=== PATIENT | female | born 1935 | race Caucasian/White ===

== ENCOUNTER 2016-08-31 22:57 | Inpatient (IN) | payer MEDICARE, OTHER ==
[2016-08-31] MEDS ORDERED: ASPIRIN 81 MG CHEW PO STA (23:17)
[2016-08-31] MEDS ORDERED: NITROGLYCERIN SL TABS 0.4 MG TAB SUBLINGUAL STA (23:17)
--- NOTE | 2016-08-31 23:20 | ED ---
Chest Pain HPI - General Source: patient, RN notes reviewed Mode of arrival: wheelchair Limitations: no limitations <Jsoe Barrientos - Last Filed: 09/01/16 01:30> <Juan Dejesus - Last Filed: 09/01/16 02:03> - General Chief Complaint: Chest Pain Stated Complaint: chest pain Time Seen by Provider: 08/31/16 23:12 - History of Present Illness Initial Comments: This is an 80-year-old female presents emergency Department with chief complaint of chest and back pain. Patient states that she seemed to start having some pain yesterday but pain intensified around 8 or 9 PM tonight. Patient states that she has pain in between her shoulder blades and anterior chest region. Patient states that hurts worse when she lays down. Patient does admit to increased shortness of breath when in which she does have COPD on home oxygen 2 L. Patient states that she's been told that she has an enlarged heart. Patient does have a history of hyperlipidemia, hypertension. Patient is a former smoker. Patient states that she has recently been taken off her Lasix. Patient does admit to taken 81 mg aspirin at home. Patient states she has no abdominal discomfort. Denies any vomiting but states that she had some nausea. Denies any diaphoresis. (Jose Barrientos) - Related Data Home Medications Medication Instructions Recorded Confirmed Aspirin [Adult Low Dose Aspirin EC] 1 tab PO DAILY 08/31/16 08/31/16 Enalapril Maleate [Vasotec] 5 mg PO DAILY 08/31/16 08/31/16 Simvastatin [Zocor] 1 tab PO DAILY 08/31/16 08/31/16 Allergies Allergy/AdvReac Type Severity Reaction Status Date / Time No Known Allergies Allergy Verified 08/31/16 23:02 Review of Systems ROS Other: All systems not noted in ROS Statement are negative. <Jose Barrientos - Last Filed: 09/01/16 01:30> ROS Other: All systems not noted in ROS Statement are negative. <Juan Dejesus - Last Filed: 09/01/16 02:03> ROS Statement: Those systems with pertinent positive or pertinent negative responses have been documented in the HPI. (Jose Barrientos) (Juan Dejesus) EKG Findings - EKG Comments: EKG Findings:: EKG performed at 23:07 normal sinus rhythm with a rate of 89, WA 154, QRS duration 94, QT/QTC 354/430 <Jose Barrientos - Last Filed: 09/01/16 01:30> Past Medical History Past Medical History: COPD, Myocardial Infarction ([place]) History of Any Multi-Drug Resistant Organisms: None Reported Past Surgical History: No Surgical Hx Reported Past Psychological History: No Psychological Hx Reported Smoking Status: Former smoker Past Alcohol Use History: None Reported Past Drug Use History: None Reported <Jose Barrientos - Last Filed: 09/01/16 01:30> General Exam Limitations: no limitations General appearance: alert, in no apparent distress, cachectic ENT exam: Present: normal exam, mucous membranes moist, other (Nasal cannula) Neck exam: Present: normal inspection. Absent: tenderness, meningismus, lymphadenopathy Respiratory exam: Present: decreased breath sounds. Absent: respiratory distress, wheezes, rales, rhonchi, stridor, chest wall tenderness, accessory muscle use Cardiovascular Exam: Present: regular rate, normal rhythm, normal heart sounds. Absent: systolic murmur, diastolic murmur, rubs, gallop, clicks GI/Abdominal exam: Present: soft, normal bowel sounds. Absent: distended, tenderness, guarding, rebound, rigid Neurological exam: Present: alert, oriented X3, CN II-XII intact Skin exam: Present: warm, dry, intact, normal color. Absent: rash <Jose Barrientos - Last Filed: 09/01/16 01:30> Course <Jose Barrientos - Last Filed: 09/01/16 01:30> <Juan Dejesus - Last Filed: 09/01/16 02:03> Vital Signs 08/31/16 09/01/16 22:59 01:00 Temperature 97.1 F L Pulse Rate 91 71 Respiratory 18 16 Rate Blood Pressure 158/77 189/76 O2 Sat by Pulse 95 96 Oximetry (Jose Barrientos) (Juan Dejesus) - Reevaluation(s) Reevaluation #1: 09/01/16 02:02 I did personally do a [id number] examination the patient. Patient's been complaining of pain to the right side of her chest the past 4 days now radiating to the left and across the back she denies any fevers chills nausea vomiting sweats. Pain was reproducible on palpation of the right trapezius musculature. Her x-rays and CAT scans show no acute findings. Patient be admitted for evaluation of chest pain. Heart and lungs were clear with regular rate and rhythm on the exam of the heart. I do agree with the assessment and plan. I did discuss case with Dr. Vogt. (Juan Dejesus) Disposition <Jose Barrientos - Last Filed: 09/01/16 01:30> <Juan Dejesus - Last Filed: 09/01/16 02:03> Clinical Impression: Chest pain Disposition: ADMITTED IP TO THIS HOSP Condition: Stable
--- NOTE | 2016-08-31 23:39 | XR ---
EXAMINATION TYPE: XR chest 2V DATE OF EXAM: 08/31/2016 11:32 PM COMPARISON: 07/30/2016 HISTORY: Chest pain TECHNIQUE: Frontal and lateral views of the chest are obtained. FINDINGS: Heart size is normal. Lungs are clear of consolidation. There is mild pleural thickening a t the lung apices. There is some right upper lobe scarring. There are no hilar masses. Thoracic aorta is atheromatous. There is no evidence of pleural effusion. There is osteopenia. IMPRESSION: No active cardiopulmonary disease. Normal heart. No change.
[2016-08-31 23:49] LABS: Basophils % (A) 0 %; CH 29.7; CHCM 33.2; Eosinophils # (A) 0.2 k/uL (0-0.7); Eosinophils % (A) 2 %; HCT 41.2 % (34.0-46.0); HDW 2.42; HGB 13.5 gm/dL (11.4-16.0); Luc # (Auto) 0.19; Luc % (Auto) 1; Lymphocytes # (A) 1.2 k/uL (1.0-4.8); Lymphocytes % (A) 8 %; MCH 29.3 pg (25.0-35.0); MCHC 32.7 g/dL (31.0-37.0); MCV 89.6 fL (80.0-100.0); Monocytes # (A) 0.8 k/uL (0-1.0); Monocytes % (A) 5 %; Neutrophils # (A) 12.5 k/uL (1.3-7.7); Neutrophils % (A) 83 %; RDW 13.2 % (11.5-15.5); WBC 14.9 k/uL (3.8-10.6)
[2016-09-01 00:01] LABS: ALT 35 U/L (9-52); AST 23 U/L (14-36); Alkaline Phosphatase 66 U/L (38-126); Anion Gap 9 mmol/L; Blood Urea Nitrogen 17 mg/dL (7-17); Calcium 10.1 mg/dL (8.4-10.2); Carbon Dioxide 27 mmol/L (22-30); Chloride 103 mmol/L (98-107); Glucose 132 mg/dL (74-99); Magnesium 1.9 mg/dL (1.6-2.3); Non-African American GFR(MDRD) >60 (>60 ml/min/1.73 sqM); Potassium 4.4 mmol/L (3.5-5.1); Sodium 139 mmol/L (137-145); Total Bilirubin 0.6 mg/dL (0.2-1.3); Total Protein 6.5 g/dL (6.3-8.2)
[2016-09-01 00:23] LABS: Creatine Kinase 143 U/L (30-135)
[2016-09-01 00:36] LABS: Partial Thromboplastin Time 20.9 sec (22.0-30.0); Troponin I <0.012 ng/mL (0.000-0.034)
[2016-09-01] MEDS ORDERED: RX INFO: IV CONTRAST WAS GIVEN 1 EACH MISC MISCELLANE PRN (00:38)
[2016-09-01 00:46] LABS: Creatine Kinase MB 4.5 ng/mL (0.0-2.4)
--- NOTE | 2016-09-01 01:21 | CT ---
EXAMINATION TYPE: CT angio chest DATE OF EXAM: 09/01/2016 1:07 AM COMPARISON: 01/17/2012 HISTORY: chest pain, elevated d-dimer CT DLP: 461 mGycm Automated exposure control for dose reduction was used. CONTRAST: CTA scan of the thorax is performed with IV Contrast, patient injected with 90 mL of Omnipaque 350, p ulmonary embolism protocol. MIP images are created and reviewed. 3D reconstructed images are create d on an independent workstation and reviewed. FINDINGS: There is diffuse pulmonary emphysema. There is a 3 x 1.5 cm linear area of somewhat spiculated infilt rate in the superior right upper lobe extending to the apex. This has a linear appearance and is cons istent with scarring. This appears fairly stable compared to the old CT scan of 01/17/2012. The thoracic aorta is atheromatous. There is no evidence of aneurysm. Ascending aorta measures 3.3 cm . There is a 2 cm lymph node at the superior right pulmonary hilum. Heart size is normal. There is no pericardial effusion. I see no filling defects in the pulmonary arteries. There is no pleural effusi on. IMPRESSION: ATHEROSCLEROTIC VASCULAR DISEASE. NO EVIDENCE OF PULMONARY EMBOLISM. EMPHYSEMA. CHRONIC MASSLIKE INFILTRATE IN THE RIGHT UPPER LOBE IS SOMEWHAT LINEAR AND CONSISTENT WITH SCARRING A ND FAIRLY STABLE COMPARED TO OLD EXAM. THERE IS AN ENLARGED RIGHT BRONCHIAL LYMPH NODE IS INCREASED COMPARED TO LAST EXAM AND IS OF UNCERTAI N SIGNIFICANCE.
[2016-09-01] MEDS ORDERED: HEPARIN SODIUM,PORCINE 5,000 UNIT/ML 1 ML VIAL IV ONE (01:30)
[2016-09-01] MEDS ORDERED: HEPARIN SODIUM,PORCINE/D5W PMX 25,000 UNIT in DEXTROSE/WATER 1 500ML.BAG IV SCH (01:30)
[2016-09-01] MEDS ORDERED: NITROGLYCERIN SL TABS 0.4 MG TAB SUBLINGUAL PRN (01:30)
[2016-09-01 07:00] LABS: Creatine Kinase 120 U/L (30-135)
[2016-09-01 07:12] LABS: Troponin I <0.012 ng/mL (0.000-0.034)
[2016-09-01 07:14] LABS: Creatine Kinase MB 3.7 ng/mL (0.0-2.4)
[2016-09-01] MEDS: METOPROLOL TARTRATE 25 MG TAB PO SCH ×2 (09:36→22:47)
[2016-09-01] MEDS: ATORVASTATIN 10 MG TAB PO SCH (09:37)
[2016-09-01] MEDS: ASPIRIN 81 MG CHEW PO SCH (09:37)
[2016-09-01] MEDS: LISINOPRIL 10 MG TAB PO SCH (09:37)
[2016-09-01] MEDS: ALBUTEROL NEBULIZED 2.5 MG/3 ML INHALATION SCH ×4 (10:26→20:32)
[2016-09-01] MEDS: SYMBICORT 160-4.5 MCG INHALER INHALATION SCH ×2 (10:26→20:32)
[2016-09-01 11:42] LABS: Creatine Kinase 114 U/L (30-135)
[2016-09-01 11:54] LABS: Troponin I <0.012 ng/mL (0.000-0.034)
[2016-09-01] MEDS ORDERED: ALBUTEROL NEBULIZED 2.5 MG/3 ML INHALATION SCH (12:00)
[2016-09-01 12:01] LABS: Creatine Kinase MB 3.5 ng/mL (0.0-2.4)
[2016-09-01] MEDS: ACETAMINOPHEN TAB 325 MG TAB PO PRN (12:50)
--- NOTE | 2016-09-01 14:06 | CONS ---
DATE OF CONSULTATION: Ms. Adamson is an 80-year-old female with known history of advanced chronic obstructive lung disease on home O2, history of hypertension, hyperlipidemia, who presented to the hospital with symptoms of upper back discomfort and chest discomfort. She has been having the back discomfort on and off in the past constant for the last 3 days, worse with movement and on pressure on the right shoulder and started radiating to the front. Because of that, came into the emergency room and subsequently admitted. Patient is on home O2, has dyspnea on exertion, has been stable. Has been followed by Dr. Leos in the past. In the past, she was told that she had a heart attack, but according to her, she has underwent cardiac catheterization at that time that revealed no evidence of obstructive coronary artery disease. She denies any peripheral edema. She denies any dizziness. No palpitation. No PND, orthopnea, or peripheral edema. She has no recent cough. She has some nausea and vomiting yesterday. Her coronary risk factors are remarkable for prior history of smoking. She stopped 7 years ago, history of hypertension and hyperlipidemia. She is nondiabetic. Her medications at home include: 1. Aspirin once a day. 2. Enalapril 5 mg daily. 3. Simvastatin 10 mg daily. REVIEW OF SYSTEMS: RESPIRATORY SYSTEM: She has the history of chronic obstructive lung disease with home O2 followed by Dr. Leos. GI system: She had no recent GI bleeding. She had recent nausea and vomiting. system: No dysuria or hematuria. Nervous system: Questionable history of stroke in the past. PHYSICAL EXAMINATION: An 80-year-old female, alert, oriented, in no apparent distress. Blood pressure 152/69 with a heart in the 70s. HEAD: Normocephalic. EYES: Sclerae anicteric. NECK: Good upstroke. No bruit. No jugular venous distention. LUNGS: With decreased air exchange. No wheezes. HEART: Regular rate rhythm. S1, S2, no S3, no rub. ABDOMEN: Soft, nontender, positive bowel sounds. No organomegaly. EXTREMITIES: No edema. Intact distal pulses. Lab data revealed hemoglobin 13.5. Troponin less than 0.012 for 2 samples BUN and creatinine 17 and 0.6. NT-proBNP of 269. Potassium 4.4. Hemoglobin of 13.5. Chest x-ray revealed no acute infiltrate. She had a CT angiogram of the chest that revealed atherosclerotic vascular disease. No evidence of pulmonary embolism, masslike infiltrate in the right upper lobe that apparently is stable. Enlarged right bronchial lymph nodes with some increased compared with the last exam. EKG revealed a sinus mechanism, normal axis and intervals, evidence of left ventricular hypertrophy with nonspecific ST-T wave changes. IMPRESSION: 1. Back and chest discomfort, has some atypical feature for ischemic heart disease. The back discomfort on the right side. There appears to be exacerbated by palpation on physical examination today. 2. Chronic obstructive lung disease. 3. History of hypertension. 4. Hyperlipidemia. RECOMMENDATIONS: From the cardiac standpoint, I will stop her heparin, increase her level of activity. If she has no further symptoms, then I would recommend to proceed with a stress test and echocardiogram as an outpatient. On the other hand if she had persistent symptoms further evaluation will be needed. In the meantime, I will add to her regimen a beta nilesh. Depending on her progress, further recommendation will be made. Thank you for this consult. We will follow with you.
--- NOTE | 2016-09-01 14:50 | XR ---
EXAMINATION TYPE: XR abdomen complete w decub DATE OF EXAM: 09/01/2016 2:42 PM COMPARISON: NONE HISTORY: Abdominal pain TECHNIQUE: 3 views. FINDINGS: There are multiple dilated loops of small bowel in the mid abdomen with a few fluid levels. There is no sign of pneumoperitoneum. There is air in the right colon. There is IV contrast in the urinary tracy dder. There are a few calcifications over the left kidney. IMPRESSION: There are dilated loops of small bowel suggestive of a mechanical small bowel obstruction. No free ai r.
[2016-09-01 15:47] LABS: Appearance,Urine Clear (Clear); Bacteria,Urine Occasional /hpf; Bilirubin,Urine Negative (Negative); Glucose,Urine (UA) Negative (Negative); Ketones,Urine Negative (Negative); Leukocyte Esterase,Urine Negative (Negative); Mucus,Urine Occasional /hpf; Nitrite,Urine Negative (Negative); Particle Count 10482; Protein,Urine 1+ (Negative); RBC,Urine 14 /hpf (0-5); Squamous Epithelial Cell,Urine 2 /hpf (0-4); UA Billing (MACRO vs. MICRO) MICRO; Urobilinogen,Urine <2.0 mg/dL (<2.0); WBC,Urine 5 /hpf (0-5)
[2016-09-01 16:15] LABS: Specific Gravity,Urine >1.050 (1.001-1.035)
[2016-09-01] MEDS: ONDANSETRON 4 MG/2 ML VIAL IVP PRN (17:05)
[2016-09-01] MEDS: SODIUM CHLORIDE 0.9% 1,000 ML IV SCH (17:13)
[2016-09-01] MEDS: DOCUSATE 100 MG CAP PO SCH (20:21)
[2016-09-01] MEDS: MORPHINE SULFATE 2 MG/ML SYRINGE IVP PRN (20:22)
[2016-09-02] MEDS: ALBUTEROL NEBULIZED 2.5 MG/3 ML INHALATION SCH ×7 (02:10→23:12)
[2016-09-02] MEDS: SODIUM CHLORIDE 0.9% 1,000 ML IV SCH ×2 (04:29→17:29)
[2016-09-02] MEDS: MORPHINE SULFATE 2 MG/ML SYRINGE IVP PRN ×2 (04:29→20:13)
[2016-09-02] MEDS: SYMBICORT 160-4.5 MCG INHALER INHALATION SCH ×2 (07:20→23:06)
[2016-09-02] MEDS: DOCUSATE 100 MG CAP PO SCH ×3 (07:22→20:10)
--- NOTE | 2016-09-02 07:31 | XR ---
EXAMINATION TYPE: XR abdomen 2V DATE OF EXAM: 09/02/2016 6:36 AM COMPARISON: 09/01/2016 HISTORY: Pain TECHNIQUE: Single supine KUB image of the abdomen is obtained. FINDINGS: The osseous structures are intact. Dilated bowel loops with air-fluid levels again noted. Contrast in the bladder noted. Vascular calcifications noted. IMPRESSION: 1. Persistent dilation of bowel loops with air-fluid levels in a pattern suggestive of small bowel ob struction.
[2016-09-02 07:54] LABS: Basophils % (A) 0 %; CH 29.4; CHCM 32.5; Eosinophils # (A) 0.1 k/uL (0-0.7); Eosinophils % (A) 1 %; HCT 36.9 % (34.0-46.0); HDW 2.34; Luc # (Auto) 0.15; Luc % (Auto) 1; Lymphocytes # (A) 0.8 k/uL (1.0-4.8); Lymphocytes % (A) 8 %; MCH 29.7 pg (25.0-35.0); MCHC 32.6 g/dL (31.0-37.0); Mean Platelet Volume 6.8; Monocytes # (A) 0.7 k/uL (0-1.0); Monocytes % (A) 7 %; Neutrophils # (A) 8.8 k/uL (1.3-7.7); Neutrophils % (A) 84 %; RBC 4.06 m/uL (3.80-5.40); RDW 13.2 % (11.5-15.5); WBC 10.5 k/uL (3.8-10.6); WBC (Perox) 11.46
[2016-09-02 07:58] LABS: Calcium 8.8 mg/dL (8.4-10.2); Potassium 4.4 mmol/L (3.5-5.1)
[2016-09-02] MEDS ORDERED: ASPIRIN 325 MG TAB PO SCH (09:00)
--- NOTE | 2016-09-02 12:30 | P.GSCN ---
History of Present Illness Consult date: 09/02/16 History of present illness: The patient is an 80-year-old female presented to the emergency department with a complaint of chest and back discomfort. She has a long-standing history of severe COPD and is dependent on home O2. After admission to the hospital family states that she began having abdominal discomfort. The patient had nausea and vomited. The patient has apparent increased abdominal distention since admission. The patient is passing flatus. The patient states that she has minimal discomfort when she is resting recumbent. The patient's last bowel movement was 4 days ago. Secondary to her COPD patient has been told she is a very poor candidate for surgical intervention. Review of systems: HEENT: None reported Respiratory: COPD, requiring Home O2 heart: Myocardial infarction GI: As reported above above Past Medical History Past Medical History: COPD, Hyperlipidemia, Myocardial Infarction ([place]) Last Myocardial Infarction Date:: 2009 History of Any Multi-Drug Resistant Organisms: None Reported Past Surgical History: Tonsillectomy, Tubal Ligation Past Anesthesia/Blood Transfusion Reactions: No Reported Reaction Past Psychological History: No Psychological Hx Reported Smoking Status: Former smoker Past Alcohol Use History: None Reported Past Drug Use History: None Reported Medications and Allergies Home Medications Medication Instructions Recorded Confirmed Type Aspirin [Adult Low Dose Aspirin EC] 81 tab PO DAILY 08/31/16 09/01/16 History Enalapril Maleate [Vasotec] 2.5 mg PO DAILY 08/31/16 09/01/16 History Albuterol Nebulized [Ventolin 2.5 mg INHALATION RT-Q4H PRN 09/01/16 09/01/16 History Nebulized] Albuterol Sulfate [Proair Hfa] 1 - 2 puff INHALATION RT-Q6H PRN 09/01/16 History Budesonide/Formoterol Fumarate 2 puff INHALATION RT-BID 09/01/16 09/01/16 History [Symbicort 160-4.5 Mcg Inhaler] Simvastatin [Zocor] 20 mg PO DAILY 09/01/16 09/01/16 History Allergies Allergy/AdvReac Type Severity Reaction Status Date / Time No Known Allergies Allergy Verified 09/01/16 09:11 Surgical - Exam Vital Signs Temp Pulse Resp BP Pulse Ox 97.1 F L 91 18 158/77 95 08/31/16 22:59 08/31/16 22:59 08/31/16 22:59 08/31/16 22:59 08/31/16 22:59 - General cachectic - Eyes normal ocular movement - Respiratory Decreased breath sounds at the bases - Cardiovascular Rhythm: regular Heart Sounds: normal: S1, S2 - Abdomen Abdomen: non tender, bowel sounds, distended - Rectum Positive stool on rectal exam Rectum: normal sphincter tone, no bleeding - Psychiatric oriented to time, oriented to person, oriented to place Results - Labs 09/02/16 07:23 09/02/16 07:23 Abnormal Lab Results - Last 24 Hours (Table) 09/01/16 09/02/16 09/02/16 Range/Units 14:57 07:23 07:23 Neutrophils # 8.8 H (1.3-7.7) k/uL Lymphocytes # 0.8 L (1.0-4.8) k/uL BUN 25 H (7-17) mg/dL Creatinine 1.23 H (0.52-1.04) mg/dL Glucose 114 H (74-99) mg/dL HDL Cholesterol 65 H (40-60) mg/dL Ur Specific [place] >1.050 H (1.001-1.035) Urine Protein 1+ H (Negative) Urine RBC 14 H (0-5) /hpf Urine Bacteria Occasional H (None) /hpf Urine Mucus Occasional H (None) /hpf Diabetes panel 09/02/16 Range/Units 07:23 Sodium 141 (137-145) mmol/L Potassium 4.4 (3.5-5.1) mmol/L Chloride 100 (98-107) mmol/L Carbon Dioxide 30 (22-30) mmol/L BUN 25 H (7-17) mg/dL Creatinine 1.23 H (0.52-1.04) mg/dL Glucose 114 H (74-99) mg/dL Calcium 8.8 (8.4-10.2) mg/dL Triglycerides 107 (<150) mg/dL HDL Cholesterol 65 H (40-60) mg/dL Calcium panel 09/02/16 Range/Units 07:23 Calcium 8.8 (8.4-10.2) mg/dL Pituitary panel 09/02/16 Range/Units 07:23 Sodium 141 (137-145) mmol/L Potassium 4.4 (3.5-5.1) mmol/L Chloride 100 (98-107) mmol/L Carbon Dioxide 30 (22-30) mmol/L BUN 25 H (7-17) mg/dL Creatinine 1.23 H (0.52-1.04) mg/dL Glucose 114 H (74-99) mg/dL Calcium 8.8 (8.4-10.2) mg/dL Adrenal panel 09/02/16 Range/Units 07:23 Sodium 141 (137-145) mmol/L Potassium 4.4 (3.5-5.1) mmol/L Chloride 100 (98-107) mmol/L Carbon Dioxide 30 (22-30) mmol/L BUN 25 H (7-17) mg/dL Creatinine 1.23 H (0.52-1.04) mg/dL Glucose 114 H (74-99) mg/dL Calcium 8.8 (8.4-10.2) mg/dL - Imaging Abdominal x-ray: report reviewed, image reviewed (Abdominal x-ray reveals distended small bowel loops however there is air in the colon) Assessment and Plan Plan: Impression/plan: 1. Chest pain, patient seen and evaluated by cardiology does not appear to have an acute cardiac problem and recommended to undergo outpatient stress test and echo 2. Severe COPD 3. Abdominal discomfort however patient is passing flatus and has stool in rectal vault Plan: 1. Fleets enema 2. Patient does not have resolution of symptoms were strongly recommend NG tube placement 3. Patient is very poor candidate for surgical intervention will try to treat conservatively
[2016-09-02] MEDS ORDERED: NA PHOS,M-B/NA PHOS,DI-BA 133 ML ENEMA RECTAL ONE (12:56)
--- NOTE | 2016-09-02 13:47 | HP ---
DATE OF ADMISSION: HISTORY OF PRESENT ILLNESS: Ms. Adamson is an 80-year-old female with ( ) with known history of hypertension, hyperlipidemia and COPD on home oxygen, came to the hospital with complaints of chest pain and back pain. Apparently the patient has been having significant back pain from recent fall and patient on right shoulder pain which made her come to the hospital. Patient is a former smoker. Otherwise patient was seen by Cardiology and serial EKGs are negative. Patient apparently was complaining of abdominal pain, mainly in the lower abdomen and associated with nausea and poor oral intake. Abdominal x-ray showed dilated loops of small bowel suggestive of mechanical small bowel obstruction. No free air. Patient is currently being continued on IV fluids and kept n.p.o. No fever. No chills. REVIEW OF SYSTEMS: CONSTITUTIONAL: No fever. No chills. No weakness, malaise. RESPIRATORY: No cough or sputum production. CARDIOVASCULAR: No chest pain or shortness of breath. No leg swelling. ABDOMEN: Patient does have nausea and no vomiting. Patient does have abdominal pain. No diarrhea. Patient does have constipation. GENITOURINARY: Negative. ENDOCRINE: Negative. PSYCHIATRIC: Negative. All other fourteen point review of systems negative except as above. Apparently patient had recently had gastroenteritis with diarrhea for 2 days and since then patient has not passed a bowel movement and is not tolerating p.o. diet. Apparently similar complaints in the place where she was living. PAST MEDICAL HISTORY: Hypertension, hyperlipidemia, COPD on home oxygen, history of cardiac catheterization, history of ND. PAST SURGICAL HISTORY: Denied any surgical history. SOCIAL HISTORY: Patient is former smoker. Denied alcohol. Denied drugs or IVDU. FAMILY HISTORY: Denied any history of hypertension, diabetes mellitus, heart disease in the family. ALLERGIES: No known drug allergies. Home medication include: Aspirin, Enalapril, Zocor. PHYSICAL EXAMINATION: An 80-year-old female, lying in the bed. Awake, alert, oriented x3. Appears to be in no apparent distress. VITALS: Blood pressure 143/66, pulse is 61, respiratory rate 18, temperature afebrile, pulse ox 94% on 2-L nasal cannula. HEENT: Atraumatic, normocephalic. Neck is supple. No JVD. CVS: S1, S2 heard. No murmurs, no gallop. LUNGS: Bilateral air entry present. ABDOMEN: Soft. Bowel sounds are sluggish, not heard sometimes. Lower abdominal tenderness. No guarding or rigidity. Bowel sounds present. [employer] VET[employer]INARIAN: Awake, alert, oriented x3. No focal deficit. Cranial nerves grossly intact. EXTREMITIES: No edema. Pulses palpable bilaterally. No clubbing or cyanosis. PSYCHIATRIC: Cooperative. Nonsuicidal. SKIN: No rash or skin lesions. LABORATORY DATA: WBC 14.9, hemoglobin 10.5, platelets 290, INR 1.0. D-dimer is 1.57. Sodium 139, potassium 4.4, chloride 103, bicarb is 27. BUN 17, creatinine 0.6. Blood sugar is 132. NT-proBNP is 269. Albumin 4.1. Serial EKGs and troponins are negative. UA negative for infection. EKG: Normal sinus rhythm. CT angiogram negative for any pulmonary embolism. Chest x-ray showed no acute cardiopulmonary process. Normal heart size. No change. IMPRESSION: 1. Abdominal pain most likely secondary to mechanical small bowel obstruction. 2. Recent gastroenteritis. 3. Atypical chest pain and back pain from recent fall, rule out acute coronary syndrome. 4. Hypertension. 5. Hyperlipidemia. 6. Chronic obstructive pulmonary disease on home oxygen, stable currently. 7. DVT prophylaxis with heparin subcu. DISCUSSION AND PLAN: An 80-year-old female admitted to the hospital with abdominal pain and atypical chest pain. Will continue with IV fluids and continue with the patient n.p.o. Will consult General Surgery and continue the breathing treatments and home medications. Cardiology recommended outpatient work-up. Otherwise will continue the current management and further recommendations based on the clinical course.
[2016-09-02] MEDS: HEPARIN SODIUM,PORCINE 5,000 UNIT/ML 1 ML VIAL SQ SCH ×2 (14:44→20:10)
[2016-09-02] MEDS: ATORVASTATIN 10 MG TAB PO SCH (14:44)
[2016-09-02] MEDS: ASPIRIN 81 MG CHEW PO SCH (14:44)
[2016-09-02] MEDS: METOPROLOL TARTRATE 25 MG TAB PO SCH ×2 (14:44→20:10)
[2016-09-02] MEDS: LISINOPRIL 10 MG TAB PO SCH (14:44)
--- NOTE | 2016-09-02 18:41 | PN ---
Mrs. Adamson is an 80-year-old female with known history of advanced chronic obstructive lung disease, who presented with back and chest discomfort. Her chest and back feels well at this time. Her main complaint is related to her abdominal discomfort, she has been having discomfort in the abdomen since yesterday. She denies any dizziness, palpitation. On the monitor, she continued to be in sinus mechanism At the time for cardiac catheterization, she had no evidence of obstructive heart disease, but there was evidence of cardiomyopathy and according to the notes, there was a possibility of takotsubo syndrome. She continues to be at this time on aspirin once a day, Lipitor 10 mg daily, Lisinopril 10 mg daily, metoprolol titrate 25 mg twice a day. PHYSICAL EXAMINATION: Blood pressure 114/56 with a heart rate in the 70s. LUNGS: Clear. HEART: Regular rate and rhythm. S1 and S2, no S3, with systolic murmur. No diastolic murmur. ABDOMEN: Soft, mild tenderness diffuse. No organomegaly. EXTREMITIES: No edema. Lab data revealed BUN and creatinine 25 and 1.23. Potassium 4.4. Cholesterol is 155 with an LDL of 69. Hemoglobin of 12 with white blood cell of 10.5. She had abdominal x-ray that showed dilatation of the bowel loops ( ) air fluid levels consistent with small bowel obstruction. IMPRESSION: 1. Abdominal pain with possible small bowel obstruction. Work-up in progress. 2. Back and chest discomfort, atypical for ischemic heart disease. 3. History of chronic obstructive lung disease. 4. History of hypertension. 5. Hyperlipidemia. RECOMMENDATIONS: From the cardiac standpoint. She has no evidence of active disease at this time. I will obtain an echocardiogram and Doppler because of the prior history of cardiomyopathy, although that could be a transient pain. The mild elevation of the renal function could be related to the dye she received with CT angiogram. Will await the surgical consultation in regard to her abdominal symptoms.
[2016-09-02] MEDS: TEMAZEPAM 15 MG CAP PO PRN (20:13)
[2016-09-03] MEDS: ONDANSETRON 4 MG/2 ML VIAL IVP PRN ×2 (00:41→13:28)
[2016-09-03] MEDS: ALBUTEROL NEBULIZED 2.5 MG/3 ML INHALATION SCH ×7 (03:58→23:43)
[2016-09-03] MEDS: SODIUM CHLORIDE 0.9% 1,000 ML IV SCH ×2 (04:39→20:10)
[2016-09-03] MEDS: SYMBICORT 160-4.5 MCG INHALER INHALATION SCH ×2 (07:49→19:48)
[2016-09-03] MEDS: DOCUSATE 100 MG CAP PO SCH ×2 (08:13→20:10)
[2016-09-03] MEDS: ASPIRIN 81 MG CHEW PO SCH (08:13)
[2016-09-03] MEDS: ATORVASTATIN 10 MG TAB PO SCH (08:13)
[2016-09-03] MEDS: LISINOPRIL 10 MG TAB PO SCH (08:13)
[2016-09-03] MEDS: METOPROLOL TARTRATE 25 MG TAB PO SCH ×2 (08:13→20:10)
[2016-09-03] MEDS: HEPARIN SODIUM,PORCINE 5,000 UNIT/ML 1 ML VIAL SQ SCH ×2 (08:14→21:13)
[2016-09-03 09:36] LABS: Anion Gap 12 mmol/L; Blood Urea Nitrogen 22 mg/dL (7-17); Calcium 8.3 mg/dL (8.4-10.2); Carbon Dioxide 26 mmol/L (22-30); Chloride 104 mmol/L (98-107); Glucose 89 mg/dL (74-99); Non-African American GFR(MDRD) >60 (>60 ml/min/1.73 sqM); Potassium 4.1 mmol/L (3.5-5.1); Sodium 142 mmol/L (137-145)
[2016-09-03 09:42] LABS: Basophils % (A) 0 %; CH 29.1; CHCM 31.4; Eosinophils # (A) 0.1 k/uL (0-0.7); Eosinophils % (A) 1 %; HCT 34.3 % (34.0-46.0); Luc % (Auto) 1; Lymphocytes # (A) 0.8 k/uL (1.0-4.8); Lymphocytes % (A) 10 %; MCH 29.8 pg (25.0-35.0); Mean Platelet Volume 7.4; Monocytes # (A) 0.5 k/uL (0-1.0); Monocytes % (A) 6 %; Neutrophils # (A) 6.9 k/uL (1.3-7.7); Neutrophils % (A) 81 %; RBC 3.69 m/uL (3.80-5.40); WBC 8.4 k/uL (3.8-10.6); WBC (Perox) 8.82
--- NOTE | 2016-09-03 13:11 | PN ---
DATE OF SERVICE: 09/02/2016 Interval history: Ms. Adamson is an 80 -year-old female with known history of multiple medical problems admitted to the hospital with complaints of back pain and chest pain. Patient also had recent fall. The patient also having shoulder pain and back pain since then. Otherwise, patient was found to have constipation and recent diarrhea. Patient had abdominal x-ray done showed dilated small bowel loops with possible small bowel obstruction. Patient was continued on NPO. The patient had a ( ) today and had bowel movement which symptoms have been resolved now. Currently, patient is ( ). REVIEW OF SYSTEMS: CONSTITUTIONAL: No fever. No chills. RESPIRATORY: No cough or sputum production. CARDIOVASCULAR: No chest pain, short of breath. ABDOMEN: No nausea, vomiting, abdominal pain. GENITOURINARY: Negative. ENDOCRINE: Negative. PSYCHIATRY: Negative. SKIN: Negative. All other 14 point review of systems negative except as above. CURRENT MEDICATIONS: Reviewed. PHYSICAL EXAMINATION: An 80-year-old female, lying in bed. Awake, alert, oriented, x3, appears in no apparent distress. VITALS: Blood pressure is 117/74, pulse is 61, respiratory rate 16, temperature afebrile. Pulse ox 97% on 2 L nasal cannula. HEENT: Atraumatic, normocephalic. NECK: Supple. No JVD. CVS: S1, S2 heard. No murmurs. No gallop. LUNGS: Bilateral air entry is present. No wheezing. No crackles. ABDOMEN: Soft. Bowel sounds are present. No palpable organomegaly. DIE CAST DIE MAKER: Awake, alert and oriented x3. No focal neurologic deficit. EXTREMITIES: No edema, pulses palpable bilaterally. No clubbing or cyanosis. PSYCHIATRIC: Cooperative. Nonsuicidal. SKIN: No rash or skin lesions. LABORATORY DATA: WBC 10.5, hemoglobin 12.0, platelets 332. Sodium 141, potassium 4.4, chloride ( ) bicarb is 30. BUN 25, creatinine 1.23. HDL 65, LDL is 69. ASSESSMENT: 1. Abdominal pain secondary to small bowel obstruction, resolved now. Patient did have bowel movement today with Fleets enema. 2. Recent gastroenteritis. 3. Atypical chest pain and back pain with recent fall. Ruled out acute coronary syndrome. 4. Elevated d. dimer, CT angiogram is negative for any pulmonary embolism. 5. Acute kidney injury, most likely prerenal ( ) contrast dye. 6. Hypertension. 7. Hyperlipidemia. 8. Chronic obstructive pulmonary disease on home oxygen. 9. Deep venous thrombosis prophylaxis, heparin subcu. DISCUSSION AND PLAN: An 80 -year-old female admitted to the hospital with abdominal pain, atypical chest pain and patient was found to have small bowel obstruction, which resolved at this time. The patient will be continued on n.p.o. and continue with IV fluids and anticipate start on liquid diet tomorrow. Dr. Garcia is following the patient. Cardiology has cleared from that standpoint. Further recommendations based on the clinical course.
--- NOTE | 2016-09-03 14:39 | P.PN ---
Progress Note - Text Patient's x-rays were reviewed.. Be consistent with worsening possible small bowel obstruction Patient's abdomen is soft and she has been passing flatus, although she did have an episode of vomiting earlier today At this time I'll make patient nothing by mouth and place an NG tube X-rays in the morning, secondary to severe COPD there is concern that the patient well, however this may be necessary should her abdominal findings not improve At this point clinically she does not have an acute surgical abdomen we will continue to try to manage conservatively
--- NOTE | 2016-09-03 15:14 | P.PN ---
Subjective 80-year-old female being seen on rounds. Patient continues to report having abdominal discomfort with nausea vomiting 1 this morning. Patient stated passing gas no stool. Patient does report that the abdominal discomfort continues to persist. Patients being followed by surgical service at the request of the attending. Patient does have a history of severe COPD home O2 dependent patient is felt to be a poor surgical candidate secondary to pulmonary status the patient with history of COPD requiring home O2 the surgeon did review the abdominal x-rays. They're consistent with worsening possible small bowel obstruction. The recommendations are to proceed with conservative management . Recommending keeping patient nothing by mouth proceed with a nasal gastric tube. X-rays will be repeated in the morning. The surgeon Dr. Gibbs did review the x-ray of the abdomen today and at this point clinically does not appear to have a surgical abdomen we'll continue with a conservative approach to managing symptoms Objective - Vital Signs Vital signs: Vital Signs Temp 97.1 F L 09/03/16 07:00 Pulse 82 09/03/16 11:31 Resp 20 09/03/16 07:00 BP 126/53 09/03/16 07:00 Pulse Ox 96 09/03/16 07:51 Intake & Output 09/02/16 09/03/16 09/03/16 18:59 06:59 18:59 Intake Total 920 Balance 920 Intake: IV 320 Sodium Chloride 0.9% 1, 320 000 ml @ 80 mls/hr IV . [id number] [facility] Rx#:[id number] Oral 600 Other: # Voids 2 - Exam Physical exam 80-year-old female sitting up in bed reports a nausea sensation no active emesis at this time pleasant oriented 3 Lungs posterior diminished at the bases upper airways bronchial breath sounds no wheezing oxygen at 2 L keeping a sat 96% Heart S1-S2 audible and regular no murmur denying chest pain Abdomen slightly distended firm with slight palpitation to the abdominal wall facial grimacing noted no rebound patient reports having diffuse abdominal discomfort a few hypoactive bowel tones noted. States passing flatus no stool no difficulty in urinating persistent nausea sensation no active emesis Extremities no evidence of edema to the upper or lower extremities - Labs CBC & Chem 7: 09/03/16 08:31 09/03/16 08:29 Labs: Abnormal Lab Results - Last 24 Hours (Table) 01/03/17 01/03/17 Range/Units 08:29 08:31 RBC 3.69 L (3.80-5.40) m/uL Hgb 11.0 L (11.4-16.0) gm/dL Lymphocytes # 0.8 L (1.0-4.8) k/uL BUN 22 H (7-17) mg/dL Calcium 8.3 L (8.4-10.2) mg/dL Assessment and Plan Plan: Impression Present on admission abdominal pain nausea vomiting suspect due to possible small bowel obstruction Severe COPD with supplemental home O2 Present on admission chest pain cardiology following Plan Keep patient nothing by mouth with IV hydration Poor candidate for surgical intervention treat conservatively Insert nasogastric tube monitor the response IV hydration as ordered DVT and GI prophylaxis Repeat an abdominal x-ray in the morning further recommendations pending will follow surgical course closely addressing surgical issues as they arise Pain control The above dictated assessment and findings were discussed with Magui Gibbs. Impression and the plan of care have been dictated as directed. Adenike Navarro nurse practitioner acting as a scribe for Dr. Garcia
--- NOTE | 2016-09-03 15:30 | XR ---
2 view abdomen HISTORY: Abdominal distention 2 views of the abdomen correlated to previous exam second September 2016 Air-fluid levels, distended small bowel loops are again noted. No evident pneumoperitoneum. Lung base s are clear. Contrast has cleared the urinary bladder. IMPRESSION: Correlate for small bowel obstruction. Dilation of small bowel loops has become more cons picuous.
--- NOTE | 2016-09-03 16:27 | P.PN ---
Subjective Patient is an 80-year-old female with multiple medical problems admitted with complaints of back, shoulder, and chest pain. Patient also had a recent fall or she continues to have shoulder pain and back pain after a fall. Patient also complained of constipation with recent diarrhea and abdominal x-ray with evidence of dilated small bowel loops with possible small bowel obstruction. Surgical consult was obtained and patient had bowel movements after receiving Fleet enema. Upon evaluation, patient is reporting abdominal pain with nausea and vomiting this morning. Patient is passing flatus but no bowel movement. Surgery services seen and evaluated patient and his recommending to keep patient nothing by mouth proceed with an NG tube. Repeat abdominal x-rays in a.m. Patient is a poor surgical candidate secondary to severe COPD with chronic hypoxic respiratory failure. Objective - Vital Signs Vital signs: Vital Signs Temp 97.1 F L 09/03/16 07:00 Pulse 82 09/03/16 11:31 Resp 20 09/03/16 07:00 BP 126/53 09/03/16 07:00 Pulse Ox 96 09/03/16 07:51 Intake & Output 09/02/16 09/03/16 09/03/16 18:59 06:59 18:59 Intake Total 920 Balance 920 Intake: IV 320 Sodium Chloride 0.9% 1, 320 000 ml @ 80 mls/hr IV . [id number] [facility] Rx#:[id number] Oral 600 Other: # Voids 2 - Exam GENERAL: Pt awake and alert, well-nourished, and in no acute distress. HEAD: Atraumatic, normocephalic. EYES: Pupils equal and round. ENT: Oropharynx clear without exudates. Moist mucous membranes. NECK:Supple without lymphadenopathy or JVD. LUNGS: Breath sounds diminished to auscultation bilaterally. HEART: Heart S1, S2, no S3 or S4. Regular rate and rhythm. No murmurs, rubs or gallops. ABDOMEN: Soft, diffuse tenderness, mildly distended, hyperactive bowel sounds. Voluntary guarding. No rebound. EXTREMITIES: 2+ peripheral pulses. No edema. No calf tenderness. NEUROLOGICAL: Pt oriented x 3. Cranial nerves II through XII grossly intact. Strength and sensation grossly intact. PSYCH: Normal mood, normal affect. SKIN: Warm, dry, intact. Normal turgor. No rashes or lesions. - Labs CBC & Chem 7: 09/03/16 08:31 01/03/17 08:29 Labs: Abnormal Lab Results - Last 24 Hours (Table) 09/03/16 09/03/16 Range/Units 08:29 08:31 RBC 3.69 L (3.80-5.40) m/uL Hgb 11.0 L (11.4-16.0) gm/dL Lymphocytes # 0.8 L (1.0-4.8) k/uL BUN 22 H (7-17) mg/dL Calcium 8.3 L (8.4-10.2) mg/dL Assessment and Plan Plan: Impression and plan: 1. Abdominal pain associated with nausea and vomiting secondary to small bowel obstruction. Surgical service is following patient. Nasogastric tube has been ordered. Continue nothing by mouth status. Repeat abdominal x-ray in a.m. 2. Chronic hypoxic respiratory failure secondary to severe COPD with home oxygen around the clock. 3. Atypical chest pain, present on admission, resolved. From a cardiac standpoint, patient has no evidence of active disease at this point. Echocardiogram with Doppler pending. 4. History of recent gastroenteritis. 5. Acute kidney injury, mostly prerenal secondary to contrast dye, resolved. 6. Hypertension. 7. Hyperlipidemia. Continue to monitor patient. Continue current medications. Continue supportive treatment and pain management. Continue IV hydration. Continue GI and DVT prophylaxis. Continue follow consultants. Repeat CBC and BMP in a.m. The above impression and plan have been discussed and directed by Dr. Mattson. Anna BUSTAMANTE acting as scribe for Dr. Mattson.
[2016-09-03] MEDS: MORPHINE SULFATE 2 MG/ML SYRINGE IVP PRN (22:00)
[2016-09-04] MEDS: DOCUSATE 100 MG CAP PO SCH ×2 (07:41→20:55)
[2016-09-04] MEDS: ASPIRIN 81 MG CHEW PO SCH (07:41)
[2016-09-04] MEDS: ATORVASTATIN 10 MG TAB PO SCH (07:41)
[2016-09-04] MEDS: METOPROLOL TARTRATE 25 MG TAB PO SCH ×2 (07:41→20:55)
[2016-09-04] MEDS: LISINOPRIL 10 MG TAB PO SCH (07:41)
[2016-09-04] MEDS: SYMBICORT 160-4.5 MCG INHALER INHALATION SCH ×2 (08:10→19:44)
[2016-09-04] MEDS: ALBUTEROL NEBULIZED 2.5 MG/3 ML INHALATION SCH ×4 (08:10→19:44)
--- NOTE | 2016-09-04 08:19 | XR ---
EXAMINATION TYPE: XR abdomen 2V DATE OF EXAM ORDERED: 09/04/2016 8:02 AM HISTORY: Small bowel obstruction. COMPARISON: Previous study dated 09/03/2016. FINDINGS: NG tube has been placed. Its tip is coiled in stomach. There continue to be dilated loops of small bowel. There is a small amount of colonic air. There are scattered air-fluid levels. The overall appearance has improved. IMPRESSION: IMPROVING SMALL BOWEL OBSTRUCTION.
[2016-09-04] MEDS: SODIUM CHLORIDE 0.9% 1,000 ML IV SCH ×2 (08:48→20:57)
[2016-09-04] MEDS: HEPARIN SODIUM,PORCINE 5,000 UNIT/ML 1 ML VIAL SQ SCH ×2 (08:48→20:55)
[2016-09-04 09:10] LABS: Basophils % (A) 0 %; CH 29.2; CHCM 31.8; Eosinophils # (A) 0.1 k/uL (0-0.7); Eosinophils % (A) 1 %; HCT 34.1 % (34.0-46.0); HDW 2.53; HGB 10.9 gm/dL (11.4-16.0); Luc # (Auto) 0.13; Luc % (Auto) 1; Lymphocytes # (A) 0.6 k/uL (1.0-4.8); Lymphocytes % (A) 7 %; MCH 29.5 pg (25.0-35.0); MCV 92.1 fL (80.0-100.0); Mean Platelet Volume 6.9; Monocytes # (A) 0.5 k/uL (0-1.0); Monocytes % (A) 6 %; Neutrophils # (A) 7.6 k/uL (1.3-7.7); Neutrophils % (A) 85 %; WBC (Perox) 9.54
[2016-09-04 09:39] LABS: Anion Gap 12 mmol/L; Blood Urea Nitrogen 14 mg/dL (7-17); Calcium 8.4 mg/dL (8.4-10.2); Carbon Dioxide 28 mmol/L (22-30); Chloride 106 mmol/L (98-107); Glucose 69 mg/dL (74-99); Non-African American GFR(MDRD) >60 (>60 ml/min/1.73 sqM); Potassium 3.8 mmol/L (3.5-5.1); Sodium 146 mmol/L (137-145)
--- NOTE | 2016-09-04 10:52 | ECHOF ---
Referral Reason:cm MEASUREMENTS -------- HEIGHT: 157.5 cm WEIGHT: 57.6 kg BP: 117/54 RVIDd: 3.2 cm (< 3.3) IVSd: 1.0 cm (0.6 - 1.1) LVIDd: 4.3 cm (3.9 - 5.3) LVPWd: 1.0 cm (0.6 - 1.1) IVSs: 1.5 cm LVIDs: 2.8 cm LVPWs: 1.4 cm LA Diam: 3.6 cm (2.7 - 3.8) LAESV Index (A-L): 21.11 ml/m Ao Diam: 2.8 cm (2.0 - 3.7) AV Cusp: 2.0 cm (1.5 - 2.6) LA Diam: 3.6 cm (2.7 - 3.8) MV EXCURSION: 12.842 mm (> 18.000) MV EF SLOPE: 56 mm/s (70 - 150) EPSS: 0.3 cm MV E Alfie: 0.56 m/s MV DecT: 347 ms MV A Alfie: 0.85 m/s MV E/A Ratio: 0.66 RAP: 5.00 mmHg RVSP: 34.27 mmHg FINDINGS -------- Sinus rhythm. This was a technically good study. Left ventricular wall thickness is normal. Overall left ventricular systolic function is normal with, an EF between 55 - 60 %. The right ventricle is mildly enlarged. Normal LA size by volume 22+/-6 ml/m2. The right atrium is normal in size. Aortic valve is trileaflet and is mildly thickened. The mitral valve leaflets are mildly thickened. Mild mitral annular calcification present. Trace tricuspid regurgitation present. Right ventricular systolic pressure is normal at < 35 mmHg. Pulmonic valve appears structurally normal. The aortic root size is normal. Normal inferior vena cava with normal inspiratory collapse consistent with estimated right atrial pressure of 5 mmHg. Echo free space may represent effusion or a pericardial fat pad. CONCLUSIONS -------- 1. Sinus rhythm. 2. Mild mitral annular calcification present. 3. Trace tricuspid regurgitation present. 4. Right ventricular systolic pressure is normal at < 35 mmHg. 5. Pulmonic valve appears structurally normal. 6. The aortic root size is normal. 7. Echo free space may represent effusion or a pericardial fat pad. 8. This was a technically good study. 9. Left ventricular wall thickness is normal. 10. Overall left ventricular systolic function is normal with, an EF between 55 - 60 %. 11. The right ventricle is mildly enlarged. 12. Normal LA size by volume 22+/-6 ml/m2. 13. The right atrium is normal in size. 14. Aortic valve is trileaflet and is mildly thickened. 15. The mitral valve leaflets are mildly thickened. SLOT TECHNICIAN: Federica Shepherd RDCS
[2016-09-04] MEDS: BENZOCAINE SPRAY 100 APPLIC/CAN MUCOUS MEM PRN ×2 (11:46→20:55)
--- NOTE | 2016-09-04 12:05 | P.PN ---
Subjective 80-year-old female being seen on rounds with the attending this morning nasal gastric tube in place. There is a significant improvement in the abdominal distention this morning. Patient reportedly is experiencing less abdominal discomfort. No stooling this morning. Nursing documents since nasogastric tube inserted yesterday afternoon has put out 1000 ml abdominal x-ray obtained this morning shows small bowel obstruction improving. Continues to have dilated loops of small bowel. There is a small amount of colonic air Objective - Vital Signs Vital signs: Vital Signs Temp 98.0 F 09/04/16 06:22 Pulse 84 09/04/16 08:24 Resp 16 09/04/16 06:22 BP 159/68 09/04/16 06:22 Pulse Ox 98 09/04/16 06:22 Intake & Output 09/03/16 09/04/16 09/04/16 18:59 06:59 18:59 Intake Total 920 880 Output Total 1000 Balance 920 -120 Intake: IV 320 880 Sodium Chloride 0.9% 1, 320 880 000 ml @ 80 mls/hr IV . [id number] [facility] Rx#:[id number] Oral 600 0 Output: Gastric Drainage 1000 Other: Voiding Method Bedside Commode # Voids 1 - Exam Physical exam 80-year-old female resting in bed a nasal gastric tube in place sitting up. Pleasant oriented 3. States abdominal discomfort improving. Lungs adequate air movement bilaterally currently on room air sats are 98% no cough noted Heart S1-S2 audible and regular denying chest pain no murmur Abdomen less distended compared to prior assessment. A few hypoactive bowel tones noted. Nasogastric tube left Nare connected to suction approximately 200 mL out since 7 AM. No stooling. States not passing any gas. No difficulty in urinating Extremities no evidence of edema to the upper or lower extremities - Labs CBC & Chem 7: 09/04/16 08:31 09/04/16 08:31 Labs: Abnormal Lab Results - Last 24 Hours (Table) 09/04/16 09/04/16 Range/Units 08:31 08:31 RBC 3.70 L (3.80-5.40) m/uL Hgb 10.9 L (11.4-16.0) gm/dL Lymphocytes # 0.6 L (1.0-4.8) k/uL Sodium 146 H (137-145) mmol/L Glucose 69 L (74-99) mg/dL Assessment and Plan Plan: Impression Present on admission abdominal pain nausea vomiting suspect due to possible small bowel obstruction Severe COPD with supplemental home O2 Present on admission chest pain cardiology following Plan Keep patient nothing by mouth with IV hydration Poor candidate for surgical intervention treat conservatively Monitor BEAR's address as indicated IV hydration as ordered DVT and GI prophylaxis Pain control The above dictated assessment and findings were discussed with Magui Gibbs. Impression and the plan of care have been dictated as directed. Adenike Navarro nurse practitioner acting as a scribe for Dr. Garcia
--- NOTE | 2016-09-04 13:39 | P.PN ---
Subjective Principal diagnosis: Small bowel obstruction Patient is an 80-year-old female with multiple medical problems admitted with complaints of back, shoulder, and chest pain. Patient was found to have evidence of small bowel obstruction and surgical consult was requested. Upon evaluation, nasogastric tube has been placed for small bowel decompression. Patient denies flatus or bowel movements. Patient reports improvement in abdominal pain. Denies nausea or vomiting. Patient is complaining of a sore throat. Abdominal x-ray from today shows improvement in small bowel obstruction. Objective - Vital Signs Vital signs: Vital Signs Temp 98.0 F 09/04/16 06:22 Pulse 77 09/04/16 12:18 Resp 16 09/04/16 06:22 BP 159/68 09/04/16 06:22 Pulse Ox 98 09/04/16 06:22 Intake & Output 09/03/16 09/04/16 09/04/16 18:59 06:59 18:59 Intake Total 920 880 Output Total 1100 1000 Balance -180 -120 Intake: IV 320 880 Sodium Chloride 0.9% 1, 320 880 000 ml @ 80 mls/hr IV . [id number] [facility] Rx#:[id number] Oral 600 0 Output: Gastric Drainage 1100 1000 Other: Voiding Method Bedside Commode # Voids 1 - Exam GENERAL: Pt awake and alert, well-nourished, and in no acute distress. HEAD: Atraumatic, normocephalic. EYES: Pupils equal and round. ENT: Oropharynx clear without exudates. Moist mucous membranes. NECK:Supple without lymphadenopathy or JVD. LUNGS: Breath sounds diminished to auscultation bilaterally. HEART: Heart S1, S2, no S3 or S4. Regular rate and rhythm. No murmurs, rubs or gallops. ABDOMEN: Soft, nontender, nondistended, hyperactive bowel sounds. No guarding. No rebound. EXTREMITIES: 2+ peripheral pulses. No edema. No calf tenderness. NEUROLOGICAL: Pt oriented x 3. Cranial nerves II through XII grossly intact. Strength and sensation grossly intact. PSYCH: Normal mood, normal affect. SKIN: Warm, dry, intact. Normal turgor. No rashes or lesions. - Labs CBC & Chem 7: 09/04/16 08:31 09/04/16 08:31 Labs: Abnormal Lab Results - Last 24 Hours (Table) 09/04/16 09/04/16 Range/Units 08:31 08:31 RBC 3.70 L (3.80-5.40) m/uL Hgb 10.9 L (11.4-16.0) gm/dL Lymphocytes # 0.6 L (1.0-4.8) k/uL Sodium 146 H (137-145) mmol/L Glucose 69 L (74-99) mg/dL Assessment and Plan Plan: Impression and plan: 1. Abdominal pain associated with nausea and vomiting secondary to small bowel obstruction, improved. Surgical service is following patient. Nasogastric tube has been ordered. Continue nothing by mouth status. Increase activity. Consult PT/OT. 2. Chronic hypoxic respiratory failure secondary to severe COPD with home oxygen around the clock. 3. Atypical chest pain, present on admission, resolved. From a cardiac standpoint, patient has no evidence of active disease at this point. Echocardiogram with Doppler pending. 4. History of recent gastroenteritis. 5. Acute kidney injury, mostly prerenal secondary to contrast dye, resolved. 6. Hypertension. 7. Hyperlipidemia. Continue to monitor patient. Continue current medications. Continue supportive treatment and pain management. Continue IV hydration. Continue GI and DVT prophylaxis. Continue follow consultants. Repeat CBC and BMP in a.m. The above impression and plan have been discussed and directed by Dr. Mattson. Anna BUSTAMANTE acting as scribe for Dr. Mattson.
[2016-09-04] MEDS: TEMAZEPAM 15 MG CAP PO PRN (20:55)
[2016-09-05] MEDS: MORPHINE SULFATE 2 MG/ML SYRINGE IVP PRN ×3 (03:57→19:57)
[2016-09-05] MEDS: SYMBICORT 160-4.5 MCG INHALER INHALATION SCH ×2 (07:31→20:00)
[2016-09-05] MEDS: ALBUTEROL NEBULIZED 2.5 MG/3 ML INHALATION SCH ×4 (07:31→20:00)
[2016-09-05] MEDS: SODIUM CHLORIDE 0.9% 1,000 ML IV SCH (10:04)
[2016-09-05] MEDS: DOCUSATE 100 MG CAP PO SCH ×2 (10:05→19:51)
[2016-09-05] MEDS: HEPARIN SODIUM,PORCINE 5,000 UNIT/ML 1 ML VIAL SQ SCH ×2 (10:05→20:45)
[2016-09-05] MEDS: ATORVASTATIN 10 MG TAB PO SCH (10:05)
[2016-09-05] MEDS: LISINOPRIL 10 MG TAB PO SCH (10:05)
[2016-09-05] MEDS: ASPIRIN 81 MG CHEW PO SCH (10:05)
[2016-09-05] MEDS: METOPROLOL TARTRATE 25 MG TAB PO SCH ×2 (10:06→19:51)
--- NOTE | 2016-09-05 12:03 | P.PN ---
Subjective 80-year-old female being seen on rounds this morning. Daughter at bedside updated on plan of care questions answered. Patient reports that she has been up ambulating once this morning in the hallway did pass some gas no stool. Currently the nasal gastric tube is clamped secondary to medication being given. Nasogastric tube put out 400ml for 12 hours Patient reports less abdominal discomfort. With no nausea sensation Abdominal x-ray currently pending. Patients being followed by surgical service at the request of the attending for small bowel obstruction. Abdominal x-rays this morning are pending Objective - Vital Signs Vital signs: Vital Signs Temp 97.8 F 09/05/16 07:00 Pulse 82 09/05/16 07:45 Resp 22 09/05/16 07:00 BP 180/74 09/05/16 07:00 Pulse Ox 99 09/05/16 07:00 Intake & Output 09/04/16 09/05/16 09/05/16 18:59 06:59 18:59 Output Total 200 450 Balance -200 -450 Output: Gastric Drainage 200 450 Other: Voiding Method Bedside Commode # Voids 1 2 # Bowel Movements 0 - Exam Physical exam 80-year-old female sitting up in bed appears in no acute distress pleasant cooperative oriented 3 Lungs essentially clear with adequate air movement on room air sats greater than 90% no conversational dyspnea noted Heart S1-S2 audible regular not able to appreciate a murmur denying chest pain when questioning Abdomen a significant improvement less distended soft no facial grimacing with palpitation to the abdominal wall bowel tones present. Nasal gastric tube left Nare in place states urinating with no difficulty. No stool. Extremities no evidence of edema to the upper or lower extremities. No calf tenderness - Labs CBC & Chem 7: 09/04/16 08:31 09/04/16 08:31 Assessment and Plan Plan: Impression Present on admission abdominal pain nausea vomiting suspect due to possible small bowel obstruction improving Severe COPD with supplemental home O2 Left ventricular systolic function normal EF between 55 and 60% per echocardiogram 09/03/2015 Plan Keep patient nothing by mouth with IV hydration Poor candidate for surgical intervention treat conservatively Monitor I&O's address as indicated IV hydration as ordered DVT and GI prophylaxis Pain control Repeated abdominal x-ray today and in the morning if the continues to be a noted improvement the nasal gastric tube will be removed and a diet will be initiated and advanced as tolerated The above dictated assessment and findings were discussed with dr cali Impression and the plan of care have been dictated as directed. Adenike Navarro nurse practitioner acting as a scribe for Dr. cali
--- NOTE | 2016-09-05 12:21 | XR ---
EXAMINATION TYPE: XR abdomen 2V DATE OF EXAM: 09/05/2016 12:17 PM COMPARISON: 147 seen HISTORY: Pain TECHNIQUE: Single supine KUB image of the abdomen is obtained FINDINGS: NG tube is in place. There is persistence of dilated small bowel with interval improvement suggested. Gas and fecal material is seen in non-distended colon. No convincing evidence for pneumoperitoneum. No unusual calcifications. The lung bases are clear. The osseous structures are intact. IMPRESSION: 1. Persistent but improving small bowel dilatation.
--- NOTE | 2016-09-05 14:17 | P.PN ---
Subjective Principal diagnosis: Small bowel obstruction Patient is an 80-year-old female with multiple medical problems admitted with complaints of back, shoulder, and chest pain. Patient was found to have evidence of small bowel obstruction and surgical consult was requested. Patient is evaluated at bedside but she continues to have nasogastric tube for small bowel decompression. Patient is complaining of mild posterior neck pain. Denies chills, fevers, nausea, vomiting, shortness of breath, chest pain, or abdominal pain. Denies flatus or bowel movements. Abdomen x-ray from today with evidence of persistent but improving small bowel dilatation. Objective - Vital Signs Vital signs: Vital Signs Temp 97.8 F 09/05/16 07:00 Pulse 80 09/05/16 11:53 Resp 22 09/05/16 07:00 BP 180/74 09/05/16 07:00 Pulse Ox 99 09/05/16 07:00 Intake & Output 09/04/16 09/05/16 09/05/16 18:59 06:59 18:59 Output Total 200 450 Balance -200 -450 Output: Gastric Drainage 200 450 Other: Voiding Method Bedside Commode Bedside Commode # Voids 1 2 # Bowel Movements 0 - Exam GENERAL: Pt awake and alert, well-nourished, and in no acute distress. HEAD: Atraumatic, normocephalic. EYES: Pupils equal and round. ENT: Oropharynx clear without exudates. Moist mucous membranes. NECK:Supple without lymphadenopathy or JVD. LUNGS: Breath sounds diminished to auscultation bilaterally. HEART: Heart S1, S2, no S3 or S4. Regular rate and rhythm. No murmurs, rubs or gallops. ABDOMEN: Soft, nontender, nondistended, hyperactive bowel sounds. No guarding. No rebound. EXTREMITIES: 2+ peripheral pulses. No edema. No calf tenderness. NEUROLOGICAL: Pt oriented x 3. Cranial nerves II through XII grossly intact. Strength and sensation grossly intact. PSYCH: Normal mood, normal affect. SKIN: Warm, dry, intact. Normal turgor. No rashes or lesions. - Labs CBC & Chem 7: 09/04/16 08:31 09/04/16 08:31 Assessment and Plan Plan: Impression and plan: 1. Abdominal pain associated with nausea and vomiting secondary to small bowel obstruction, improved. Surgical service is following patient. Nasogastric tube has been ordered. Continue nothing by mouth status. Increase activity. Consult PT/OT. 2. Chronic hypoxic respiratory failure secondary to severe COPD with home oxygen around the clock. 3. Atypical chest pain, present on admission, resolved. From a cardiac standpoint, patient has no evidence of active disease at this point. Echocardiogram with Doppler shows preserved LV function with an EF between 55-60 %. 4. History of recent gastroenteritis. 5. Acute kidney injury, mostly prerenal secondary to contrast dye, resolved. 6. Hypertension. Will add hydralazine 10 mg every 6 hours when necessary for systolic blood pressure 160. 7. Hyperlipidemia. Continue to monitor patient. Continue current medications. Continue supportive treatment and pain management. Continue IV hydration. Continue GI and DVT prophylaxis. Continue follow consultants. Repeat CBC and BMP in a.m. The above impression and plan have been discussed and directed by Dr. Mattson. Anna BUSTAMANTE acting as scribe for Dr. Mattson.
[2016-09-05] MEDS: DEXTROSE 5%-0.45% NACL 1,000 ML IV SCH (16:37)
[2016-09-05] MEDS: BENZOCAINE SPRAY 100 APPLIC/CAN MUCOUS MEM PRN ×2 (17:33→20:45)
[2016-09-05] MEDS: ONDANSETRON 4 MG/2 ML VIAL IVP PRN (17:41)
[2016-09-05] MEDS: TEMAZEPAM 15 MG CAP PO PRN (19:47)
[2016-09-06] MEDS: DEXTROSE 5%-0.45% NACL 1,000 ML IV SCH ×2 (04:15→17:18)
[2016-09-06] MEDS: MORPHINE SULFATE 2 MG/ML SYRINGE IVP PRN ×3 (04:15→20:13)
[2016-09-06] MEDS: BENZOCAINE SPRAY 100 APPLIC/CAN MUCOUS MEM PRN ×2 (06:44→12:18)
--- NOTE | 2016-09-06 07:46 | XR ---
EXAMINATION TYPE: XR abdomen 2V DATE OF EXAM: 09/06/2016 7:34 AM COMPARISON: 09/05/2016 HISTORY: Pain TECHNIQUE: Single supine KUB image of the abdomen is obtained. FINDINGS: NG tube now noted. Persistent dilated small bowel loops are seen. Vascular calcifications noted. Calcification left upper quadrant may be related to the kidney. Diffuse osteopenia is seen. Subsegmen leah changes involving the right lung base noted with findings suggestive of COPD. Atherosclerotic javad nge of the aorta. Arthropathy of the hips. IMPRESSION: 1. Nonspecific abdomen. NG tube now seen with no significant interval change relative to the previou s exam. Small bowel dilation persists.
[2016-09-06] MEDS: ASPIRIN 81 MG CHEW PO SCH (08:35)
[2016-09-06] MEDS: HEPARIN SODIUM,PORCINE 5,000 UNIT/ML 1 ML VIAL SQ SCH ×2 (08:35→22:48)
[2016-09-06] MEDS: ATORVASTATIN 10 MG TAB PO SCH (08:35)
[2016-09-06] MEDS: DOCUSATE 100 MG CAP PO SCH ×2 (08:35→20:21)
[2016-09-06] MEDS: ALBUTEROL NEBULIZED 2.5 MG/3 ML INHALATION SCH ×4 (09:05→20:50)
[2016-09-06] MEDS: SYMBICORT 160-4.5 MCG INHALER INHALATION SCH ×2 (09:06→20:51)
[2016-09-06 09:13] LABS: Basophils % (A) 0 %; CH 29.6; CHCM 32.2; Eosinophils # (A) 0.1 k/uL (0-0.7); Eosinophils % (A) 1 %; HCT 34.3 % (34.0-46.0); HDW 2.64; HGB 10.5 gm/dL (11.4-16.0); Luc % (Auto) 1; Lymphocytes # (A) 0.6 k/uL (1.0-4.8); Lymphocytes % (A) 6 %; MCH 28.5 pg (25.0-35.0); MCHC 30.8 g/dL (31.0-37.0); MCV 92.6 fL (80.0-100.0); Mean Platelet Volume 7.7; Monocytes # (A) 0.8 k/uL (0-1.0); Monocytes % (A) 8 %; Neutrophils # (A) 8.2 k/uL (1.3-7.7); Neutrophils % (A) 84 %; WBC 9.7 k/uL (3.8-10.6); WBC (Perox) 10.69
[2016-09-06 09:39] LABS: ALT 27 U/L (9-52); AST 14 U/L (14-36); Alkaline Phosphatase 56 U/L (38-126); Anion Gap 12 mmol/L; Blood Urea Nitrogen 4 mg/dL (7-17); Calcium 8.5 mg/dL (8.4-10.2); Carbon Dioxide 29 mmol/L (22-30); Chloride 105 mmol/L (98-107); Glucose 148 mg/dL (74-99); Magnesium 1.7 mg/dL (1.6-2.3); Non-African American GFR(MDRD) >60 (>60 ml/min/1.73 sqM); Phosphorous 2.4 mg/dL (2.5-4.5); Potassium 3.3 mmol/L (3.5-5.1); Sodium 146 mmol/L (137-145); Total Bilirubin 0.4 mg/dL (0.2-1.3); Total Protein 5.4 g/dL (6.3-8.2)
--- NOTE | 2016-09-06 12:03 | P.PN ---
Subjective 80-year-old female being seen on rounds with the attending this morning. Currently is resting in bed. Patient does report less abdominal pain. No document stooling. Patient states is anxious to have the gastric tube removed. Patient has a nasal gastric in the left Nare connected to suction. Patient is being followed by surgical service at the request of the attending for workup for abdominal pain suspect due to a small bowel obstruction. Discussion was had at the bedside this morning with the patient and the surgical service to proceed with small bowel follow-through x-ray this morning if there is a noted improvement the gastric tube will be removed at that time and diet would be advanced accordingly. If there is no significant improvement surgical service will review the results with the patient and discuss potential option of surgical procedure patient is aware. Service discussed with PCP Dr. Mattson at the bedside this morning the surgical approach questions answered Objective - Vital Signs Vital signs: Vital Signs Temp 98.4 F 09/06/16 07:00 Pulse 74 09/06/16 07:00 Resp 20 09/06/16 07:00 BP 160/71 09/06/16 07:00 Pulse Ox 94 L 09/06/16 07:00 Intake & Output 09/05/16 09/06/16 09/06/16 18:59 06:59 18:59 Output Total 225 Balance -225 Output: Gastric Drainage 225 Other: Voiding Method Bedside Commode # Voids 3 3 - Exam Physical exam. Pleasant cooperative oriented 3 80-year-old female resting in bed stated anxious to have a gastric tube removed Lungs diminished at the bases otherwise adequate air movement no wheezing rail rhonchi noted Heart S1-S2 audible and regular denying chest pain Abdomen soft slight tenderness diffuse through the abdominal wall bowel tones present 4 no reports of nausea vomiting no difficulty in urinating and no stool nasal gastric tube to suction Extremities no evidence of edema upper or lower extremities - Labs CBC & Chem 7: 09/06/16 08:05 09/06/16 08:05 Labs: Abnormal Lab Results - Last 24 Hours (Table) 09/06/16 09/06/16 Range/Units 08:05 08:05 RBC 3.70 L (3.80-5.40) m/uL Hgb 10.5 L (11.4-16.0) gm/dL MCHC 30.8 L (31.0-37.0) g/dL Neutrophils # 8.2 H (1.3-7.7) k/uL Lymphocytes # 0.6 L (1.0-4.8) k/uL Sodium 146 H (137-145) mmol/L Potassium 3.3 L (3.5-5.1) mmol/L BUN 4 L (7-17) mg/dL Creatinine 0.49 L (0.52-1.04) mg/dL Glucose 148 H (74-99) mg/dL Phosphorus 2.4 L (2.5-4.5) mg/dL Total Protein 5.4 L (6.3-8.2) g/dL Albumin 3.0 L (3.5-5.0) g/dL Assessment and Plan Plan: Impression Present on admission abdominal pain nausea vomiting suspect due to possible small bowel obstruction improving Severe COPD with supplemental home O2 Left ventricular systolic function normal EF between 55 and 60% per echocardiogram 09/03/2015 Plan Keep patient nothing by mouth with IV hydration Poor candidate for surgical intervention treat conservatively Monitor I&O's address as indicated IV hydration as ordered DVT and GI prophylaxis Pain control Small bowel follow-through x-ray will be obtained this morning follow-up on the results pending the results further recommendations The above dictated assessment and findings were discussed with dr cali Impression and the plan of care have been dictated as directed. Adenike Navarro nurse practitioner acting as a scribe for Dr. cali
--- NOTE | 2016-09-06 12:24 | P.CNPUL ---
History of Present Illness Consult date: 09/06/16 Requesting physician: Chandra Mattson Reason for consult: COPD Chief complaint: Abdominal pain History of present illness: This is an 80-year-old female patient who follows with Dr. Mattson as her primary care physician. She also sees Dr. Leos in our office for severe oxygen dependent Gold stage III chronic obstructive pulmonary disease. Her FEV1 value is 40% of predicted. Which is 0.70 L. Her MVV is 30 and RV/TLC 70%. She presented here back on 09/01/2016 with complaints of chest pain. Acute coronary syndrome was ruled out. She is now being worked up for possible bowel obstruction. We're consulted today for preop clearance. Based on her most recent pulmonary function test the patient would be high risk for surgery. She also has a history of prolonged ventilatory dependence following a previous surgery. She's not had any pulmonary complaints on this admission. She is maintaining good O2 saturations in the upper 90s on 2 L/m per nasal cannula. She's been afebrile. She did have a CT angiogram done on admission ruled out pulmonary embolism. There was evidence of emphysema and some linear scarring. No acute pulmonary process. Review of Systems Twelve point review of system was conducted all negative other than as mentioned in HPI and that being mostly of initially chest pain and subsequently abdominal pain with possible bowel obstruction. Workup is in progress. Past Medical History Past Medical History: COPD, Hyperlipidemia, Myocardial Infarction (OK) Last Myocardial Infarction Date:: 2009 History of Any Multi-Drug Resistant Organisms: None Reported Past Surgical History: Tonsillectomy, Tubal Ligation Past Anesthesia/Blood Transfusion Reactions: No Reported Reaction Past Psychological History: No Psychological Hx Reported Smoking Status: Former smoker Past Alcohol Use History: None Reported Past Drug Use History: None Reported Medications and Allergies Home Medications Medication Instructions Recorded Confirmed Type Aspirin [Adult Low Dose Aspirin EC] 81 tab PO DAILY 08/31/16 09/01/16 History Enalapril Maleate [Vasotec] 2.5 mg PO DAILY 08/31/16 09/01/16 History Albuterol Nebulized [Ventolin 2.5 mg INHALATION RT-Q4H PRN 09/01/16 09/01/16 History Nebulized] Albuterol Sulfate [Proair Hfa] 1 - 2 puff INHALATION RT-Q6H PRN 09/01/16 History Budesonide/Formoterol Fumarate 2 puff INHALATION RT-BID 09/01/16 09/01/16 History [Symbicort 160-4.5 Mcg Inhaler] Simvastatin [Zocor] 20 mg PO DAILY 09/01/16 09/01/16 History Allergies Allergy/AdvReac Type Severity Reaction Status Date / Time No Known Allergies Allergy Verified 09/01/16 09:11 Physical Exam Vitals: Vital Signs Temp Pulse Pulse Resp BP Pulse Ox 09/06/16 07:00 98.4 F 74 20 160/71 94 L 09/05/16 23:00 98.4 F 78 16 152/69 97 09/05/16 20:25 72 09/05/16 20:00 74 09/05/16 15:34 76 09/05/16 15:24 76 09/05/16 15:00 97.5 F L 70 22 160/67 98 Intake and Output 09/05/16 09/06/16 09/06/16 22:59 06:59 14:59 Output Total 150 75 Balance -150 -75 Output: Gastric Drainage 150 75 Other: # Voids 1 3 Results - Laboratory Findings CBC and BMP: 09/06/16 08:05 09/06/16 08:05 PT/INR, D-dimer PT 10.0 sec (9.0-12.0) 08/31/16 23:15 INR 1.0 (<1.1) 08/31/16 23:15 D-Dimer 1.57 mg/L FEU (<0.60) H 08/31/16 23:15 Abnormal lab findings: Abnormal Labs 09/03/16 09/03/16 09/04/16 08:29 08:31 08:31 RBC 3.69 L 3.70 L Hgb 11.0 L 10.9 L MCHC Neutrophils # Lymphocytes # 0.8 L 0.6 L Sodium Potassium BUN 22 H Creatinine Glucose Calcium 8.3 L Phosphorus Total Protein Albumin 09/04/16 09/06/16 09/06/16 08:31 08:05 08:05 RBC 3.70 L Hgb 10.5 L MCHC 30.8 L Neutrophils # 8.2 H Lymphocytes # 0.6 L Sodium 146 H 146 H Potassium 3.3 L BUN 4 L Creatinine 0.49 L Glucose 69 L 148 H Calcium Phosphorus 2.4 L Total Protein 5.4 L Albumin 3.0 L - Diagnostic Findings CT scan - chest: image reviewed Assessment and Plan Plan: Impression: #1 Atypical chest pain. Acute coronary syndrome ruled out. #2 Abdominal pain with suspected bowel obstruction, workup currently in progress. #3 Chronic obstructive pulmonary disease, Gold stage III, oxygen dependent. Currently inactive and stable. #4 History of prolonged ventilatory dependence following previous surgery. #5 Hypertension. #6 Hyperlipidemia. Plan: The patient was seen and evaluated by Dr. Conroy. Pulmonary function testing was reviewed from our office. The patient is at high risk for any surgical intervention. This was conveyed to both Adenike Navarro NP and Dr. Sai Dejesus. If the patient does require urgent surgery we have recommended the least amount of anesthesia necessary and early extubation if possible. We have optimized her pulmonary medications. We have also discussed the situation with her daughter who is present at the bedside. We'll continue to follow and make further recommendations based on her clinical status.
[2016-09-06] MEDS: LISINOPRIL 10 MG TAB PO SCH (12:33)
[2016-09-06] MEDS: METOPROLOL TARTRATE 25 MG TAB PO SCH ×2 (12:33→20:21)
[2016-09-06] MEDS: hydrALAZINE HCL 20 MG/ML 1 ML VIAL IVP PRN (13:14)
[2016-09-06] MEDS ORDERED: INSULIN LISPRO (humaLOG) 300 UNIT/3 ML VIAL SQ SCH (16:45)
[2016-09-06] MEDS ORDERED: MVI, ADULT NO.4 WITH VIT K 10 ML, TRACE (CONC-1ML/DOSE) 1 ML in AMINO ACID 4.25%-D10W+L... IV ONE ×3 (18:00)
[2016-09-06] MEDS: INSULIN LISPRO (humaLOG) 300 UNIT/3 ML VIAL SQ SCH (18:09)
[2016-09-06] MEDS ORDERED: Potassium Replacement Protocol 1 EACH MISC MISCELLANE PRN (18:33)
[2016-09-06] MEDS ORDERED: Phosphorus Replacement Protoco 1 EACH MISC MISCELLANE PRN (18:34)
[2016-09-06] MEDS ORDERED: SODIUM PHOSPHATE 10 MMOL in SODIUM CHLORIDE 0.9% 250 ML IVPB ONE (18:34)
--- NOTE | 2016-09-06 18:38 | P.PN ---
Subjective Principal diagnosis: Small bowel obstruction Patient is an 80-year-old female with multiple medical problems admitted with complaints of back, shoulder, and chest pain. Patient was found to have evidence of small bowel obstruction and surgical consult was requested. Patient is evaluated at bedside where she continues to have a nasogastric tube for small bowel decompression. Small bowel x-ray result pending. Denies chills , fevers, nausea, vomiting, shortness of breath, chest pain, or abdominal pain. Denies flatus or bowel movements. Abdomen x-ray from today with evidence of persistent small bowel dilatation. Objective - Vital Signs Vital signs: Vital Signs Temp 98.2 F 09/06/16 15:00 Pulse 88 09/06/16 17:05 Resp 20 09/06/16 16:47 BP 149/72 09/06/16 15:00 Pulse Ox 97 09/06/16 15:00 Intake & Output 09/05/16 09/06/16 09/06/16 18:59 06:59 18:59 Output Total 225 Balance -225 Weight 57.606 kg Output: Gastric Drainage 225 Other: Voiding Method Bedside Commode # Voids 3 3 0 # Bowel Movements 0 - Exam GENERAL: Pt awake and alert, well-nourished, and in no acute distress. HEAD: Atraumatic, normocephalic. EYES: Pupils equal and round. ENT: Oropharynx clear without exudates. Moist mucous membranes. NECK:Supple without lymphadenopathy or JVD. LUNGS: Breath sounds diminished to auscultation bilaterally. HEART: Heart S1, S2, no S3 or S4. Regular rate and rhythm. No murmurs, rubs or gallops. ABDOMEN: Soft, nontender, nondistended, hyperactive bowel sounds. No guarding. No rebound. EXTREMITIES: 2+ peripheral pulses. No edema. No calf tenderness. NEUROLOGICAL: Pt oriented x 3. Cranial nerves II through XII grossly intact. Strength and sensation grossly intact. PSYCH: Normal mood, normal affect. SKIN: Warm, dry, intact. Normal turgor. No rashes or lesions. - Labs CBC & Chem 7: 09/06/16 08:05 09/06/16 08:05 Labs: Abnormal Lab Results - Last 24 Hours (Table) 09/06/16 09/06/16 Range/Units 08:05 08:05 RBC 3.70 L (3.80-5.40) m/uL Hgb 10.5 L (11.4-16.0) gm/dL MCHC 30.8 L (31.0-37.0) g/dL Neutrophils # 8.2 H (1.3-7.7) k/uL Lymphocytes # 0.6 L (1.0-4.8) k/uL Sodium 146 H (137-145) mmol/L Potassium 3.3 L (3.5-5.1) mmol/L BUN 4 L (7-17) mg/dL Creatinine 0.49 L (0.52-1.04) mg/dL Glucose 148 H (74-99) mg/dL Phosphorus 2.4 L (2.5-4.5) mg/dL Total Protein 5.4 L (6.3-8.2) g/dL Albumin 3.0 L (3.5-5.0) g/dL Assessment and Plan Plan: Impression and plan: 1. Abdominal pain associated with nausea and vomiting secondary to small bowel obstruction, improved. Surgical service is following patient. Nasogastric tube has been ordered. Continue nothing by mouth status. Increase activity. Continue conservative measures for now per surgical service. 2. Chronic hypoxic respiratory failure secondary to severe COPD with home oxygen around the clock. Pulmonary service has evaluated patient and patient is deemed high risk for any surgical convention. 3. Atypical chest pain, present on admission, resolved. From a cardiac standpoint, patient has no evidence of active disease at this point. Echocardiogram with Doppler shows preserved LV function with an EF between 55-60 %. 4. History of recent gastroenteritis. 5. Acute kidney injury, mostly prerenal secondary to contrast dye, resolved. 6. Hypertension. Will add hydralazine 10 mg every 6 hours when necessary for systolic blood pressure 160. 7. Hyperlipidemia. 8. Hypokalemia. Replace potassium per protocol. 9. Hypophosphatemia. Replace phosphorus per protocol. 10. Mild protein calorie malnutrition secondary to nothing by mouth status secondary to small bowel obstruction. Parental nutrition has been ordered by surgery. Continue to monitor patient. Continue current medications. Continue supportive treatment and pain management. Continue IV hydration. Continue GI and DVT prophylaxis. Continue to follow consultants. Repeat CBC, BMP, magnesium and phosphorus in a.m. The above impression and plan have been discussed and directed by Dr. Mattson. Anna CERNA-Dinora acting as scribe for Dr. Mattson.
[2016-09-06] MEDS: FAT EMULSION 20% 250 ML IV SCH (20:01)
[2016-09-06] MEDS: ONDANSETRON 4 MG/2 ML VIAL IVP PRN (20:20)
[2016-09-06] MEDS: POTASSIUM CHLORIDE 10 MEQ, LIDOCAINE 2% INJ 10 MG in SODIUM CHLORIDE 0.9% 100 ML IV SCH ×2 (22:48→23:59)
[2016-09-07] LABS: Glucose,Whole Blood 170 mg/dL (75-99)
[2016-09-07] MEDS: MORPHINE SULFATE 2 MG/ML SYRINGE IVP PRN ×3 (00:05→19:57)
[2016-09-07 05:56] LABS: Glucose,Whole Blood 190 mg/dL (75-99)
[2016-09-07] MEDS: DEXTROSE 5%-0.45% NACL 1,000 ML IV SCH ×2 (07:49→16:35)
[2016-09-07] MEDS: INSULIN LISPRO (humaLOG) 300 UNIT/3 ML VIAL SQ SCH ×4 (07:50→18:17)
[2016-09-07 07:51] LABS: Glucose,Whole Blood 160 mg/dL (75-99)
[2016-09-07 08:09] LABS: Ionized Calcium 4.9 mg/dL (4.5-5.3)
[2016-09-07 08:20] LABS: Anion Gap 6 mmol/L; Blood Urea Nitrogen 8 mg/dL (7-17); Calcium 8.2 mg/dL (8.4-10.2); Carbon Dioxide 30 mmol/L (22-30); Chloride 100 mmol/L (98-107); Glucose 182 mg/dL (74-99); Magnesium 1.6 mg/dL (1.6-2.3); Non-African American GFR(MDRD) >60 (>60 ml/min/1.73 sqM); Phosphorous 2.3 mg/dL (2.5-4.5); Potassium 3.1 mmol/L (3.5-5.1); Sodium 136 mmol/L (137-145); Triglycerides 103 mg/dL (<150)
[2016-09-07] MEDS: ASPIRIN 81 MG CHEW PO SCH (08:25)
[2016-09-07] MEDS: ATORVASTATIN 10 MG TAB PO SCH (08:25)
[2016-09-07] MEDS: METOPROLOL TARTRATE 25 MG TAB PO SCH ×2 (08:26→20:51)
[2016-09-07] MEDS: DOCUSATE 100 MG CAP PO SCH ×2 (08:26→20:51)
[2016-09-07] MEDS: LISINOPRIL 10 MG TAB PO SCH (08:26)
[2016-09-07] MEDS: ALBUTEROL NEBULIZED 2.5 MG/3 ML INHALATION SCH ×4 (08:45→20:31)
[2016-09-07] MEDS: SYMBICORT 160-4.5 MCG INHALER INHALATION SCH ×2 (08:46→20:32)
[2016-09-07] MEDS: HEPARIN SODIUM,PORCINE 5,000 UNIT/ML 1 ML VIAL SQ SCH ×2 (09:34→20:53)
[2016-09-07] MEDS ORDERED: POTASSIUM CHLORIDE 10 MEQ in WATER FOR INJECTION 1 100ML.BAG IVPB SCH (09:45)
[2016-09-07] MEDS: POTASSIUM CHLORIDE 10 MEQ, LIDOCAINE 2% INJ 10 MG in SODIUM CHLORIDE 0.9% 100 ML IV SCH ×2 (09:56→11:15)
[2016-09-07] MEDS ORDERED: 1: MVI, ADULT NO.4 WITH VIT K 10 ML, TRACE (CONC-1ML/DOSE) 1 ML in AMINO ACID 4.25%-D10W IV SCH ×3 (10:00)
--- NOTE | 2016-09-07 10:03 | FL ---
EXAMINATION TYPE: FL small bowel follow through DATE OF EXAM: 09/07/2016 9:52 AM CLINICAL HISTORY: Admitted for pain and distention, suspected small bowel obstruction September 01, 2016 . TECHNIQUE: A single contrast small bowel follow through is performed utilizing barium through the n asogastric tube. COMPARISON: Abdominal x-rays from yesterday through September 01. FINDINGS: Methods Engineer image of the abdomen performed earlier on September 06 shows nasogastric tube coiled in stomach. Gas is seen in nondistended stomach and predominantly nondistended small bowel loops. Gas a nd fecal material is seen in nondistended colon. There is marked improvement since initial x-ray Eddie carlton 1. A few prominent gas-filled small bowel loops in the left mid to lower abdomen are noted. The small bowel study shows delayed transit to the colon with contrast in the colon Identified at 690 minutes. There is a normal mucosal fold pattern throughout the proximal small bowel. No suspicious dilatation is seen. Some more prominent but not significantly dilated small bowel loops in the ileum of the right lower quadrant and pelvis are identified. No distinct transition point is seen. Less pro minent small bowel dilatation is seen on radiograph obtained at 22.5 hours. IMPRESSION: No complete obstruction is present. Suspect a low-grade distal partial small bowel obstru ction with improvement in gaseous distention or dilatation of bowel since admission September 01, 2016. Clinical correlation advised.
[2016-09-07] MEDS ORDERED: SODIUM PHOSPHATE 10 MMOL in SODIUM CHLORIDE 0.9% 250 ML IVPB ONE (11:00)
[2016-09-07 12:11] LABS: Glucose,Whole Blood 154 mg/dL (75-99)
--- NOTE | 2016-09-07 12:42 | P.PN ---
Subjective Progress note dated 09/07/2016 The patient is an 80-year-old female came with a bowel obstruction/ileus. She has a history of goal stage III COPD. Anyway, I talked to Dr. Violeta Dejesus yesterday about more conservative treatment. She did not have a complete bowel obstruction. Currently is nothing by mouth receiving IV fluids and has an NG tube in place. We can avoid surgery that would be the best thing. Anyway she seemed be doing relatively well. Complaining about the NG tube. Her breathing is stable though. We were able to review pulmonary function test dated 2014 and look of the FEV1, the MVV, and the RV/TLC ratio. Objective - Vital Signs Vital signs: Vital Signs Temp 98.3 F 09/07/16 07:00 Pulse 88 09/07/16 12:24 Resp 20 09/07/16 07:00 BP 152/69 09/07/16 07:00 Pulse Ox 94 L 09/07/16 08:46 Intake & Output 09/06/16 09/07/16 09/07/16 18:59 06:59 18:59 Weight 57.606 kg 57.5 kg Other: Voiding Method Bedside Commode Bedside Commode # Voids 0 3 # Bowel Movements 0 - Exam No acute distress, oriented 3. Sitting in the chair next to the bed. Receiving IV fluids. NG tube in place. Nasal O2 in place. HEENT examination is grossly unremarkable. Mucous membranes are moist. Neck supple. Full range of motion. No adenopathy or thyromegaly. Neck veins are flat. Cardiovascular examination reveals regular rhythm rate. S1-S2 normal. No S3- S4 or murmur. Lungs reveal few scattered rhonchi. No wheezes. No crackles. Breath sounds are diminished. Abdomen soft. Bowel sounds are not noted. She is mildly tympanitic. Extremities intact. - Labs CBC & Chem 7: 09/06/16 08:05 09/07/16 07:49 Labs: Abnormal Lab Results - Last 24 Hours (Table) 09/06/16 09/07/16 09/07/16 Range/Units 23:48 05:51 07:49 Sodium 136 L (137-145) mmol/L Potassium 3.1 L (3.5-5.1) mmol/L Creatinine 0.40 L (0.52-1.04) mg/dL Glucose 182 H (74-99) mg/dL POC Glucose (mg/dL) 170 H 190 H (75-99) mg/dL Calcium 8.2 L (8.4-10.2) mg/dL Phosphorus 2.3 L (2.5-4.5) mg/dL 09/07/16 09/07/16 Range/Units 07:50 11:50 Sodium (137-145) mmol/L Potassium (3.5-5.1) mmol/L Creatinine (0.52-1.04) mg/dL Glucose (74-99) mg/dL POC Glucose (mg/dL) 160 H 154 H (75-99) mg/dL Calcium (8.4-10.2) mg/dL Phosphorus (2.5-4.5) mg/dL Assessment and Plan (1) Bowel obstruction Status: Acute (2) COPD (chronic obstructive pulmonary disease) Status: Acute (3) Hyperlipidemia Status: Acute (4) Myocardial infarction Status: Acute Plan: Plan dated 09/07/2016 The patient will be made managed conservatively at this time. IV fluids NG tube , etc. No additional recommendations are made. If we can avoid surgery that would be the best option. She is a very high risk given her severe COPD. Time with Patient: Less than 30
--- NOTE | 2016-09-07 14:38 | P.PN ---
Subjective Principal diagnosis: Partial bowel obstruction Patient is doing well. She is passing some flatus. Feeling tired. No nausea or vomiting. Objective - Vital Signs Vital signs: Vital Signs Temp 98.3 F 09/07/16 07:00 Pulse 88 09/07/16 12:24 Resp 20 09/07/16 07:00 BP 152/69 09/07/16 07:00 Pulse Ox 94 L 09/07/16 08:46 Intake & Output 09/06/16 09/07/16 09/07/16 18:59 06:59 18:59 Weight 57.606 kg 57.5 kg Other: Voiding Method Bedside Commode Bedside Commode # Voids 0 3 # Bowel Movements 0 - Gastrointestinal Gastrointestinal Comment(s): Is soft nondistended nontender. - Labs CBC & Chem 7: 09/06/16 08:05 09/07/16 07:49 Labs: Abnormal Lab Results - Last 24 Hours (Table) 09/06/16 09/07/16 09/07/16 Range/Units 23:48 05:51 07:49 Sodium 136 L (137-145) mmol/L Potassium 3.1 L (3.5-5.1) mmol/L Creatinine 0.40 L (0.52-1.04) mg/dL Glucose 182 H (74-99) mg/dL POC Glucose (mg/dL) 170 H 190 H (75-99) mg/dL Calcium 8.2 L (8.4-10.2) mg/dL Phosphorus 2.3 L (2.5-4.5) mg/dL 09/07/16 09/07/16 Range/Units 07:50 11:50 Sodium (137-145) mmol/L Potassium (3.5-5.1) mmol/L Creatinine (0.52-1.04) mg/dL Glucose (74-99) mg/dL POC Glucose (mg/dL) 160 H 154 H (75-99) mg/dL Calcium (8.4-10.2) mg/dL Phosphorus (2.5-4.5) mg/dL Assessment and Plan Plan: Patient has a resolving partial small bowel obstruction. No kidney NG tube in place for another 24 hours at which time we'll clamp it. Over that time once challenge has been given and we'll go from there. There is a good chance that she will resolve spontaneously.
[2016-09-07 18:10] LABS: Glucose,Whole Blood 126 mg/dL (75-99)
[2016-09-07] MEDS: 1: MVI, ADULT NO.4 WITH VIT K 10 ML, TRACE (CONC-1ML/DOSE) 1 ML, POTASSIUM CHLORIDE 20 M IV SCH ×4 (20:52)
[2016-09-08 00:09] LABS: Glucose,Whole Blood 158 mg/dL (75-99)
[2016-09-08] MEDS: INSULIN LISPRO (humaLOG) 300 UNIT/3 ML VIAL SQ SCH ×4 (00:42→17:09)
[2016-09-08] MEDS: ALBUTEROL NEBULIZED 2.5 MG/3 ML INHALATION PRN (01:27)
[2016-09-08] MEDS: hydrALAZINE HCL 20 MG/ML 1 ML VIAL IVP PRN (01:34)
[2016-09-08 05:51] LABS: Glucose,Whole Blood 170 mg/dL (75-99)
[2016-09-08] MEDS: DEXTROSE 5%-0.45% NACL 1,000 ML IV SCH ×2 (06:06→17:11)
[2016-09-08] MEDS: 1: MVI, ADULT NO.4 WITH VIT K 10 ML, TRACE (CONC-1ML/DOSE) 1 ML, POTASSIUM CHLORIDE 20 M IV SCH ×4 (06:47)
[2016-09-08 07:28] LABS: Glucose,Whole Blood 158 mg/dL (75-99)
[2016-09-08] MEDS: LISINOPRIL 10 MG TAB PO SCH (08:20)
[2016-09-08] MEDS: ASPIRIN 81 MG CHEW PO SCH (08:20)
[2016-09-08] MEDS: DOCUSATE 100 MG CAP PO SCH ×2 (08:20→20:57)
[2016-09-08] MEDS: METOPROLOL TARTRATE 25 MG TAB PO SCH ×2 (08:20→20:57)
[2016-09-08] MEDS: ATORVASTATIN 10 MG TAB PO SCH (08:20)
[2016-09-08] MEDS: HEPARIN SODIUM,PORCINE 5,000 UNIT/ML 1 ML VIAL SQ SCH ×2 (08:39→20:57)
[2016-09-08] MEDS: ALBUTEROL NEBULIZED 2.5 MG/3 ML INHALATION SCH ×4 (08:53→20:38)
[2016-09-08] MEDS: SYMBICORT 160-4.5 MCG INHALER INHALATION SCH ×2 (08:54→20:38)
[2016-09-08 10:32] LABS: Anion Gap 7 mmol/L; Blood Urea Nitrogen 15 mg/dL (7-17); Calcium 8.3 mg/dL (8.4-10.2); Carbon Dioxide 33 mmol/L (22-30); Chloride 95 mmol/L (98-107); Glucose 170 mg/dL (74-99); Magnesium 1.8 mg/dL (1.6-2.3); Non-African American GFR(MDRD) >60 (>60 ml/min/1.73 sqM); Phosphorous 2.8 mg/dL (2.5-4.5); Potassium 3.4 mmol/L (3.5-5.1); Sodium 135 mmol/L (137-145)
[2016-09-08] MEDS: POTASSIUM CHLORIDE 10 MEQ, LIDOCAINE 2% INJ 10 MG in SODIUM CHLORIDE 0.9% 100 ML IV SCH ×2 (11:43→13:28)
--- NOTE | 2016-09-08 11:48 | P.PN ---
Subjective Principal diagnosis: Partial bowel obstruction Patient is doing well. She is passing some flatus. Feeling tired. No nausea or vomiting. Objective - Vital Signs Vital signs: Vital Signs Temp 97.1 F L 09/08/16 07:57 Pulse 80 09/08/16 09:07 Resp 21 09/08/16 07:57 BP 147/85 09/08/16 07:57 Pulse Ox 97 09/08/16 08:50 Intake & Output 09/07/16 09/08/16 09/08/16 18:59 06:59 18:59 Intake Total 1980 Output Total 400 Balance 1580 Weight 55 kg Intake: Intake, IV Titration 1979 Amount Amino Acid 4.25%-D10w+ 1100 Lytes*E* 1,000 ml @ 100 mls/hr IV .BY DURATION BONNIE Rx#:[id number] Dextrose 5%-0.45% NaCl 1, 880 000 ml @ 80 mls/hr IV . [id number] BONNIE Rx#:[id number] Output: Gastric Drainage 400 Other: Voiding Method Bedside Commode Bedside Commode Bedside Commode # Voids 1 - Gastrointestinal General gastrointestinal: Present: soft. Absent: tenderness - Labs CBC & Chem 7: 09/06/16 08:05 09/08/16 10:01 Labs: Abnormal Lab Results - Last 24 Hours (Table) 09/07/16 09/07/16 09/07/16 Range/Units 11:50 18:07 23:57 Sodium (137-145) mmol/L Potassium (3.5-5.1) mmol/L Chloride (98-107) mmol/L Carbon Dioxide (22-30) mmol/L Creatinine (0.52-1.04) mg/dL Glucose (74-99) mg/dL POC Glucose (mg/dL) 154 H 126 H 158 H (75-99) mg/dL Calcium (8.4-10.2) mg/dL 09/08/16 09/08/16 09/08/16 Range/Units 05:49 07:27 10:01 Sodium 135 L (137-145) mmol/L Potassium 3.4 L (3.5-5.1) mmol/L Chloride 95 L (98-107) mmol/L Carbon Dioxide 33 H (22-30) mmol/L Creatinine 0.41 L (0.52-1.04) mg/dL Glucose 170 H (74-99) mg/dL POC Glucose (mg/dL) 170 H 158 H (75-99) mg/dL Calcium 8.3 L (8.4-10.2) mg/dL Assessment and Plan Plan: Patient has a resolving partial small bowel obstruction. We'll clamp NG. Possible removal of NG and 24-48 hours
[2016-09-08] MEDS: MORPHINE SULFATE 2 MG/ML SYRINGE IVP PRN ×2 (11:51→20:57)
[2016-09-08 12:20] LABS: Glucose,Whole Blood 155 mg/dL (75-99)
--- NOTE | 2016-09-08 14:43 | P.PN ---
Subjective Progress note dated 09/07/2016 The patient is an 80-year-old female came with a bowel obstruction/ileus. She has a history of goal stage III COPD. Anyway, I talked to Dr. Violeta Dejesus yesterday about more conservative treatment. She did not have a complete bowel obstruction. Currently is nothing by mouth receiving IV fluids and has an NG tube in place. We can avoid surgery that would be the best thing. Anyway she seemed be doing relatively well. Complaining about the NG tube. Her breathing is stable though. We were able to review pulmonary function test dated 2014 and look of the FEV1, the MVV, and the RV/TLC ratio. Progress note dated 09/08/2016 This is a 80-year-old female came both bowel obstruction/ileus. She got quite severe COPD. Goal stage III almost stage IV. Anyway looking at her FEV1, her MVV, and her RV/TLC ratio, she's at really high risk for surgical procedure which would require general anesthesia. Hence, Dr. Violeta Dejesus decided to be more conservative with her including NG tube drainage and fluids. I'm happy to report that she is doing much better. Probably will avoid surgery. Her belly feeling much better. No nausea vomiting. Has not had the NG tube removed as yet. Objective - Vital Signs Vital signs: Vital Signs Temp 97.1 F L 09/08/16 07:57 Pulse 84 09/08/16 12:31 Resp 21 09/08/16 07:57 BP 147/85 09/08/16 07:57 Pulse Ox 97 09/08/16 08:50 Intake & Output 09/07/16 09/08/16 09/08/16 18:59 06:59 18:59 Intake Total 1979 Output Total 400 Balance 1580 Weight 55 kg Intake: Intake, IV Titration 1979 Amount Amino Acid 4.25%-D10w+ 1100 Lytes*E* 1,000 ml @ 100 mls/hr IV .BY DURATION BONNIE Rx#:[id number] Dextrose 5%-0.45% NaCl 1, 880 000 ml @ 80 mls/hr IV . [id number] BONNIE Rx#:[id number] Output: Gastric Drainage 400 Other: Voiding Method Bedside Commode Bedside Commode Bedside Commode # Voids 1 - Exam No acute distress, oriented 3. Sitting in the chair next to the bed. Receiving IV fluids. NG tube in place. Nasal O2 in place. HEENT examination is grossly unremarkable. Mucous membranes are moist. Neck supple. Full range of motion. No adenopathy or thyromegaly. Neck veins are flat. Cardiovascular examination reveals regular rhythm rate. S1-S2 normal. No S3- S4 or murmur. Lungs reveal few scattered rhonchi. No wheezes. No crackles. Breath sounds are diminished. Abdomen soft. Bowel sounds are not noted. She is mildly tympanitic. Extremities intact. - Labs CBC & Chem 7: 09/06/16 08:05 09/08/16 10:01 Labs: Abnormal Lab Results - Last 24 Hours (Table) 09/07/16 09/07/16 09/08/16 Range/Units 18:07 23:57 05:49 Sodium (137-145) mmol/L Potassium (3.5-5.1) mmol/L Chloride (98-107) mmol/L Carbon Dioxide (22-30) mmol/L Creatinine (0.52-1.04) mg/dL Glucose (74-99) mg/dL POC Glucose (mg/dL) 126 H 158 H 170 H (75-99) mg/dL Calcium (8.4-10.2) mg/dL 09/08/16 09/08/16 09/08/16 Range/Units 07:27 10:01 12:05 Sodium 135 L (137-145) mmol/L Potassium 3.4 L (3.5-5.1) mmol/L Chloride 95 L (98-107) mmol/L Carbon Dioxide 33 H (22-30) mmol/L Creatinine 0.41 L (0.52-1.04) mg/dL Glucose 170 H (74-99) mg/dL POC Glucose (mg/dL) 158 H 155 H (75-99) mg/dL Calcium 8.3 L (8.4-10.2) mg/dL Assessment and Plan (1) Bowel obstruction Status: Acute (2) COPD (chronic obstructive pulmonary disease) Status: Acute (3) Hyperlipidemia Status: Acute (4) Myocardial infarction Status: Acute Plan: Plan dated 09/07/2016 The patient will be made managed conservatively at this time. IV fluids NG tube , etc. No additional recommendations are made. If we can avoid surgery that would be the best option. She is a very high risk given her severe COPD. Plan dated 09/08/2016 The patient is doing well. The patient still has a NG tube in place. Still receiving IV fluids. The patient's respiratory status is stable. We'll continue to follow. No additional recommendations are made. Time with Patient: Less than 30
[2016-09-08 17:09] LABS: Glucose,Whole Blood 136 mg/dL (75-99)
[2016-09-08] MEDS: 1: MVI, ADULT NO.4 WITH VIT K 10 ML, TRACE (CONC-1ML/DOSE) 1 ML, POTASSIUM CHLORIDE 30 M IV SCH ×5 (17:09)
[2016-09-09] MEDS: INSULIN LISPRO (humaLOG) 300 UNIT/3 ML VIAL SQ SCH ×4 (00:11→18:11)
[2016-09-09 00:17] LABS: Glucose,Whole Blood 146 mg/dL (75-99)
[2016-09-09] MEDS ORDERED: [UNRECOGNIZED DRUG - OTHER] IV ONE (03:30)
[2016-09-09] MEDS ORDERED: PARENTERAL ELECTROLYTES IV ONE (03:30)
[2016-09-09] MEDS ORDERED: POTASSIUM CHLORIDE IV ONE (03:30)
[2016-09-09 05:58] LABS: Glucose,Whole Blood 142 mg/dL (75-99)
[2016-09-09] MEDS: DEXTROSE 5%-0.45% NACL 1,000 ML IV SCH ×2 (06:08→15:10)
--- NOTE | 2016-09-09 08:03 | XR ---
EXAMINATION TYPE: XR abdomen 1V DATE OF EXAM: 09/09/2016 7:44 AM COMPARISON: NONE HISTORY: Bowel obstruction TECHNIQUE: Single supine KUB image of the abdomen is obtained FINDINGS: Patient is status post small bowel follow-through. Contrast is now identified within the large bowel. Mild distention of small bowel persists. IMPRESSION: 1. Suspect low-grade distal partial small bowel obstruction.
[2016-09-09] MEDS: ALBUTEROL NEBULIZED 2.5 MG/3 ML INHALATION SCH ×4 (08:11→19:39)
[2016-09-09] MEDS: SYMBICORT 160-4.5 MCG INHALER INHALATION SCH ×2 (08:11→19:39)
[2016-09-09 09:20] LABS: Anion Gap 9 mmol/L; Blood Urea Nitrogen 13 mg/dL (7-17); Calcium 8.3 mg/dL (8.4-10.2); Carbon Dioxide 32 mmol/L (22-30); Chloride 98 mmol/L (98-107); Glucose 138 mg/dL (74-99); Magnesium 1.9 mg/dL (1.6-2.3); Non-African American GFR(MDRD) >60 (>60 ml/min/1.73 sqM); Phosphorous 2.8 mg/dL (2.5-4.5); Potassium 3.9 mmol/L (3.5-5.1); Sodium 139 mmol/L (137-145)
--- NOTE | 2016-09-09 11:13 | P.PN ---
Subjective 80-year-old female being seen on rounds. Patient is being followed by surgical service for management of the partial small bowel obstruction which is improving Currently is sitting up in a chair. The nasal gastric tube had been removed the day before. Currently tolerating a clear liquid diet. Nasal cannula at 3 L keeping a sat 98%. Abdominal X-ray obtained this morning suspect low-grade distal partial small bowel obstruction. Contrast is now identified within the large bowel. Mild distention of the small bowel persist. Patient currently is denying abdominal discomfort when questioning states is passing gas but no stool patient reportedly has been up ambulating once in the hallway with assistance Objective - Vital Signs Vital signs: Vital Signs Temp 97.8 F 09/09/16 07:00 Pulse 88 09/09/16 08:22 Resp 24 09/09/16 07:00 BP 190/77 09/09/16 07:00 Pulse Ox 98 09/09/16 08:13 Intake & Output 09/08/16 09/09/16 09/09/16 18:59 06:59 18:59 Weight 56 kg 56 kg Other: Voiding Method Bedside Commode # Voids 1 - Exam Physical exam 80-year-old female sitting up in a chair tolerating a clear liquid diet pleasant cooperative oriented 3 Lungs posterior diminished at the bases no audible wheezing no rhonchi noted no conversational dyspnea noted Heart S1-S2 audible regular Abdomen soft nondistended no reports of nausea vomiting no stool states passing gas states urinating no difficulty Extremities no evidence of edema to the upper or lower extremities - Labs CBC & Chem 7: 09/10/16 08:43 09/10/16 08:43 Labs: Abnormal Lab Results - Last 24 Hours (Table) 09/08/16 09/08/16 09/09/16 Range/Units 12:05 17:07 00:05 Carbon Dioxide (22-30) mmol/L Creatinine (0.52-1.04) mg/dL Glucose (74-99) mg/dL POC Glucose (mg/dL) 155 H 136 H 146 H (75-99) mg/dL Calcium (8.4-10.2) mg/dL 09/09/16 09/09/16 Range/Units 05:53 08:31 Carbon Dioxide 32 H (22-30) mmol/L Creatinine 0.43 L (0.52-1.04) mg/dL Glucose 138 H (74-99) mg/dL POC Glucose (mg/dL) 142 H (75-99) mg/dL Calcium 8.3 L (8.4-10.2) mg/dL Assessment and Plan Plan: Impression Present on admission abdominal pain nausea vomiting suspect due to small bowel obstruction improving Severe COPD Gold stage III with supplemental home O2 Left ventricular systolic function normal EF between 55 and 60% per echocardiogram 09/03/2015 Plan Continue with clear liquid diet for the next 24-48 hours reevaluate address as indicated Poor candidate for surgical intervention treat conservatively patient is considered a high risk given her severe COPD per pulmonology's recommendations Monitor I&O's address as indicated IV hydration as ordered DVT and GI prophylaxis Pain control Continue with the PPN for nutritional support as ordered Continue with respiratory treatments as ordered The above dictated assessment and findings were discussed with dr Dinorah Dejesus Impression and the plan of care have been dictated as directed. Adenike Navarro nurse practitioner acting as a scribe for Dr. Radha Dejesus
[2016-09-09] MEDS: ATORVASTATIN 10 MG TAB PO SCH (11:29)
[2016-09-09] MEDS: ASPIRIN 81 MG CHEW PO SCH (11:29)
[2016-09-09] MEDS: DOCUSATE 100 MG CAP PO SCH ×2 (11:29→20:57)
[2016-09-09] MEDS: LISINOPRIL 10 MG TAB PO SCH (11:29)
[2016-09-09] MEDS: HEPARIN SODIUM,PORCINE 5,000 UNIT/ML 1 ML VIAL SQ SCH ×2 (11:29→23:15)
[2016-09-09] MEDS ORDERED: PANTOPRAZOLE 40 MG/10 ML VIAL IVP SCH (11:30)
[2016-09-09] MEDS: METOPROLOL TARTRATE 25 MG TAB PO SCH ×3 (11:30→21:24)
[2016-09-09 12:10] LABS: Glucose,Whole Blood 110 mg/dL (75-99)
[2016-09-09] MEDS ORDERED: BISACODYL 10 MG SUPP RECTAL STA (12:15)
--- NOTE | 2016-09-09 13:43 | P.PN ---
Subjective Principal diagnosis: Small bowel obstruction Patient is an 80-year-old female with multiple medical problems admitted with complaints of back, shoulder, and chest pain. Patient was found to have evidence of small bowel obstruction and surgical consult was requested. Nasogastric tube has been removed. Patient is tolerating a clear liquid diet. Patient is complaining of some throat discomfort and pain with swallowing. Patient is passing flatus and had a small bowel movement this morning. Denies chills, fevers, nausea, vomiting, shortness of breath, chest pain, or abdominal pain. Abdomen x-ray from today with evidence of low-grade distal partial small bowel obstruction. Patient has been advanced to a soft diet. Objective - Vital Signs Vital signs: Vital Signs Temp 97.8 F 09/09/16 07:00 Pulse 86 09/09/16 12:14 Resp 24 09/09/16 07:00 BP 190/77 09/09/16 07:00 Pulse Ox 98 09/09/16 08:13 Intake & Output 09/08/16 09/09/16 09/09/16 18:59 06:59 18:59 Weight 56 kg 56 kg Other: Voiding Method Bedside Commode # Voids 1 - Exam GENERAL: Pt awake and alert, well-nourished, and in no acute distress. HEAD: Atraumatic, normocephalic. EYES: Pupils equal and round. ENT: Oropharynx clear without exudates. Moist mucous membranes. NECK:Supple without lymphadenopathy or JVD. LUNGS: Breath sounds are coarse to auscultation bilaterally. HEART: Heart S1, S2, no S3 or S4. Regular rate and rhythm. No murmurs, rubs or gallops. ABDOMEN: Soft, nontender, nondistended, hyperactive bowel sounds. No guarding. No rebound. EXTREMITIES: 2+ peripheral pulses. No edema. No calf tenderness. NEUROLOGICAL: Pt oriented x 3. Cranial nerves II through XII grossly intact. Strength and sensation grossly intact. PSYCH: Normal mood, normal affect. SKIN: Warm, dry, intact. Normal turgor. No rashes or lesions. - Labs CBC & Chem 7: 09/06/16 08:05 09/09/16 08:31 Labs: Abnormal Lab Results - Last 24 Hours (Table) 09/08/16 09/09/16 09/09/16 Range/Units 17:07 00:05 05:53 Carbon Dioxide (22-30) mmol/L Creatinine (0.52-1.04) mg/dL Glucose (74-99) mg/dL POC Glucose (mg/dL) 136 H 146 H 142 H (75-99) mg/dL Calcium (8.4-10.2) mg/dL 09/09/16 09/09/16 Range/Units 08:31 12:06 Carbon Dioxide 32 H (22-30) mmol/L Creatinine 0.43 L (0.52-1.04) mg/dL Glucose 138 H (74-99) mg/dL POC Glucose (mg/dL) 110 H (75-99) mg/dL Calcium 8.3 L (8.4-10.2) mg/dL Assessment and Plan Plan: Impression and plan: 1. Abdominal pain associated with nausea and vomiting secondary to small bowel obstruction, improved. Surgical service is following patient. Continue diet per surgical service. Increase activity. 2. Chronic hypoxic respiratory failure secondary to severe COPD with home oxygen around the clock. Pulmonary service has evaluated patient and patient is deemed high risk for any surgical convention. 3. Atypical chest pain, present on admission, resolved. From a cardiac standpoint, patient has no evidence of active disease at this point. Echocardiogram with Doppler shows preserved LV function with an EF between 55-60 %. 4. History of recent gastroenteritis. 5. Acute kidney injury, mostly prerenal secondary to contrast dye, resolved. 6. Hypertension. Continue hydralazine 10 mg every 6 hours when necessary for systolic blood pressure 160. 7. Hyperlipidemia. 8.. Mild protein calorie malnutrition secondary to nothing by mouth status secondary to small bowel obstruction. Parental nutrition has been discontinued. Diet advance to soft. Continue to monitor patient. Continue current medications. Continue supportive treatment and pain management. Continue IV hydration. Continue GI and DVT prophylaxis. Continue to follow consultants. Repeat CBC, BMP, magnesium and phosphorus in a.m. The above impression and plan have been discussed and directed by Dr. Mattson. Anna CERNA-Dinora acting as scribe for Dr. Mattson.
--- NOTE | 2016-09-09 14:37 | P.PN ---
Subjective This is a 80-year-old female came both bowel obstruction/ileus. She got quite severe COPD. Goal stage III almost stage IV. She's at really high risk for surgical procedure which would require general anesthesia. Hence, Dr. Violeta Dejesus decided to be more conservative with her including NG tube drainage and fluids. On today's evaluation of 09/09/2016, the patient's partial small bowel obstruction which is improving Currently is sitting up in a chair. The nasal gastric tube had been removed the day before. Currently tolerating a clear liquid diet. Nasal cannula at 3 L keeping a sat 98%. Abdominal X-ray obtained this morning suspect low-grade distal partial small bowel obstruction. Contrast is now identified within the large bowel. Mild distention of the small bowel persist. Patient currently is denying abdominal discomfort . In addition, there is no reported respiratory distress. No cough or sputum production. No fever chills or night sweats. No change in mental status. Objective - Vital Signs Vital signs: Vital Signs Temp 97.8 F 09/09/16 07:00 Pulse 86 09/09/16 12:14 Resp 24 09/09/16 07:00 BP 190/77 09/09/16 07:00 Pulse Ox 98 09/09/16 08:13 Intake & Output 09/08/16 09/09/16 09/09/16 18:59 06:59 18:59 Weight 56 kg 56 kg Other: Voiding Method Bedside Commode Bedside Commode # Voids 1 - Exam The patient appeared well nourished and normally developed. Vital signs as documented. Head exam is unremarkable. No scleral icterus or corneal arcus noted. Neck is without jugular venous distension, thyromegaly, or carotid bruits. Carotid upstrokes are brisk bilaterally. On sounds are diminished bilaterally along with some scattered expiratory wheezes throughout the lung lucia.. Cardiac exam reveals the PMI to be normally sized and situated. Rhythm is regular. First and second heart sounds normal. No murmurs, rubs or gallops. Abdomen is nondistended. There are diminished bowel sounds. No tympany. No direct tenderness. No rebound tenderness no guarding. No organomegaly. Extremities are nonedematous and both femoral and pedal pulses are normal. - Labs CBC & Chem 7: 09/06/16 08:05 09/09/16 08:31 Labs: Abnormal Lab Results - Last 24 Hours (Table) 09/08/16 09/09/16 09/09/16 Range/Units 17:07 00:05 05:53 Carbon Dioxide (22-30) mmol/L Creatinine (0.52-1.04) mg/dL Glucose (74-99) mg/dL POC Glucose (mg/dL) 136 H 146 H 142 H (75-99) mg/dL Calcium (8.4-10.2) mg/dL 09/09/16 09/09/16 Range/Units 08:31 12:06 Carbon Dioxide 32 H (22-30) mmol/L Creatinine 0.43 L (0.52-1.04) mg/dL Glucose 138 H (74-99) mg/dL POC Glucose (mg/dL) 110 H (75-99) mg/dL Calcium 8.3 L (8.4-10.2) mg/dL Assessment and Plan Plan: Assessment and Plan (1) Bowel obstruction Status: Acute (2) COPD (chronic obstructive pulmonary disease) Status: Acute (3) Hyperlipidemia Status: Acute (4) Myocardial infarction Status: Acute Plan Overall cardiopulmonary status is stable. The patient's small bowel obstruction is gradually improving. COPD remains quite stable. We'll continue to follow. No need for any surgical intervention at this point. General surgeries on the case. The patient is passing some flatus. She her abdomen is not distended. She is on TPN for nutritional support PHOs given clear liquid diet and the NG tube was removed yesterday. We'll continue to follow.
[2016-09-09] MEDS: 1: MVI, ADULT NO.4 WITH VIT K 10 ML, TRACE (CONC-1ML/DOSE) 1 ML, POTASSIUM CHLORIDE 30 M IV SCH ×10 (15:10→20:57)
--- NOTE | 2016-09-09 18:02 | PN ---
DATE OF SERVICE: 09/08/2016 This is a pleasant 80-year-old white female who underwent a small bowel follow thru study yesterday which showed that she was suffering from partial small bowel obstruction. She currently has an NG tube to suction with about 400 mL of ( ) in there and she has no acute problems. On physical examination, she is alert. She is answering questions appropriately and all of her distress is due to the NG tube and soreness in her throat. HEENT: Head is normocephalic and atraumatic. NECK: Supple. No JVD. HEART: Regular rate and rhythm. LUNGS: Clear to auscultation. ABDOMEN: Soft, nontender. No rebound, rigidity, or guarding. EXTREMITIES: No cyanosis, clubbing or jaundice. IMPRESSION: 1. Partial small bowel obstruction slowly resolving with some gas today and currently on total parenteral nutrition. 2. Acute malnutrition on total parenteral nutrition. 3. Chronic obstructive pulmonary disease. 4. Chronic hypoxic respiratory failure secondary to chronic obstructive pulmonary disease. 5. Acute kidney injury secondary to contrast dye. We will continue to follow the patient's progress. Continue NG tube to suction and continue to monitor patient. Appears that she probably does not need to go to surgery at this point.
[2016-09-09 18:12] LABS: Glucose,Whole Blood 101 mg/dL (75-99)
[2016-09-09] MEDS: FAT EMULSION 20% 250 ML IV SCH (20:57)
[2016-09-09] MEDS: TEMAZEPAM 15 MG CAP PO PRN (21:07)
[2016-09-09 23:52] LABS: Glucose,Whole Blood 148 mg/dL (75-99)
[2016-09-10] MEDS: INSULIN LISPRO (humaLOG) 300 UNIT/3 ML VIAL SQ SCH ×5 (00:35→21:34)
[2016-09-10] MEDS: ALBUTEROL NEBULIZED 2.5 MG/3 ML INHALATION SCH ×4 (05:56→18:47)
[2016-09-10 06:05] LABS: Glucose,Whole Blood 120 mg/dL (75-99)
[2016-09-10] MEDS: DEXTROSE 5%-0.45% NACL 1,000 ML IV SCH (07:19)
[2016-09-10] MEDS: SYMBICORT 160-4.5 MCG INHALER INHALATION SCH ×2 (07:33→18:47)
[2016-09-10] MEDS: ALBUTEROL NEBULIZED 2.5 MG/3 ML INHALATION PRN (07:33)
[2016-09-10] MEDS: 1: MVI, ADULT NO.4 WITH VIT K 10 ML, TRACE (CONC-1ML/DOSE) 1 ML, POTASSIUM CHLORIDE 30 M IV SCH ×10 (09:15→13:29)
[2016-09-10 09:16] LABS: Basophils # (A) 0.1 k/uL (0-0.2); Basophils % (A) 1 %; CH 29.3; CHCM 32.3; Eosinophils # (A) 0.5 k/uL (0-0.7); Eosinophils % (A) 5 %; HCT 34.1 % (34.0-46.0); HDW 2.51; HGB 10.6 gm/dL (11.4-16.0); Luc # (Auto) 0.14; Luc % (Auto) 2; Lymphocytes # (A) 0.7 k/uL (1.0-4.8); Lymphocytes % (A) 8 %; MCH 28.3 pg (25.0-35.0); MCV 91.2 fL (80.0-100.0); Mean Platelet Volume 7.6; Monocytes # (A) 0.9 k/uL (0-1.0); Monocytes % (A) 10 %; Neutrophils # (A) 6.6 k/uL (1.3-7.7); Neutrophils % (A) 75 %; RBC 3.74 m/uL (3.80-5.40); RDW 13.2 % (11.5-15.5); WBC 8.8 k/uL (3.8-10.6); WBC (Perox) 9.43
[2016-09-10] MEDS: HEPARIN SODIUM,PORCINE 5,000 UNIT/ML 1 ML VIAL SQ SCH ×2 (09:24→21:01)
[2016-09-10] MEDS: DOCUSATE 100 MG CAP PO SCH ×2 (09:24→21:01)
[2016-09-10] MEDS: ATORVASTATIN 10 MG TAB PO SCH (09:24)
[2016-09-10] MEDS: METOPROLOL TARTRATE 25 MG TAB PO SCH ×2 (09:24→21:01)
[2016-09-10] MEDS: ASPIRIN 81 MG CHEW PO SCH (09:24)
[2016-09-10] MEDS: PANTOPRAZOLE 40 MG TABLET PO SCH (09:24)
[2016-09-10] MEDS: LISINOPRIL 10 MG TAB PO SCH (09:24)
[2016-09-10 09:36] LABS: Anion Gap 9 mmol/L; Blood Urea Nitrogen 14 mg/dL (7-17); Calcium 8.4 mg/dL (8.4-10.2); Carbon Dioxide 30 mmol/L (22-30); Chloride 99 mmol/L (98-107); Glucose 117 mg/dL (74-99); Magnesium 1.9 mg/dL (1.6-2.3); Non-African American GFR(MDRD) >60 (>60 ml/min/1.73 sqM); Phosphorous 3.5 mg/dL (2.5-4.5); Potassium 4.5 mmol/L (3.5-5.1); Sodium 138 mmol/L (137-145)
--- NOTE | 2016-09-10 10:59 | P.PN ---
Subjective This is a 80-year-old female came both bowel obstruction/ileus. She got quite severe COPD. Goal stage III almost stage IV. She's at really high risk for surgical procedure which would require general anesthesia. Hence, Dr. Violeta Dejesus decided to be more conservative with her including NG tube drainage and fluids. On today's evaluation of 09/09/2016, the patient's partial small bowel obstruction which is improving Currently is sitting up in a chair. The nasal gastric tube had been removed the day before. Currently tolerating a clear liquid diet. Nasal cannula at 3 L keeping a sat 98%. Abdominal X-ray obtained this morning suspect low-grade distal partial small bowel obstruction. Contrast is now identified within the large bowel. Mild distention of the small bowel persist. Patient currently is denying abdominal discomfort . In addition, there is no reported respiratory distress. No cough or sputum production. No fever chills or night sweats. No change in mental status. On 09/10/2016 the patient is being seen in follow-up. His emanating in the hallway. NG tube has been removed for more than 24 hours. She is passing flatus. She had 3 tiny small bowel movements. No abdominal pain. No abdominal distention. No change in mental status. No respiratory difficulties. Her COPD stable. She seems to be in the right direction in terms of her small bowel obstruction. She is still on TPN for nutritional support. Objective - Vital Signs Vital signs: Vital Signs Temp 99.2 F 09/10/16 07:00 Pulse 86 09/10/16 07:48 Resp 18 09/10/16 07:00 BP 124/78 09/10/16 07:00 Pulse Ox 96 09/10/16 07:35 Intake & Output 09/09/16 09/10/16 09/10/16 18:59 06:59 18:59 Intake Total 360 200 Balance 360 200 Weight 56 kg 64 kg Intake: Oral 360 200 Other: Voiding Method Bedside Commode Bedside Commode # Voids 2 2 # Bowel Movements 2 0 - Exam The patient appeared well nourished and normally developed. Vital signs as documented. Head exam is unremarkable. No scleral icterus or corneal arcus noted. Neck is without jugular venous distension, thyromegaly, or carotid bruits. Carotid upstrokes are brisk bilaterally. On sounds are diminished bilaterally along with some scattered expiratory wheezes throughout the lung lucia.. Cardiac exam reveals the PMI to be normally sized and situated. Rhythm is regular. First and second heart sounds normal. No murmurs, rubs or gallops. Abdomen is nondistended. There are diminished bowel sounds. No tympany. No direct tenderness. No rebound tenderness no guarding. No organomegaly. Extremities are nonedematous and both femoral and pedal pulses are normal. - Labs CBC & Chem 7: 09/10/16 08:43 09/10/16 08:43 Labs: Abnormal Lab Results - Last 24 Hours (Table) 09/09/16 09/09/16 09/09/16 Range/Units 12:06 18:06 23:48 RBC (3.80-5.40) m/uL Hgb (11.4-16.0) gm/dL Lymphocytes # (1.0-4.8) k/uL Creatinine (0.52-1.04) mg/dL Glucose (74-99) mg/dL POC Glucose (mg/dL) 110 H 101 H 148 H (75-99) mg/dL 09/10/16 09/10/16 09/10/16 Range/Units 06:02 08:43 08:43 RBC 3.74 L (3.80-5.40) m/uL Hgb 10.6 L (11.4-16.0) gm/dL Lymphocytes # 0.7 L (1.0-4.8) k/uL Creatinine 0.45 L (0.52-1.04) mg/dL Glucose 117 H (74-99) mg/dL POC Glucose (mg/dL) 120 H (75-99) mg/dL Assessment and Plan Plan: Assessment and Plan (1) Bowel obstruction Status: Acute (2) COPD (chronic obstructive pulmonary disease) Status: Acute (3) Hyperlipidemia Status: Acute (4) Myocardial infarction Status: Acute Plan Overall cardiopulmonary status is stable. The patient is improving slowly. We' ll monitor the recovery from the small bowel obstruction. Pulmonary status remains stable. Continue TPN. Encourage oral intake was gradually advancing diet as tolerated. She is currently on soft diet. We'll continue to follow.
[2016-09-10 11:58] LABS: Glucose,Whole Blood 135 mg/dL (75-99)
--- NOTE | 2016-09-10 12:13 | P.PN ---
Subjective Principal diagnosis: Small bowel obstruction Patient is an 80-year-old female with multiple medical problems admitted with complaints of back, shoulder, and chest pain. Patient was found to have evidence of small bowel obstruction and surgical consult was requested. Nasogastric tube has been removed for more than 24 hours. Patient is tolerating a soft diet. Patient is passing flatus and had 3 small bowel movement this morning. Denies chills, fevers, nausea, vomiting, shortness of breath, chest pain, or abdominal pain. Patient has been up ambulating in mor[place]. Afebrile. Objective - Vital Signs Vital signs: Vital Signs Temp 99.2 F 09/10/16 07:00 Pulse 84 09/10/16 11:16 Resp 18 09/10/16 07:00 BP 124/78 09/10/16 07:00 Pulse Ox 96 09/10/16 07:35 Intake & Output 09/09/16 09/10/16 09/10/16 18:59 06:59 18:59 Intake Total 360 200 Balance 360 200 Weight 56 kg 64 kg 64 kg Intake: Oral 360 200 Other: Voiding Method Bedside Commode Bedside Commode # Voids 2 2 # Bowel Movements 2 0 - Exam GENERAL: Pt awake and alert, well-nourished, and in no acute distress. HEAD: Atraumatic, normocephalic. EYES: Pupils equal and round. ENT: Oropharynx clear without exudates. Moist mucous membranes. NECK:Supple without lymphadenopathy or JVD. LUNGS: Breath sounds are diminished with a few expiratory wheezes to auscultation bilaterally. HEART: Heart S1, S2, no S3 or S4. Regular rate and rhythm. No murmurs, rubs or gallops. ABDOMEN: Soft, nontender, nondistended, hyperactive bowel sounds. No guarding. No rebound. EXTREMITIES: 2+ peripheral pulses. No edema. No calf tenderness. NEUROLOGICAL: Pt oriented x 3. Cranial nerves II through XII grossly intact. Strength and sensation grossly intact. PSYCH: Normal mood, normal affect. SKIN: Warm, dry, intact. Normal turgor. No rashes or lesions. - Labs CBC & Chem 7: 09/10/16 08:43 09/10/16 08:43 Labs: Abnormal Lab Results - Last 24 Hours (Table) 09/09/16 09/09/16 09/09/16 Range/Units 12:06 18:06 23:48 RBC (3.80-5.40) m/uL Hgb (11.4-16.0) gm/dL Lymphocytes # (1.0-4.8) k/uL Creatinine (0.52-1.04) mg/dL Glucose (74-99) mg/dL POC Glucose (mg/dL) 110 H 101 H 148 H (75-99) mg/dL 09/10/16 09/10/16 09/10/16 Range/Units 06:02 08:43 08:43 RBC 3.74 L (3.80-5.40) m/uL Hgb 10.6 L (11.4-16.0) gm/dL Lymphocytes # 0.7 L (1.0-4.8) k/uL Creatinine 0.45 L (0.52-1.04) mg/dL Glucose 117 H (74-99) mg/dL POC Glucose (mg/dL) 120 H (75-99) mg/dL 09/10/16 Range/Units 11:41 RBC (3.80-5.40) m/uL Hgb (11.4-16.0) gm/dL Lymphocytes # (1.0-4.8) k/uL Creatinine (0.52-1.04) mg/dL Glucose (74-99) mg/dL POC Glucose (mg/dL) 135 H (75-99) mg/dL Assessment and Plan Plan: Impression and plan: 1. Small bowel obstruction, resolving. Surgical service is following patient. Continue diet per surgical service. Increase activity. 2. Chronic hypoxic respiratory failure secondary to severe COPD with home oxygen around the clock. Pulmonary service has evaluated patient and patient is deemed high risk for any surgical convention. Continue supplemental oxygen, nebulized updrafts, Symbicort. 3. Atypical chest pain, present on admission, resolved. From a cardiac standpoint, patient has no evidence of active disease at this point. Echocardiogram with Doppler shows preserved LV function with an EF between 55-60 %. 4. History of recent gastroenteritis. 5. Acute kidney injury, mostly prerenal secondary to contrast dye, resolved. 6. Hypertension. Continue metoprolol 25 mg by mouth twice a day, continue lisinopril 10 mg by mouth daily. 7. Hyperlipidemia. Continue Lipitor. 8.. Mild protein calorie malnutrition secondary to nothing by mouth status secondary to small bowel obstruction. Parental nutrition has been discontinued. Diet advance to soft. 9. GI prophylaxis. Continue Protonix. 10. DVT prophylaxis. Continue heparin subcu. Encourage ambulation. Continue to monitor patient. Continue current medications. Continue supportive treatment and pain management. Continue IV hydration. Continue GI and DVT prophylaxis. Continue to follow with consultants. Repeat CBC, BMP in a.m. The above impression and plan have been discussed and directed by Dr. Mattson. Anna BUSTAMANTE acting as scribe for Dr. Mattson.
--- NOTE | 2016-09-10 13:05 | P.PN ---
Subjective 80-year-old female being seen on rounds. Currently patient is up ambulating in the hallway with the use of rolled walker standby assist gait steady. Currently the patient is denying any abdominal pain and reportedly is tolerating a soft diet. Patient reportedly had a small bowel movement this morning the nasal gastric tube has been removed 48 hours prior. There's been no increase abdominal distention. Patient reportedly is passing gas and urinating with no difficulty. Patients being treated by surgical service for small bowel obstruction with a conservative approach secondary to patient's severe COPD. Pulmonology service indicated the patient would be at high risk for surgical procedure given the patient's severe COPD gold stage III almost stage V per pulmonology currently on nasal cannula at 3 L this morning keeping a sat 96% COPD stable patient states feeling better Objective - Vital Signs Vital signs: Vital Signs Temp 99.2 F 09/10/16 07:00 Pulse 84 09/10/16 11:16 Resp 18 09/10/16 07:00 BP 124/78 09/10/16 07:00 Pulse Ox 96 09/10/16 07:35 Intake & Output 09/09/16 09/10/16 09/10/16 18:59 06:59 18:59 Intake Total 360 200 Balance 360 200 Weight 56 kg 64 kg 64 kg Intake: Oral 360 200 Other: Voiding Method Bedside Commode Bedside Commode # Voids 2 2 # Bowel Movements 2 0 - Exam Physical exam 80-year-old female pleasant cooperative oriented 3 appears in no acute distress Lungs posterior diminished at the bases not able to appreciate any wheezing. No conversational dyspnea noted no cough noted Heart S1-S2 audible and regular denying chest pain when questioning Abdomen soft and not distended nontender all tones 4 quadrants noted urinating no difficulty reportedly tolerating soft diet with no reports of nausea vomiting states had a small stool this morning passing flatus Extremities no edema noted no calf Tenderness - Labs CBC & Chem 7: 09/10/16 08:43 09/10/16 08:43 Labs: Abnormal Lab Results - Last 24 Hours (Table) 09/09/16 09/09/16 09/10/16 Range/Units 18:06 23:48 06:02 RBC (3.80-5.40) m/uL Hgb (11.4-16.0) gm/dL Lymphocytes # (1.0-4.8) k/uL Creatinine (0.52-1.04) mg/dL Glucose (74-99) mg/dL POC Glucose (mg/dL) 101 H 148 H 120 H (75-99) mg/dL 09/10/16 09/10/16 09/10/16 Range/Units 08:43 08:43 11:41 RBC 3.74 L (3.80-5.40) m/uL Hgb 10.6 L (11.4-16.0) gm/dL Lymphocytes # 0.7 L (1.0-4.8) k/uL Creatinine 0.45 L (0.52-1.04) mg/dL Glucose 117 H (74-99) mg/dL POC Glucose (mg/dL) 135 H (75-99) mg/dL Assessment and Plan Plan: Impression Present on admission abdominal pain nausea vomiting suspect due to small bowel obstruction improving slowly resolving Severe COPD Gold stage III with supplemental home O2 Left ventricular systolic function normal EF between 55 and 60% per echocardiogram 09/03/2015 Mild protein calorie malnutrition suspect due to poor caloric intake Hyperlipidemia Chronic hypoxic respiratory failure secondary to severe COPD supplemental home O2 3 L [id number] Plan Continue with soft diet advanced as tolerated Poor candidate for surgical intervention treat conservatively patient is considered a high risk given severe COPD per pulmonology's recommendations Monitor I&O's address as indicated IV hydration as ordered DVT and GI prophylaxis Pain control We'll repeat abdominal x-ray in the morning Continue with respiratory treatments as ordered The above dictated assessment and findings were discussed with dr Dinorah Dejesus Impression and the plan of care have been dictated as directed. Adenike Navarro nurse practitioner acting as a scribe for Dr. Radha Dejesus
[2016-09-10 17:07] LABS: Glucose,Whole Blood 122 mg/dL (75-99)
[2016-09-10] MEDS ORDERED: 1: MVI, ADULT NO.4 WITH VIT K 10 ML, TRACE (CONC-1ML/DOSE) 1 ML, POTASSIUM CHLORIDE 10 M IV SCH ×5 (19:00)
[2016-09-10] MEDS ORDERED: ALPRAZolam 0.25 MG TAB PO PRN (19:15)
--- NOTE | 2016-09-10 19:34 | XR ---
EXAMINATION TYPE: XR chest 1V portable DATE OF EXAM: 09/10/2016 7:30 PM COMPARISON: 08/31/2016 HISTORY: Difficulty breathing TECHNIQUE: Single frontal view of the chest is obtained. FINDINGS: Heart is normal. Thoracic aorta is atheromatous. There is coarsening of pulmonary intersti tial markings. There are no hilar masses. There is mild blunting of right costophrenic angle. There i s no gross heart failure. IMPRESSION: Pulmonary fibrotic changes. Pleural thickening and scarring at the lung apices. There is a new right small pleural effusion compared to last exam. No gross heart failure.
[2016-09-10] MEDS: TEMAZEPAM 15 MG CAP PO PRN (21:01)
[2016-09-10 21:32] LABS: Glucose,Whole Blood 121 mg/dL (75-99)
[2016-09-10] MEDS: ACETAMINOPHEN TAB 325 MG TAB PO PRN (23:09)
[2016-09-11] MEDS: ALBUTEROL NEBULIZED 2.5 MG/3 ML INHALATION PRN ×3 (01:03→23:42)
[2016-09-11] MEDS: SYMBICORT 160-4.5 MCG INHALER INHALATION SCH ×2 (07:50→20:18)
[2016-09-11] MEDS: ALBUTEROL NEBULIZED 2.5 MG/3 ML INHALATION SCH ×4 (07:50→20:18)
[2016-09-11 08:06] LABS: Basophils # (A) 0.1 k/uL (0-0.2); Basophils % (A) 0 %; CHCM 31.8; Eosinophils # (A) 0.2 k/uL (0-0.7); Eosinophils % (A) 1 %; HDW 2.45; HGB 11.5 gm/dL (11.4-16.0); Luc # (Auto) 0.41; Luc % (Auto) 2; Lymphocytes # (A) 0.9 k/uL (1.0-4.8); Lymphocytes % (A) 5 %; MCH 28.4 pg (25.0-35.0); MCHC 31.1 g/dL (31.0-37.0); MCV 91.6 fL (80.0-100.0); Mean Platelet Volume 6.5; Monocytes # (A) 1.3 k/uL (0-1.0); Monocytes % (A) 8 %; Neutrophils # (A) 14.2 k/uL (1.3-7.7); Neutrophils % (A) 83 %; RBC 4.05 m/uL (3.80-5.40); RDW 13.1 % (11.5-15.5); WBC 17.1 k/uL (3.8-10.6); WBC (Perox) 18.23
[2016-09-11] MEDS: LISINOPRIL 10 MG TAB PO SCH (08:28)
[2016-09-11] MEDS: PANTOPRAZOLE 40 MG TABLET PO SCH (08:28)
[2016-09-11] MEDS: ASPIRIN 81 MG CHEW PO SCH (08:28)
[2016-09-11] MEDS: HEPARIN SODIUM,PORCINE 5,000 UNIT/ML 1 ML VIAL SQ SCH ×2 (08:28→19:34)
[2016-09-11] MEDS: DOCUSATE 100 MG CAP PO SCH ×2 (08:28→19:34)
[2016-09-11] MEDS: ATORVASTATIN 10 MG TAB PO SCH (08:28)
[2016-09-11] MEDS: METOPROLOL TARTRATE 25 MG TAB PO SCH ×2 (08:30→19:34)
[2016-09-11 08:43] LABS: Anion Gap 9 mmol/L; Blood Urea Nitrogen 12 mg/dL (7-17); Calcium 8.8 mg/dL (8.4-10.2); Carbon Dioxide 31 mmol/L (22-30); Chloride 98 mmol/L (98-107); Glucose 129 mg/dL (74-99); Magnesium 1.9 mg/dL (1.6-2.3); Non-African American GFR(MDRD) >60 (>60 ml/min/1.73 sqM); Phosphorous 4.7 mg/dL (2.5-4.5); Potassium 4.5 mmol/L (3.5-5.1); Sodium 138 mmol/L (137-145)
--- NOTE | 2016-09-11 10:12 | XR ---
EXAMINATION TYPE: XR abdomen 2V DATE OF EXAM: 09/11/2016 7:48 AM COMPARISON: NONE INDICATION: Resolving small bowel obstruction TECHNIQUE: Single view abdomen supine position and upright position FINDINGS: There are prominent small bowel loops, greatest dimension is 5.7 cm. Contrast is within the colon. Psoas margins are normal. No organomegaly is present. No free air is evident. Differential air-fluid levels are not present. IMPRESSION: 1. Findings suggestive for partial small bowel obstruction distal small bowel. Significant change fro m 09/09/2016 is not evident.
--- NOTE | 2016-09-11 10:23 | P.PN ---
Subjective 81-year-old female being seen this morning on rounds. Patient is more lethargic this morning nrsg reports pt was given xanax and restoril lasat night . Patient did have a two-view abdominal x-ray this morning review the results that shows findings are suggestive of partial small bowel obstruction distal small bowel significant change from prior not evident Objective - Vital Signs Vital signs: Vital Signs Temp 98.0 F 09/11/16 07:00 Pulse 92 09/11/16 08:00 Resp 18 09/11/16 07:00 BP 144/60 09/11/16 07:00 Pulse Ox 94 L 09/11/16 07:00 Intake & Output 09/10/16 09/11/16 09/11/16 18:59 06:59 18:59 Weight 64 kg 63 kg Other: Voiding Method Bedside Commode Bedpan # Voids 4 2 # Bowel Movements 1 2 1 - Exam Physical exam 80-year-old female pleasant resting in bed arousable to verbal stimuli Lungs posterior diminished at the bases bilateral able to appreciate wheezing. No conversational dyspnea noted no cough noted sats on 2 L 94% Heart S1-S2 audible and regular denying chest pain when questioning Abdomen soft and not distended nontender all tones 4 quadrants noted urinating no difficulty reportedly tolerating soft diet with no reports of nausea vomiting states had a small stool this morning passing flatus Extremities no edema noted no calf Tenderness - Labs CBC & Chem 7: 09/11/16 07:50 09/11/16 07:50 Labs: Abnormal Lab Results - Last 24 Hours (Table) 09/10/16 09/10/16 09/10/16 Range/Units 11:41 16:52 21:27 WBC (3.8-10.6) k/uL Plt Count (150-450) k/uL Neutrophils # (1.3-7.7) k/uL Lymphocytes # (1.0-4.8) k/uL Monocytes # (0-1.0) k/uL Carbon Dioxide (22-30) mmol/L Glucose (74-99) mg/dL POC Glucose (mg/dL) 135 H 122 H 121 H (75-99) mg/dL Phosphorus (2.5-4.5) mg/dL 09/11/16 09/11/16 Range/Units 07:50 07:50 WBC 17.1 H (3.8-10.6) k/uL Plt Count 452 H (150-450) k/uL Neutrophils # 14.2 H (1.3-7.7) k/uL Lymphocytes # 0.9 L (1.0-4.8) k/uL Monocytes # 1.3 H (0-1.0) k/uL Carbon Dioxide 31 H (22-30) mmol/L Glucose 129 H (74-99) mg/dL POC Glucose (mg/dL) (75-99) mg/dL Phosphorus 4.7 H (2.5-4.5) mg/dL Assessment and Plan Plan: Impression Present on admission abdominal pain nausea vomiting suspect due to small bowel obstruction improving slowly resolving Severe COPD Gold stage III with supplemental home O2 Left ventricular systolic function normal EF between 55 and 60% per echocardiogram 09/03/2015 Mild protein calorie malnutrition suspect due to poor caloric intake Hyperlipidemia Chronic hypoxic respiratory failure secondary to severe COPD supplemental home O2 3 L [id number] Plan Continue with soft diet advanced as tolerated Poor candidate for surgical intervention treat conservatively patient is considered a high risk given severe COPD per pulmonology's recommendations DVT and GI prophylaxis Pain control Continue with respiratory treatments as ordered recommend stopping the Xanax and restoril From a surgical perspective there is no further surgical interventions indicated at this time we'll sign off reevaluate as needed. From a surgical perspective is felt to be appropriate to proceed with a discharge to home defer to the timing of the discharge to the attending The above dictated assessment and findings were discussed with dr Dinorah Dejesus Impression and the plan of care have been dictated as directed. Adenike Navarro nurse practitioner acting as a scribe for Dr. Radha Dejesus
[2016-09-11] MEDS: AZITHROMYCIN 500 MG TAB PO SCH (14:18)
--- NOTE | 2016-09-11 16:11 | P.PN ---
Subjective This is a pleasant 80-year-old female patient who presented on 09/10/2016 with abdominal discomfort and was found to have a bowel obstruction/ileus. She was continued conservatively with nasogastric tube and fluids. She does have a history of Gold stage III chronic obstructive pulmonary disease quite severe nearly stage IV. She is seen again today in follow-up. The NG tube has been removed. She is tolerating some liquids. She denied any shortness of breath, cough or congestion. She's been up ambulating with assistance. She did develop leukocytosis current white count 17.1. Objective - Vital Signs Vital signs: Vital Signs Temp 97.9 F 09/11/16 15:00 Pulse 90 09/11/16 15:26 Resp 18 09/11/16 15:00 BP 149/65 09/11/16 15:00 Pulse Ox 93 L 09/11/16 15:00 Intake & Output 09/10/16 09/11/16 09/11/16 18:59 06:59 18:59 Weight 64 kg 63 kg Other: Voiding Method Bedside Commode Bedpan # Voids 4 2 # Bowel Movements 1 2 1 - Exam GENERAL EXAM: Alert, comfortable in no apparent distress. HEAD: Normocephalic. EYES: Normal reaction of pupils, equal size. NOSE: Clear with pink turbinates. THROAT: No erythema or exudates. NECK: No masses, no JVD. CHEST: No chest wall deformity. LUNGS: Equal air entry with no crackles, wheeze, rhonchi or dullness. CVS: S1 and S2 normal with no audible murmurs, regular rhythm. ABDOMEN: No hepatosplenomegaly, normal bowel sounds, no guarding or rigidity. Extremities: There is trace peripheral edema. No clubbing, no cyanosis. Peripheral pulses are intact. - Labs CBC & Chem 7: 09/11/16 07:50 09/11/16 07:50 Labs: Abnormal Lab Results - Last 24 Hours (Table) 09/10/16 09/10/16 09/11/16 Range/Units 16:52 21:27 07:50 WBC (3.8-10.6) k/uL Plt Count (150-450) k/uL Neutrophils # (1.3-7.7) k/uL Lymphocytes # (1.0-4.8) k/uL Monocytes # (0-1.0) k/uL Carbon Dioxide 31 H (22-30) mmol/L Glucose 129 H (74-99) mg/dL POC Glucose (mg/dL) 122 H 121 H (75-99) mg/dL Phosphorus 4.7 H (2.5-4.5) mg/dL 09/11/16 Range/Units 07:50 WBC 17.1 H (3.8-10.6) k/uL Plt Count 452 H (150-450) k/uL Neutrophils # 14.2 H (1.3-7.7) k/uL Lymphocytes # 0.9 L (1.0-4.8) k/uL Monocytes # 1.3 H (0-1.0) k/uL Carbon Dioxide (22-30) mmol/L Glucose (74-99) mg/dL POC Glucose (mg/dL) (75-99) mg/dL Phosphorus (2.5-4.5) mg/dL Assessment and Plan Plan: Impression: #1 Atypical chest pain. Acute coronary syndrome ruled out. #2 Abdominal pain with suspected bowel obstruction, treated conservatively. Improved. #3 Chronic obstructive pulmonary disease, Gold stage III, oxygen dependent. Currently inactive and stable. #4 History of prolonged ventilatory dependence following previous surgery. #5 Hypertension. #6 Hyperlipidemia. Plan: The patient was seen and evaluated by Dr. Mullen. She is stable from the pulmonary standpoint. We'll continue with her current medications. She has been initiated on azithromycin empirically. We'll follow the patient on as- needed basis.
--- NOTE | 2016-09-11 16:30 | P.PN ---
Subjective Principal diagnosis: Small bowel obstruction Patient is an 80-year-old female with multiple medical problems admitted with complaints of back, shoulder, and chest pain. Patient admitted with small bowel obstruction which has been managed conservatively. Abdominal x-ray from this morning suggestive of partial small bowel obstruction distal small bowel with no significant change from 2 days ago. Surgical service has seen and evaluated patient and from their perspective patient is stable for discharge. Upon examination, patient is very lethargic and complains of shortness of breath. Denies abdominal pain. According to nursing notes, patient was complaining of shortness of breath last night and a chest x-ray was obtained with evidence of a new right small pleural effusion compared to last exam. Patient did have a temperature of 101.6 last night at 11 PM p.m with WBC count of 17.1 this morning. Patient has been evaluated by pulmonary service and started on azithromycin empirically. Objective - Vital Signs Vital signs: Vital Signs Temp 97.9 F 09/11/16 15:00 Pulse 90 09/11/16 15:26 Resp 18 09/11/16 15:00 BP 149/65 09/11/16 15:00 Pulse Ox 93 L 09/11/16 15:00 Intake & Output 09/10/16 09/11/16 09/11/16 18:59 06:59 18:59 Weight 64 kg 63 kg Other: Voiding Method Bedside Commode Bedpan Bedpan # Voids 4 2 # Bowel Movements 1 2 1 - Exam GENERAL: Pt lethargic, lying in bed, in no acute distress. HEAD: Atraumatic, normocephalic. EYES: Pupils equal and round. ENT: Moist mucous membranes. NECK:Supple without lymphadenopathy or JVD. LUNGS: Breath sounds are diminished with a few expiratory wheezes to auscultation bilaterally. HEART: Heart S1, S2, no S3 or S4. Regular rate and rhythm. No murmurs, rubs or gallops. ABDOMEN: Soft, nontender, nondistended, hyperactive bowel sounds. No guarding. No rebound. EXTREMITIES: 2+ peripheral pulses. No edema. No calf tenderness. NEUROLOGICAL: Pt oriented x 2. Cranial nerves II through XII grossly intact. Decreased strength to upper and lower extremities. PSYCH: Despondent. SKIN: Warm, dry, intact. Normal turgor. No rashes or lesions. - Labs CBC & Chem 7: 09/11/16 07:50 09/11/16 07:50 Labs: Abnormal Lab Results - Last 24 Hours (Table) 09/10/16 09/10/16 09/11/16 Range/Units 16:52 21:27 07:50 WBC (3.8-10.6) k/uL Plt Count (150-450) k/uL Neutrophils # (1.3-7.7) k/uL Lymphocytes # (1.0-4.8) k/uL Monocytes # (0-1.0) k/uL Carbon Dioxide 31 H (22-30) mmol/L Glucose 129 H (74-99) mg/dL POC Glucose (mg/dL) 122 H 121 H (75-99) mg/dL Phosphorus 4.7 H (2.5-4.5) mg/dL 09/11/16 Range/Units 07:50 WBC 17.1 H (3.8-10.6) k/uL Plt Count 452 H (150-450) k/uL Neutrophils # 14.2 H (1.3-7.7) k/uL Lymphocytes # 0.9 L (1.0-4.8) k/uL Monocytes # 1.3 H (0-1.0) k/uL Carbon Dioxide (22-30) mmol/L Glucose (74-99) mg/dL POC Glucose (mg/dL) (75-99) mg/dL Phosphorus (2.5-4.5) mg/dL Assessment and Plan Plan: Impression and plan: 1. Small bowel obstruction, resolving. Surgical service has seen and evaluated patient. Patient is stable for discharge from surgical service. 2. Chronic hypoxic respiratory failure secondary to severe COPD with home oxygen around the clock. Pulmonary service has evaluated patient. Continue supplemental oxygen, nebulized updrafts, Symbicort. 3. Leukocytosis and elevated WBC meeting sirs criteria. Patient has been started on azithromycin for empiric coverage. 3. Atypical chest pain, present on admission, resolved. From a cardiac standpoint, patient has no evidence of active disease at this point. Echocardiogram with Doppler shows preserved LV function with an EF between 55-60 %. 4. History of recent gastroenteritis. 5. Acute kidney injury, mostly prerenal secondary to contrast dye, resolved. 6. Hypertension. Continue metoprolol 25 mg by mouth twice a day, continue lisinopril 10 mg by mouth daily. 7. Hyperlipidemia. Continue Lipitor. 8.. Mild protein calorie malnutrition secondary to nothing by mouth status secondary to small bowel obstruction. Continue soft diet. 9. GI prophylaxis. Continue Protonix. 10. DVT prophylaxis. Continue heparin subcu. Encourage ambulation. Continue to monitor patient. Continue current medications. Continue supportive treatment and pain management. Continue IV hydration. Continue GI and DVT prophylaxis. Continue physical therapy. Surgery and pulmonary signed off. Repeat CBC, BMP in a.m. The above impression and plan have been discussed and directed by Dr. Mattson. Anna BUSTAMANTE acting as scribe for Dr. Mattson.
[2016-09-11] MEDS: ACETAMINOPHEN TAB 325 MG TAB PO PRN (19:33)
[2016-09-11] MEDS ORDERED: IBUPROFEN 400 MG TAB PO PRN (20:46)
[2016-09-11] MEDS ORDERED: BENZOCAINE/MENTHOL LOZENG 1 EACH LOZENGE MUCOUS MEM PRN (22:39)
[2016-09-12] MEDS: ALBUTEROL NEBULIZED 2.5 MG/3 ML INHALATION PRN (03:39)
[2016-09-12] MEDS: ALBUTEROL NEBULIZED 2.5 MG/3 ML INHALATION SCH ×5 (07:13→20:02)
[2016-09-12] MEDS: SYMBICORT 160-4.5 MCG INHALER INHALATION SCH ×2 (07:15→20:02)
[2016-09-12] MEDS: PANTOPRAZOLE 40 MG TABLET PO SCH (07:50)
[2016-09-12] MEDS: ASPIRIN 81 MG CHEW PO SCH (07:50)
[2016-09-12] MEDS: ATORVASTATIN 10 MG TAB PO SCH (07:50)
[2016-09-12] MEDS: DOCUSATE 100 MG CAP PO SCH ×2 (07:50→21:15)
[2016-09-12] MEDS: HEPARIN SODIUM,PORCINE 5,000 UNIT/ML 1 ML VIAL SQ SCH ×2 (07:50→21:15)
[2016-09-12] MEDS: AZITHROMYCIN 500 MG TAB PO SCH (07:50)
[2016-09-12] MEDS: METOPROLOL TARTRATE 25 MG TAB PO SCH ×2 (07:51→21:15)
[2016-09-12] MEDS: LISINOPRIL 10 MG TAB PO SCH (07:51)
[2016-09-12 09:22] LABS: Anion Gap 8 mmol/L; Blood Urea Nitrogen 13 mg/dL (7-17); Calcium 8.7 mg/dL (8.4-10.2); Carbon Dioxide 35 mmol/L (22-30); Chloride 96 mmol/L (98-107); Glucose 123 mg/dL (74-99); Magnesium 1.9 mg/dL (1.6-2.3); Non-African American GFR(MDRD) >60 (>60 ml/min/1.73 sqM); Phosphorous 3.7 mg/dL (2.5-4.5); Potassium 4.1 mmol/L (3.5-5.1); Sodium 139 mmol/L (137-145)
[2016-09-12 09:25] LABS: Basophils % (A) 0 %; CH 28.9; CHCM 31.8; Eosinophils # (A) 0.2 k/uL (0-0.7); Eosinophils % (A) 1 %; HDW 2.52; HGB 10.8 gm/dL (11.4-16.0); Luc % (Auto) 1; Lymphocytes # (A) 0.7 k/uL (1.0-4.8); Lymphocytes % (A) 4 %; MCH 29.1 pg (25.0-35.0); MCHC 31.8 g/dL (31.0-37.0); MCV 91.3 fL (80.0-100.0); Monocytes % (A) 6 %; Neutrophils # (A) 14.1 k/uL (1.3-7.7); Neutrophils % (A) 87 %; RBC 3.73 m/uL (3.80-5.40); RDW 13.1 % (11.5-15.5); WBC 16.2 k/uL (3.8-10.6); WBC (Perox) 17.78
[2016-09-12 13:37] VITALS: BMI 25.4
--- NOTE | 2016-09-12 14:38 | P.PN ---
Subjective Principal diagnosis: Small bowel obstruction Patient is an 80-year-old female with multiple medical problems admitted with complaints of back, shoulder, and chest pain. Patient admitted with small bowel obstruction which has been managed conservatively. Surgical service has signed off and from their perspective patient is stable for discharge. Upon examination, patient is complaining of increased shortness of breath and weakness. Denies nausea, vomiting, or abdominal pain. Patient is passing flatus with bowel movements. Afebrile. Oxygen saturation 93% on 2 L nasal cannula. Objective - Vital Signs Vital signs: Vital Signs Temp 98.7 F 09/12/16 07:00 Pulse 78 09/12/16 11:35 Resp 20 09/12/16 07:00 BP 157/71 09/12/16 07:00 Pulse Ox 93 L 09/12/16 07:14 Intake & Output 09/11/16 09/12/16 09/12/16 18:59 06:59 18:59 Intake Total 200 250 Balance 200 250 Weight 63 kg Intake: Oral 200 250 Other: Voiding Method Bedpan Bedside Commode # Voids 1 # Bowel Movements 1 - Exam GENERAL: Pt awake and alert, sitting on side of bed, appears in mild distress. HEAD: Atraumatic, normocephalic. EYES: Pupils equal and round. ENT: Moist mucous membranes. NECK:Supple without lymphadenopathy or JVD. LUNGS: Breath sounds are diminished with a few expiratory wheezes to auscultation bilaterally. HEART: Heart S1, S2, no S3 or S4. Regular rate and rhythm. No murmurs, rubs or gallops. ABDOMEN: Soft, nontender, nondistended, active bowel sounds. No guarding. No rebound. EXTREMITIES: 2+ peripheral pulses. No edema. No calf tenderness. NEUROLOGICAL: Pt oriented x 3. Cranial nerves II through XII grossly intact. Decreased strength to upper and lower extremities. PSYCH: Anxious. SKIN: Warm, dry, intact. Normal turgor. No rashes or lesions. - Labs CBC & Chem 7: 09/12/16 08:36 09/12/16 08:36 Labs: Abnormal Lab Results - Last 24 Hours (Table) 09/12/16 09/12/16 Range/Units 08:36 08:36 WBC 16.2 H (3.8-10.6) k/uL RBC 3.73 L (3.80-5.40) m/uL Hgb 10.8 L (11.4-16.0) gm/dL Neutrophils # 14.1 H (1.3-7.7) k/uL Lymphocytes # 0.7 L (1.0-4.8) k/uL Chloride 96 L (98-107) mmol/L Carbon Dioxide 35 H (22-30) mmol/L Glucose 123 H (74-99) mg/dL Assessment and Plan Plan: Impression and plan: 1. Small bowel obstruction, resolving. Surgical service has seen and evaluated patient. Patient is stable for discharge from surgical service. 2. Dyspnea. Reconsult pulmonary service. Continue supplemental oxygen. 3. Chronic hypoxic respiratory failure secondary to severe COPD with home oxygen around the clock. Continue supplemental oxygen, nebulized updrafts, Symbicort. 3. Leukocytosis and elevated temperature meeting SIRS criteria. Patient was started on azithromycin for empiric coverage yesterday by pulmonary service. 3. Atypical chest pain, present on admission, resolved. From a cardiac standpoint, patient has no evidence of active disease at this point. Echocardiogram with Doppler shows preserved LV function with an EF between 55-60 %. 4. History of recent gastroenteritis. 5. Acute kidney injury, mostly prerenal secondary to contrast dye, resolved. 6. Hypertension. Continue metoprolol 25 mg by mouth twice a day, continue lisinopril 10 mg by mouth daily. 7. Hyperlipidemia. Continue Lipitor. 8.. Mild protein calorie malnutrition secondary to nothing by mouth status secondary to small bowel obstruction. Continue soft diet. 9. GI prophylaxis. Continue Protonix. 10. DVT prophylaxis. Continue heparin subcu. Encourage ambulation. Continue to monitor patient. Continue current medications. Continue supportive treatment and pain management. Continue IV hydration. Continue GI and DVT prophylaxis. Continue physical therapy. Reconsult pulmonary service. Repeat CBC, BMP in a.m. The above impression and plan have been discussed and directed by Dr. Mattson. Anna BUSTAMANTE acting as scribe for Dr. Mattson.
--- NOTE | 2016-09-12 14:51 | XR ---
EXAMINATION TYPE: XR chest 1V portable DATE OF EXAM: 09/12/2016 12:50 PM Comparison: 09/10/2016 Clinical History: 81 year-old female COPD, dyspnea Findings: Heart is normal size. Atherosclerotic arch calcifications with mild elongation of the thoracic aorta. Hyperinflation with mild interstitial prominence and right greater than left biapical pleural-parenc hymal scarring. Patchy peripheral right basilar opacity is also noted. Impression: COPD with a similar trace right pleural effusion with adjacent patchy atelectasis or infiltrate. Righ t greater than left biapical pleural parenchymal scarring is unchanged.
[2016-09-12] MEDS ORDERED: FUROSEMIDE 10 MG/ML 4 ML VIAL IV STA (17:46)
--- NOTE | 2016-09-12 18:35 | P.PN ---
Subjective This is a pleasant 80-year-old female patient who presented on 09/10/2016 with abdominal discomfort and was found to have a bowel obstruction/ileus. She was treated conservatively with nasogastric tube and fluids. She does have a history of Gold stage III chronic obstructive pulmonary disease quite severe nearly stage IV. She is seen again today in follow-up. The NG tube has been removed. She is tolerating some liquids. She is currently having complaints of increasing shortness of breath, cough and congestion. She's been maintained on bronchodilators and azithromycin. A chest x-ray today revealed no acute pulmonary process. No evidence of pneumonia. She is maintaining good O2 saturations in the low 90s on 3 L/m per nasal cannula. Current temperature 99.7. White count 16.2. Objective - Vital Signs Vital signs: Vital Signs Temp 99.7 F H 09/12/16 15:00 Pulse 88 09/12/16 17:56 Resp 22 09/12/16 15:00 BP 195/84 09/12/16 15:00 Pulse Ox 92 L 09/12/16 15:00 Intake & Output 09/11/16 09/12/16 09/12/16 18:59 06:59 18:59 Intake Total 200 250 Balance 200 250 Weight 63 kg Intake: Oral 200 250 Other: Voiding Method Bedpan Bedside Commode # Voids 1 # Bowel Movements 1 - Exam GENERAL EXAM: Alert, fairly comfortable in no apparent distress. HEAD: Normocephalic. EYES: Normal reaction of pupils, equal size. NOSE: Clear with pink turbinates. THROAT: No erythema or exudates. NECK: No masses, no JVD. CHEST: No chest wall deformity. LUNGS: Equal air entry with no crackles, wheeze, rhonchi or dullness. Diminished. CVS: S1 and S2 normal with no audible murmurs, regular rhythm. ABDOMEN: No hepatosplenomegaly, normal bowel sounds, no guarding or rigidity. Extremities: There is trace peripheral edema. No clubbing, no cyanosis. Peripheral pulses are intact. - Labs CBC & Chem 7: 09/12/16 08:36 09/12/16 08:36 Labs: Abnormal Lab Results - Last 24 Hours (Table) 09/12/16 09/12/16 Range/Units 08:36 08:36 WBC 16.2 H (3.8-10.6) k/uL RBC 3.73 L (3.80-5.40) m/uL Hgb 10.8 L (11.4-16.0) gm/dL Neutrophils # 14.1 H (1.3-7.7) k/uL Lymphocytes # 0.7 L (1.0-4.8) k/uL Chloride 96 L (98-107) mmol/L Carbon Dioxide 35 H (22-30) mmol/L Glucose 123 H (74-99) mg/dL Microbiology - Last 24 Hours (Table) 09/11/16 10:55 Urine Culture - Preliminary Urine,Voided Assessment and Plan Plan: Impression: #1 Atypical chest pain. Acute coronary syndrome ruled out. #2 Abdominal pain with suspected bowel obstruction, treated conservatively. Improved. #3 Chronic obstructive pulmonary disease, Gold stage III, oxygen dependent. #4 History of prolonged ventilatory dependence following previous surgery. #5 Hypertension. #6 Hyperlipidemia. Plan: The patient was seen and evaluated by Dr. Mullen. Her chest x-ray and labs were reviewed. We'll go ahead and treat her with 2 doses of IV Solu-Medrol 60 mg every 12 hours. We'll give additional Lasix 40 mg IVP 1. We will continue to follow make further recommendations based on her clinical status.
[2016-09-12] MEDS: methylPREDNISolone SOD SUCCI 125 MG/2 ML VIAL IV SCH ×2 (18:38→21:16)
[2016-09-13] MEDS: ALBUTEROL NEBULIZED 2.5 MG/3 ML INHALATION SCH ×4 (07:34→19:30)
[2016-09-13] MEDS: SYMBICORT 160-4.5 MCG INHALER INHALATION SCH ×2 (07:34→19:30)
[2016-09-13 08:20] LABS: Basophils % (A) 0 %; CH 29.3; CHCM 32.3; Eosinophils % (A) 0 %; HCT 36.8 % (34.0-46.0); HDW 2.53; HGB 11.5 gm/dL (11.4-16.0); Luc # (Auto) 0.06; Luc % (Auto) 0; Lymphocytes # (A) 0.6 k/uL (1.0-4.8); Lymphocytes % (A) 4 %; MCH 28.4 pg (25.0-35.0); MCHC 31.2 g/dL (31.0-37.0); Mean Platelet Volume 7.4; Monocytes # (A) 0.3 k/uL (0-1.0); Monocytes % (A) 2 %; Neutrophils # (A) 13.7 k/uL (1.3-7.7); Neutrophils % (A) 94 %; RBC 4.05 m/uL (3.80-5.40); RDW 13.1 % (11.5-15.5); WBC 14.7 k/uL (3.8-10.6); WBC (Perox) 15.22
[2016-09-13] MEDS: ASPIRIN 81 MG CHEW PO SCH (08:22)
[2016-09-13] MEDS: METOPROLOL TARTRATE 25 MG TAB PO SCH ×2 (08:22→20:22)
[2016-09-13] MEDS: DOCUSATE 100 MG CAP PO SCH ×2 (08:22→20:22)
[2016-09-13] MEDS: ATORVASTATIN 10 MG TAB PO SCH (08:22)
[2016-09-13] MEDS: LISINOPRIL 10 MG TAB PO SCH (08:22)
[2016-09-13] MEDS: AZITHROMYCIN 500 MG TAB PO SCH (08:22)
[2016-09-13] MEDS: PANTOPRAZOLE 40 MG TABLET PO SCH (08:22)
[2016-09-13] MEDS: HEPARIN SODIUM,PORCINE 5,000 UNIT/ML 1 ML VIAL SQ SCH ×2 (08:23→20:22)
[2016-09-13 08:30] LABS: Ionized Calcium 4.8 mg/dL (4.5-5.3)
[2016-09-13 08:38] LABS: Anion Gap 11 mmol/L; Blood Urea Nitrogen 15 mg/dL (7-17); Carbon Dioxide 36 mmol/L (22-30); Chloride 94 mmol/L (98-107); Glucose 176 mg/dL (74-99); Non-African American GFR(MDRD) >60 (>60 ml/min/1.73 sqM); Phosphorous 3.9 mg/dL (2.5-4.5); Potassium 4.3 mmol/L (3.5-5.1); Sodium 141 mmol/L (137-145); Triglycerides 87 mg/dL (<150)
--- NOTE | 2016-09-13 13:02 | P.PN ---
Subjective Principal diagnosis: Small bowel obstruction Patient is an 80-year-old female with multiple medical problems admitted with complaints of back, shoulder, and chest pain. Patient admitted with small bowel obstruction which has been managed conservatively. Surgical service has signed off and from their perspective patient is stable for discharge. Upon examination, patient states her breathing has improved from yesterday. Patient states it feels like she has phlegm in her throat. Patient is complaining of mucosal irritation to her left nostril. Chest x-ray from last night with no acute pulmonary process or evidence of pneumonia. Denies nausea, vomiting, or abdominal pain. Patient is passing flatus with bowel movements. Afebrile. Oxygen saturation 95% on 2 L nasal cannula. Objective - Vital Signs Vital signs: Vital Signs Temp 96.7 F L 09/13/16 07:00 Pulse 90 09/13/16 11:41 Resp 20 09/13/16 07:00 BP 140/65 09/13/16 07:00 Pulse Ox 95 09/13/16 07:36 Intake & Output 09/12/16 09/13/16 09/13/16 18:59 06:59 18:59 Intake Total 250 100 Balance 250 100 Weight 63 kg 53.5 kg Intake: Oral 250 100 Other: Voiding Method Bedside Commode # Voids 1 - Exam GENERAL: Pt awake and alert, sitting on side of bed, appears in no apparent distress. HEAD: Atraumatic, normocephalic. EYES: Pupils equal and round. ENT: Moist mucous membranes. Mild erythema to left nostril. NECK:Supple without lymphadenopathy or JVD. LUNGS: Breath sounds are diminished with a few expiratory wheezes to auscultation bilaterally. HEART: Heart S1, S2, no S3 or S4. Regular rate and rhythm. No murmurs, rubs or gallops. ABDOMEN: Soft, nontender, nondistended, active bowel sounds. No guarding. No rebound. EXTREMITIES: 2+ peripheral pulses. No edema. No calf tenderness. NEUROLOGICAL: Pt oriented x 3. Cranial nerves II through XII grossly intact. Decreased strength to upper and lower extremities. PSYCH: Calm. SKIN: Warm, dry, intact. Normal turgor. No rashes or lesions. - Labs CBC & Chem 7: 09/13/16 07:48 09/13/16 07:48 Labs: Abnormal Lab Results - Last 24 Hours (Table) 09/13/16 09/13/16 Range/Units 07:48 07:48 WBC 14.7 H (3.8-10.6) k/uL Neutrophils # 13.7 H (1.3-7.7) k/uL Lymphocytes # 0.6 L (1.0-4.8) k/uL Chloride 94 L (98-107) mmol/L Carbon Dioxide 36 H (22-30) mmol/L Glucose 176 H (74-99) mg/dL Albumin 3.2 L (3.5-5.0) g/dL Microbiology - Last 24 Hours (Table) 09/11/16 10:55 Urine Culture - Final Urine,Voided 09/11/16 21:10 Blood Culture - Preliminary Blood No Growth after 24 hours Assessment and Plan Plan: Impression and plan: 1. Small bowel obstruction, resolving. Surgical service has seen and evaluated patient. Patient is stable for discharge from surgical service. 2. Dyspnea, improved. Patient was given a dose of IV Lasix and 2 doses of IV Solu-Medrol yesterday with improvement. Continue azithromycin for empiric coverage. 3. Chronic hypoxic respiratory failure secondary to severe COPD with home oxygen around the clock. Continue supplemental oxygen, nebulized updrafts, Symbicort. 3. Atypical chest pain, present on admission, resolved. From a cardiac standpoint, patient has no evidence of active disease at this point. Echocardiogram with Doppler shows preserved LV function with an EF between 55-60 %. 4. History of recent gastroenteritis. 5. Acute kidney injury, mostly prerenal secondary to contrast dye, resolved. 6. Hypertension. Continue metoprolol 25 mg by mouth twice a day, continue lisinopril 10 mg by mouth daily. 7. Hyperlipidemia. Continue Lipitor. 8.. Mild protein calorie malnutrition secondary to nothing by mouth status secondary to small bowel obstruction. Continue soft diet. 9. GI prophylaxis. Continue Protonix. 10. DVT prophylaxis. Continue heparin subcu. Encourage ambulation. Continue to monitor patient. Continue current medications. Continue supportive treatment and pain management. Continue GI and DVT prophylaxis. Continue physical therapy. Continue to follow with pulmonary service. Repeat CBC, BMP in a.m. possible discharge in next 24-48 hours. The above impression and plan have been discussed and directed by Dr. Mattson. Anna BUSTAMANTE acting as scribe for Dr. Mattson.
--- NOTE | 2016-09-13 16:37 | P.PN ---
Subjective This is a pleasant 81-year-old female patient who presented on 09/10/2016 with abdominal discomfort and was found to have a bowel obstruction/ileus. She was treated conservatively with nasogastric tube and fluids. She did improve from that standpoint and is tolerating a diet well. She does have a history of Gold stage III chronic obstructive pulmonary disease quite severe nearly stage IV. Yesterday she developed some increasing shortness of breath cough congestion and wheezing. She's been treated with 2 doses of IV Solu-Medrol and given a dose of Lasix. Today she is doing much better. She has no pulmonary complaints. She's been up ambulating with assistance. She is maintaining good O2 saturations in the mid 90s on 3 L/m per nasal cannula. She is afebrile. Leukocytosis improved to 14.7. Objective - Vital Signs Vital signs: Vital Signs Temp 96.2 F L 09/13/16 15:00 Pulse 86 09/13/16 16:14 Resp 20 09/13/16 15:00 BP 143/63 09/13/16 15:00 Pulse Ox 93 L 09/13/16 15:00 Intake & Output 09/12/16 09/13/16 09/13/16 18:59 06:59 18:59 Intake Total 250 100 Balance 250 100 Weight 63 kg 53.5 kg Intake: Oral 250 100 Other: Voiding Method Bedside Commode # Voids 1 - Exam GENERAL EXAM: Alert, fairly comfortable in no apparent distress. HEAD: Normocephalic. EYES: Normal reaction of pupils, equal size. NOSE: Clear with pink turbinates. THROAT: No erythema or exudates. NECK: No masses, no JVD. CHEST: No chest wall deformity. LUNGS: Equal air entry with no crackles, wheeze, rhonchi or dullness. Diminished. CVS: S1 and S2 normal with no audible murmurs, regular rhythm. ABDOMEN: No hepatosplenomegaly, normal bowel sounds, no guarding or rigidity. Extremities: There is trace peripheral edema. No clubbing, no cyanosis. Peripheral pulses are intact. - Labs CBC & Chem 7: 09/13/16 07:48 09/13/16 07:48 Labs: Abnormal Lab Results - Last 24 Hours (Table) 09/13/16 09/13/16 Range/Units 07:48 07:48 WBC 14.7 H (3.8-10.6) k/uL Neutrophils # 13.7 H (1.3-7.7) k/uL Lymphocytes # 0.6 L (1.0-4.8) k/uL Chloride 94 L (98-107) mmol/L Carbon Dioxide 36 H (22-30) mmol/L Glucose 176 H (74-99) mg/dL Albumin 3.2 L (3.5-5.0) g/dL Microbiology - Last 24 Hours (Table) 09/11/16 10:55 Urine Culture - Final Urine,Voided 09/11/16 21:10 Blood Culture - Preliminary Blood No Growth after 24 hours Assessment and Plan Plan: Impression: #1 Atypical chest pain. Acute coronary syndrome ruled out. #2 Abdominal pain with suspected bowel obstruction, treated conservatively. Improved. #3 Chronic obstructive pulmonary disease, Gold stage III, oxygen dependent. #4 History of prolonged ventilatory dependence following previous surgery. #5 Hypertension. #6 Hyperlipidemia. Plan: The patient was seen and evaluated by Dr. Mullen. She is much improved from the pulmonary standpoint. We'll continue with her current medications. We'll continue to follow make further recommendations based on her clinical status.
[2016-09-14] MEDS: ALBUTEROL NEBULIZED 2.5 MG/3 ML INHALATION PRN ×2 (01:14→06:02)
[2016-09-14 07:19] VITALS: BP 148/66; RESP 19; TEMP 97.2
[2016-09-14] MEDS: LISINOPRIL 10 MG TAB PO SCH (07:38)
[2016-09-14] MEDS: AZITHROMYCIN 500 MG TAB PO SCH (07:38)
[2016-09-14] MEDS: ATORVASTATIN 10 MG TAB PO SCH (07:38)
[2016-09-14] MEDS: PANTOPRAZOLE 40 MG TABLET PO SCH (07:38)
[2016-09-14] MEDS: HEPARIN SODIUM,PORCINE 5,000 UNIT/ML 1 ML VIAL SQ SCH (07:38)
[2016-09-14] MEDS: METOPROLOL TARTRATE 25 MG TAB PO SCH (07:38)
[2016-09-14] MEDS: ASPIRIN 81 MG CHEW PO SCH (07:38)
[2016-09-14] MEDS: DOCUSATE 100 MG CAP PO SCH (07:38)
[2016-09-14 08:48] LABS: Anion Gap 9 mmol/L; Basophils # (A) 0.1 k/uL (0-0.2); Basophils % (A) 1 %; Blood Urea Nitrogen 28 mg/dL (7-17); CH 29.1; CHCM 32.1; Calcium 8.7 mg/dL (8.4-10.2); Carbon Dioxide 38 mmol/L (22-30); Chloride 93 mmol/L (98-107); Eosinophils % (A) 0 %; Glucose 123 mg/dL (74-99); HCT 36.4 % (34.0-46.0); HDW 2.52; HGB 11.3 gm/dL (11.4-16.0); Luc # (Auto) 0.25; Luc % (Auto) 2; Lymphocytes % (A) 6 %; MCH 28.3 pg (25.0-35.0); MCV 91.1 fL (80.0-100.0); Mean Platelet Volume 7.6; Monocytes # (A) 1.3 k/uL (0-1.0); Monocytes % (A) 9 %; Neutrophils # (A) 12.2 k/uL (1.3-7.7); Neutrophils % (A) 83 %; Non-African American GFR(MDRD) >60 (>60 ml/min/1.73 sqM); Potassium 3.8 mmol/L (3.5-5.1); RDW 13.1 % (11.5-15.5); Sodium 140 mmol/L (137-145); WBC 14.8 k/uL (3.8-10.6); WBC (Perox) 15.74
[2016-09-14] MEDS: ALBUTEROL NEBULIZED 2.5 MG/3 ML INHALATION SCH ×2 (09:12→12:32)
[2016-09-14] MEDS: SYMBICORT 160-4.5 MCG INHALER INHALATION SCH (09:12)
[2016-09-14 12:37] VITALS: PULSE 72
--- NOTE | 2016-09-14 12:51 | P.PN ---
Subjective This is a pleasant 81-year-old female patient who presented on 09/10/2016 with abdominal discomfort and was found to have a bowel obstruction/ileus. She was treated conservatively with nasogastric tube and fluids. She did improve from that standpoint and is tolerating a diet well. She does have a history of Gold stage III chronic obstructive pulmonary disease quite severe nearly stage IV. 2 days ago she developed some increasing shortness of breath cough congestion and wheezing. She's been treated with 2 doses of IV Solu-Medrol and given a dose of Lasix. Today she is doing much better. She has no pulmonary complaints. She's been up ambulating with assistance. She is maintaining good O2 saturations in the mid 90s on 3 L/m per nasal cannula. She is afebrile. She is anxious to go home. Objective - Vital Signs Vital signs: Vital Signs Temp 97.2 F L 09/14/16 07:00 Pulse 72 09/14/16 12:49 Resp 19 09/14/16 07:00 BP 148/66 09/14/16 07:00 Pulse Ox 91 L 09/14/16 07:00 Intake & Output 09/13/16 09/14/16 09/14/16 18:59 06:59 18:59 Intake Total 100 Balance 100 Weight 54.5 kg Intake: Oral 100 Other: # Voids 1 # Bowel Movements 2 - Exam GENERAL EXAM: Alert, fairly comfortable in no apparent distress. HEAD: Normocephalic. EYES: Normal reaction of pupils, equal size. NOSE: Clear with pink turbinates. THROAT: No erythema or exudates. NECK: No masses, no JVD. CHEST: No chest wall deformity. LUNGS: Equal air entry with no crackles, wheeze, rhonchi or dullness. Diminished. CVS: S1 and S2 normal with no audible murmurs, regular rhythm. ABDOMEN: No hepatosplenomegaly, normal bowel sounds, no guarding or rigidity. Extremities: There is trace peripheral edema. No clubbing, no cyanosis. Peripheral pulses are intact. - Labs CBC & Chem 7: 09/14/16 08:04 09/14/16 08:04 Labs: Abnormal Lab Results - Last 24 Hours (Table) 09/14/16 09/14/16 Range/Units 08:04 08:04 WBC 14.8 H (3.8-10.6) k/uL Hgb 11.3 L (11.4-16.0) gm/dL Plt Count 510 H (150-450) k/uL Neutrophils # 12.2 H (1.3-7.7) k/uL Monocytes # 1.3 H (0-1.0) k/uL Chloride 93 L (98-107) mmol/L Carbon Dioxide 38 H (22-30) mmol/L BUN 28 H (7-17) mg/dL Glucose 123 H (74-99) mg/dL Microbiology - Last 24 Hours (Table) 09/11/16 21:10 Blood Culture - Preliminary Blood No Growth after 48 hours 09/11/16 10:55 Urine Culture - Final Urine,Voided Assessment and Plan Plan: Impression: #1 Atypical chest pain. Acute coronary syndrome ruled out. #2 Abdominal pain with suspected bowel obstruction, treated conservatively. Improved. #3 Chronic obstructive pulmonary disease, Gold stage III, oxygen dependent. #4 History of prolonged ventilatory dependence following previous surgery. #5 Hypertension. #6 Hyperlipidemia. Plan: The patient was seen and evaluated by Dr. Mullen. She is much improved from the pulmonary standpoint. We'll continue with her current medications. She is cleared for discharge from the pulmonary standpoint. She'll follow-up with Dr. Leos in our office in 1 week. She and her daughter both encouraged to call sooner with any recurrence of symptoms or other questions or concerns.
--- NOTE | 2016-09-14 18:22 | DS ---
DATE OF ADMISSION: 09/02/2016 DATE OF DISCHARGE: 09/14/2016 The patient is an 81-year-old came in with back pain, which is being managed conservatively. Patient was also treated with small bowel obstruction which was managed conservatively as well. Patient went into respiratory failure secondary to chronic obstructive pulmonary disease exacerbation. Patient at this point of time is clinically doing well and he is at her baseline. Patient used stool suppositories and the patient will be discharged today. Patient was seen and examined on the day of discharge. Vital signs stable. PHYSICAL EXAMINATION: GENERAL: The patient is alert and oriented x3, not in any acute distress. Well developed, well nourished. HEENT: Pupils are round and equally reacting to light. EOMI. No scleral icterus. No conjunctival pallor. Normocephalic, atraumatic. No pharyngeal erythema. No thyromegaly. CARDIOVASCULAR: S1 and S2 present. No murmurs, rubs, or gallops. PULMONARY: Minimally decreased air entry into bilateral lung lucia. ABDOMEN: Soft, nontender, nondistended, normoactive bowel sounds. No palpable organomegaly. MUSCULOSKELETAL: No joint swelling or deformity. EXTREMITIES: No cyanosis, clubbing, or pedal edema. NEUROLOGICAL: Gross neurological examination did not reveal any focal deficits. SKIN: No rashes. Patient will not need ( ) the patient does have any physical therapy support or need. ASSESSMENT AND PLAN: 1. Small bowel obstruction. 2. Acute hypercapnic respiratory failure secondary to chronic obstructive pulmonary disease exacerbation, acute on chronic hypercapnic respiratory failure secondary to chronic obstructive pulmonary disease exacerbation. The patient apparently has component of diastolic dysfunction as well although he is not requiring any Lasix at this point of time. 3. Hypertension. 4. Hyperlipidemia. 5. Moderate protein calorie malnutrition. Please refer to my depart summary for further details of discharge medication. The patient will follow with Dr. Chandra Mattson in 3 to 7 days. DISCHARGE DIET: Cardiac. Activity as tolerated. Spent greater than 35 minutes in total discharge process.
== END 2016-09-14 13:36 | disposition home health service (06) | DRG 389 ==
LOC: EC 22:57 → 3OBS 09-01 01:30 → OBSVTOIN 09-02 14:21 → 4MS4W 09-02 16:02
PROVIDERS: ADMIT Family Medicine; ATTEND Family Medicine
PROC: 3E0336Z Introduction of Nutritional Substance into Peripheral Vein, Percutaneous Approach (ICD-10-PCS; principal; 2016-09-06)
DX: K56.69 Other intestinal obstruction (principal); E44.0 Moderate protein-calorie malnutrition; N17.9 Acute kidney failure, unspecified; J96.11 Chronic respiratory failure with hypoxia; J96.12 Chronic respiratory failure with hypercapnia; I42.9 Cardiomyopathy, unspecified; Z99.81 Dependence on supplemental oxygen; J44.9 Chronic obstructive pulmonary disease, unspecified; E83.39 Other disorders of phosphorus metabolism; E78.5 Hyperlipidemia, unspecified; E87.6 Hypokalemia; I25.2 Old myocardial infarction; T50.8X5A Adverse effect of diagnostic agents, initial encounter; M25.511 Pain in right shoulder; J02.9 Acute pharyngitis, unspecified; M54.9 Dorsalgia, unspecified; R07.89 Other chest pain; I10 Essential (primary) hypertension; M54.2 Cervicalgia; Z79.82 Long term (current) use of aspirin; Z79.899 Other long term (current) drug therapy; Z87.891 Personal history of nicotine dependence
CPT/HCPCS: 36415; 71010; 71020; 71275; 74000; 74020; 74250; 80048; 80053; 80061; 81001; 82040; 82330; 82550; 82553; 83735; 83880; 84100; 84478; 84484; 85025; 85379; 85610; 85730; 87040; 87086; 93005; 93306; 94640; 94760; 96365; 96376; 99285

== ENCOUNTER 2017-09-04 23:32 | Emergency (ER) | payer MEDICARE, OTHER ==
[2017-09-04 23:39] VITALS: TEMP 97.8
[2017-09-04] MEDS ORDERED: KETOROLAC 30 MG/ML 1 ML VIAL IVP STA (23:57)
[2017-09-04] MEDS ORDERED: LORazepam 2 MG/ML INJ IV STA (23:57)
[2017-09-04] MEDS ORDERED: SODIUM CHLORIDE 0.9% 1,000 ML IV STA ×2 (23:57)
[2017-09-04] MEDS ORDERED: MORPHINE SULFATE 5 MG/ML SYRINGE IVP STA (23:57)
--- NOTE | 2017-09-05 | ED ---
General Adult HPI - General Chief complaint: Shortness of Breath Stated complaint: rib pain Time Seen by Provider: 09/04/17 23:45 Source: patient, RN notes reviewed, old records reviewed Mode of arrival: wheelchair Limitations: no limitations - History of Present Illness Initial comments: This is an 81-year-old female to the ER for evaluation. Patient does say for evaluation of cough for many for evaluation of right flank pain and right back pain and right chest pain. Patient has history of this pain in the past although it has usually been able to be treated on an outpatient basis. Patient does follow along doctor is on oxygen full-time. Patient denies any injuries or trauma. Denies any fevers. No shortness of breath. Patient states she is also short of breath and or shortness of breath now is nothing new. Patient's most complaint is pain. Pain is not worse when she touches that area, no rashes - Related Data Home Medications Medication Instructions Recorded Confirmed Aspirin [Adult Low Dose Aspirin EC] 81 tab PO DAILY 08/31/16 09/04/17 Enalapril Maleate [Vasotec] 2.5 mg PO DAILY 08/31/16 09/04/17 Albuterol Nebulized [Ventolin 2.5 mg INHALATION RT-Q4H PRN 09/01/16 09/04/17 Nebulized] Albuterol Sulfate [Proair Hfa] 1 - 2 puff INHALATION RT-Q6H PRN 09/01/16 Budesonide/Formoterol Fumarate 2 puff INHALATION RT-BID 09/01/16 09/04/17 [Symbicort 160-4.5 Mcg Inhaler] Simvastatin [Zocor] 20 mg PO DAILY 09/01/16 09/04/17 Previous Rx's Medication Instructions Recorded Metoprolol Tartrate [Lopressor] 25 mg PO BID #60 tab 09/14/16 Allergies Allergy/AdvReac Type Severity Reaction Status Date / Time No Known Allergies Allergy Verified 09/04/17 23:38 Review of Systems ROS Statement: Those systems with pertinent positive or pertinent negative responses have been documented in the HPI. ROS Other: All systems not noted in ROS Statement are negative. Past Medical History Past Medical History: COPD, Hyperlipidemia, Myocardial Infarction ([place]) Last Myocardial Infarction Date:: 2009 History of Any Multi-Drug Resistant Organisms: None Reported Past Surgical History: Tonsillectomy, Tubal Ligation Past Anesthesia/Blood Transfusion Reactions: No Reported Reaction Past Psychological History: No Psychological Hx Reported Smoking Status: Former smoker Past Alcohol Use History: None Reported Past Drug Use History: None Reported General Exam Limitations: no limitations General appearance: alert, in no apparent distress Head exam: Present: atraumatic, normocephalic, normal inspection Eye exam: Present: normal appearance, PERRL, EOMI. Absent: scleral icterus, conjunctival injection, periorbital swelling ENT exam: Present: normal exam, mucous membranes moist Neck exam: Present: normal inspection. Absent: tenderness, meningismus, lymphadenopathy Respiratory exam: Present: normal lung sounds bilaterally, wheezes, accessory muscle use, decreased breath sounds, prolonged expiratory. Absent: respiratory distress, rales, rhonchi, stridor Cardiovascular Exam: Present: regular rate, normal rhythm, normal heart sounds. Absent: systolic murmur, diastolic murmur, rubs, gallop, clicks GI/Abdominal exam: Present: soft, normal bowel sounds. Absent: distended, tenderness, guarding, rebound, rigid Extremities exam: Present: normal inspection, full ROM, normal capillary refill. Absent: tenderness, pedal edema, joint swelling, calf tenderness Back exam: Present: normal inspection Neurological exam: Present: alert, oriented X3, CN II-XII intact Psychiatric exam: Present: normal affect, normal mood Skin exam: Present: warm, dry, intact, normal color. Absent: rash Course Vital Signs 09/04/17 09/05/17 09/05/17 23:36 00:34 01:00 Temperature 97.8 F Pulse Rate 74 67 66 Respiratory 20 18 20 Rate Blood Pressure 220/120 189/87 185/83 O2 Sat by Pulse 94 L 97 97 Oximetry - Reevaluation(s) Reevaluation #1: 09/05/17 02:00 Patient is adequate improvement in chest pain at this time, blood pressure is also improving with medication EKG Findings - EKG Comments: EKG Findings:: G shows normal sinus rhythm rate of 67, TN 16, QRS 94, QTC 426 Medical Decision Making - Medical Decision Making 81 female tear with atypical right-sided chest pain right sided lower back pain. No CT findings, labwork is normal patient can be discharged home - Lab Data Result diagrams: 09/05/17 00:02 09/05/17 00:02 Lab Results 09/05/17 09/05/17 09/05/17 Range/Units 00:02 00:02 00:02 WBC 6.0 (3.8-10.6) k/uL RBC 4.19 (3.80-5.40) m/uL Hgb 12.2 (11.4-16.0) gm/dL Hct 38.4 (34.0-46.0) % MCV 91.7 (80.0-100.0) fL MCH 29.2 (25.0-35.0) pg MCHC 31.9 (31.0-37.0) g/dL RDW 12.8 (11.5-15.5) % Plt Count 379 (150-450) k/uL Neutrophils % 63 % Lymphocytes % 24 % Monocytes % 7 % Eosinophils % 3 % Basophils % 1 % Neutrophils # 3.8 (1.3-7.7) k/uL Lymphocytes # 1.4 (1.0-4.8) k/uL Monocytes # 0.4 (0-1.0) k/uL Eosinophils # 0.2 (0-0.7) k/uL Basophils # 0.1 (0-0.2) k/uL PT (9.0-12.0) sec INR (<1.2) APTT (22.0-30.0) sec D-Dimer (<0.60) mg/L FEU Sodium 143 (137-145) mmol/L Potassium 3.8 (3.5-5.1) mmol/L Chloride 104 (98-107) mmol/L Carbon Dioxide 30 (22-30) mmol/L Anion Gap 9 mmol/L BUN 12 (7-17) mg/dL Creatinine 0.70 (0.52-1.04) mg/dL Est GFR (MDRD) Af Amer >60 (>60 ml/min/1.73 sqM) Est GFR (MDRD) Non-Af >60 (>60 ml/min/1.73 sqM) Glucose 161 H (74-99) mg/dL Calcium 9.8 (8.4-10.2) mg/dL Magnesium 1.8 (1.6-2.3) mg/dL Total Bilirubin <0.1 L (0.2-1.3) mg/dL AST 21 (14-36) U/L ALT 37 (9-52) U/L Alkaline Phosphatase 57 (38-126) U/L Total Creatine Kinase 187 H (30-135) U/L CK-MB (CK-2) 5.0 H* (0.0-2.4) ng/mL CK-MB (CK-2) Rel Index 2.7 Troponin I <0.012 (0.000-0.034) ng/mL NT-Pro-B Natriuret Pep pg/mL Total Protein 6.3 (6.3-8.2) g/dL Albumin 3.9 (3.5-5.0) g/dL 09/05/17 09/05/17 Range/Units 00:02 00:02 WBC (3.8-10.6) k/uL RBC (3.80-5.40) m/uL Hgb (11.4-16.0) gm/dL Hct (34.0-46.0) % MCV (80.0-100.0) fL MCH (25.0-35.0) pg MCHC (31.0-37.0) g/dL RDW (11.5-15.5) % Plt Count (150-450) k/uL Neutrophils % % Lymphocytes % % Monocytes % % Eosinophils % % Basophils % % Neutrophils # (1.3-7.7) k/uL Lymphocytes # (1.0-4.8) k/uL Monocytes # (0-1.0) k/uL Eosinophils # (0-0.7) k/uL Basophils # (0-0.2) k/uL PT 9.4 (9.0-12.0) sec INR 0.9 (<1.2) APTT 21.8 L (22.0-30.0) sec D-Dimer 0.42 (<0.60) mg/L FEU Sodium (137-145) mmol/L Potassium (3.5-5.1) mmol/L Chloride (98-107) mmol/L Carbon Dioxide (22-30) mmol/L Anion Gap mmol/L BUN (7-17) mg/dL Creatinine (0.52-1.04) mg/dL Est GFR (MDRD) Af Amer (>60 ml/min/1.73 sqM) Est GFR (MDRD) Non-Af (>60 ml/min/1.73 sqM) Glucose (74-99) mg/dL Calcium (8.4-10.2) mg/dL Magnesium (1.6-2.3) mg/dL Total Bilirubin (0.2-1.3) mg/dL AST (14-36) U/L ALT (9-52) U/L Alkaline Phosphatase (38-126) U/L Total Creatine Kinase (30-135) U/L CK-MB (CK-2) (0.0-2.4) ng/mL CK-MB (CK-2) Rel Index Troponin I (0.000-0.034) ng/mL NT-Pro-B Natriuret Pep 154 pg/mL Total Protein (6.3-8.2) g/dL Albumin (3.5-5.0) g/dL - Radiology Data Radiology results: report reviewed (Chest x-ray negative, CTA chest CT of pelvis negative), image reviewed Disposition Clinical Impression: Chest pain, Atypical chest pain, Pleurisy, Hypertension Disposition: HOME SELF-CARE Condition: Good Instructions: Chest Pain (ED), Noncardiac Chest Pain (ED) Referrals: Chandra Mattson DO [Primary Care Provider] - 1-2 days
[2017-09-05 00:15] LABS: Basophils # (A) 0.1 k/uL (0-0.2); Basophils % (A) 1 %; Eosinophils # (A) 0.2 k/uL (0-0.7); Eosinophils % (A) 3 %; HCT 38.4 % (34.0-46.0); HGB 12.2 gm/dL (11.4-16.0); Lymphocytes # (A) 1.4 k/uL (1.0-4.8); Lymphocytes % (A) 24 %; MCH 29.2 pg (25.0-35.0); MCHC 31.9 g/dL (31.0-37.0); MCV 91.7 fL (80.0-100.0); Mean Platelet Volume 6.7; Monocytes # (A) 0.4 k/uL (0-1.0); Monocytes % (A) 7 %; Neutrophils # (A) 3.8 k/uL (1.3-7.7); Neutrophils % (A) 63 %; Platelet Count 379 k/uL (150-450); RBC 4.19 m/uL (3.80-5.40); RDW 12.8 % (11.5-15.5)
[2017-09-05 00:24] LABS: D-Dimer 0.42 mg/L FEU (<0.60)
[2017-09-05 00:25] LABS: Glucose 161 mg/dL (74-99); Total Protein 6.3 g/dL (6.3-8.2)
[2017-09-05 00:26] LABS: ALT 37 U/L (9-52); AST 21 U/L (14-36); Albumin 3.9 g/dL (3.5-5.0); Alkaline Phosphatase 57 U/L (38-126); Anion Gap 9 mmol/L; Blood Urea Nitrogen 12 mg/dL (7-17); Calcium 9.8 mg/dL (8.4-10.2); Carbon Dioxide 30 mmol/L (22-30); Chloride 104 mmol/L (98-107); Magnesium 1.8 mg/dL (1.6-2.3); Potassium 3.8 mmol/L (3.5-5.1); Sodium 143 mmol/L (137-145); Total Bilirubin <0.1 mg/dL (0.2-1.3)
[2017-09-05 00:30] LABS: INR 0.9 (<1.2); Prothrombin Time 9.4 sec (9.0-12.0)
[2017-09-05 00:37] LABS: Creatine Kinase 187 U/L (30-135)
--- NOTE | 2017-09-05 00:39 | XR ---
EXAMINATION TYPE: XR chest 2V DATE OF EXAM: 09/05/2017 COMPARISON: 01/28/2017 HISTORY: Pain TECHNIQUE: Frontal and lateral views of the chest are obtained. FINDINGS: Heart is normal. Thoracic aorta is atheromatous. There is no heart failure. There is mild linear infiltrate and pleural thickening at the lung apices. Lung bases are clear. Bony thorax is int act. There is no heart failure. IMPRESSION: Normal heart. Bilateral upper lobe pleural and pulmonary scarring. No change.
[2017-09-05 00:45] LABS: Partial Thromboplastin Time 21.8 sec (22.0-30.0)
[2017-09-05 00:50] LABS: Troponin I <0.012 ng/mL (0.000-0.034)
[2017-09-05] MEDS ORDERED: RX INFO: IV CONTRAST WAS GIVEN 1 EACH MISC MISCELLANE PRN (00:58)
--- NOTE | 2017-09-05 01:42 | CT ---
EXAMINATION TYPE: CT angio chest DATE OF EXAM: 09/05/2017 1:33 AM COMPARISON: 09/01/2016 HISTORY: Chest pain/SOB CT DLP: 681.90 mGycm Automated exposure control for dose reduction was used. CONTRAST: CTA scan of the thorax is performed with IV Contrast, patient injected with 100 mL of Omnipaque 350, pulmonary embolism protocol. There are 3-D post processed images.. FINDINGS: There is diffuse pulmonary emphysema. There is patchy pleural scarring and pulmonary scarring at the lung apices. Thoracic aorta is atheromatous. There is a 2 cm right bronchial lymph node. I see no filling defects in the pulmonary arteries. There is no pericardial effusion. Heart is slightly enlarged. There is no pleural effusion. There are spondylotic changes in the thoracic spine. IMPRESSION: NO EVIDENCE OF PULMONARY EMBOLISM. PULMONARY EMPHYSEMA AND PULMONARY FIBROTIC CHANGES. ATHEROSCLEROTI C VASCULAR DISEASE. NONSPECIFIC RIGHT BRONCHIAL LYMPH NODE. NO SIGNIFICANT CHANGE COMPARED TO OLD EXA M.
--- NOTE | 2017-09-05 01:47 | CT ---
EXAMINATION TYPE: CT abdomen pelvis w con DATE OF EXAM: 09/05/2017 COMPARISON: NONE HISTORY: pain CT DLP: 681.50 mGycm Automated exposure control for dose reduction was used. TECHNIQUE: Helical acquisition of images was performed from the lung bases through the pelvis. CONTRAST: Performed without Oral Contrast and with IV Contrast, patient injected with 100 mL of Omnipaque 350. FINDINGS: Lung bases are clear of consolidation. There is mild fibrotic change at the lung bases. There is no p leural effusion. Abdominal aorta is atheromatous. Liver shows no focal defect. Gallbladder appears no rmal. Bile ducts are not dilated. Spleen and pancreas appear normal. There is no adrenal mass. There is a 1 cm cyst on the lateral left kidney. There is a 1.5 cm cyst lat eral right kidney. There is no hydronephrosis. There is no retroperitoneal adenopathy. There is small umbilical hernia that contains fat. There is no ascites. There are diverticula in the sigmoid colon. Bladder distends smoothly. There is a 6 x 4 cm thin-walled cyst in the pelvis on the left side. Bony structures are intact. There is no sign of appendicitis. Appendix appears normal.: IMPRESSION: ATHEROSCLEROTIC VASCULAR DISEASE. LEFT-SIDED PELVIC CYST COULD BE AN OVARIAN CYST. SIGMOID DIVERTICULOSIS WITHOUT EVIDENCE OF DIVERTICULITIS. MILD CARDIOMEGALY.
[2017-09-05] MEDS ORDERED: hydrALAZINE HCL 20 MG/ML 1 ML VIAL IVP STA (02:06)
[2017-09-05 02:15] VITALS: PULSE 67; RESP 18
[2017-09-05 02:30] VITALS: BP 152/68
== END 2017-09-05 02:35 | disposition home or self-care (01) ==
LOC: EC 23:32
DX: I10 Essential (primary) hypertension (principal); R09.1 Pleurisy; R07.89 Other chest pain; R10.9 Unspecified abdominal pain; J44.9 Chronic obstructive pulmonary disease, unspecified; E78.5 Hyperlipidemia, unspecified; I25.2 Old myocardial infarction; Z98.51 Tubal ligation status; Z87.891 Personal history of nicotine dependence; Z79.82 Long term (current) use of aspirin; Z79.51 Long term (current) use of inhaled steroids; Z79.899 Other long term (current) drug therapy
CPT/HCPCS: 99285 ×2; 96374 ×2; 96375 ×4; 96361 ×3; 36415; 93005; 85379; 83880; 80053; 82550; 82553; 83735; 84484; 85025; 85610; 85730; 71046; 71275; 74177; J2060; J0360; Q9967; J1885; J2274

== ENCOUNTER → 2017-11-05 | Outpatient (CLI) | payer MEDICARE, OTHER ==
--- NOTE | 2017-11-05 12:20 | XR ---
EXAMINATION TYPE: XR chest 2V DATE OF EXAM: 11/05/2017 COMPARISON: 09/05/2017 INDICATION: Left rib pain TECHNIQUE: Frontal and lateral views of the chest are obtained. FINDINGS: The heart size is normal. The pulmonary vasculature is normal. The lungs are clear. IMPRESSION: 1. No acute pulmonary process.
--- NOTE | 2017-11-05 13:15 | XR ---
EXAMINATION TYPE: XR thoracic spine complete DATE OF EXAM: 11/05/2017 COMPARISON: NONE HISTORY: Compression fracture left side chest pain TECHNIQUE: Three-view thoracic spine. FINDINGS: There are 12 thoracic type vertebral bodies. Pedicles are intact. Vascular calcifications w ithin the aorta. Vertebral body heights are preserved. No acute compression deformities are evident. Disc heights appe ar preserved. There is subtle exaggerated kyphosis present. IMPRESSION: 1. No acute osseous abnormality. 2. No compression deformities identified.
== END | disposition home or self-care (01) ==
LOC: RADXRMAIN 10:17
PROVIDERS: ATTEND Family Medicine
DX: M48.54XA Collapsed vertebra, not elsewhere classified, thoracic region, initial encounter for fracture (principal); R07.81 Pleurodynia
CPT/HCPCS: 71046; 72072

== ENCOUNTER → 2018-04-21 | Outpatient (CLI) | payer MEDICARE, OTHER ==
--- NOTE | 2018-04-21 13:39 | XR ---
EXAMINATION TYPE: XR chest 2V DATE OF EXAM: 04/21/2018 COMPARISON: Prior chest 11/05/2017 HISTORY: Left scapular pain TECHNIQUE: Frontal and lateral views of the chest are obtained. FINDINGS: There is no focal air space opacity, pleural effusion, or pneumothorax seen. The cardiac silhouette size is within normal limits. The osseous structures are intact. Biapical pleural scarri ng is again noted. Prominent lung volumes suggest underlying COPD. The aorta is dense. IMPRESSION: No acute cardiopulmonary process.
== END | disposition home or self-care (01) ==
LOC: RADXRMAIN 10:09
PROVIDERS: ATTEND Family Medicine
DX: R07.9 Chest pain, unspecified (principal); M54.9 Dorsalgia, unspecified
CPT/HCPCS: 71046

== ENCOUNTER 2018-06-02 14:45 | Inpatient (IN) | payer MEDICARE, OTHER ==
--- NOTE | 2018-06-02 15:01 | ED ---
General Adult HPI <Marco Cao - Last Filed: 06/02/18 18:55> - General Source: EMS, RN notes reviewed Mode of arrival: EMS Limitations: no limitations <Valerio Wells - Last Filed: 06/02/18 19:22> - General Chief complaint: Fall Stated complaint: fall Time Seen by Provider: 06/02/18 14:49 - History of Present Illness Initial comments: Patient's a 82-year-old female presented to the emergency room today with a chief complaint of fall that occurred 2 days ago. She does not that she was in her kitchen wearing socks on when she grabbed a piece of paper which turned around and lost her balance fell down to the right hip and elbow. Patient states she did not hit her head. Did not lose consciousness. States had a difficult time with any ambulation since this fall. Patient does make to pain with movements of the elbow and right hip. Patient currently comfortable and has declined pain medication. Patient denies any recent fever, chills, shortness of breath, chest pain, back pain, abdominal pain, nausea or vomiting, headaches or visual changes, or any other complaints. (Valerio Wells) - Related Data Home Medications Medication Instructions Recorded Confirmed Aspirin [Adult Low Dose Aspirin EC] 81 mg PO DAILY 08/31/16 06/02/18 Albuterol Sulfate [Proair Hfa] 1 - 2 puff INHALATION RT-Q6H PRN 09/01/16 Simvastatin [Zocor] 10 mg PO DAILY 09/01/16 06/02/18 Docusate [Colace] 100 mg PO DAILY 06/02/18 06/02/18 Enalapril [Vasotec] 5 mg PO DAILY 06/02/18 06/02/18 Fluticasone/Vilanterol [Breo 1 puff INHALATION RT-DAILY 06/02/18 06/02/18 Ellipta 200-25 Mcg INH] Ipratropium-Albuterol Nebulize 3 ml INHALATION RT-QID 06/02/18 06/02/18 [Duoneb 0.5 mg-3 mg/3 ml Soln] aMILoride HCL 2.5 mg PO DAILY 06/02/18 06/02/18 Allergies Allergy/AdvReac Type Severity Reaction Status Date / Time No Known Allergies Allergy Verified 10/02/18 14:48 Review of Systems ROS Other: All systems not noted in ROS Statement are negative. <Marco Cao - Last Filed: 06/02/18 18:55> ROS Other: All systems not noted in ROS Statement are negative. <Valerio Wells - Last Filed: 06/02/18 19:22> ROS Statement: Those systems with pertinent positive or pertinent negative responses have been documented in the HPI. Past Medical History Past Medical History: COPD, Hyperlipidemia, Myocardial Infarction ([place]) Last Myocardial Infarction Date:: 2009 History of Any Multi-Drug Resistant Organisms: None Reported Past Surgical History: Tonsillectomy, Tubal Ligation Past Anesthesia/Blood Transfusion Reactions: No Reported Reaction Past Psychological History: No Psychological Hx Reported Smoking Status: Former smoker Past Alcohol Use History: None Reported Past Drug Use History: None Reported <Valerio Wells - Last Filed: 06/02/18 19:22> General Exam <Marco Cao - Last Filed: 06/02/18 18:55> Limitations: no limitations <Valerio Wells - Last Filed: 06/02/18 19:22> - General Exam Comments Initial Comments: General: The patient is awake and alert, in no distress, and does not appear acutely ill. Eye: Pupils are equal, round and reactive to light. Extra-ocular movements are intact. No nystagmus. There is normal conjunctiva bilaterally. No signs of icterus. Ears, nose, mouth and throat: There are moist mucous membranes and no oral lesions. Neck: The neck is supple, there is no tenderness or JVD. Cardiovascular: There is a regular rate and rhythm. No murmur, rub or gallop is appreciated. Respiratory: Lungs are clear to auscultation, respirations are non-labored, breath sounds are equal. No wheezes, stridor, rales, or rhonchi. Musculoskeletal: Patient shows limited range of motion of the right hip due to pain. Locally tender over the lateral and medial aspects. Patient does have tenderness with a logroll maneuver on the right. No bony tenderness down to the right knee or right ankle. Pedal pulse 2+. Patient has normal appearance of the right shoulder, right elbow and wrist and hand. Radial pulse 2+. Mild tenderness posterior aspect of the right elbow. Sensation intact. Neurological: A&O x 3. CN II-XII intact, There are no obvious motor or sensory deficits. Coordination appears grossly intact. Speech is normal. Skin: Skin is warm and dry and no rashes or lesions are noted. Psychiatric: Cooperative, appropriate mood & affect, normal judgment. (Valerio Wells) Course <Marco Cao - Last Filed: 06/02/18 18:55> <Valerio Wells - Last Filed: 06/02/18 19:22> Vital Signs 06/02/18 06/02/18 06/02/18 14:48 18:24 19:16 Temperature 98.7 F 98.8 F Pulse Rate 84 85 85 Respiratory 18 18 Rate Blood Pressure 164/72 152/65 O2 Sat by Pulse 95 94 L Oximetry - Reevaluation(s) Reevaluation #1: 06/02/18 1620 Of the right hip reviewed and shows foreshortening of the right. Oral next suspicious subcapital fracture. By radiologist Dr. Elise. Patient reviewed and does show fracture at this time. Patient will be planned to be admitted for hip fracture. However, CT will be performed and is currently pending. (Valerio Wells) EKG Findings - EKG Comments: EKG Findings:: EKG performed at 1625: Shows normal sinus rhythm at 81 beats per minute. [place] interval 170. QRS 96. QT/QTC 382/443. changes. <Valerio Wells - Last Filed: 06/02/18 19:22> Medical Decision Making - Lab Data Result diagrams: 06/02/18 16:35 06/02/18 16:35 <Marco Cao - Last Filed: 06/02/18 18:55> - Lab Data Result diagrams: 06/02/18 16:35 06/02/18 16:35 <Valerio Wells - Last Filed: 06/02/18 19:22> - Medical Decision Making Patient reevaluated by myself, Dr. Cao. Patient resting comfortably in bed. Patient does have some mild to moderate tenderness right anterior hip. Patient and family updated on results and plan. Patient does request Dr. Leos consult secondary to history of pulmonary disease. Case was discussed with Dr. Rutledge, who will admit for orthopedics. He does request consult for Dr. Matston as well. I did review and agree with the findings. This includes all diagnostic interpretation and plan. (Marco Cao) Patient's labs been reviewed unremarkable. Patient's x-ray of the right elbow shows possible fracture of the right head of radius. Patient has been splinted in a posterior long arm OCL. Neurovascular rechecked and intact. X-ray reviewed does show a fracture through the right hip. CT to confirm shows subcapital femoral neck fracture. Results were discussed with patient. Patient will be admitted to the hospital. (Valerio Wells) - Lab Data Lab Results 06/02/18 06/02/18 06/02/18 Range/Units 16:35 16:35 16:35 WBC 11.8 H (3.8-10.6) k/uL RBC 4.14 (3.80-5.40) m/uL Hgb 12.1 (11.4-16.0) gm/dL Hct 37.1 (34.0-46.0) % MCV 89.5 (80.0-100.0) fL MCH 29.1 (25.0-35.0) pg MCHC 32.5 (31.0-37.0) g/dL RDW 13.3 (11.5-15.5) % Plt Count 241 (150-450) k/uL Neutrophils % 84 % Lymphocytes % 7 % Monocytes % 5 % Eosinophils % 3 % Basophils % 0 % Neutrophils # 9.9 H (1.3-7.7) k/uL Lymphocytes # 0.9 L (1.0-4.8) k/uL Monocytes # 0.6 (0-1.0) k/uL Eosinophils # 0.4 (0-0.7) k/uL Basophils # 0.1 (0-0.2) k/uL PT 9.7 (9.0-12.0) sec INR 1.0 (<1.2) APTT 22.8 (22.0-30.0) sec Sodium 135 L (137-145) mmol/L Potassium 4.2 (3.5-5.1) mmol/L Chloride 100 (98-107) mmol/L Carbon Dioxide 29 (22-30) mmol/L Anion Gap 6 mmol/L BUN 14 (7-17) mg/dL Creatinine 0.56 (0.52-1.04) mg/dL Est GFR (CKD-EPI)AfAm >90 (>60 ml/min/1.73 sqM) Est GFR (CKD-EPI)NonAf 87 (>60 ml/min/1.73 sqM) Glucose 109 H (74-99) mg/dL Calcium 9.0 (8.4-10.2) mg/dL Total Bilirubin 0.7 (0.2-1.3) mg/dL AST 18 (14-36) U/L ALT 26 (9-52) U/L Alkaline Phosphatase 50 (38-126) U/L Creatine Kinase 50 (30-135) U/L Total Protein 6.2 L (6.3-8.2) g/dL Albumin 3.6 (3.5-5.0) g/dL Disposition <Marco Cao - Last Filed: 06/02/18 18:55> Is patient prescribed a controlled substance at d/c from ED?: No Time of Disposition: 18:44 <Valerio Wells - Last Filed: 06/02/18 19:22> Clinical Impression: Hip fracture, Elbow fracture, right, Fall Disposition: ADMITTED IP TO THIS HOSP Condition: Stable
--- NOTE | 2018-06-02 15:58 | XR ---
EXAMINATION TYPE: XR elbow complete RT DATE OF EXAM: 06/02/2018 COMPARISON: NONE HISTORY: Pain FINDINGS: Three views of the elbow demonstrate pathologic anterior joint effusion. There also suggestion of sli ght cortical irregularity involving the neck of the radius. IMPRESSION: 1. Pathologic joint effusion with findings suspicious for a fracture involving the radial head or nec k..
--- NOTE | 2018-06-02 16:00 | XR ---
EXAMINATION TYPE: XR Hip RT and AP Pelvis DATE OF EXAM: 06/02/2018 COMPARISON: NONE HISTORY: Pain TECHNIQUE: A single AP view of the pelvis is obtained. Two views of the right hip are obtained. FINDINGS: There is there is diffuse osteopenia. There is arthropathy of the SI joints greater on the left. Arthropathy of the hip joints noted. There is foreshortening of the right femoral neck suspici ous for a subcapital fracture. IMPRESSION: 1. Foreshortening of the right femoral neck suspicious for subcapital fracture. Confirmation with CT scan could be performed.
[2018-06-02] MEDS ORDERED: SODIUM CHLORIDE 0.9% 1,000 ML IV STA (16:09)
[2018-06-02] MEDS ORDERED: MORPHINE SULFATE 4 MG/ML SYRINGE IV STA (16:18)
--- NOTE | 2018-06-02 16:26 | XR ---
EXAMINATION TYPE: XR chest 1V DATE OF EXAM: 06/02/2018 COMPARISON: 04/21/2018 and 09/05/2017 HISTORY: 82-year-old female presurgical clearance prior to hip fixation, pain TECHNIQUE: Single frontal view of the chest is obtained. FINDINGS: Heart normal size. This chronic arch calcifications. Focal opacity right apex likely pleural parenchy mal scarring. This can be reassessed at follow-up. Strandy atelectasis or scarring at the left base. No new consolidation or pleural effusion. IMPRESSION: Focal right apical opacity can be reassessed at follow-up, likely progressive pleural parenchymal sca rring as compared to 09/05/2017. Chronic changes without definite acute process.
[2018-06-02 16:59] LABS: ALT 26 U/L (9-52); AST 18 U/L (14-36); Albumin 3.6 g/dL (3.5-5.0); Alkaline Phosphatase 50 U/L (38-126); Anion Gap 6 mmol/L; Blood Urea Nitrogen 14 mg/dL (7-17); Carbon Dioxide 29 mmol/L (22-30); Chloride 100 mmol/L (98-107); Creatine Kinase 50 U/L (30-135); Glucose 109 mg/dL (74-99); Potassium 4.2 mmol/L (3.5-5.1); Sodium 135 mmol/L (137-145); Total Bilirubin 0.7 mg/dL (0.2-1.3); Total Protein 6.2 g/dL (6.3-8.2)
[2018-06-02 17:01] LABS: Partial Thromboplastin Time 22.8 sec (22.0-30.0); Prothrombin Time 9.7 sec (9.0-12.0)
[2018-06-02 17:11] LABS: Basophils # (A) 0.1 k/uL (0-0.2); Basophils % (A) 0 %; Eosinophils # (A) 0.4 k/uL (0-0.7); Eosinophils % (A) 3 %; HCT 37.1 % (34.0-46.0); HGB 12.1 gm/dL (11.4-16.0); Lymphocytes # (A) 0.9 k/uL (1.0-4.8); Lymphocytes % (A) 7 %; MCH 29.1 pg (25.0-35.0); MCHC 32.5 g/dL (31.0-37.0); MCV 89.5 fL (80.0-100.0); Monocytes # (A) 0.6 k/uL (0-1.0); Monocytes % (A) 5 %; Neutrophils # (A) 9.9 k/uL (1.3-7.7); Neutrophils % (A) 84 %; Platelet Count 241 k/uL (150-450); RBC 4.14 m/uL (3.80-5.40); RDW 13.3 % (11.5-15.5); WBC 11.8 k/uL (3.8-10.6)
[2018-06-02] MEDS ORDERED: IPRATROPIUM-ALBUTEROL 3 ML NEB INHALATION STA (18:30)
--- NOTE | 2018-06-02 18:34 | CT ---
EXAMINATION TYPE: CT hip RT wo con DATE OF EXAM: 06/02/2018 COMPARISON: HISTORY: Fall. CT DLP: 423.1 mGycm Automated exposure control for dose reduction was used. FINDINGS: Positive for nondisplaced mildly-impacted subcapital right femoral neck fracture. Mild associated sof t tissue swelling. Femoral head remains well-seated within the acetabulum. No other fractures. No incidental soft tissue findings. IMPRESSION: SUBCAPITAL RIGHT FEMORAL NECK FRACTURE.
[2018-06-02] MEDS ORDERED: SODIUM CHLORIDE 0.9% 1,000 ML IV ONE (18:54)
[2018-06-02] MEDS ORDERED: ONDANSETRON 4 MG/2 ML VIAL IVP PRN (18:54)
[2018-06-02] MEDS ORDERED: ACETAMINOPHEN TAB 325 MG TAB PO PRN (18:54)
[2018-06-02] MEDS ORDERED: TEMAZEPAM 15 MG CAP PO PRN (18:54)
[2018-06-02] MEDS ORDERED: NALOXONE 0.4 MG/ML 1 ML VIAL IV PRN (18:54)
[2018-06-02] MEDS ORDERED: ALBUTEROL NEBULIZED 2.5 MG/3 ML INHALATION PRN (19:02)
[2018-06-02] MEDS: IPRATROPIUM-ALBUTEROL 3 ML NEB INHALATION SCH (19:13)
[2018-06-02] MEDS: MORPHINE SULFATE 2 MG/ML SYRINGE IV PRN (22:59)
[2018-06-02 23:52] LABS: Appearance,Urine Clear (Clear); Bilirubin,Urine Negative (Negative); Blood,Urine Negative (Negative); Color,Urine Yellow; Glucose,Urine (UA) Negative (Negative); Ketones,Urine Negative (Negative); Leukocyte Esterase,Urine Negative (Negative); Nitrite,Urine Negative (Negative); PH, Urine 6.5 (5.0-8.0); Protein,Urine Trace (Negative); Specific Gravity,Urine 1.014 (1.001-1.035); Urobilinogen,Urine <2.0 mg/dL (<2.0)
[2018-06-03] MEDS: MORPHINE SULFATE 2 MG/ML SYRINGE IV PRN ×3 (02:56→13:27)
[2018-06-03] MEDS: IPRATROPIUM-ALBUTEROL 3 ML NEB INHALATION SCH ×4 (07:09→20:24)
[2018-06-03 09:03] LABS: ALT 19 U/L (9-52); AST 16 U/L (14-36); Albumin 3.2 g/dL (3.5-5.0); Alkaline Phosphatase 53 U/L (38-126); Anion Gap 9 mmol/L; Blood Urea Nitrogen 13 mg/dL (7-17); Calcium 8.4 mg/dL (8.4-10.2); Carbon Dioxide 24 mmol/L (22-30); Chloride 104 mmol/L (98-107); Glucose 111 mg/dL (74-99); Potassium 4.3 mmol/L (3.5-5.1); Sodium 137 mmol/L (137-145); Total Bilirubin 0.8 mg/dL (0.2-1.3); Total Protein 5.8 g/dL (6.3-8.2)
[2018-06-03 09:12] LABS: Basophils # (A) 0.1 k/uL (0-0.2); Basophils % (A) 1 %; Eosinophils # (A) 0.4 k/uL (0-0.7); Eosinophils % (A) 4 %; HCT 37.2 % (34.0-46.0); HGB 11.8 gm/dL (11.4-16.0); Lymphocytes % (A) 9 %; MCH 29.5 pg (25.0-35.0); MCHC 31.8 g/dL (31.0-37.0); Mean Platelet Volume 7.4; Monocytes # (A) 0.7 k/uL (0-1.0); Monocytes % (A) 6 %; Neutrophils # (A) 9.3 k/uL (1.3-7.7); Neutrophils % (A) 79 %; Platelet Count 229 k/uL (150-450); RDW 13.2 % (11.5-15.5); WBC 11.7 k/uL (3.8-10.6)
[2018-06-03] MEDS: SPIRONOLACTONE 25 MG TAB PO SCH (10:22)
[2018-06-03] MEDS: ATORVASTATIN 10 MG TAB PO SCH (10:22)
[2018-06-03] MEDS: DOCUSATE 100 MG CAP PO SCH (10:22)
[2018-06-03] MEDS: LISINOPRIL 10 MG TAB PO SCH (10:22)
--- NOTE | 2018-06-03 10:34 | P.HPOR ---
History of Present Illness H&P Date: 06/03/18 This is an 82-year-old female who is admitted for right hip fracture after a fall a few days ago. Patient states that she was brought to the emergency room for evaluation when she continued to have difficulty getting around. Patient denies hitting her head or any loss of consciousness. Patient does complain of pain in the right upper extremity. X-rays done in the emergency room revealed a subcapital fracture of the right femur and a joint effusion of the right elbow. Patient was splinted for right elbow injury in the emergency room. Patient's past medical history significant for COPD, hyperlipidemia and myocardial infarction. Patient denies any fever/chills, numbness, weakness, tingling, abdominal pain, shortness of breath or chest pain. Review of Systems See HPI. Past Medical History Past Medical History: COPD, Hyperlipidemia, Myocardial Infarction ([place]) Last Myocardial Infarction Date:: 2011 History of Any Multi-Drug Resistant Organisms: None Reported Past Surgical History: Tonsillectomy, Tubal Ligation Additional Past Surgical History / Comment(s): rt wrist tendon repair Past Anesthesia/Blood Transfusion Reactions: No Reported Reaction Past Psychological History: No Psychological Hx Reported Smoking Status: Former smoker Past Alcohol Use History: None Reported Past Drug Use History: None Reported - Past Family History Mother Family Medical History: Coronary Artery Disease (CAD) Father Family Medical History: Coronary Artery Disease (CAD) Brother(s) Family Medical History: Cancer Additional Family Medical History / Comment(s): 2 x brothers of cancer - throat cancer, and bowel cancer. 1 x brother of AAA and alcoholism Sister(s) Additional Family Medical History / Comment(s): 1 x sister has Menieres disease and aneurysm behind her ear Medications and Allergies Home Medications Medication Instructions Recorded Confirmed Type Aspirin [Adult Low Dose Aspirin EC] 81 mg PO DAILY 08/31/16 06/02/18 History Albuterol Sulfate [Proair Hfa] 1 - 2 puff INHALATION RT-Q6H PRN 09/01/16 History Simvastatin [Zocor] 10 mg PO DAILY 09/01/16 06/02/18 History Docusate [Colace] 100 mg PO DAILY 06/02/18 06/02/18 History Enalapril [Vasotec] 5 mg PO DAILY 06/02/18 06/02/18 History Fluticasone/Vilanterol [Breo 1 puff INHALATION RT-DAILY 06/02/18 06/02/18 History Ellipta 200-25 Mcg INH] Ipratropium-Albuterol Nebulize 3 ml INHALATION RT-QID 06/02/18 06/02/18 History [Duoneb 0.5 mg-3 mg/3 ml Soln] aMILoride HCL 2.5 mg PO DAILY 06/02/18 06/02/18 History Allergies Allergy/AdvReac Type Severity Reaction Status Date / Time No Known Allergies Allergy Verified 06/02/18 14:48 Physical Examination On exam patient is lying comfortably in bed in no acute distress. Right lower extremity is shortened and externally rotated. There is tenderness to palpation over the right hip. Patient has full foot and ankle motion. Dorsalis pedis pulse is 2+. Right lower extremity is warm and well perfused. On exam of the right upper extremity splint is removed and skin is intact. Patient has good right wrist and finger motion. There is no tenderness to palpation over the right wrist or hand. Limited range of motion of the right elbow due to pain. Sensation is intact. Neurovascular status and circulatory status are intact. Exams of the head, neck, left upper extremity and left lower extremity are within normal limits. Results X-rays of the right hip and pelvis show a subcapital fracture of the right femur. X-rays of the right elbow show a joint effusion suspicious for occult fracture. No dislocation. - Labs Labs: Abnormal Lab Results - Last 24 Hours (Table) 06/02/18 06/02/18 06/02/18 Range/Units 16:35 16:35 23:18 WBC 11.8 H (3.8-10.6) k/uL Neutrophils # 9.9 H (1.3-7.7) k/uL Lymphocytes # 0.9 L (1.0-4.8) k/uL Sodium 135 L (137-145) mmol/L Glucose 109 H (74-99) mg/dL Total Protein 6.2 L (6.3-8.2) g/dL Urine Protein Trace H (Negative) H & H 06/02/18 Range/Units 16:35 Hgb 12.1 (11.4-16.0) gm/dL Hct 37.1 (34.0-46.0) % Coagulation 06/02/18 Range/Units 16:35 INR 1.0 (<1.2) Result Diagrams: 06/03/18 08:02 06/03/18 08:02 Assessment and Plan Assessment: History of COPD History of hyperlipidemia. History of myocardial infarction. (1) Elbow fracture, right Current Visit: Yes Status: Acute Code(s): S42.401A - UNSP FRACTURE OF LOWER END OF RIGHT HUMERUS, INIT SNOMED Code(s): 805120770 (2) Fall Current Visit: Yes Status: Acute Code(s): W19.XXXA - UNSPECIFIED FALL, INITIAL ENCOUNTER SNOMED Code(s): 8760995 (3) Hip fracture Current Visit: Yes Status: Acute Code(s): S72.009A - FRACTURE OF UNSP PART OF NECK OF UNSP FEMUR, INIT SNOMED Code(s): 070571710 Plan: 1. A new long arm splint is applied. Maintain splint to right upper extremity. Rest and ice the right elbow. 2. Nonweightbearing to the right lower extremity. Rest and ice the right hip. 3. Patient is to remain NPO. 4. Continue pain control. 5. Right hip hemiarthroplasty is scheduled for 06/03/2018 at 1630, pending medical clearance and consent.
--- NOTE | 2018-06-03 12:18 | P.CNPUL ---
History of Present Illness Consult date: 06/03/18 Requesting physician: Jose Rutledge Reason for consult: other (Surgical clearance) Chief complaint: Pain secondary to fall right upper extremity, left hip History of present illness: This is a very pleasant 82-year-old female patient who follows with Dr. Mattson as her primary care physician. She has a history of hyperlipidemia, hypertension. She also has history of severe oxygen dependent on 3 L/m per nasal cannula Gold stage III chronic obstructive pulmonary disease with an FEV1 value of 40% of predicted, MVV of 30, an RV/TLC of 70%. She also has a history of prolonged ventilatory dependence following previous surgery. She is maintained on Breo and albuterol in the outpatient setting. She's not had any recent exacerbations of her COPD. No recent hospitalizations. She presented here to the emergency room yesterday afternoon after having ongoing pain following a fall she took 2 days prior. 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 She denied any loss of consciousness. No dizziness or lightheadedness. She was found to have a suspected fracture involving the radial head or neck of the right elbow. She was also found to have a a subcapital right femoral neck fracture and the plan is for surgical intervention today. She is currently resting fairly comfortably in bed. She is awake and alert in no acute distress. Her right upper extremity is in a long cast. She denies any worsening shortness of breath, cough or congestion. She is maintaining O2 saturation in the low 90s on 3 L/m per nasal cannula. She has been initiated on DuoNeb inhalations and Symbicort. She's been afebrile. Hemodynamically stable. White count 11.7. Hemoglobin 11.8. Creatinine 0.55. Chest x-ray shows no acute pulmonary process. There is some right apical chronic changes. Review of Systems Constitutional: Reports weakness Eyes: denies blurred vision, denies decreased vision Ears: bilateral: decreased hearing Ears, nose, mouth and throat: Denies headache, Denies sore throat Cardiovascular: Denies chest pain, Denies shortness of breath Respiratory: Denies cough Gastrointestinal: Denies abdominal pain, Denies diarrhea, Denies nausea, Denies vomiting Genitourinary: Denies dysuria, Denies hematuria Musculoskeletal: Reports frequent falls, Reports limitation of motion, Reports shooting arm pain Musculoskeletal: right: elbow pain, hip pain Integumentary: Denies pruritus, Denies rash Neurological: Denies numbness, Denies weakness Psychiatric: Denies anxiety, Denies depression Endocrine: Denies fatigue, Denies weight change Hematologic/Lymphatic: Reports as per HPI Allergic/Immunologic: Reports as per HPI Past Medical History Past Medical History: COPD, Hyperlipidemia, Myocardial Infarction ([place]) Last Myocardial Infarction Date:: 2011 History of Any Multi-Drug Resistant Organisms: None Reported Past Surgical History: Tonsillectomy, Tubal Ligation Additional Past Surgical History / Comment(s): rt wrist tendon repair Past Anesthesia/Blood Transfusion Reactions: No Reported Reaction Past Psychological History: No Psychological Hx Reported Smoking Status: Former smoker Past Alcohol Use History: None Reported Past Drug Use History: None Reported - Past Family History Mother Family Medical History: Coronary Artery Disease (CAD) Father Family Medical History: Coronary Artery Disease (CAD) Brother(s) Family Medical History: Cancer Additional Family Medical History / Comment(s): 2 x brothers of cancer - throat cancer, and bowel cancer. 1 x brother of AAA and alcoholism Sister(s) Additional Family Medical History / Comment(s): 1 x sister has Menieres disease and aneurysm behind her ear Medications and Allergies Home Medications Medication Instructions Recorded Confirmed Type Aspirin [Adult Low Dose Aspirin EC] 81 mg PO DAILY 08/31/16 06/02/18 History Albuterol Sulfate [Proair Hfa] 1 - 2 puff INHALATION RT-Q6H PRN 09/01/16 History Simvastatin [Zocor] 10 mg PO DAILY 09/01/16 06/02/18 History Docusate [Colace] 100 mg PO DAILY 06/02/18 06/02/18 History Enalapril [Vasotec] 5 mg PO DAILY 06/02/18 06/02/18 History Fluticasone/Vilanterol [Breo 1 puff INHALATION RT-DAILY 06/02/18 06/02/18 History Ellipta 200-25 Mcg INH] Ipratropium-Albuterol Nebulize 3 ml INHALATION RT-QID 06/02/18 06/02/18 History [Duoneb 0.5 mg-3 mg/3 ml Soln] aMILoride HCL 2.5 mg PO DAILY 06/02/18 06/02/18 History Allergies Allergy/AdvReac Type Severity Reaction Status Date / Time No Known Allergies Allergy Verified 06/02/18 14:48 Physical Exam Vitals: Vital Signs Temp Pulse Pulse Resp BP BP Pulse Ox 06/03/18 11:58 84 06/03/18 07:33 84 06/03/18 07:10 88 06/03/18 01:23 16 06/03/18 00:37 98.3 F 89 16 151/77 92 L 06/02/18 23:01 18 06/02/18 19:35 98.2 F 92 16 150/69 92 L 06/02/18 19:22 88 06/02/18 19:16 85 06/02/18 18:24 98.8 F 85 18 152/65 94 L 06/02/18 14:48 98.7 F 84 18 164/72 95 Intake and Output 06/02/18 06/03/18 06/03/18 22:59 06:59 14:59 Intake Total 615 Output Total 500 Balance 115 Intake: Intake, IV Titration 75 Amount Sodium Chloride 0.9% 1, 75 000 ml @ 75 mls/hr IV . [id number] Rx#:[id number] Oral 540 Output: Urine 500 Other: Voiding Method Indwelling Catheter - Constitutional General appearance: no acute distress, thin - EENT Eyes: EOMI, PERRLA ENT: hard of hearing Ears: bilateral: normal - Neck Neck: normal ROM Carotids: bilateral: upstroke normal Thyroid: bilateral: normal size - Respiratory Respiratory: bilateral: CTA - Cardiovascular Rhythm: regular Heart sounds: normal: S1, S2 - Gastrointestinal General gastrointestinal: no organomegaly, soft, no tenderness - Integumentary Integumentary: decreased turgor - Neurologic Neurologic: CNII-XII intact - Musculoskeletal Musculoskeletal: generalized weakness - Psychiatric Psychiatric: A&O x's 3, appropriate affect, intact judgment & insight Results - Laboratory Findings CBC and BMP: 06/03/18 08:02 06/03/18 08:02 PT/INR, D-dimer PT 9.7 sec (9.0-12.0) 06/02/18 16:35 INR 1.0 (<1.2) 06/02/18 16:35 Abnormal lab findings: Abnormal Labs 06/02/18 06/02/18 06/02/18 16:35 16:35 23:18 WBC 11.8 H Neutrophils # 9.9 H Lymphocytes # 0.9 L Sodium 135 L Glucose 109 H Total Protein 6.2 L Albumin Urine Protein Trace H 06/03/18 06/03/18 08:02 08:02 WBC 11.7 H Neutrophils # 9.3 H Lymphocytes # Sodium Glucose 111 H Total Protein 5.8 L Albumin 3.2 L Urine Protein - Diagnostic Findings Chest x-ray: image reviewed Assessment and Plan Assessment: Impression: #1 Acute fracture to the right subcapital femoral neck. Plan is for surgical intervention today. #2 Suspicious fracture involving the radial head or neck of the right elbow, currently in a long cast. #3 Severe oxygen dependent Gold stage III chronic obstructive pulmonary disease with FEV1 value of 40% of predicted, currently inactive and stable. #4 History of prolonged ventilation following surgery. #5 Hypertension. #6 Hyperlipidemia. Plan: The patient was seen and evaluated by Dr. Mullen. Chest x-ray labs and PFTs reviewed. The patient is cleared for surgery from the pulmonary standpoint. She will be high risk if general anesthesia is required. Preferred epidural if possible. We did have discussion with the patient and her daughter and granddaughter who are present at the bedside. She does have a history of ventilatory dependent respiratory failure following surgery in the past. There where she may be returned on the vent if needed. Educated regarding the incentive spirometer. Symbicort and DuoNeb inhalations. We will continue to follow her closely in the postoperative period. I, the cosigning physician, performed a history & physical examination of the patient. Lungs sounds are clear, diminished. Maintaining good O2 saturations in the 90s on 3 L/m per nasal cannula. I discussed the assessment and plan of care with my nurse practitioner, Gi Nick. I attest to the above consultation as dictated by her. Time with Patient: Greater than 30
[2018-06-03] MEDS ORDERED: ALPRAZolam 0.5 MG TAB PO PRN (13:17)
--- NOTE | 2018-06-03 14:32 | CDI ---
Last Revision, August 2017 Documentation Clarification Form Date: 06/03/2018 2:22:00 PM From: Kandis DuranDotsonANDRIY, CCDS Admit Date: 06/02/2018 6:56:00 PM Patient Name: Delfina Adamson Visit Number: [id number] Discharge Date: ATTENTION: The Clinical Documentation Specialists (CDI) and [facility] Coding Staff appreciate your assistance in clarifying documentation. Please respond to the clarification below the line at the bottom and electronically sign. The CDI & [facility] Coding staff will review the response and follow-up if needed. Please note: Queries are made part of the Legal Health Record. If you have any questions, please contact the author of this message via ITS. Kandy Butr MD: Patient was admitted with a right hip fracture & a right elbow fracture. Per the pulmonary consult, the patient is O2 dependent with COPD, also has a history of respiratory failure requiring ventilation postoperatively. History/Risk Factors: COPD, Home O2 dep 3Lnc, Hypertension, Hyperlipidemia & former smoker. Clinical Indicators: Vital signs: R 18, BP 164/72, PO 95 3Lnc - 94 3Lnc. Treatment: O2 3Lnc, IV fl 75, IV Ms, Albuterol INH, IV Zofran. Planned surgery on 06/03: Rt Hip Hemiarthroplasty. In your professional opinion, can you please clarify if these findings signify one of the following conditions? Chronic Respiratory Failure Yes No o With hypercapnia? o With hypoxia? Other Diagnosis, please specify Unable to determine Chronic hypoxic rest or a failure secondary to severe oxygen dependent chronic obstructive pulmonary disease Gold stage III MTDD
[2018-06-03] MEDS ORDERED: IV FLUID CONTINUATION 900 ML IV ONE (15:55)
[2018-06-03] MEDS ORDERED: ceFAZolin 1,000 MG in DEXTROSE/WATER 1 50ML.BAG IVPB STA (16:10)
[2018-06-03] MEDS ORDERED: NALOXONE 0.4 MG/ML 1 ML VIAL IV PRN (16:11)
[2018-06-03] MEDS ORDERED: MAGNESIUM HYDROXIDE 2,400 MG/10 ML CUP PO PRN (16:11)
[2018-06-03] MEDS ORDERED: HYDROcodone/APAP 5-325MG 1 EACH TAB PO PRN (16:11)
[2018-06-03] MEDS ORDERED: DIAZEPAM 5 MG TAB PO PRN (16:11)
[2018-06-03] MEDS ORDERED: HYDROmorphone 1 MG/ML 1 ML SYRINGE IVP PRN ×3 (16:11)
[2018-06-03] MEDS ORDERED: MIDAZOLAM 2 MG/2 ML VIAL ONE (16:42)
[2018-06-03] MEDS ORDERED: TRANEXAMIC ACID 1,000 MG/10 ML VIAL ONE (16:42)
[2018-06-03] MEDS ORDERED: fentaNYL (PF) 50 MCG/ML 2 ML AMP ONE (16:42)
[2018-06-03] MEDS ORDERED: PHENYLEPHRINE-0.9% NACL SYG 1 MG/10 ML SYRINGE ONE (16:42)
[2018-06-03] MEDS ORDERED: SODIUM CHLORIDE 0.9% 100 ML BAG ONE (16:42)
[2018-06-03] MEDS ORDERED: TRANEXAMIC ACID 1,000 MG in SODIUM CHLORIDE 0.9% 50 ML IVPB ONE ×2 (16:59→17:00)
[2018-06-03] MEDS ORDERED: ceFAZolin 1,000 MG VIAL IVPB ONE (17:06)
--- NOTE | 2018-06-03 17:40 | P.OP ---
Date of Procedure: 06/03/18 Preoperative Diagnosis: Subcapital fracture right hip Postoperative Diagnosis: Subcapital fracture right hip Procedure(s) Performed: Right hip hemiarthroplasty Implants: Richards and nephew Polarstem size 4 standard Richards & Nephew tandem unipolar, 45 mm Richards & Nephew tandem unipolar 12/14 taper sleeve, +0 mm All components were press-fit. Anesthesia: spinal Surgeon: Jose Rutledge Senior Project Manager #1: Laya Badillo Estimated Blood Loss (ml): 50 Pathology: other (Femoral head) Condition: stable Disposition: PACU Indications for Procedure: This is an 82-year-old female that fell at home and sustained a subcapital fracture of her right hip. After discussing the surgical and nonsurgical treatment options with her and her family at length, I recommended a right hip hemiarthroplasty. Informed consent was obtained. Operative Findings: The operative findings are consistent with a subcapital fracture of the right hip Description of Procedure: Patient was seen and evaluated in the preoperative area, consent was reviewed and the operative site was marked with a skin marker. Patient was then brought to the operating room and given 2 g of Ancef intravenously. A spinal anesthetic was administered by the anesthesia department. Patient was then placed in a lateral decubitus position and held with a Montral hip positioner. The bony prominences were well-padded and an axillary roll was placed. The hip was then prepped and draped in the usual sterile fashion. A universal timeout was then performed which confirmed the patient's name, surgical site, ALLERGIES, and procedure. A standard anterolateral approach the hip was performed. Skin and subcutaneous tissues were sharply incised with an incision centered over the tip of the greater trochanter. The incision was carefully dissected down to the fascia. The fascia was then split in line with skin incision and a Charnley retractor was gently placed. The abductors were then identified, and the anterior one third of the abductors were released off the trochanter and one large sleeve. The fracture hematoma was evacuated and the proximal femur was exposed by externally rotating the femur. The fracture site was readily visualized. Next , using an osteotomy guide, the proximal femur was osteotomized at the appropriate level of the above the lesser trochanter. This bone was then removed. Attention was then turned to the femoral head. Using a corkscrew, the femoral head was removed from the acetabulum without incident. The acetabulum was inspected, and found to have no significant arthrosis. Femoral head was then measured. Attention was then redirected to the femur. Proximal femur was re-exposed and a box osteotome was used to lateralize the proximal femur. A lead handler was then used to locate the femoral canal. Sequential broaching was then performed to the appropriate size. The calcar was then planed and trial head and neck were placed. The hip was then gently reduced. Leg lengths were checked and found to be equal. Hip was then taken through a full range of motion was stable throughout. The hip was then gently dislocated with the aid of a bone hook. The trial head and neck were then removed. The femoral broach was then inspected and found to have a secure fit. The broach was then removed. The hip was then copiously irrigated with antibiotic solution with a pulse lavage. Components were then opened and the femoral stem was then impacted into the proximal femur. The trunnion was cleaned and dried, and the femoral head and neck were then impacted. Hip was again gently reduced. Again leg lengths were checked and found to be equal, and the hip was taken through a full range of motion and found to be stable. The hip was again irrigated with pulsatile lavage, then followed by the Irrrisept solution. The abductors were then repaired through drill holes to the bone to the greater trochanter, utilizing #5 Ethibond suture. Next the fascia was repaired with #2 strata fix suture. The subcutaneous tissue was then repaired with 3-0 Vicryl. The subcuticular tissue was then repaired with 3-0 strata fix suture. Skin was then closed with Dermabond tape. A sterile dressing was then applied and the patient was transported to the recovery room in stable condition. Senior Project Manager Ronna Aguayo was required due to the complexity of surgery the need for skilled electrician assistant. She assisted with positioning the patient, draping the patient, retraction during the surgery, and closure of the wound.
[2018-06-03] MEDS ORDERED: LACTATED RINGERS 1,000 ML IV ONE (17:51)
--- NOTE | 2018-06-03 18:26 | XR ---
EXAMINATION TYPE: XR Hip Limited RT DATE OF EXAM: 06/03/2018 COMPARISON: Yesterday HISTORY: Hip fracture TECHNIQUE: Single view FINDINGS: There is a new right hip prosthesis. Components are in anatomic position. IMPRESSION: Hip prosthesis without evidence of complicating process.
[2018-06-03] MEDS: SODIUM CHLORIDE 0.9% 1,000 ML IV SCH (20:10)
[2018-06-03] MEDS: SYMBICORT 160-4.5 MCG INHALER INHALATION SCH (20:25)
[2018-06-03] MEDS: SENNOSIDES-DOCUSATE SODIUM 1 EACH TAB PO SCH (20:47)
[2018-06-04] MEDS: ceFAZolin IN SWFI 2 GM/20 ML SYRINGE IVP SCH ×2 (00:28→09:09)
[2018-06-04] MEDS: HYDROcodone/APAP 5-325MG 1 EACH TAB PO PRN ×3 (03:04→17:48)
--- NOTE | 2018-06-04 05:21 | CONS ---
CONSULTATION The patient is a pleasant 82-year-old white female who apparently suffered a fall and a fracture of her right hip. She was brought to the emergency department last evening and was subsequently admitted. She apparently fell 2 days ago but did not want to seek medical attention because of her stubborn attitude according to her 2 daughters. The patient was wearing socks where she turned around and lost her balance with a slip and fall. She did not hit her head or lose any consciousness, but she did have difficulty ambulating at this time and was unable to bear any weight. She was kind of waiting to come in the office; however, it is felt that the patient was brought in by her family. PAST MEDICAL HISTORY: Her past medical history is significant for COPD severe, requiring oxygen, hypertension, hyperlipidemia and osteoporosis. REVIEW OF SYSTEMS: She admits to having a myocardial infarction in 2009. Admits to multiple problems with COPD and exacerbations requiring intervention and steroids. PAST SURGICAL HISTORY: Past surgical history is significant for tonsils and tubal ligation. SOCIAL: Positive for many years of tobacco. Denies any drugs or alcohol. FAMILY HISTORY: Family history is noncontributory. Review of systems outside of COPD is unremarkable. PHYSICAL EXAM: Patient is awake and alert and answering questions appropriately. HEENT: Head is normocephalic with reid hair. Neck is supple. No JVD. HEART: Regular rate and rhythm. LUNGS: Diminished breath sounds bilateral, but stable for her. NEUROLOGICAL: Cranial nerves 2 through 12 grossly intact. Skin is warm and dry to palpation. EXTREMITIES: Right extremity is shortened and externally rotated with pain in the right hip. The patient underwent orthopedic evaluation and it was felt the patient's only recourse is to have ORIF of the right hip. She is cleared medically, but however, she needs to be cleared by Pulmonary, which is ongoing. FINAL IMPRESSIONS: 1. Subcapital femoral neck fracture of the right femur. 2. Chronic obstructive pulmonary disease. 3. Osteoporosis. 4. Hypertension. 5. Coronary artery disease. 6. Hyperlipidemia. PLAN: ORIF of the right hip pending Pulmonary consultation. The patient is going to be high risk. Pros and cons were discussed with the family. MMODL / IJN: [id number] /
[2018-06-04 07:35] LABS: Basophils % (A) 0 %; Eosinophils # (A) 0.3 k/uL (0-0.7); Eosinophils % (A) 3 %; HCT 34.3 % (34.0-46.0); Lymphocytes # (A) 0.8 k/uL (1.0-4.8); Lymphocytes % (A) 7 %; MCH 29.7 pg (25.0-35.0); MCV 92.8 fL (80.0-100.0); Monocytes # (A) 0.8 k/uL (0-1.0); Monocytes % (A) 7 %; Neutrophils # (A) 9.1 k/uL (1.3-7.7); Neutrophils % (A) 81 %; Platelet Count 220 k/uL (150-450); RBC 3.69 m/uL (3.80-5.40); RDW 13.1 % (11.5-15.5); WBC 11.2 k/uL (3.8-10.6)
--- NOTE | 2018-06-04 08:53 | P.PN ---
Subjective Progress Note Date: 06/04/18 This is an 82-year-old female who is status post right hip hemiarthroplasty. This is postoperative day #1. Patient states that her pain is well controlled. Patient states that she has not been walking with physical therapy yet. Patient denies any fever/chills, numbness, weakness, tingling, abdominal pain, shortness of breath or chest pain. Objective - Vital Signs Vital signs: Vital Signs Temp 98.2 F 06/04/18 07:35 Pulse 81 06/04/18 07:35 Resp 14 06/04/18 07:35 BP 143/68 06/04/18 07:35 Pulse Ox 95 06/04/18 07:35 Intake & Output 06/03/18 06/04/18 06/04/18 18:59 06:59 18:59 Intake Total 1650 1125 Output Total 650 1420 Balance 1000 -295 Intake: IV 900 Intake, IV Titration 750 585 Amount Sodium Chloride 0.9% 1, 585 000 ml @ 65 mls/hr IV . [id number] BONNIE Rx#:[id number] Sodium Chloride 0.9% 1, 750 000 ml @ 75 mls/hr IV . [id number] STA Rx#:[id number] Oral 540 Output: Urine 600 1420 Uretheral (Dueñas) 200 620 Estimated Blood Loss 50 Other: Voiding Method Indwelling Catheter Indwelling Catheter Indwelling Catheter # Voids 1 - Exam Vital signs are stable. Patient is in no acute distress and is alert and oriented 3. Calf is soft and nontender to palpation. Dressing is clean, dry, and intact. Patient has full foot and ankle motion without pain or difficulty. Neurovascular status and circulatory status are intact. - Labs CBC & Chem 7: 06/04/18 07:06 06/03/18 08:02 Labs: Abnormal Lab Results - Last 24 Hours (Table) 06/03/18 06/03/18 06/04/18 Range/Units 08:02 08:02 07:06 WBC 11.7 H 11.2 H (3.8-10.6) k/uL RBC 3.69 L (3.80-5.40) m/uL Hgb 11.0 L (11.4-16.0) gm/dL Neutrophils # 9.3 H 9.1 H (1.3-7.7) k/uL Lymphocytes # 0.8 L (1.0-4.8) k/uL Glucose 111 H (74-99) mg/dL Total Protein 5.8 L (6.3-8.2) g/dL Albumin 3.2 L (3.5-5.0) g/dL Assessment and Plan Assessment: History of COPD History of hyperlipidemia. History of myocardial infarction. (1) Elbow fracture, right Current Visit: Yes Status: Acute Code(s): S42.401A - UNSP FRACTURE OF LOWER END OF RIGHT HUMERUS, INIT SNOMED Code(s): 501389675 (2) Fall Current Visit: Yes Status: Acute Code(s): W19.XXXA - UNSPECIFIED FALL, INITIAL ENCOUNTER SNOMED Code(s): 7331715 (3) Hip fracture Current Visit: Yes Status: Acute Code(s): S72.009A - FRACTURE OF UNSP PART OF NECK OF UNSP FEMUR, INIT SNOMED Code(s): 602225374 (4) S/P hip hemiarthroplasty Current Visit: Yes Status: Acute Code(s): Z96.649 - PRESENCE OF UNSPECIFIED ARTIFICIAL HIP JOINT SNOMED Code(s): 792941175 Plan: 1. Maintain splint and sling to right upper extremity. Nonweightbearing to the right upper extremity. 2. Weightbearing as tolerated to the right lower extremity. 3. Continue routine postoperative care and pain control. 4. Anticoagulation with Xarelto. 5. Continue hip dislocation precautions with abductor pillow. 6. Dressing stays in place for 10 days. May shower dressing on. 7. Likely discharge to rehab the next 1-2 days.
[2018-06-04] MEDS: SODIUM CHLORIDE 0.9% 1,000 ML IV SCH (08:54)
[2018-06-04] MEDS: LISINOPRIL 10 MG TAB PO SCH (09:10)
[2018-06-04] MEDS: DOCUSATE 100 MG CAP PO SCH (09:10)
[2018-06-04] MEDS: SPIRONOLACTONE 25 MG TAB PO SCH (09:10)
[2018-06-04] MEDS: RIVAROXABAN 10 MG TAB PO SCH (09:10)
[2018-06-04] MEDS: ATORVASTATIN 10 MG TAB PO SCH (09:10)
[2018-06-04] MEDS: IPRATROPIUM-ALBUTEROL 3 ML NEB INHALATION SCH ×4 (10:14→20:08)
[2018-06-04] MEDS: SYMBICORT 160-4.5 MCG INHALER INHALATION SCH ×2 (10:14→20:08)
--- NOTE | 2018-06-04 12:16 | CDI ---
Last Revision, August 2017 Documentation Clarification Form Date: 06/04/2018 12:06:13 PM From: Kandis DuranDotsonANDRIY, CCDS Admit Date: 06/02/2018 6:56:00 PM Patient Name: Delfina Adamson Visit Number: [id number] Discharge Date: ATTENTION: The Clinical Documentation Specialists (CDI) and [facility] Coding Staff appreciate your assistance in clarifying documentation. Please respond to the clarification below the line at the bottom and electronically sign. The CDI & [facility] Coding staff will review the response and follow-up if needed. Please note: Queries are made part of the Legal Health Record. If you have any questions, please contact the author of this message via ITS. Jose Ha , DO: Patient is admitted after a fall with a right hip fracture, right humeral head fracture and documented osteoporosis. Patient history/risk factors: Osteoporosis, COPD, Hyperlipidemia & previous [place]. Clinical Indicators: Fall with fractures as above. RAD: Right elbow XR: Pathologic joint effusion with findings suspicious for a fracture involving the radial head or neck. Right Hip/Pelvis: Foreshortening of the right femoral neck suspicious for usbcapital fracture. Arthropathy of the hip joints noted. CT right hip: Subcapital right femoral neck fracture. Treatment: IV fluids, IV Ms, Albuterol INH, IV Zofran, IV Kefzol To OR on 06/03 for right hip hemiarthroplasty. In your professional opinion, please specify if the patient's fracture were pathological fractures: Right hip fracture, pathological: Yes No Other (please specify) Undetermined Right humeral head fracture, pathological: Yes No Other (please specify) Unable to determine No No MTDD
--- NOTE | 2018-06-04 14:55 | P.PN ---
Subjective Progress Note Date: 06/04/18 Principal diagnosis: Acute fracture of the right femoral neck, suspicious fracture involving the radial head of the neck of the right elbow, status post right hip hemiarthroplasty, postop day 1 This is a very pleasant 82-year-old female patient who follows with Dr. Mattson as her primary care physician. She has a history of hyperlipidemia, hypertension. She also has history of severe oxygen dependent on 3 L/m per nasal cannula Gold stage III chronic obstructive pulmonary disease with an FEV1 value of 40% of predicted, MVV of 30, an RV/TLC of 70%. She also has a history of prolonged ventilatory dependence following previous surgery. She is maintained on Breo and albuterol in the outpatient setting. She's not had any recent exacerbations of her COPD. No recent hospitalizations. She presented here to the emergency room yesterday afternoon after having ongoing pain following a fall she took 2 days prior. 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 She denied any loss of consciousness. No dizziness or lightheadedness. She was found to have a suspected fracture involving the radial head or neck of the right elbow. She was also found to have a a subcapital right femoral neck fracture and the plan is for surgical intervention today. She is currently resting fairly comfortably in bed. She is awake and alert in no acute distress. Her right upper extremity is in a long cast. She denies any worsening shortness of breath, cough or congestion. She is maintaining O2 saturation in the low 90s on 3 L/m per nasal cannula. She has been initiated on DuoNeb inhalations and Symbicort. She's been afebrile. Hemodynamically stable. White count 11.7. Hemoglobin 11.8. Creatinine 0.55. Chest x-ray shows no acute pulmonary process. There is some right apical chronic changes. On 06/04/2018 patient seen in follow-up . This is postop day 1 status post right hip hemiarthroplasty. Awake and alert, she sits up in the recliner, her pain is reasonably controlled, no worsening shortness of breath, on room air, her pulse ox is 90%, she is afebrile, hemodynamically stable. Todays labs have been noted. Denies any fever or chills, right hip incision is covered with a dressing. She is currently nonweightbearing to the right upper extremity. She has a splint and sling to the right upper extremity. She has been started on anticoagulation with Xarelto. Patient was restarted on her inhalers and nebulized treatments. Lung sounds are diminished, no rhonchi, no wheezing noted Objective - Vital Signs Vital signs: Vital Signs Temp 98.6 F 06/04/18 14:10 Pulse 76 06/04/18 14:10 Resp 21 06/04/18 14:10 BP 126/59 06/04/18 14:10 Pulse Ox 90 L 06/04/18 14:10 Intake & Output 06/03/18 06/04/18 06/04/18 18:59 06:59 18:59 Intake Total 1650 1125 240 Output Total 650 1420 Balance 1000 -295 240 Intake: IV 900 Intake, IV Titration 750 585 Amount Sodium Chloride 0.9% 1, 585 000 ml @ 65 mls/hr IV . [id number] BONNIE Rx#:[id number] Sodium Chloride 0.9% 1, 750 000 ml @ 75 mls/hr IV . [id number] STA Rx#:[id number] Oral 540 240 Output: Urine 600 1420 Uretheral (Dueñas) 200 620 Estimated Blood Loss 50 Other: Voiding Method Indwelling Catheter Indwelling Catheter Indwelling Catheter # Voids 1 - Exam - Constitutional General appearance: no acute distress, thin - EENT Eyes: EOMI, PERRLA ENT: hard of hearing Ears: bilateral: normal - Neck Neck: normal ROM Carotids: bilateral: upstroke normal Thyroid: bilateral: normal size - Respiratory Respiratory: bilateral: CTA - Cardiovascular Rhythm: regular Heart sounds: normal: S1, S2 - Gastrointestinal General gastrointestinal: no organomegaly, soft, no tenderness - Integumentary Integumentary: decreased turgor - Neurologic Neurologic: CNII-XII intact - Musculoskeletal Musculoskeletal: generalized weakness, right hip surgical dressing is clean dry and intact, distal pulses are intact, no numbness, no tingling. Right arm is in the splint and sling, pulses are intact, no numbness or tingling. - Psychiatric Psychiatric: A&O x's 3, appropriate affect, intact judgment & insight - Labs CBC & Chem 7: 06/04/18 07:06 06/03/18 08:02 Labs: Abnormal Lab Results - Last 24 Hours (Table) 06/04/18 Range/Units 07:06 WBC 11.2 H (3.8-10.6) k/uL RBC 3.69 L (3.80-5.40) m/uL Hgb 11.0 L (11.4-16.0) gm/dL Neutrophils # 9.1 H (1.3-7.7) k/uL Lymphocytes # 0.8 L (1.0-4.8) k/uL Assessment and Plan Plan: #1 Acute fracture to the right subcapital femoral neck. Plan is for surgical intervention today. #2 Suspicious fracture involving the radial head or neck of the right elbow, currently in a long cast. #3 Chronic hypoxic respiratory failure secondary to severe oxygen dependent Gold stage III chronic obstructive pulmonary disease with FEV1 value of 40% of predicted, currently inactive and stable. #4 History of prolonged ventilation following surgery. #5 Hypertension. #6 Hyperlipidemia. Plan: Continue encouraging deep breathing and coughing, is reasonably controlled, patient has no worsening shortness of breath, chest pain, she has been started on anticoagulation by orthopedic service. No acute issues from pulmonary standpoint. Continue nebulized bronchodilators and Symbicort. I performed a history & physical examination of the patient and discussed their management with my nurse practitioner, Tamica Hills. I reviewed the nurse practitioner's note and agree with the documented findings and plan of care. Lung sounds are diminished breath sounds. The findings and the impression was discussed with the patient. I attest to the documentation by the nurse practitioner. Time with Patient: Less than 30
[2018-06-04] MEDS: SENNOSIDES-DOCUSATE SODIUM 1 EACH TAB PO SCH (20:31)
--- NOTE | 2018-06-05 01:07 | PN ---
PROGRESS NOTE DATE OF SERVICE: 06/04/2018. HISTORY: The patient is a pleasantly debilitated 82-year-old white female who suffered a right hip fracture after a fall. She is post open reduction and internal fixation of the right hip. She has no acute complaints today. She is upright in bed and being helped and assisted with her breakfast by her daughter. PHYSICAL EXAM: She is alert and oriented x3. HEENT: Normocephalic with reid thin hair. NECK: Supple. No JVD. HEART: Regular rate and rhythm. ABDOMEN: Soft, nontender. No rebound, rigidity, guarding. EXTREMITIES: No cyanosis, clubbing or jaundice. NEUROVASCULAR: Intact distal extremity. SKIN: Incision over the right hip with abduction pillow currently in place. IMPRESSION: 1. Right hip fracture secondary to fall. 2. Osteoporosis. 3. Chronic obstructive pulmonary disease, oxygen requiring. PLAN: Continue to follow patient's overall progress. Probably will need inpatient rehabilitation, which will be arranged. The patient understands this and is willing to go for it as soon as possible. MMODL / IJN: [id number] /
[2018-06-05] MEDS: HYDROcodone/APAP 5-325MG 1 EACH TAB PO PRN ×2 (03:15→12:58)
[2018-06-05] MEDS: SODIUM CHLORIDE 0.9% 1,000 ML IV SCH (03:16)
[2018-06-05] MEDS: IPRATROPIUM-ALBUTEROL 3 ML NEB INHALATION SCH ×2 (07:17→12:06)
[2018-06-05] MEDS: SYMBICORT 160-4.5 MCG INHALER INHALATION SCH (07:17)
[2018-06-05 07:43] VITALS: BP 127/66; RESP 18; TEMP 98.6
[2018-06-05] MEDS: ATORVASTATIN 10 MG TAB PO SCH (07:58)
[2018-06-05] MEDS: SPIRONOLACTONE 25 MG TAB PO SCH (07:58)
[2018-06-05] MEDS: RIVAROXABAN 10 MG TAB PO SCH (07:58)
[2018-06-05] MEDS: DOCUSATE 100 MG CAP PO SCH (07:58)
[2018-06-05] MEDS: LISINOPRIL 10 MG TAB PO SCH (07:58)
--- NOTE | 2018-06-05 07:58 | P.DS ---
Providers Date of admission: 06/02/18 18:56 Expected date of discharge: 06/05/18 Attending physician: Jose Rutledge Consults: 06/02/18 18:54 Consult Physician Stat Consulting Provider: Raul Leos Consult Reason/Comments: Medical clearance Do you want consulting provider notified?: Yes Consult Physician Stat Consulting Provider: Chandra Mattson Consult Reason/Comments: Medical clearance Do you want consulting provider notified?: Yes Primary care physician: Chandra Mattson - Discharge Diagnosis(es) (1) Elbow fracture, right Current Visit: Yes Status: Acute (2) Fall Current Visit: Yes Status: Acute (3) Hip fracture Current Visit: Yes Status: Acute (4) S/P hip hemiarthroplasty Current Visit: Yes Status: Acute Hospital Course: This is a 82-year-old female who sustained a fracture of the right hip and an injury of the right elbow after a fall. The patient presents for evaluation. After discussion and consideration patient elects to proceed with right hip hemiarthroplasty. The patient is seen preoperatively by Dr. Rutledge and medically cleared for surgery by internal medicine. Patient is admitted to [facility] on 06/02/2018 for right hip hemiarthroplasty. The procedures performed without complication or sequelae. The patient is doing well postoperatively. Labs and vital signs are stable on day of discharge. On day of discharge patient's hip incision is healing well. There is minimal erythema. There is no drainage noted at this time. There is minimal soft tissue swelling to the hip and thigh. Patient has full foot and ankle motion without difficulty or pain. Neurovascular status to the right lower extremity is intact. Right upper extremity is in a long-arm splint and sling. Patient has good range of motion of the right wrist and hand. Sensation is intact. Neurovascular status to the right upper extremity is intact. Patient is discharged to rehab in good condition. Please see med rec for accurate list of home medications. Patient Condition at Discharge: Stable Plan - Discharge Summary Discharge Rx Participant: No New Discharge Prescriptions: New Aspirin 325 mg PO BID #60 tab HYDROcodone/APAP 5-325MG [[place] 5-325] 1 - 2 tab PO Q4-6H PRN #84 tab PRN Reason: Pain Sennosides [Senokot] 1 tab PO BID #60 tablet No Action Aspirin [Adult Low Dose Aspirin EC] 81 mg PO DAILY Simvastatin [Zocor] 10 mg PO DAILY Albuterol Sulfate [Proair Hfa] 1 - 2 puff INHALATION RT-Q6H PRN PRN Reason: Shortness Of Breath aMILoride HCL 2.5 mg PO DAILY Enalapril [Vasotec] 5 mg PO DAILY Ipratropium-Albuterol Nebulize [Duoneb 0.5 mg-3 mg/3 ml Soln] 3 ml INHALATION RT-QID Fluticasone/Vilanterol [Breo Ellipta 200-25 Mcg INH] 1 puff INHALATION RT- DAILY Docusate [Colace] 100 mg PO DAILY Discharge Medication List Aspirin [Adult Low Dose Aspirin EC] 81 mg PO DAILY 08/31/16 [History] Albuterol Sulfate [Proair Hfa] 1 - 2 puff INHALATION RT-Q6H PRN 09/01/16 [ History] Simvastatin [Zocor] 10 mg PO DAILY 09/01/16 [History] Docusate [Colace] 100 mg PO DAILY 06/02/18 [History] Enalapril [Vasotec] 5 mg PO DAILY 06/02/18 [History] Fluticasone/Vilanterol [Breo Ellipta 200-25 Mcg INH] 1 puff INHALATION RT-DAILY 06/02/18 [History] Ipratropium-Albuterol Nebulize [Duoneb 0.5 mg-3 mg/3 ml Soln] 3 ml INHALATION RT -QID 06/02/18 [History] aMILoride HCL 2.5 mg PO DAILY 06/02/18 [History] Aspirin 325 mg PO BID #60 tab 06/05/18 [Rx] HYDROcodone/APAP 5-325MG [[place] 5-325] 1 - 2 tab PO Q4-6H PRN #84 tab 06/05/18 [ Rx] Sennosides [Senokot] 1 tab PO BID #60 tablet 06/05/18 [Rx] Follow up Appointment(s)/Referral(s): Chandra Mattson DO [Primary Care Provider] - 1-2 days Jose Rutledge DO [Doctor of Osteopathic Medicine] - 1 Week Activity/Diet/Wound Care/Special Instructions: Weightbearing as tolerated with walker Leave dressing intact. Dressing may be removed by home care nurse in 10 days. May shower with dressing on. Continue use if abductor pillow Follow-up with [facility] in 2 weeks, please call with any questions or concerns [phone] Discharge Disposition: TRANSFER TO SNF/ECF
[2018-06-05 12:18] VITALS: PULSE 76
== END 2018-06-05 14:20 | DRG 470 ==
LOC: EC 14:45 → 3SUR 18:56
PROVIDERS: ADMIT Orthopaedic Surgery; ATTEND Orthopaedic Surgery
PROC: 0SRR01A Replacement of Right Hip Joint, Femoral Surface with Metal Synthetic Substitute, Uncemented, Open Approach (ICD-10-PCS; 2018-06-03)
PROC: 2W3CX2Z Immobilization of Right Lower Arm using Cast (ICD-10-PCS; principal; 2018-06-03 13:25)
DX: S72.011A Unspecified intracapsular fracture of right femur, initial encounter for closed fracture (principal); J96.11 Chronic respiratory failure with hypoxia; J44.9 Chronic obstructive pulmonary disease, unspecified; S52.124A Nondisplaced fracture of head of right radius, initial encounter for closed fracture; I10 Essential (primary) hypertension; E78.5 Hyperlipidemia, unspecified; I25.2 Old myocardial infarction; M81.0 Age-related osteoporosis without current pathological fracture; Z99.81 Dependence on supplemental oxygen; Z79.82 Long term (current) use of aspirin; Z79.51 Long term (current) use of inhaled steroids; Z79.899 Other long term (current) drug therapy; Z98.51 Tubal ligation status; Z87.891 Personal history of nicotine dependence; Z82.49 Family history of ischemic heart disease and other diseases of the circulatory system; Z80.8 Family history of malignant neoplasm of other organs or systems; Z81.1 Family history of alcohol abuse and dependence; Z83.52 Family history of ear disorders; W01.0XXA Fall on same level from slipping, tripping and stumbling without subsequent striking against object, initial encounter; Y92.009 Unspecified place in unspecified non-institutional (private) residence as the place of occurrence of the external cause
CPT/HCPCS: 29105; 36415; 71045; 73501; 73502; 80053; 81003; 82550; 85025; 85610; 85730; 86850; 86900; 86901; 93005; 94640; 96361; 96374; 99285

== ENCOUNTER → 2019-03-20 | Outpatient (CLI) | payer MEDICARE, OTHER ==
--- NOTE | 2019-03-22 09:35 | PE ---
Nuclear medicine PET/CT HISTORY: Right Upper lobe lung nodule, initial Patient received 11.5 mCi F-18 FDG intravenously in delayed scanning was performed from the skull bas e to the mid thighs. Localization and attenuation correction CT scan was also performed. Correlation to CT chest 02/23/2019 There is no cervical or supraclavicular adenopathy. The spiculated mass in the right upper lobe with pleural extension is at the apex is noted as on CT shows associated hypermetabolic uptake SUV 18.2, l esion measures approximately 3 cm in size. Retrocaval pretracheal adenopathy with SUV 15.8 as well as superior mediastinal node deep to the sternum with SUV 7.7, right hilar adenopathy, SUV 11.8. There is no pleural or pericardial effusion. Underlying emphysematous changes are present. Enlargemen t of the pulmonary artery could be due to pulmonary artery hypertension. There is a hiatal hernia pre sent. Coronary artery calcifications are present in the calcification at the root of the aorta. ABDOMEN: No liver mass or adrenal mass. No retroperitoneal adenopathy. No suspicious hypermetabolic u ptake. There is an umbilical hernia containing fat. Left hemipelvis shows a cystic focus measuring 5. 6 cm with no associated hypermetabolic uptake. Extensive diverticular change present within the colon . Osseous structures show postop change the right hip. IMPRESSION: Findings suggest bronchogenic carcinoma right upper lobe with mediastinal and right hilar adenopathy.
== END | disposition home or self-care (01) ==
LOC: RADPETMAIN 09:25
PROVIDERS: ATTEND Internal Medicine
DX: R91.1 Solitary pulmonary nodule (principal)
CPT/HCPCS: 78815; A9552

== ENCOUNTER 2019-04-03 12:15 | Emergency (ER) | payer MEDICARE, OTHER ==
[2019-04-03 12:42] VITALS: BP 167/71; PULSE 60; RESP 16; TEMP 97.9
[2019-04-03] MEDS ORDERED: SODIUM CHLORIDE 0.9% 500 ML 500 ML IV STA (13:10)
[2019-04-03] MEDS ORDERED: HYDROcodone/APAP 5-325MG 1 EACH TAB PO STA (13:11)
--- NOTE | 2019-04-03 13:46 | ED ---
General Adult HPI - General Chief complaint: Back Pain/Injury Stated complaint: pain all over, lung ca Time Seen by Provider: 04/03/19 12:48 Source: patient, RN notes reviewed Mode of arrival: wheelchair Limitations: no limitations - History of Present Illness Initial comments: 83-year-old female presents emergency Department chief complaint of uncontrolled back pain. Patient had progressive worsening back pain over the last 6 months but states his last week she cannot tolerate the pain anymore. She has been oral steroids and tramadol prescribed by PCP. Patient recently had a CAT scan along with a PET scan was found to have lung cancer but she has not had a facial follow-up with Dr. Chun for the results. Patient states that the pain is in h er mid back. Patient states that the pain is worse with movement times but sometimes it just comes and goes. Family is concerned that she may have something else going on in unsure if this related to the new diagnosis of cancer. Patient has meant that she is very active at home and may have injured herself. Patient also states that she has severe COPD is on 2 L of oxygen chronically states that she is more short of breath than usual and states that she is normally satting around 98. - Related Data Home Medications Medication Instructions Recorded Confirmed Albuterol Sulfate [Proair Hfa] 1 - 2 puff INHALATION RT-Q6H PRN 09/01/16 06/02/18 Simvastatin [Zocor] 10 mg PO DAILY 09/01/16 06/02/18 Docusate [Colace] 100 mg PO DAILY 06/02/18 06/02/18 Enalapril [Vasotec] 5 mg PO DAILY 06/02/18 06/02/18 Fluticasone/Vilanterol [Breo 1 puff INHALATION RT-DAILY 06/02/18 06/02/18 Ellipta 200-25 Mcg INH] Ipratropium-Albuterol Nebulize 3 ml INHALATION RT-QID 06/02/18 06/02/18 [Duoneb 0.5 mg-3 mg/3 ml Soln] aMILoride HCL 2.5 mg PO DAILY 06/02/18 06/02/18 Previous Rx's Medication Instructions Recorded Acetaminophen Tab [Tylenol] 650 mg PO Q6HR PRN tab 06/05/18 HYDROcodone/APAP 5-325MG [[place] 1 - 2 tab PO Q4-6H PRN #84 tab 06/05/18 5-325] Rivaroxaban [Xarelto] 10 mg PO DAILY #30 tab 06/05/18 Sennosides [Senokot] 1 tab PO BID #60 tablet 06/05/18 Hydrocodone/Acetaminophen [[place] 1 tab PO Q6HR PRN #12 tab 04/03/19 5-325] Allergies Allergy/AdvReac Type Severity Reaction Status Date / Time No Known Allergies Allergy Verified 04/03/19 12:42 Review of Systems ROS Statement: Those systems with pertinent positive or pertinent negative responses have been documented in the HPI. ROS Other: All systems not noted in ROS Statement are negative. Past Medical History Past Medical History: Cancer, COPD, Hyperlipidemia, Myocardial Infarction ([place]) Additional Past Medical History / Comment(s): LUNG CANCER Last Myocardial Infarction Date:: 2011 History of Any Multi-Drug Resistant Organisms: None Reported Past Surgical History: Tonsillectomy, Tubal Ligation Additional Past Surgical History / Comment(s): rt wrist tendon repair Past Anesthesia/Blood Transfusion Reactions: No Reported Reaction Past Psychological History: No Psychological Hx Reported Smoking Status: Former smoker Past Alcohol Use History: None Reported Past Drug Use History: None Reported - Past Family History Mother Family Medical History: Coronary Artery Disease (CAD) Father Family Medical History: Coronary Artery Disease (CAD) Brother(s) Family Medical History: Cancer Additional Family Medical History / Comment(s): 2 x brothers of cancer - throat cancer, and bowel cancer. 1 x brother of AAA and alcoholism Sister(s) Additional Family Medical History / Comment(s): 1 x sister has Menieres disease and aneurysm behind her ear General Exam Limitations: no limitations General appearance: alert, in no apparent distress Head exam: Present: atraumatic, normocephalic, normal inspection Eye exam: Present: normal appearance, PERRL, EOMI. Absent: scleral icterus, conjunctival injection, periorbital swelling ENT exam: Present: normal exam (Nasal cannula in place), normal oropharynx, mucous membranes moist Neck exam: Present: normal inspection, full ROM. Absent: tenderness, m eningismus, lymphadenopathy Respiratory exam: Present: wheezes, decreased breath sounds. Absent: normal lung sounds bilaterally, respiratory distress, rales, rhonchi, stridor Cardiovascular Exam: Present: regular rate, normal rhythm, normal heart sounds. Absent: systolic murmur, diastolic murmur, rubs, gallop, clicks GI/Abdominal exam: Present: soft, normal bowel sounds. Absent: distended, tenderness, guarding, rebound, rigid Back exam: Present: normal inspection, full ROM, tenderness, paraspinal tenderness, vertebral tenderness (Thoracic) Neurological exam: Present: alert, oriented X3, CN II-XII intact, reflexes normal. Absent: motor sensory deficit Skin exam: Present: warm, dry, intact, normal color. Absent: rash Course Vital Signs 04/03/19 12:39 Temperature 97.9 F Pulse Rate 60 Respiratory 16 Rate Blood Pressure 167/71 O2 Sat by Pulse 93 L Oximetry Medical Decision Making - Medical Decision Making 83-year-old female presented for upper back pain. Patient labs, x-ray and EKG. There are no acute findings. Patient was given pain meds and has improved her symptoms. Patient's PET scan reviewed. Patient has lung cancer and states that she does not want any treatment at this time. Patient is comfortable discharged with pain meds and will follow-up. - Lab Data Result diagrams: 04/03/19 13:50 04/03/19 13:50 Lab Results 04/03/19 04/03/19 04/03/19 Range/Units 13:50 13:50 13:50 WBC 11.6 H (3.8-10.6) k/uL RBC 4.20 (3.80-5.40) m/uL Hgb 12.4 (11.4-16.0) gm/dL Hct 37.8 (34.0-46.0) % MCV 90.0 (80.0-100.0) fL MCH 29.4 (25.0-35.0) pg MCHC 32.7 (31.0-37.0) g/dL RDW 14.6 (11.5-15.5) % Plt Count 343 (150-450) k/uL Neutrophils % 85 % Lymphocytes % 9 % Monocytes % 5 % Eosinophils % 0 % Basophils % 0 % Neutrophils # 9.8 H (1.3-7.7) k/uL Lymphocytes # 1.0 (1.0-4.8) k/uL Monocytes # 0.6 (0-1.0) k/uL Eosinophils # 0.0 (0-0.7) k/uL Basophils # 0.0 (0-0.2) k/uL Sodium 140 (137-145) mmol/L Potassium 3.9 (3.5-5.1) mmol/L Chloride 103 (98-107) mmol/L Carbon Dioxide 30 (22-30) mmol/L Anion Gap 7 mmol/L BUN 16 (7-17) mg/dL Creatinine 0.52 (0.52-1.04) mg/dL Est GFR (CKD-EPI)AfAm >90 (>60 ml/min/1.73 sqM) Est GFR (CKD-EPI)NonAf 88 (>60 ml/min/1.73 sqM) Glucose 101 H (74-99) mg/dL Calcium 9.6 (8.4-10.2) mg/dL Total Bilirubin 0.2 (0.2-1.3) mg/dL AST 18 (14-36) U/L ALT 17 (9-52) U/L Alkaline Phosphatase 53 (38-126) U/L Creatine Kinase 42 (30-135) U/L Troponin I (0.000-0.034) ng/mL NT-Pro-B Natriuret Pep 740 pg/mL Total Protein 6.7 (6.3-8.2) g/dL Albumin 4.1 (3.5-5.0) g/dL Amylase 52 (30-110) U/L Lipase 96 (23-300) U/L Urine Color Urine Appearance (Clear) Urine pH (5.0-8.0) Ur Specific Foreman (1.001-1.035) Urine Protein (Negative) Urine Glucose (UA) (Negative) Urine Ketones (Negative) Urine Blood (Negative) Urine Nitrite (Negative) Urine Bilirubin (Negative) Urine Urobilinogen (<2.0) mg/dL Ur Leukocyte Esterase (Negative) 04/03/19 04/03/19 Range/Units 13:50 14:55 WBC (3.8-10.6) k/uL RBC (3.80-5.40) m/uL Hgb (11.4-16.0) gm/dL Hct (34.0-46.0) % MCV (80.0-100.0) fL MCH (25.0-35.0) pg MCHC (31.0-37.0) g/dL RDW (11.5-15.5) % Plt Count (150-450) k/uL Neutrophils % % Lymphocytes % % Monocytes % % Eosinophils % % Basophils % % Neutrophils # (1.3-7.7) k/uL Lymphocytes # (1.0-4.8) k/uL Monocytes # (0-1.0) k/uL Eosinophils # (0-0.7) k/uL Basophils # (0-0.2) k/uL Sodium (137-145) mmol/L Potassium (3.5-5.1) mmol/L Chloride (98-107) mmol/L Carbon Dioxide (22-30) mmol/L Anion Gap mmol/L BUN (7-17) mg/dL Creatinine (0.52-1.04) mg/dL Est GFR (CKD-EPI)AfAm (>60 ml/min/1.73 sqM) Est GFR (CKD-EPI)NonAf (>60 ml/min/1.73 sqM) Glucose (74-99) mg/dL Calcium (8.4-10.2) mg/dL Total Bilirubin (0.2-1.3) mg/dL AST (14-36) U/L ALT (9-52) U/L Alkaline Phosphatase (38-126) U/L Creatine Kinase (30-135) U/L Troponin I <0.012 (0.000-0.034) ng/mL NT-Pro-B Natriuret Pep pg/mL Total Protein (6.3-8.2) g/dL Albumin (3.5-5.0) g/dL Amylase (30-110) U/L Lipase (23-300) U/L Urine Color Yellow Urine Appearance Clear (Clear) Urine pH 6.0 (5.0-8.0) Ur Specific Foreman 1.022 (1.001-1.035) Urine Protein Trace H (Negative) Urine Glucose (UA) Negative (Negative) Urine Ketones Negative (Negative) Urine Blood Negative (Negative) Urine Nitrite Negative (Negative) Urine Bilirubin Negative (Negative) Urine Urobilinogen <2.0 (<2.0) mg/dL Ur Leukocyte Esterase Negative (Negative) Disposition Clinical Impression: Thoracic back pain Disposition: HOME SELF-CARE Condition: Stable Instructions (If sedation given, give patient instructions): Back Pain (ED) Additional Instructions: Please return to the Emergency Department if symptoms worsen or any other concerns. Prescriptions: Hydrocodone/Acetaminophen [[place] 5-325] 1 tab PO Q6HR PRN #12 tab PRN Reason: Pain Is patient prescribed a controlled substance at d/c from ED?: Yes When asked, does pt state using other controlled substances?: Yes If prescribed controlled substance>3 days was MAPS reviewed?: Prescribed <3 Days If opioid is for acute pain is fill amount 7 days or less?: Yes If Rx opioid, was Start Talking consent form obtained?: Yes Referrals: Chandra Mattson DO [Primary Care Provider] - 1-2 days Time of Disposition: 15:36
[2019-04-03 14:09] LABS: Basophils % (A) 0 %; Eosinophils % (A) 0 %; HCT 37.8 % (34.0-46.0); HGB 12.4 gm/dL (11.4-16.0); Lymphocytes % (A) 9 %; MCH 29.4 pg (25.0-35.0); MCHC 32.7 g/dL (31.0-37.0); Mean Platelet Volume 7.3; Monocytes # (A) 0.6 k/uL (0-1.0); Monocytes % (A) 5 %; Neutrophils # (A) 9.8 k/uL (1.3-7.7); Neutrophils % (A) 85 %; Platelet Count 343 k/uL (150-450); RDW 14.6 % (11.5-15.5); WBC 11.6 k/uL (3.8-10.6)
[2019-04-03 14:14] LABS: ALT 17 U/L (9-52); AST 18 U/L (14-36); African American GFR (CKD) >90 (>60 ml/min/1.73 sqM); Albumin 4.1 g/dL (3.5-5.0); Alkaline Phosphatase 53 U/L (38-126); Amylase 52 U/L (30-110); Anion Gap 7 mmol/L; Blood Urea Nitrogen 16 mg/dL (7-17); Calcium 9.6 mg/dL (8.4-10.2); Carbon Dioxide 30 mmol/L (22-30); Chloride 103 mmol/L (98-107); Creatine Kinase 42 U/L (30-135); Glucose 101 mg/dL (74-99); Potassium 3.9 mmol/L (3.5-5.1); Sodium 140 mmol/L (137-145); Total Bilirubin 0.2 mg/dL (0.2-1.3); Total Protein 6.7 g/dL (6.3-8.2)
--- NOTE | 2019-04-03 14:16 | XR ---
EXAMINATION TYPE: XR chest 1V DATE OF EXAM: 04/03/2019 HISTORY: Pain. REFERENCE: Previous study dated 06/02/2018. FINDINGS: There is an enlarging right apical opacity. There is underlying emphysema. The left lung is clear. Heart size upper limits of normal. IMPRESSION: 1. COPD. 2. ENLARGING RIGHT APICAL MASS.
--- NOTE | 2019-04-03 14:38 | XR ---
EXAMINATION TYPE: XR thoracic spine 2V , 3 VIEWS DATE OF EXAM ORDERED: 04/03/2019 HISTORY: Pain. COMPARISON: Previous study dated 11/05/2017. FINDINGS: Vertebral body height and alignment are maintained. No fractures are seen. There is mild h ypertrophic spondylosis in the mid dorsal spine. The pedicles are intact. IMPRESSION: NO ACUTE OSSEOUS LESION.
[2019-04-03 15:06] LABS: Appearance,Urine Clear (Clear); Bilirubin,Urine Negative (Negative); Blood,Urine Negative (Negative); Color,Urine Yellow; Glucose,Urine (UA) Negative (Negative); Ketones,Urine Negative (Negative); Leukocyte Esterase,Urine Negative (Negative); Nitrite,Urine Negative (Negative); Protein,Urine Trace (Negative); Specific Gravity,Urine 1.022 (1.001-1.035); Urobilinogen,Urine <2.0 mg/dL (<2.0)
== END 2019-04-03 16:42 | disposition home or self-care (01) ==
LOC: EC 12:15
DX: M54.6 Pain in thoracic spine (principal); C34.90 Malignant neoplasm of unspecified part of unspecified bronchus or lung; Z91.19 Patient's noncompliance with other medical treatment and regimen; J44.9 Chronic obstructive pulmonary disease, unspecified; E78.5 Hyperlipidemia, unspecified; I25.2 Old myocardial infarction; Z79.899 Other long term (current) drug therapy; Z79.51 Long term (current) use of inhaled steroids; Z87.891 Personal history of nicotine dependence; Z99.81 Dependence on supplemental oxygen
CPT/HCPCS: 36415; 71045; 72070; 80053; 81003; 82150; 82550; 83690; 83880; 84484; 85025; 93005; 96360; 96361; 99284

== ENCOUNTER 2019-09-28 09:06 | Inpatient (IN) | payer MEDICARE, OTHER ==
--- NOTE | 2019-09-28 10:09 | XR ---
KUB HISTORY: Gastrointestinal bleeding Frontal KUB submitted on 2 images, correlation to PET CT dated 03/20/2019 Postop changes are noted to the right hip. Probable vascular calcifications noted within the pelvis a nd overlying the left kidney. No evident pneumoperitoneum or bowel obstruction. There are overlying c ardiac leads. Lung bases are clear. IMPRESSION: No acute abnormality.
[2019-09-28 10:16] LABS: Basophils # (A) 0.1 k/uL (0-0.2); Basophils % (A) 2 %; Eosinophils # (A) 0.4 k/uL (0-0.7); Eosinophils % (A) 5 %; HCT 36.8 % (34.0-46.0); HGB 11.6 gm/dL (11.4-16.0); Lymphocytes # (A) 1.4 k/uL (1.0-4.8); Lymphocytes % (A) 20 %; MCH 28.2 pg (25.0-35.0); MCHC 31.5 g/dL (31.0-37.0); MCV 89.4 fL (80.0-100.0); Mean Platelet Volume 8.2; Monocytes # (A) 0.4 k/uL (0-1.0); Monocytes % (A) 6 %; Neutrophils # (A) 4.7 k/uL (1.3-7.7); Neutrophils % (A) 65 %; Platelet Count 353 k/uL (150-450); RBC 4.12 m/uL (3.80-5.40); RDW 13.5 % (11.5-15.5); WBC 7.1 k/uL (3.8-10.6)
[2019-09-28 10:21] LABS: ALT 24 U/L (4-34); AST 32 U/L (14-36); African American GFR (CKD) >90 (>60 ml/min/1.73 sqM); Albumin 3.8 g/dL (3.5-5.0); Alkaline Phosphatase 175 U/L (38-126); Anion Gap 6 mmol/L; Blood Urea Nitrogen 11 mg/dL (7-17); Calcium 9.2 mg/dL (8.4-10.2); Carbon Dioxide 29 mmol/L (22-30); Chloride 105 mmol/L (98-107); Creatine Kinase 77 U/L (30-135); Glucose 112 mg/dL (74-99); Non-African American GFR(CKD) 88 (>60 ml/min/1.73 sqM); Potassium 4.2 mmol/L (3.5-5.1); Sodium 140 mmol/L (137-145); Total Bilirubin 0.4 mg/dL (0.2-1.3); Total Protein 6.7 g/dL (6.3-8.2)
--- NOTE | 2019-09-28 11:25 | ED ---
GI Bleed HPI - General Chief complaint: GI Bleed Stated complaint: GI Bleed, SOB Time Seen by Provider: 09/28/19 09:22 Source: patient, family, RN notes reviewed, old records reviewed Mode of arrival: ambulatory Limitations: no limitations - History of Present Illness Initial comments: Is a 84-year-old female who is brought in by family members due to blood per rectum this morning he stated that she had bright red blood per rectum she denies any abdominal pain she does have some weakness. She has had some swelling in her feet over last couple weeks she states she also has a history of sciatica she had the bloody diarrhea this morning that was with the main complaint was today. She denies any overt abdominal pain. She did apparently have an episode of black emesis 6 or 7 months ago but this was never pursued by the family. Patient states she's never had a colonoscopy. No other complaints or modifying factors at this time MD complaint: gross hematochezia - Related Data Home Medications Medication Instructions Recorded Confirmed Albuterol Sulfate [Proair Hfa] 1 - 2 puff INHALATION RT-Q6H PRN 09/01/16 09/28/19 Fluticasone/Vilanterol [Breo 1 puff INHALATION RT-DAILY 06/02/18 09/28/19 Ellipta 200-25 Mcg INH] Ipratropium-Albuterol Nebulize 3 ml INHALATION RT-QID 06/02/18 09/28/19 [Duoneb 0.5 mg-3 mg/3 ml Soln] Aspirin EC [Ecotrin Low Dose] 81 mg PO DAILY 09/28/19 09/28/19 Enalapril [Vasotec] 5 mg PO DAILY 09/28/19 09/28/19 Prochlorperazine [Compazine] 5 mg PO Q8H PRN 09/28/19 09/28/19 Simvastatin [Zocor] 10 mg PO DAILY 09/28/19 09/28/19 Allergies Allergy/AdvReac Type Severity Reaction Status Date / Time No Known Allergies Allergy Verified 09/28/19 10:25 Review of Systems ROS Statement: Those systems with pertinent positive or pertinent negative responses have been documented in the HPI. ROS Other: All systems not noted in ROS Statement are negative. Past Medical History Past Medical History: Cancer, COPD, Hyperlipidemia, Myocardial Infarction ([place]) Additional Past Medical History / Comment(s): LUNG CANCER Last Myocardial Infarction Date:: 2011 History of Any Multi-Drug Resistant Organisms: None Reported Past Surgical History: Joint Replacement, Tonsillectomy, Tubal Ligation Additional Past Surgical History / Comment(s): rt wrist tendon repair hip Past Anesthesia/Blood Transfusion Reactions: No Reported Reaction Past Psychological History: No Psychological Hx Reported Smoking Status: Former smoker Past Alcohol Use History: None Reported Past Drug Use History: None Reported - Past Family History Mother Family Medical History: Coronary Artery Disease (CAD) Father Family Medical History: Coronary Artery Disease (CAD) Brother(s) Family Medical History: Cancer Additional Family Medical History / Comment(s): 2 x brothers of cancer - throat cancer, and bowel cancer. 1 x brother of AAA and alcoholism Sister(s) Additional Family Medical History / Comment(s): 1 x sister has Menieres disease and aneurysm behind her ear General Exam - General Exam Comments Initial Comments: Is as a well-developed asthenic appearing female who is awake alert oriented 3 Limitations: no limitations General appearance: alert, in no apparent distress Head exam: Present: atraumatic, normocephalic, normal inspection Eye exam: Present: normal appearance, PERRL, EOMI. Absent: scleral icterus, conjunctival injection, periorbital swelling ENT exam: Present: mucous membranes dry Neck exam: Present: normal inspection. Absent: tenderness, meningismus, ly mphadenopathy Respiratory exam: Present: normal lung sounds bilaterally. Absent: respiratory distress, wheezes, rales, rhonchi, stridor Cardiovascular Exam: Present: regular rate, normal rhythm, normal heart sounds. Absent: systolic murmur, diastolic murmur, rubs, gallop, clicks GI/Abdominal exam: Present: soft, normal bowel sounds. Absent: distended, tenderness, guarding, rebound, rigid Rectal exam: Present: normal inspection, heme (+) stool (Burgundy-colored stool) Extremities exam: Present: normal inspection, full ROM, normal capillary refill. Absent: tenderness, pedal edema, joint swelling, calf tenderness Back exam: Present: normal inspection Neurological exam: Present: alert, oriented X3, CN II-XII intact Psychiatric exam: Present: normal affect, normal mood Skin exam: Present: warm, dry, intact, normal color. Absent: rash Course Vital Signs 09/28/19 09:12 Temperature 98.0 F Pulse Rate 75 Respiratory 20 Rate Blood Pressure 181/73 O2 Sat by Pulse 92 L Oximetry Medical Decision Making - Medical Decision Making The case is discussed with the patient family as well as with Dr. Mattson patient be admitted for evaluation of hematochezia - Lab Data Result diagrams: 09/28/19 09:25 09/28/19 09:25 Lab Results 09/28/19 09/28/19 09/28/19 Range/Units 09:25 09:25 09:25 WBC 7.1 (3.8-10.6) k/uL RBC 4.12 (3.80-5.40) m/uL Hgb 11.6 (11.4-16.0) gm/dL Hct 36.8 (34.0-46.0) % MCV 89.4 (80.0-100.0) fL MCH 28.2 (25.0-35.0) pg MCHC 31.5 (31.0-37.0) g/dL RDW 13.5 (11.5-15.5) % Plt Count 353 (150-450) k/uL Neutrophils % 65 % Lymphocytes % 20 % Monocytes % 6 % Eosinophils % 5 % Basophils % 2 % Neutrophils # 4.7 (1.3-7.7) k/uL Lymphocytes # 1.4 (1.0-4.8) k/uL Monocytes # 0.4 (0-1.0) k/uL Eosinophils # 0.4 (0-0.7) k/uL Basophils # 0.1 (0-0.2) k/uL APTT 21.7 L (22.0-30.0) sec Sodium 140 (137-145) mmol/L Potassium 4.2 (3.5-5.1) mmol/L Chloride 105 (98-107) mmol/L Carbon Dioxide 29 (22-30) mmol/L Anion Gap 6 mmol/L BUN 11 (7-17) mg/dL Creatinine 0.51 L (0.52-1.04) mg/dL Est GFR (CKD-EPI)AfAm >90 (>60 ml/min/1.73 sqM) Est GFR (CKD-EPI)NonAf 88 (>60 ml/min/1.73 sqM) Glucose 112 H (74-99) mg/dL Calcium 9.2 (8.4-10.2) mg/dL Magnesium 2.0 (1.6-2.3) mg/dL Total Bilirubin 0.4 (0.2-1.3) mg/dL AST 32 (14-36) U/L ALT 24 (4-34) U/L Alkaline Phosphatase 175 H (38-126) U/L Creatine Kinase 77 (30-135) U/L Troponin I (0.000-0.034) ng/mL Total Protein 6.7 (6.3-8.2) g/dL Albumin 3.8 (3.5-5.0) g/dL Stool Occult Blood (Negative) Blood Type Blood Type Recheck Bld Type Recheck Status Antibody Screen Spec Expiration Date 09/28/19 09/28/19 09/28/19 Range/Units 09:25 09:25 09:47 WBC (3.8-10.6) k/uL RBC (3.80-5.40) m/uL Hgb (11.4-16.0) gm/dL Hct (34.0-46.0) % MCV (80.0-100.0) fL MCH (25.0-35.0) pg MCHC (31.0-37.0) g/dL RDW (11.5-15.5) % Plt Count (150-450) k/uL Neutrophils % % Lymphocytes % % Monocytes % % Eosinophils % % Basophils % % Neutrophils # (1.3-7.7) k/uL Lymphocytes # (1.0-4.8) k/uL Monocytes # (0-1.0) k/uL Eosinophils # (0-0.7) k/uL Basophils # (0-0.2) k/uL APTT (22.0-30.0) sec Sodium (137-145) mmol/L Potassium (3.5-5.1) mmol/L Chloride (98-107) mmol/L Carbon Dioxide (22-30) mmol/L Anion Gap mmol/L BUN (7-17) mg/dL Creatinine (0.52-1.04) mg/dL Est GFR (CKD-EPI)AfAm (>60 ml/min/1.73 sqM) Est GFR (CKD-EPI)NonAf (>60 ml/min/1.73 sqM) Glucose (74-99) mg/dL Calcium (8.4-10.2) mg/dL Magnesium (1.6-2.3) mg/dL Total Bilirubin (0.2-1.3) mg/dL AST (14-36) U/L ALT (4-34) U/L Alkaline Phosphatase (38-126) U/L Creatine Kinase (30-135) U/L Troponin I <0.012 (0.000-0.034) ng/mL Total Protein (6.3-8.2) g/dL Albumin (3.5-5.0) g/dL Stool Occult Blood Positive H (Negative) Blood Type A Positive Blood Type Recheck A Pos Bld Type Recheck Status No Antibody Screen NEGATIVE Spec Expiration Date 10/01/20192324 - EKG Data -: EKG Interpreted by Me EKG shows normal: sinus rhythm (Sinus rhythm a 69 UT interval 150 to QRS 90 QT since QTC 44/[address]-T wave changes. Moderate voltage criteria for LVH) - Radiology Data Radiology results: report reviewed (I did review the imaging and report nonspecific findings), image reviewed Disposition Clinical Impression: Hematochezia Disposition: ADMITTED IP TO THIS [facility] Condition: Fair Referrals: Chandra Mattson DO [Primary Care Provider] - 1-2 days
[2019-09-28] MEDS ORDERED: NALOXONE 0.4 MG/ML 1 ML VIAL IV PRN (11:27)
[2019-09-28] MEDS: SODIUM CHLORIDE 0.9% 1,000 ML IV SCH (11:40)
[2019-09-28] MEDS: IPRATROPIUM-ALBUTEROL 3 ML NEB INHALATION SCH ×3 (13:37→21:04)
[2019-09-28] MEDS ORDERED: PEG 3350-NA SULF,BICARB,CL/KCL 4,000 ML BOTTLE PO ONE (13:38)
[2019-09-28] MEDS: ATORVASTATIN 10 MG TAB PO SCH (14:08)
--- NOTE | 2019-09-28 14:16 | P.GSCN ---
History of Present Illness Consult date: 09/28/19 Reason for Consult: Hematochezia Requesting physician: Juan Dejesus History of present illness: CHIEF COMPLAINT: Hematochezia HISTORY OF PRESENT ILLNESS: 84-year-old female who presented to the emergency room after having 2 episodes of bright red blood per rectum today. Patient denies previous rectal bleeding. She denies abdominal pain. Denies nausea or vomiting. Denies use of blood thinners. Denies previous colonoscopy. PAST MEDICAL HISTORY: See list. PAST SURGICAL HISTORY: See list. SOCIAL HISTORY: No illicit drug use. REVIEW OF SYSTEMS: CONSTITUTIONAL: Denies fever or chills. HEENT: Denies blurred vision, vision changes, or eye pain. Denies hemoptysis CARDIOVASCULAR: Denies chest pain or pressure. RESPIRATORY: No shortness of breath. GASTROINTESTINAL: Refer to HPI for pertinent findings HEMATOLOGIC: Denies bleeding disorders. GENITOURINARY: Denies any blood in urine. SKIN: Denies pruitis. Denies rash. PHYSICAL EXAM: VITAL SIGNS: Reviewed. GENERAL: Well-developed in no acute distress. HEENT: No sclera icterus. Extraocular movements grossly intact. Moist buccal mucosa. Head is atraumatic, normocephalic. ABDOMEN: Soft. Nondistended. Nontender. NEUROLOGIC: Alert and oriented. Cranial nerves II through XII grossly intact. LABORATORY DATA: WBC 7.1. Hemoglobin 11.6. Platelet count 353. IMAGING: Abdominal x-ray: negative for acute process ASSESSMENT: 1. Bright red blood per rectum PLAN: Clear liquid diet. Nothing by mouth at midnight [facility] bowel prep EGD and colonoscopy tomorrow with Dr. Villanueva Nurse practitioner note has been reviewed by physician. Signing provider agrees with the documented findings, assessment, and plan of care. Past Medical History Past Medical History: Cancer, COPD, Hyperlipidemia, Myocardial Infarction ([place]) Additional Past Medical History / Comment(s): LUNG CANCER Last Myocardial Infarction Date:: 2011 History of Any Multi-Drug Resistant Organisms: None Reported Past Surgical History: Joint Replacement, Tonsillectomy, Tubal Ligation Additional Past Surgical History / Comment(s): rt wrist tendon repair hip Past Anesthesia/Blood Transfusion Reactions: No Reported Reaction Past Psychological History: No Psychological Hx Reported Smoking Status: Former smoker Past Alcohol Use History: None Reported Past Drug Use History: None Reported - Past Family History Mother Family Medical History: Coronary Artery Disease (CAD) Father Family Medical History: Coronary Artery Disease (CAD) Brother(s) Family Medical History: Cancer Additional Family Medical History / Comment(s): 2 x brothers of cancer - throat cancer, and bowel cancer. 1 x brother of AAA and alcoholism Sister(s) Additional Family Medical History / Comment(s): 1 x sister has Menieres disease and aneurysm behind her ear Medications and Allergies Home Medications Medication Instructions Recorded Confirmed Type Albuterol Sulfate [Proair Hfa] 1 - 2 puff INHALATION RT-Q6H PRN 09/01/16 09/28/19 History Fluticasone/Vilanterol [Breo 1 puff INHALATION RT-DAILY 06/02/18 09/28/19 History Ellipta 200-25 Mcg INH] Ipratropium-Albuterol Nebulize 3 ml INHALATION RT-QID 06/02/18 09/28/19 History [Duoneb 0.5 mg-3 mg/3 ml Soln] Aspirin EC [Ecotrin Low Dose] 81 mg PO DAILY 09/28/19 09/28/19 History Enalapril [Vasotec] 5 mg PO DAILY 09/28/19 09/28/19 History Prochlorperazine [Compazine] 5 mg PO Q8H PRN 09/28/19 09/28/19 History Simvastatin [Zocor] 10 mg PO DAILY 09/28/19 09/28/19 History Allergies Allergy/AdvReac Type Severity Reaction Status Date / Time No Known Allergies Allergy Verified 09/28/19 10:25 Surgical - Exam Vital Signs Temp Pulse Resp BP Pulse Ox 98.0 F 75 20 181/73 92 L 09/28/19 09:12 09/28/19 09:12 09/28/19 09:12 09/28/19 09:12 09/28/19 09:12 Results - Labs 09/28/19 09:25 09/28/19 09:25 Abnormal Lab Results - Last 24 Hours (Table) 09/28/19 09/28/19 09/28/19 Range/Units 09:25 09:25 09:47 APTT 21.7 L (22.0-30.0) sec Creatinine 0.51 L (0.52-1.04) mg/dL Glucose 112 H (74-99) mg/dL Alkaline Phosphatase 175 H (38-126) U/L Stool Occult Blood Positive H (Negative) Diabetes panel 09/28/19 Range/Units 09:25 Sodium 140 (137-145) mmol/L Potassium 4.2 (3.5-5.1) mmol/L Chloride 105 (98-107) mmol/L Carbon Dioxide 29 (22-30) mmol/L BUN 11 (7-17) mg/dL Creatinine 0.51 L (0.52-1.04) mg/dL Glucose 112 H (74-99) mg/dL Calcium 9.2 (8.4-10.2) mg/dL AST 32 (14-36) U/L ALT 24 (4-34) U/L Alkaline Phosphatase 175 H (38-126) U/L Total Protein 6.7 (6.3-8.2) g/dL Albumin 3.8 (3.5-5.0) g/dL Calcium panel 09/28/19 Range/Units 09:25 Calcium 9.2 (8.4-10.2) mg/dL Albumin 3.8 (3.5-5.0) g/dL Pituitary panel 09/28/19 Range/Units 09:25 Sodium 140 (137-145) mmol/L Potassium 4.2 (3.5-5.1) mmol/L Chloride 105 (98-107) mmol/L Carbon Dioxide 29 (22-30) mmol/L BUN 11 (7-17) mg/dL Creatinine 0.51 L (0.52-1.04) mg/dL Glucose 112 H (74-99) mg/dL Calcium 9.2 (8.4-10.2) mg/dL Adrenal panel 09/28/19 Range/Units 09:25 Sodium 140 (137-145) mmol/L Potassium 4.2 (3.5-5.1) mmol/L Chloride 105 (98-107) mmol/L Carbon Dioxide 29 (22-30) mmol/L BUN 11 (7-17) mg/dL Creatinine 0.51 L (0.52-1.04) mg/dL Glucose 112 H (74-99) mg/dL Calcium 9.2 (8.4-10.2) mg/dL Total Bilirubin 0.4 (0.2-1.3) mg/dL AST 32 (14-36) U/L ALT 24 (4-34) U/L Alkaline Phosphatase 175 H (38-126) U/L Total Protein 6.7 (6.3-8.2) g/dL Albumin 3.8 (3.5-5.0) g/dL
[2019-09-28] MEDS: LISINOPRIL 5 MG TAB PO SCH (14:18)
[2019-09-28 18:40] LABS: Basophils # (A) 0.1 k/uL (0-0.2); Basophils % (A) 1 %; Eosinophils # (A) 0.3 k/uL (0-0.7); Eosinophils % (A) 4 %; HCT 31.8 % (34.0-46.0); Lymphocytes # (A) 0.9 k/uL (1.0-4.8); Lymphocytes % (A) 13 %; MCH 28.2 pg (25.0-35.0); MCHC 31.6 g/dL (31.0-37.0); MCV 89.2 fL (80.0-100.0); Mean Platelet Volume 7.1; Monocytes # (A) 0.5 k/uL (0-1.0); Monocytes % (A) 7 %; Neutrophils # (A) 5.3 k/uL (1.3-7.7); Neutrophils % (A) 74 %; Platelet Count 372 k/uL (150-450); RBC 3.56 m/uL (3.80-5.40); RDW 13.6 % (11.5-15.5); WBC 7.1 k/uL (3.8-10.6)
[2019-09-28 21:35] LABS: Basophils # (A) 0.1 k/uL (0-0.2); Basophils % (A) 1 %; Eosinophils # (A) 0.2 k/uL (0-0.7); Eosinophils % (A) 3 %; HCT 30.1 % (34.0-46.0); HGB 9.7 gm/dL (11.4-16.0); Lymphocytes # (A) 1.1 k/uL (1.0-4.8); Lymphocytes % (A) 14 %; MCH 28.8 pg (25.0-35.0); MCHC 32.2 g/dL (31.0-37.0); MCV 89.4 fL (80.0-100.0); Mean Platelet Volume 7.9; Monocytes # (A) 0.5 k/uL (0-1.0); Monocytes % (A) 7 %; Neutrophils # (A) 5.9 k/uL (1.3-7.7); Neutrophils % (A) 75 %; Platelet Count 343 k/uL (150-450); RBC 3.37 m/uL (3.80-5.40); RDW 13.6 % (11.5-15.5)
[2019-09-28] MEDS ORDERED: amLODIPine 5 MG TAB PO STA (23:26)
[2019-09-28] MEDS: HYDROmorphone 1 MG/ML 1 ML SYRINGE IVP PRN (23:39)
[2019-09-29] MEDS ORDERED: ONDANSETRON 4 MG/2 ML VIAL IVP STA (00:07)
[2019-09-29] MEDS: PANTOPRAZOLE 40 MG/10 ML VIAL IVP SCH ×3 (00:47→20:04)
[2019-09-29] MEDS: IPRATROPIUM-ALBUTEROL 3 ML NEB INHALATION SCH ×4 (07:23→19:42)
[2019-09-29] MEDS ORDERED: SYMBICORT 160-4.5 MCG INHALER INHALATION SCH (08:00)
[2019-09-29] MEDS: SODIUM CHLORIDE 0.9% 1,000 ML IV SCH ×4 (08:07→20:07)
[2019-09-29] MEDS: HYDROmorphone 1 MG/ML 1 ML SYRINGE IVP PRN (08:09)
[2019-09-29 08:21] LABS: Basophils # (A) 0.1 k/uL (0-0.2); Basophils % (A) 1 %; Eosinophils # (A) 0.1 k/uL (0-0.7); Eosinophils % (A) 1 %; HCT 29.4 % (34.0-46.0); HGB 9.4 gm/dL (11.4-16.0); Lymphocytes # (A) 1.4 k/uL (1.0-4.8); Lymphocytes % (A) 17 %; MCH 28.7 pg (25.0-35.0); MCV 89.9 fL (80.0-100.0); Mean Platelet Volume 7.3; Monocytes # (A) 0.4 k/uL (0-1.0); Monocytes % (A) 5 %; Neutrophils # (A) 6.1 k/uL (1.3-7.7); Neutrophils % (A) 74 %; Platelet Count 351 k/uL (150-450); RBC 3.28 m/uL (3.80-5.40); RDW 13.7 % (11.5-15.5); WBC 8.2 k/uL (3.8-10.6)
[2019-09-29] MEDS ORDERED: PANTOPRAZOLE 40 MG/10 ML VIAL IV SCH (09:00)
[2019-09-29] MEDS ORDERED: IPRATROPIUM-ALBUTEROL 3 ML NEB INHALATION PRN (10:25)
[2019-09-29] MEDS ORDERED: LIDOCAINE 1% INJ 10MG/ML (20 ML MDV) ONE (11:38)
[2019-09-29] MEDS ORDERED: PROPOFOL 10 MG/ML 20 ML VIAL IV ONE (11:38)
[2019-09-29] MEDS ORDERED: IV FLUID CONTINUATION 1,000 ML IV ONE ×2 (11:43)
[2019-09-29] MEDS ORDERED: PEG 3350-NA SULF,BICARB,CL/KCL 4,000 ML BOTTLE PO ONE (12:26)
--- NOTE | 2019-09-29 12:26 | P.OP ---
Date of Procedure: 09/29/19 Preoperative Diagnosis: GI bleed Postoperative Diagnosis: GI bleed Poor colonic prep Procedure(s) Performed: EGD Colonoscopy Anesthesia: MAC Surgeon: Luis Manuel Villanueva Pathology: other (Antrum) Condition: stable Disposition: PACU Description of Procedure: Patient's placed on the endoscopy table in the lateral position. She received IV sedation. The gastroscope placed oropharynx and passed in the esophagus and into the stomach. Scope was pylorus. The first and second portion of the duodenum appeared normal. Scope was then brought back the antrum this was mildly inflamed. A biopsies performed. There was no evidence of bleeding in the upper GI tract. Scope was unretroflexed meters some appeared normal. The GE junction was at 40 cm. The distal esophagus appeared inflamed and a biopsies performed. The proximal esophagus appeared normal. Scope was withdrawn for patient. Next digital rectal exam was performed which revealed a large amount of melanotic stool. Flexible colonoscope was then placed patient anus. Scope was placed the level of the sigmoid: There is a large amount of liquid maroon stool. Due to the poor prep the colonoscopy was then aborted. Scope was withdrawn. Patient will be reprepped for repeat colonoscopy in the a.m.
[2019-09-29] MEDS: LISINOPRIL 5 MG TAB PO SCH (13:27)
[2019-09-29] MEDS: ATORVASTATIN 10 MG TAB PO SCH (13:27)
[2019-09-29] MEDS: ONDANSETRON 4 MG/2 ML VIAL IVP PRN (14:52)
--- NOTE | 2019-09-29 15:14 | P.CNPUL ---
History of Present Illness Consult date: 09/29/19 Reason for consult: COPD History of present illness: 84-year-old female patient with known history of COPD who is very well-known to our service. She follows up with us in our office. She has severe COPD with an FEV1 of 40% of predicted and she is oxygen dependent. She has been maintained on a combination of Breo on inhalation a day and DuoNeb updrafts on an as-needed basis. The patient came for a GI bleed. The patient was passing bright red blood per rectum several episodes. No hematemesis. No coffee-ground emesis. Her hemoglobin dropped from a baseline of 11.6 down to 9.4. This made her a bit more short of breath and for that reason upon my consultation was requested. She is currently resting comfortably in bed. She underwent an EGD that showed no acute abnormalities. Colonoscopy was unable to complete as it was a subop timal prep and the patient is going to have repeat colonoscopy tomorrow by general surgery. No angina no chest and the patient is currently taking only clear liquid diet. She is hemodynamically stable. He Review of Systems Constitutional: Reports fatigue, Reports poor appetite, Reports weakness Eyes: denies as per HPI, denies blurred vision, denies bulging eye, denies decreased vision, denies diplopia, denies discharge, denies dry eye, denies irritation, denies itching, denies pain, denies photophobia, denies loss of peripheral vision, denies loss of vision, denies tunnel vision/blind spots Ears: bilateral: decreased hearing, deny: ear discharge, earache, tinnitus Ears, nose, mouth and throat: Denies headache, Denies sore throat Breasts: absent: as per HPI, change in shape, gynecomastia, masses, nipple discharge, pain, skin changes, swelling Cardiovascular: Reports decreased exercise tolerance, Reports dyspnea on exert ion Respiratory: Reports cough, Reports dyspnea, Reports home oxygen, Reports wheezing Gastrointestinal: Reports BRBPR, Reports hematochezia Genitourinary: Reports as per HPI Menstruation: Reports as per HPI Musculoskeletal: Reports as per HPI Musculoskeletal: absent: ankle pain, ankle stiffness, ankle swelling Integumentary: Reports as per HPI Neurological: Reports as per HPI, Reports weakness Psychiatric: Reports as per HPI Endocrine: Reports as per HPI, Reports flushing Hematologic/Lymphatic: Reports as per HPI Allergic/Immunologic: Reports as per HPI Past Medical History Past Medical History: Cancer, COPD, Hyperlipidemia, Myocardial Infarction ([place]) Additional Past Medical History / Comment(s): COPD with FEV1 of 0.7 L which is only with was percent of predicted and the patient has chronic hypoxic respiratory failure, previous falls and hip fractures and the patient undergone ORIF, hyperlipidemia, or any artery disease and previous myocardial infarction, known history of a lung mass and the patient has a spiculated mass in the right upper lobe with pleural extension there has shown increased metabolic activity on a previous PET scan imaging with an SUV of 18.2 and the lesion is measuring around 3 cm in addition to pretracheal lymphadenopathy in the right hilar lymphadenopathy. Findings are suggestive suspicious for bronchogenic carcinoma of the lung Last Myocardial Infarction Date:: 2011 History of Any Multi-Drug Resistant Organisms: None Reported Past Surgical History: Joint Replacement, Tonsillectomy, Tubal Ligation Additional Past Surgical History / Comment(s): rt wrist tendon repair hip Past Anesthesia/Blood Transfusion Reactions: No Reported Reaction Past Psychological History: No Psychological Hx Reported Smoking Status: Former smoker Past Alcohol Use History: None Reported Past Drug Use History: None Reported - Past Family History Mother Family Medical History: Coronary Artery Disease (CAD) Father Family Medical History: Coronary Artery Disease (CAD) Brother(s) Family Medical History: Cancer Additional Family Medical History / Comment(s): 2 x brothers of cancer - throat cancer, and bowel cancer. 1 x brother of AAA and alcoholism Sister(s) Additional Family Medical History / Comment(s): 1 x sister has Menieres disease and aneurysm behind her ear Medications and Allergies Home Medications Medication Instructions Recorded Confirmed Type Albuterol Sulfate [Proair Hfa] 1 - 2 puff INHALATION RT-Q6H PRN 09/01/16 09/28/19 History Fluticasone/Vilanterol [Breo 1 puff INHALATION RT-DAILY 06/02/18 09/28/19 History Ellipta 200-25 Mcg INH] Ipratropium-Albuterol Nebulize 3 ml INHALATION RT-QID 06/02/18 09/28/19 History [Duoneb 0.5 mg-3 mg/3 ml Soln] Aspirin EC [Ecotrin Low Dose] 81 mg PO DAILY 09/28/19 09/28/19 History Enalapril [Vasotec] 5 mg PO DAILY 09/28/19 09/28/19 History Prochlorperazine [Compazine] 5 mg PO Q8H PRN 09/28/19 09/28/19 History Simvastatin [Zocor] 10 mg PO DAILY 09/28/19 09/28/19 History Allergies Allergy/AdvReac Type Severity Reaction Status Date / Time No Known Allergies Allergy Verified 09/28/19 10:25 Physical Exam Vitals: Vital Signs Temp Pulse Pulse Resp BP BP Pulse Ox 09/29/19 12:48 97.1 F L 86 16 168/67 96 09/29/19 11:15 72 09/29/19 11:00 78 09/29/19 07:43 97.7 F 87 20 162/73 95 09/29/19 07:37 82 09/29/19 07:35 20 09/29/19 07:24 80 09/29/19 04:00 79 16 148/63 99 09/29/19 02:00 76 18 156/62 99 09/29/19 00:53 73 16 172/71 96 09/29/19 00:01 98 09/28/19 23:47 87 162/86 96 09/28/19 22:30 98.1 F 89 20 190/85 92 L 09/28/19 21:15 78 18 09/28/19 21:04 74 18 Intake and Output 09/29/19 09/29/19 09/29/19 06:59 14:59 22:59 Intake Total 200 Balance 200 Intake: IV 200 GENERAL EXAM: Alert, fairly comfortable in no apparent distress. HEAD: Normocephalic. EYES: Normal reaction of pupils, equal size. NOSE: Clear with pink turbinates. THROAT: No erythema or exudates. NECK: No masses, no JVD. CHEST: No chest wall deformity. There is diminished breath sound bilaterally and the vessels are quite diminished in the lung bases and the patient has few scattered external wheeze. LUNGS: Equal air entry with no crackles, wheeze, rhonchi or dullness. Diminished. CVS: S1 and S2 normal with no audible murmurs, regular rhythm. ABDOMEN: No hepatosplenomegaly, normal bowel sounds, no guarding or rigidity. Extremities: There is trace peripheral edema. No clubbing, no cyanosis. Peripheral pulses are intact. Neurologically the patient is awake and alert and is no focal neurological deficits. Results - Laboratory Findings CBC and BMP: 09/29/19 08:01 09/28/19 09:25 Abnormal lab findings: Abnormal Labs 09/28/19 09/28/19 09/28/19 09:25 09:25 09:47 RBC Hgb Hct Lymphocytes # APTT 21.7 L Creatinine 0.51 L Glucose 112 H Alkaline Phosphatase 175 H Stool Occult Blood Positive H 09/28/19 09/28/19 09/29/19 18:13 21:22 08:01 RBC 3.56 L 3.37 L 3.28 L Hgb 10.0 L D 9.7 L 9.4 L Hct 31.8 L 30.1 L 29.4 L Lymphocytes # 0.9 L APTT Creatinine Glucose Alkaline Phosphatase Stool Occult Blood Assessment and Plan Plan: 1 acute GI bleeding, likely of a lower GI source and the patient is going to undergo a colonoscopy tomorrow. EGD done today showed no acute abnormality. There was a 2 g drop in hemoglobin and her hemoglobin is down to 9.4. 2 advanced COPD with an FEV1 of 40% of predicted 3 chronic hypoxic respiratory failure maintained on oxygen at 2 L per minute nasal cannula 4 right upper lobe mass with mediastinal lymphadenopathy with increased activity on PET scan highly suggestive of bronchogenic carcinoma. The patient has opted not to undergo any further diagnostic procedures to confirm the diagnosis. The right upper lobe spiculated masses measuring 3 cm 5 coronary artery disease with previous remote history of myocardial infarction 6 history of fall the previous ORIF Plan Resume the DuoNeb nebulized treatments around the clock Monitor hemoglobin Colonoscopy tomorrow Discontinue Symbicort No need for systemic steroids Repeat a chest x-ray to assess the progression of the right upper lobe mass and rule out the possibility of the right upper lobe mass/malignancy contributing to her worsening shortness of breath Long-term prognosis poor based on the above-mentioned comorbidities including ad vanced lung disease and the presence of a highly suspicious lesion in the right upper lobe which is most likely malignancy/primary bronchogenic cancer. The patient has opted not to do any further investigation at this point in time.
--- NOTE | 2019-09-29 16:02 | XR ---
EXAMINATION TYPE: XR chest 2V DATE OF EXAM: 09/29/2019 COMPARISON: 04/03/2019 HISTORY: Shortness of breath TECHNIQUE: Frontal and lateral views of the chest are obtained. FINDINGS: Spiculated right upper lobe pulmonary mass is redemonstrated with adjacent pleural thicken ing. Underlying COPD. No new focal consolidation, pleural effusion or pneumothorax. New focus of the right suprahilar region. Generalized osseous demineralization. IMPRESSION: Right upper lobe situated mass compatible with lung cancer. New right suprahilar density may relate to pathologic adenopathy.
[2019-09-29] MEDS ORDERED: MAGNESIUM CITRATE 296 ML BOTTLE PO ONE (17:00)
--- NOTE | 2019-09-29 18:44 | P.HPIM ---
History of Present Illness H&P Date: 09/29/19 Chief Complaint: Rectal bleeding As an 84-year-old female with history of COPD, chronic hypoxic respiratory failure, former nicotine dependent, suspected lung CA, hyperlipidemia, [place], presented to the ER with complaints of bright red rectal bleeding, on aspirin at home. Denies hematochezia. denies NSAIDs use. Hemoglobin on admission 11.6, has dropped down to 9.4 this morning. Stool for occult blood positive. Last night developed stomach ache received Dilaudid, followed by bile emesis. Currently denies no abdominal pain .nauseated, receiving Zofran .Mildly hypertensive with systolic blood pressures in the 160s, no tachycardia currently. EKG reporting sinus rhythm. KUB reports no acute abnormality. Troponin negative 1 .denies chest pain, palpitations or increasing shortness of breath .Evaluated by surgery and scheduled for colonoscopy and EGD today. Review of Systems ROS Statement: Those systems with pertinent positive or pertinent negative responses have been documented in the HPI. ROS Other: All systems not noted in ROS Statement are negative. Past Medical History Past Medical History: Cancer, COPD, Hyperlipidemia, Myocardial Infarction ([place]) Additional Past Medical History / Comment(s): LUNG CANCER Last Myocardial Infarction Date:: 2011 History of Any Multi-Drug Resistant Organisms: None Reported Past Surgical History: Joint Replacement, Tonsillectomy, Tubal Ligation Additional Past Surgical History / Comment(s): rt wrist tendon repair hip Past Anesthesia/Blood Transfusion Reactions: No Reported Reaction Past Psychological History: No Psychological Hx Reported Smoking Status: Former smoker Past Alcohol Use History: None Reported Past Drug Use History: None Reported - Past Family History Mother Family Medical History: Coronary Artery Disease (CAD) Father Family Medical History: Coronary Artery Disease (CAD) Brother(s) Family Medical History: Cancer Additional Family Medical History / Comment(s): 2 x brothers of cancer - throat cancer, and bowel cancer. 1 x brother of AAA and alcoholism Sister(s) Additional Family Medical History / Comment(s): 1 x sister has Menieres disease and aneurysm behind her ear Medications and Allergies Home Medications Medication Instructions Recorded Confirmed Type Albuterol Sulfate [Proair Hfa] 1 - 2 puff INHALATION RT-Q6H PRN 09/01/16 09/28/19 History Fluticasone/Vilanterol [Breo 1 puff INHALATION RT-DAILY 06/02/18 09/28/19 History Ellipta 200-25 Mcg INH] Ipratropium-Albuterol Nebulize 3 ml INHALATION RT-QID 06/02/18 09/28/19 History [Duoneb 0.5 mg-3 mg/3 ml Soln] Aspirin EC [Ecotrin Low Dose] 81 mg PO DAILY 09/28/19 09/28/19 History Enalapril [Vasotec] 5 mg PO DAILY 09/28/19 09/28/19 History Prochlorperazine [Compazine] 5 mg PO Q8H PRN 09/28/19 09/28/19 History Simvastatin [Zocor] 10 mg PO DAILY 09/28/19 09/28/19 History Allergies Allergy/AdvReac Type Severity Reaction Status Date / Time No Known Allergies Allergy Verified 09/28/19 10:25 Physical Exam Vitals: Vital Signs Temp Pulse Pulse Resp BP BP Pulse Ox 09/29/19 07:43 97.7 F 87 20 162/73 95 09/29/19 07:37 82 09/29/19 07:35 20 09/29/19 07:24 80 09/29/19 04:00 79 16 148/63 99 09/29/19 02:00 76 18 156/62 99 09/29/19 00:53 73 16 172/71 96 09/29/19 00:01 98 09/28/19 23:47 87 162/86 96 09/28/19 22:30 98.1 F 89 20 190/85 92 L 09/28/19 21:15 78 18 09/28/19 21:04 74 18 09/28/19 13:45 66 09/28/19 13:38 66 09/28/19 12:57 98 F 72 18 200/89 98 PHYSICAL EXAM: VITAL SIGNS: As above GENERAL: Sitting up in bed, no acute distress HEENT: Conjunctivae normal. eyes normal. NECK: No JVD. No thyroid enlargement. No LNs CARDIOVASCULAR: S1, S2 regular. No murmur RESPIRATION: Breath sounds diminished in the bases. No rhonchi or crackles. Scattered expiratory wheezing ABDOMEN: Soft, nontender . No guarding. no masses palpable. No ascites, No hepatosplenomegaly.Bowel sounds heard. LEGS: No edema. no swelling PSYCHIATRY: Alert and oriented X3, mood and affect normal. NERVOUS SYSTEM: Cranial N 2-12 grossly normal. Moves all 4 limbs. Diffuse weakness No focal deficits. Strength and sensation grossly intact.. Skin: no rash Lymphatic system. No LN neck axilla. Results CBC & Chem 7: 09/29/19 08:01 09/28/19 09:25 Labs: Abnormal Lab Results - Last 24 Hours (Table) 09/28/19 09/28/19 09/28/19 Range/Units 09:25 09:25 09:47 RBC (3.80-5.40) m/uL Hgb (11.4-16.0) gm/dL Hct (34.0-46.0) % Lymphocytes # (1.0-4.8) k/uL APTT 21.7 L (22.0-30.0) sec Creatinine 0.51 L (0.52-1.04) mg/dL Glucose 112 H (74-99) mg/dL Alkaline Phosphatase 175 H (38-126) U/L Stool Occult Blood Positive H (Negative) 09/28/19 09/28/19 09/29/19 Range/Units 18:13 21:22 08:01 RBC 3.56 L 3.37 L 3.28 L (3.80-5.40) m/uL Hgb 10.0 L D 9.7 L 9.4 L (11.4-16.0) gm/dL Hct 31.8 L 30.1 L 29.4 L (34.0-46.0) % Lymphocytes # 0.9 L (1.0-4.8) k/uL APTT (22.0-30.0) sec Creatinine (0.52-1.04) mg/dL Glucose (74-99) mg/dL Alkaline Phosphatase (38-126) U/L Stool Occult Blood (Negative) Thrombosis Risk Factor Assmnt - Choose All That Apply Any of the Below Risk Factors Present?: Yes Each Factor Represents 1 point: Abnormal pulmonary function (COPD) Other Risk Factors: Yes Each Risk Factor Represents 3 Points: Age 75 years or older Thrombosis Risk Factor Assessment Total Risk Factor Score: 4 Thrombosis Risk Factor Assessment Level: Moderate Risk Assessment and Plan Assessment: Acute lower GI bleed, EGD/colonoscopy pending CAD my history of [place] Advanced COPD Chronic hypoxic respiratory failure, on 2 L at home Former nicotine dependence Mediastinal lymphadenopathy, possible lung CA Plan: Continue on current medication regime ,monitoring and symptomatic treatment. Gentle IV fluid hydration,NPO, EGD and colonoscopy pending. Close monitoring of CBC, repeat labs ordered for a.m. pulmonary consulted. Nebulized bronchodilators ordered. Systemic steroids held at this time .All meds have been reviewed and resumed accordingly. GI prophylaxis in place with PPI. The impression and plan of care has been dictated as directed. : I performed a history and examination of this patient, discussed the same with the dictator. I agree with the dictator's note ,documented as a scribe. Any additional findings or plans will be noted.
[2019-09-30] MEDS: HYDROmorphone 1 MG/ML 1 ML SYRINGE IVP PRN ×3 (00:52→19:35)
[2019-09-30] MEDS ORDERED: MAGNESIUM CITRATE 296 ML BOTTLE PO ONE ×3 (04:00→20:00)
[2019-09-30] MEDS: SODIUM CHLORIDE 0.9% 1,000 ML IV SCH ×2 (04:02→14:45)
[2019-09-30 08:04] LABS: Basophils % (A) 1 %; Eosinophils # (A) 0.2 k/uL (0-0.7); Eosinophils % (A) 3 %; HCT 25.4 % (34.0-46.0); HGB 8.1 gm/dL (11.4-16.0); Lymphocytes # (A) 0.9 k/uL (1.0-4.8); Lymphocytes % (A) 13 %; MCH 28.6 pg (25.0-35.0); MCHC 31.7 g/dL (31.0-37.0); MCV 90.3 fL (80.0-100.0); Mean Platelet Volume 7.5; Monocytes # (A) 0.5 k/uL (0-1.0); Monocytes % (A) 7 %; Neutrophils # (A) 5.3 k/uL (1.3-7.7); Neutrophils % (A) 75 %; Platelet Count 324 k/uL (150-450); RBC 2.82 m/uL (3.80-5.40); RDW 13.7 % (11.5-15.5); WBC 7.1 k/uL (3.8-10.6)
[2019-09-30] MEDS: LISINOPRIL 5 MG TAB PO SCH (08:35)
[2019-09-30] MEDS: IPRATROPIUM-ALBUTEROL 3 ML NEB INHALATION SCH ×4 (08:52→19:08)
[2019-09-30] MEDS: ATORVASTATIN 10 MG TAB PO SCH (10:20)
[2019-09-30] MEDS: PANTOPRAZOLE 40 MG/10 ML VIAL IVP SCH ×2 (10:22→20:42)
--- NOTE | 2019-09-30 11:32 | P.PN ---
Subjective Progress Note Date: 09/30/19 84-year-old female patient with known history of COPD who is very well-known to our service. She follows up with us in our office. She has severe COPD with an FEV1 of 40% of predicted and she is oxygen dependent. She has been maintained on a combination of Breo on inhalation a day and DuoNeb updrafts on an as-needed basis. The patient came for a GI bleed. The patient was passing bright red blood per rectum several episodes. No hematemesis. No coffee-ground emesis. Her hemoglobin dropped from a baseline of 11.6 down to 9.4. This made her a bit more short of breath and for that reason upon my consultation was requested. She is currently resting comfortably in bed. She underwent an EGD that showed no acute abnormalities. Colonoscopy was unable to complete as it was a suboptimal prep and the patient is going to have repeat colonoscopy tomorrow by general surgery. No angina no chest and the patient is currently taking only clear liquid diet. She is hemodynamically stable. On today's evaluation of 09/30/2019 the patient is awaiting her colonoscopy. I think there is some more laxatives are given to prepare this patient more adequately for the colonoscopy. Noted that hemoglobin has dropped down to 8.1. Nevertheless, she does not have any further bouts of bleeding since yesterday. The patient is scheduled for tomorrow to undergo colonoscopy. Her BP is elevated and she was restarted back on Zestril. Pulse oxing 98% on 3 L oxygen by nasal cannula. No nausea. No vomiting. No abdominal pain. No chest pain. She is on DuoNeb nebulized treatments around the clock. Hemodynamically stable. Objective - Vital Signs Vital signs: Vital Signs Temp 98.3 F 09/30/19 07:12 Pulse 80 09/30/19 09:07 Resp 16 09/30/19 07:12 BP 189/85 09/30/19 07:12 Pulse Ox 98 09/30/19 08:55 Intake & Output 09/29/19 09/30/19 09/30/19 18:59 06:59 18:59 Intake Total 200 2090 Balance 200 2090 Weight 55.792 kg Intake: IV 200 Intake, IV Titration 1250 Amount Sodium Chloride 0.9% 1, 1250 000 ml @ 125 mls/hr IV . Q8H [facility] Rx#:[id number] Oral 840 Other: Voiding Method Incontinent # Voids 3 # Bowel Movements 3 - Exam GENERAL EXAM: Alert, fairly comfortable in no apparent distress. HEAD: Normocephalic. EYES: Normal reaction of pupils, equal size. NOSE: Clear with pink turbinates. THROAT: No erythema or exudates. NECK: No masses, no JVD. CHEST: No chest wall deformity. There is diminished breath sound bilaterally and the vessels are quite diminished in the lung bases and the patient has few scattered external wheeze. LUNGS: Equal air entry with no crackles, wheeze, rhonchi or dullness. Diminished. CVS: S1 and S2 normal with no audible murmurs, regular rhythm. ABDOMEN: No hepatosplenomegaly, normal bowel sounds, no guarding or rigidity. Extremities: There is trace peripheral edema. No clubbing, no cyanosis. Peripheral pulses are intact. Neurologically the patient is awake and alert and is no focal neurological deficits. - Labs CBC & Chem 7: 09/30/19 07:33 09/28/19 09:25 Labs: Abnormal Lab Results - Last 24 Hours (Table) 09/30/19 Range/Units 07:33 RBC 2.82 L (3.80-5.40) m/uL Hgb 8.1 L (11.4-16.0) gm/dL Hct 25.4 L (34.0-46.0) % Lymphocytes # 0.9 L (1.0-4.8) k/uL Assessment and Plan Plan: 1 acute GI bleeding, likely of a lower GI source and the patient is going to undergo a colonoscopy tomorrow. EGD done today showed no acute abnormality. The patient is not ready for colonoscopy due to incomplete bowel prep. Hemoglobin dropped down to 8.1 without evidence of any acute bleeding. She is scheduled to undergo the colonoscopy tomorrow. Hemodynamically stable. 2 advanced COPD with an FEV1 of 40% of predicted 3 chronic hypoxic respiratory failure maintained on oxygen at 2 L per minute nasal cannula 4 right upper lobe mass with mediastinal lymphadenopathy with increased activity on PET scan highly suggestive of bronchogenic carcinoma. The patient has opted not to undergo any further diagnostic procedures to confirm the diagnosis. The right upper lobe spiculated masses measuring 3 cm. The chest x-ray was repeated and shows that the patient's right upper lobe mass is slightly more prominent and there is further right hilar fullness. This is consistent with progression of her lung cancer also. 5 coronary artery disease with previous remote history of myocardial infarction 6 history of fall the previous ORIF 7 elevated blood pressure Plan DuoNeb nebulized treatments around the clock Monitor hemoglobin, down to 8.1 Colonoscopy tomorrow and the patient is to have a complete bowel prep Discontinue Symbicort Add Zestril for blood pressure control Long-term prognosis poor based on the above-mentioned comorbidities including advanced lung disease and the presence of a highly suspicious lesion in the right upper lobe which is most likely malignancy/primary bronchogenic cancer. The patient has opted not to do any further investigation at this point in time.
--- NOTE | 2019-09-30 14:29 | P.PN ---
Progress Note - Text Progress Note Date: 09/30/19 Patients colonoscopy rescheduled for tomorrow with Dr. Villanueva due to inadequate bowel prep once again. Will add mag citrate.
[2019-09-30] MEDS: ONDANSETRON 4 MG/2 ML VIAL IVP PRN (14:45)
--- NOTE | 2019-09-30 16:22 | P.PN ---
Subjective Progress Note Date: 09/30/19 As an 84-year-old female with history of COPD, chronic hypoxic respiratory failure, former nicotine dependent, suspected lung CA, hyperlipidemia, [place], presented to the ER with complaints of bright red rectal bleeding, on aspirin at home. Denies hematochezia. denies NSAIDs use. Hemoglobin on admission 11.6, has dropped down to 9.4 this morning. Stool for occult blood positive. Last night developed stomach ache received Dilaudid, followed by bile emesis. Currently denies no abdominal pain .nauseated, receiving Zofran .Mildly hypertensive with systolic blood pressures in the 160s, no tachycardia cur rently. EKG reporting sinus rhythm. KUB reports no acute abnormality. Troponin negative 1 .denies chest pain, palpitations or increasing shortness of breath .Evaluated by surgery and scheduled for colonoscopy and EGD today. 09/30/2019 completed EGD yesterday reporting no acute abnormalities. Suboptimal prep and colonoscopy aborted. Initially Rescheduled for colonoscopy today, but bowel prep inadequate, rescheduled for tomorrow. Hemoglobin continues trending down and currently 8.1. Denies chest pain, palpitations or increased shortness of breath. Objective - Vital Signs Vital signs: Vital Signs Temp 98.3 F 09/30/19 07:12 Pulse 81 09/30/19 12:28 Resp 18 09/30/19 11:55 BP 187/75 09/30/19 10:45 Pulse Ox 98 09/30/19 08:55 Intake & Output 09/29/19 09/30/19 09/30/19 18:59 06:59 18:59 Intake Total 200 2090 Balance 200 2090 Weight 55.792 kg Intake: IV 200 Intake, IV Titration 1250 Amount Sodium Chloride 0.9% 1, 1250 000 ml @ 50 mls/hr IV . Q20H [facility] Rx#:[id number] Oral 840 Other: Voiding Method Incontinent # Voids 3 1 # Bowel Movements 3 3 - Exam PHYSICAL EXAM: VITAL SIGNS: As above GENERAL: Sitting up at bedside commode, no acute distress HEENT: Conjunctivae normal. eyes normal. NECK: No JVD. No thyroid enlargement. No LNs CARDIOVASCULAR: S1, S2 regular. No murmur RESPIRATION: Breath sounds diminished in the bases. No rhonchi or crackles. Scattered expiratory wheezing ABDOMEN: Soft, nontender . No guarding. no masses palpable. No ascites, No hepatosplenomegaly.Bowel sounds heard. LEGS: No edema. no swelling PSYCHIATRY: Alert and oriented X3, mood and affect normal. NERVOUS SYSTEM: Cranial N 2-12 grossly normal. Moves all 4 limbs. Diffuse weakness No focal deficits. Strength and sensation grossly intact.. Skin: no rash Lymphatic system. No LN neck axilla. - Labs CBC & Chem 7: 09/30/19 07:33 09/28/19 09:25 Labs: Abnormal Lab Results - Last 24 Hours (Table) 09/30/19 Range/Units 07:33 RBC 2.82 L (3.80-5.40) m/uL Hgb 8.1 L (11.4-16.0) gm/dL Hct 25.4 L (34.0-46.0) % Lymphocytes # 0.9 L (1.0-4.8) k/uL Assessment and Plan Assessment: Acute lower GI bleed, EGD reporting no acute abnormalities, colonoscopy pending CAD my history of [place] Advanced COPD Chronic hypoxic respiratory failure, on 2 L at home Former nicotine dependence Mediastinal lymphadenopathy, possible lung CA Plan: Continue on current medication regime ,monitoring and symptomatic treatment. Maintain PPI, gentle IV fluid hydration,NPO, prep as per surgery with colonoscopy rescheduled for tomorrow. Close monitoring of CBC, repeat labs ordered for a.m. Nebulized bronchodilators ordered. The impression and plan of care has been dictated as directed. : I performed a history and examination of this patient, discussed the same with the dictator. I agree with the dictator's note ,documented as a scribe. Any additional findings or plans will be noted.
[2019-10-01] MEDS: HYDROmorphone 1 MG/ML 1 ML SYRINGE IVP PRN ×3 (03:04→17:06)
[2019-10-01 07:09] LABS: Basophils # (A) 0.1 k/uL (0-0.2); Basophils % (A) 1 %; Eosinophils # (A) 0.2 k/uL (0-0.7); Eosinophils % (A) 3 %; Lymphocytes % (A) 11 %; MCH 27.8 pg (25.0-35.0); MCHC 31.2 g/dL (31.0-37.0); MCV 89.2 fL (80.0-100.0); Monocytes # (A) 0.5 k/uL (0-1.0); Monocytes % (A) 5 %; Neutrophils # (A) 7.3 k/uL (1.3-7.7); Neutrophils % (A) 79 %; Platelet Count 380 k/uL (150-450); RBC 3.25 m/uL (3.80-5.40); RDW 13.5 % (11.5-15.5); WBC 9.2 k/uL (3.8-10.6)
[2019-10-01 07:28] LABS: African American GFR (CKD) >90 (>60 ml/min/1.73 sqM); Anion Gap 6 mmol/L; Blood Urea Nitrogen 7 mg/dL (7-17); Calcium 8.4 mg/dL (8.4-10.2); Carbon Dioxide 29 mmol/L (22-30); Chloride 106 mmol/L (98-107); Glucose 83 mg/dL (74-99); Non-African American GFR(CKD) >90 (>60 ml/min/1.73 sqM); Potassium 3.7 mmol/L (3.5-5.1); Sodium 141 mmol/L (137-145)
[2019-10-01] MEDS: IPRATROPIUM-ALBUTEROL 3 ML NEB INHALATION SCH ×4 (08:58→21:00)
[2019-10-01] MEDS: ATORVASTATIN 10 MG TAB PO SCH (09:56)
[2019-10-01] MEDS: LISINOPRIL 5 MG TAB PO SCH (09:56)
[2019-10-01] MEDS: PANTOPRAZOLE 40 MG/10 ML VIAL IVP SCH ×2 (10:02→20:46)
[2019-10-01] MEDS ORDERED: IV FLUID CONTINUATION 1,000 ML IV ONE (10:59)
[2019-10-01] MEDS ORDERED: PROPOFOL 10 MG/ML 20 ML VIAL IV ONE (11:02)
--- NOTE | 2019-10-01 11:20 | P.OP ---
Date of Procedure: 10/01/19 Preoperative Diagnosis: GI bleed Postoperative Diagnosis: Severe diverticulosis No evidence of GI bleed Procedure(s) Performed: Colonoscopy Anesthesia: MAC Surgeon: Luis Manuel Villanueva Pathology: none sent Condition: stable Disposition: PACU Description of Procedure: The patient's placed on the endoscopy table in the lateral position. She received IV sedation. Digital rectal exam was performed which revealed no abnormalities. The flexible colonoscope was then placed patient anus passed throughout the entire colon. The scope could not placed into the right colon secondary to severe tortuosity of the bowel. Scope was withdrawn. The transverse colon appeared normal. In the descending; there is extensive diverticular changes. There were some very large diverticuli which almost has the same lumen as the lumen of the colon. The scope could then brought back into the rectum this appeared normal. Scope was withdrawn for patient. Patient was scheduled for a computed tomography scan the abdomen tonight for any possible other colonic disease. No evidence of GI bleed was seen it was presumed emergently was due to diverticular bleeding.
[2019-10-01] MEDS: IOPAMIDOL CONTRAST (ORAL USE) VIAL PO PRN ×2 (13:08→14:04)
[2019-10-01] MEDS: amLODIPine 5 MG TAB PO SCH (13:08)
--- NOTE | 2019-10-01 13:21 | P.PN ---
Subjective Progress Note Date: 10/01/19 As an 84-year-old female with history of COPD, chronic hypoxic respiratory failure, former nicotine dependent, suspected lung CA, hyperlipidemia, [place], presented to the ER with complaints of bright red rectal bleeding, on aspirin at home. Denies hematochezia. denies NSAIDs use. Hemoglobin on admission 11.6, has dropped down to 9.4 this morning. Stool for occult blood positive. Last night developed stomach ache received Dilaudid, followed by bile emesis. Currently denies no abdominal pain .nauseated, receiving Zofran .Mildly hypertensive with systolic blood pressures in the 160s, no tachycardia cur rently. EKG reporting sinus rhythm. KUB reports no acute abnormality. Troponin negative 1 .denies chest pain, palpitations or increasing shortness of breath .Evaluated by surgery and scheduled for colonoscopy and EGD today. 09/30/2019 completed EGD yesterday reporting no acute abnormalities. Suboptimal prep and colonoscopy aborted. Initially Rescheduled for colonoscopy today, but bowel prep inadequate, rescheduled for tomorrow. Hemoglobin continues trending down and currently 8.1. Denies chest pain, palpitations or increased shortness of breath. 10/01/2019 completed colonoscopy reporting inability to scope right colon secondary to severe tortuosity of the bowel, extensive diverticular changes in the descending colon with large diverticuli, no evidence of GI bleed, possible diverticular bleed. Abdominal CT ordered. Tolerated procedure well. Hemoglobin 9. Hypertensive. Objective - Vital Signs Vital signs: Vital Signs Temp 98.1 F 10/01/19 07:00 Pulse 67 10/01/19 12:12 Resp 15 10/01/19 08:53 BP 198/76 10/01/19 09:42 Pulse Ox 100 10/01/19 07:00 Intake & Output 09/30/19 10/01/19 10/01/19 18:59 06:59 18:59 Intake Total 50 Output Total 2 Balance -2 50 Weight 55.792 kg Intake: IV 50 Output: Urine/Stool Mix 2 Other: Voiding Method Bedside Commode Bedside Commode # Voids 1 2 # Bowel Movements 3 1 - Exam PHYSICAL EXAM: VITAL SIGNS: As above GENERAL: Sitting up in bed, no acute distress HEENT: Conjunctivae normal. eyes normal. CARDIOVASCULAR: S1, S2 regular. No murmur RESPIRATION: Breath sounds diminished in the bases. No rhonchi or crackles. ABDOMEN: Soft, nontender . No guarding. no masses palpable. Bowel sounds heard. LEGS: No edema. no swelling PSYCHIATRY: Alert and oriented X3, mood and affect normal. NERVOUS SYSTEM: Cranial N 2-12 grossly normal. Moves all 4 limbs. Diffuse weakness, No focal deficits. Strength and sensation grossly intact.. Skin: no rash - Labs CBC & Chem 7: 10/01/19 06:54 10/01/19 06:54 Labs: Abnormal Lab Results - Last 24 Hours (Table) 10/01/19 10/01/19 Range/Units 06:54 06:54 RBC 3.25 L (3.80-5.40) m/uL Hgb 9.0 L (11.4-16.0) gm/dL Hct 29.0 L (34.0-46.0) % Creatinine 0.42 L (0.52-1.04) mg/dL Assessment and Plan Assessment: Acute lower GI bleed, EGD reporting no acute abnormalities, colonoscopy reporting potential diverticular bleed, in no active bleeding noted,inability to scope right colon secondary to severe tortuosity of the bowel, extensive diverticular changes in the descending colon with large diverticuli-abdominal CT pending. CAD my history of [place] Advanced COPD Chronic hypoxic respiratory failure, on 2 L at home Former nicotine dependence Mediastinal lymphadenopathy, possible lung CA Plan: Continue on current medication regime ,monitoring and symptomatic treatment. Abdominal CT pending. Continue on PPI, gentle IV fluid hydration. Maintain PPI, gentle IV fluid hydration. Close monitoring of CBC, repeat labs ordered for a.m. The impression and plan of care has been dictated as directed. : I performed a history and examination of this patient, discussed the same with the dictator. I agree with the dictator's note ,documented as a scribe. Any ad ditional findings or plans will be noted.
--- NOTE | 2019-10-01 14:13 | P.PN ---
Subjective Progress Note Date: 10/01/19 Principal diagnosis: acute GI bleeding, likely of a lower GI source 84-year-old female patient with known history of COPD who is very well-known to our service. She follows up with us in our office. She has severe COPD with an FEV1 of 40% of predicted and she is oxygen dependent. She has been maintained on a combination of Breo on inhalation a day and DuoNeb updrafts on an as-needed basis. The patient came for a GI bleed. The patient was passing bright red blood per rectum several episodes. No hematemesis. No coffee-ground emesis. Her hemoglobin dropped from a baseline of 11.6 down to 9.4. This made her a bit more short of breath and for that reason upon my consultation was requested. She is currently resting comfortably in bed. She underwent an EGD that showed no acute abnormalities. Colonoscopy was unable to complete as it was a suboptimal prep and the patient is going to have repeat colonoscopy tomorrow by general surgery. No angina no chest and the patient is currently taking only clear liquid diet. She is hemodynamically stable. On today's evaluation of 09/30/2019 the patient is awaiting her colonoscopy. I think there is some more laxatives are given to prepare this patient more adequately for the colonoscopy. Noted that hemoglobin has dropped down to 8.1. Nevertheless, she does not have any further bouts of bleeding since yesterday. The patient is scheduled for tomorrow to undergo colonoscopy. Her BP is elevated and she was restarted back on Zestril. Pulse oxing 98% on 3 L oxygen by nasal cannula. No nausea. No vomiting. No abdominal pain. No chest pain. She is on DuoNeb nebulized treatments around the clock. Hemodynamically stable. 10/01/2019 patient seen in follow-up. No specific pulmonary complaints, vital signs are stable, she is on 3 L of oxygen and the pulse ox of 9200%, no fever or chills, patient went repeat colonoscopy today which showed no active GI bleeding, additional diverticular disease in the descending colon. CT of the abdomen was ordered because the scope could not be passed into the right colon. Today labs have been reviewed showing white blood cell count of 9.2, hemoglobin of 9.0, electrolytes are within normal limits, and BUN/creatinine were unremarkable. She denies any shortness of breath, no chest pain, Objective - Vital Signs Vital signs: Vital Signs Temp 98.1 F 10/01/19 07:00 Pulse 66 10/01/19 12:01 Resp 15 10/01/19 08:53 BP 198/76 10/01/19 09:42 Pulse Ox 100 10/01/19 07:00 Intake & Output 09/30/19 10/01/19 10/01/19 18:59 06:59 18:59 Intake Total 50 Output Total 2 Balance -2 50 Weight 55.792 kg Intake: IV 50 Output: Urine/Stool Mix 2 Other: Voiding Method Bedside Commode Bedside Commode # Voids 1 2 # Bowel Movements 3 1 - Exam GENERAL EXAM: Alert, fairly comfortable in no apparent distress. HEAD: Normocephalic. EYES: Normal reaction of pupils, equal size. NOSE: Clear with pink turbinates. THROAT: No erythema or exudates. NECK: No masses, no JVD. CHEST: No chest wall deformity. There is diminished breath sound bilaterally and the vessels are quite diminished in the lung bases and the patient has few scattered external wheeze. LUNGS: Equal air entry with no crackles, wheeze, rhonchi or dullness. Diminished. CVS: S1 and S2 normal with no audible murmurs, regular rhythm. ABDOMEN: No hepatosplenomegaly, normal bowel sounds, no guarding or rigidity. Extremities: There is trace peripheral edema. No clubbing, no cyanosis. Peripheral pulses are intact. Neurologically the patient is awake and alert and is no focal neurological deficits. - Labs CBC & Chem 7: 10/01/19 06:54 10/01/19 06:54 Labs: Abnormal Lab Results - Last 24 Hours (Table) 10/01/19 10/01/19 Range/Units 06:54 06:54 RBC 3.25 L (3.80-5.40) m/uL Hgb 9.0 L (11.4-16.0) gm/dL Hct 29.0 L (34.0-46.0) % Creatinine 0.42 L (0.52-1.04) mg/dL Assessment and Plan Plan: 1 acute GI bleeding, likely of a lower GI source and the patient is going to undergo a colonoscopy tomorrow. EGD done today showed no acute abnormality. The patient is not ready for colonoscopy due to incomplete bowel prep. Hemoglobin dropped down to 8.1 without evidence of any acute bleeding. She is scheduled to undergo the colonoscopy tomorrow. Hemodynamically stable. Patient underwent colonoscopy today on 10/01/2019, and was found to have diverticular disease involving the descending colon, in the right colon was not visualized related to tortuous bowerl 2 diverticulitisadvanced COPD with an FEV1 of 40% of predicted 3 chronic hypoxic respiratory failure maintained on oxygen at 2 L per minute nasal cannula 4 right upper lobe mass with mediastinal lymphadenopathy with increased activity on PET scan highly suggestive of bronchogenic carcinoma. The patient has opted not to undergo any further diagnostic procedures to confirm the diagnosis. The right upper lobe spiculated masses measuring 3 cm. The chest x-ray was repeated and shows that the patient's right upper lobe mass is slightly more prominent and there is further right hilar fullness. This is consistent with progression of her lung cancer also. 5 coronary artery disease with previous remote history of myocardial infarction 6 history of fall the previous ORIF 7 elevated blood pressure Plan: From pulmonary perspective patient remains stable, colonoscopy report has been noted. She is not interested in any further diagnostic procedures for biopsy of the right upper lobe mass. Hemodynamically she remains stable, hemoglobin is stable. Pulmonary service will sign off and patient can follow up on an outpatient basis. I performed a history & physical examination of the patient and discussed their management with my nurse practitioner, Tamica Hills. I reviewed the nurse practitioner's note and agree with the documented findings and plan of care. Lung sounds are positive for diminished breath sounds.. The findings and the impression was discussed with the patient. I attest to the documentation by the nurse practitioner. Time with Patient: Less than 30
--- NOTE | 2019-10-01 15:02 | CT ---
EXAMINATION TYPE: CT abdomen pelvis w con DATE OF EXAM: 10/01/2019 COMPARISON: None HISTORY: Diverticulosis, history of GI bleed CT DLP: 707.2 mGycm CONTRAST: CT scan of the abdomen and pelvis is performed with Oral Contrast and with IV Contrast, patient injec esther with 100 mL of Isovue 300. FINDINGS: LUNG BASES-: No visible nodule. No infiltrate. LIVER/GB: No calcified gallstones. No space occupying hepatic lesion. Biliary tree is of normal ca liber. PANCREAS: No inflammation. No distinct mass. SPLEEN: No splenic enlargement. No lesion seen. ADRENALS: No nodule. No thickening. KIDNEYS/BLADDER: No hydronephrosis. No nephrolithiasis. Stable simple cyst right kidney. Probable u rinary bladder diverticulum to the left of midline posteriorly measuring 5.4 cm maximal dimension. Ur inary bladder distention noted. BOWEL: Fluid filled right hemicolon contents correlate for diarrhea. Normal bowel caliber. No inflam mation. Scattered diverticulosis without diverticulitis. GENITAL ORGANS: No gross abnormality. LYMPH NODES: No greater than 1cm abdominal or pelvic lymph nodes are appreciated. AORTA: No significant abnormality. OSSEOUS STRUCTURES: No significant abnormality is seen. OTHER: Fat-containing umbilical hernia. IMPRESSION: 1. Scattered diverticulosis without diverticulitis.
[2019-10-02] MEDS: HYDROmorphone 1 MG/ML 1 ML SYRINGE IVP PRN ×2 (00:59→09:24)
[2019-10-02 07:02] LABS: Basophils % (A) 1 %; Eosinophils # (A) 0.3 k/uL (0-0.7); Eosinophils % (A) 4 %; HCT 25.8 % (34.0-46.0); HGB 8.1 gm/dL (11.4-16.0); Lymphocytes % (A) 14 %; MCH 28.3 pg (25.0-35.0); MCHC 31.5 g/dL (31.0-37.0); MCV 89.6 fL (80.0-100.0); Mean Platelet Volume 7.2; Monocytes # (A) 0.6 k/uL (0-1.0); Monocytes % (A) 9 %; Neutrophils # (A) 4.7 k/uL (1.3-7.7); Neutrophils % (A) 70 %; Platelet Count 388 k/uL (150-450); RBC 2.88 m/uL (3.80-5.40); RDW 13.7 % (11.5-15.5); WBC 6.8 k/uL (3.8-10.6)
[2019-10-02 07:24] LABS: African American GFR (CKD) >90 (>60 ml/min/1.73 sqM); Anion Gap 4 mmol/L; Blood Urea Nitrogen 8 mg/dL (7-17); Calcium 8.5 mg/dL (8.4-10.2); Carbon Dioxide 33 mmol/L (22-30); Chloride 103 mmol/L (98-107); Glucose 80 mg/dL (74-99); Non-African American GFR(CKD) 89 (>60 ml/min/1.73 sqM); Potassium 3.4 mmol/L (3.5-5.1); Sodium 140 mmol/L (137-145)
[2019-10-02] MEDS: IPRATROPIUM-ALBUTEROL 3 ML NEB INHALATION SCH ×4 (08:14→20:44)
[2019-10-02] MEDS: LISINOPRIL 5 MG TAB PO SCH (09:24)
[2019-10-02] MEDS: ATORVASTATIN 10 MG TAB PO SCH (09:24)
[2019-10-02] MEDS: PANTOPRAZOLE 40 MG/10 ML VIAL IVP SCH ×2 (09:24→20:02)
[2019-10-02] MEDS: amLODIPine 5 MG TAB PO SCH (09:24)
--- NOTE | 2019-10-02 13:52 | P.PN ---
Subjective Progress Note Date: 10/02/19 Principal diagnosis: Lower GI bleed Patient doing well today. Denies pain. No further bleeding. Hemoglobin 8.1. Tolerating diet. Objective - Vital Signs Vital signs: Vital Signs Temp 98.2 F 10/02/19 07:00 Pulse 76 10/02/19 12:02 Resp 18 10/02/19 08:05 BP 181/61 10/02/19 07:00 Pulse Ox 90 L 10/02/19 07:00 Intake & Output 10/01/19 10/02/19 10/02/19 18:59 06:59 18:59 Intake Total 50 Balance 50 Intake: IV 50 Other: Voiding Method Bedside Commode Bedside Commode Bedside Commode # Voids 3 1 # Bowel Movements 1 - Exam Abdomen: Soft, nontender, nondistended - Labs CBC & Chem 7: 10/02/19 06:32 10/02/19 06:32 Labs: Abnormal Lab Results - Last 24 Hours (Table) 10/02/19 10/02/19 Range/Units 06:32 06:32 RBC 2.88 L (3.80-5.40) m/uL Hgb 8.1 L (11.4-16.0) gm/dL Hct 25.8 L (34.0-46.0) % Potassium 3.4 L (3.5-5.1) mmol/L Carbon Dioxide 33 H (22-30) mmol/L Creatinine 0.50 L (0.52-1.04) mg/dL Assessment and Plan (1) Hematochezia Narrative/Plan: Patient doing well at this time. Continue diet as tolerated. May discharge from our standpoint. Current Visit: Yes Status: Acute Code(s): K92.1 - MELENA SNOMED Code(s): 265960987
[2019-10-02] MEDS ORDERED: ALBUTEROL INHALER 60 PUFF/8 GM INHALER INHALATION PRN (17:18)
[2019-10-02] MEDS ORDERED: PROCHLORPERAZINE 5 MG TAB PO PRN (17:18)
[2019-10-02] MEDS: SODIUM CHLORIDE 0.9% 1,000 ML IV SCH (20:00)
[2019-10-02] MEDS: BUDESONIDE 0.5 MG/2 ML NEBU INHALATION SCH (20:44)
--- NOTE | 2019-10-02 22:01 | PN ---
PROGRESS NOTE DATE OF SERVICE: 10/02/2019 This 84-year-old woman was admitted with features of lower gastrointestinal bleed. The patient underwent EGD and colonoscopy. Colonoscopy could not be completed and CT scan of the abdomen and pelvis was done which showed some diverticulosis, otherwise scattered diverticulosis without any diverticulitis. Patient being closely monitored. Hemoglobin is today 8.1. On admission, the hemoglobin was 11.6. The patient being closely monitored at this time. PAST MEDICAL HISTORY: Reviewed. REVIEW OF SYSTEMS: Cardiovascular system: No angina. RESPIRATORY: As mentioned earlier. GI: As mentioned earlier. : No dysuria. CENTRAL NERVOUS SYSTEM: No numbness or weakness. CURRENT MEDICATIONS: Reviewed and include: 1. DuoNeb q.i.d. and p.r.n. 2. Norvasc 5 mg. 3. Lipitor 10 mg daily. 4. Dilaudid p.r.n. 5. Zestril 5 mg. 6. Narcan. 7. Zofran. 8. Protonix. 9. Doses are reviewed. PHYSICAL EXAM: Patient is alert, oriented x3. Pulse is 80. Blood pressure 181/61, respiration 18, temperature 98.2, pulse ox 98% on room air. HEENT: Conjunctivae normal. Oral mucosa moist. NECK is no jugular venous distention. No carotid bruit. No lymph node enlargement. CARDIOVASCULAR systems: S1, S2 muffled. RESPIRATIONS: Breath sounds diminished in the bases. A few scattered rhonchi and crackles. ABDOMEN: Soft, nontender. LEGS are no edema, no swelling. CENTRAL NERVOUS SYSTEM: No focal deficits. LABS: WBC 6.8, hemoglobin is 8.1, sodium 140, potassium 3.4. ASSESSMENT: 1. Anemia, possibly acute gastrointestinal blood loss anemia, etiology uncertain, possibly diverticulosis, diverticular bleed. 2. History of chronic obstructive pulmonary disease. 3. Hyperlipidemia. 4. History of myocardial infarction. 5. History of degenerative joint disease. 6. History of tonsillectomy. 7. History of nicotine dependence. RECOMMENDATIONS AND DISCUSSION: In this 84-year-old woman who presented with multiple medical problems, we will monitor the patient closely. Continue the current medications, management and symptomatic treatment. Recommend to keep holding the antiplatelet agents. Continue the rest of medications. Closely follow with multiple consultants. DVT prophylaxis. H2 blockers. Otherwise prognosis guarded. Further recommendations to follow. Medication reconciliation was done. MMODL / IJN: [id number] /
[2019-10-03] MEDS: LACTATED RINGERS 1,000 ML IV SCH ×2 (00:59→20:35)
[2019-10-03] MEDS: SODIUM CHLORIDE 0.9% 1,000 ML IV SCH ×2 (00:59→20:35)
[2019-10-03] MEDS: ATORVASTATIN 10 MG TAB PO SCH (08:25)
[2019-10-03] MEDS: LISINOPRIL 10 MG TAB PO SCH (08:25)
[2019-10-03] MEDS: PANTOPRAZOLE 40 MG/10 ML VIAL IVP SCH ×2 (08:25→21:30)
[2019-10-03] MEDS: amLODIPine 5 MG TAB PO SCH (08:25)
[2019-10-03] MEDS ORDERED: SIMVASTATIN 10 MG PO SCH (09:00)
[2019-10-03] MEDS: IPRATROPIUM-ALBUTEROL 3 ML NEB INHALATION SCH ×4 (09:10→19:30)
[2019-10-03] MEDS: BUDESONIDE 0.5 MG/2 ML NEBU INHALATION SCH ×2 (09:10→19:30)
--- NOTE | 2019-10-03 09:41 | P.PN ---
Subjective Progress Note Date: 10/03/19 Principal diagnosis: Lower GI bleed Patient doing well today. No further bleeding. Denies abdominal pain. Tolerating diet. Objective - Vital Signs Vital signs: Vital Signs Temp 98.7 F 10/03/19 07:17 Pulse 70 10/03/19 09:29 Resp 16 10/03/19 07:17 BP 216/78 10/03/19 07:17 Pulse Ox 93 L 10/03/19 07:17 Intake & Output 10/02/19 10/03/19 10/03/19 18:59 06:59 18:59 Intake Total 480 150 110 Balance 480 150 110 Intake: Oral 480 150 110 Other: Voiding Method Bedside Commode Bedside Commode Incontinent # Voids 3 3 1 # Bowel Movements 1 - Exam Abdomen: Soft, nontender, nondistended - Labs CBC & Chem 7: 10/02/19 06:32 10/02/19 06:32 Assessment and Plan (1) Hematochezia Narrative/Plan: Patient doing well. May discharge. Current Visit: Yes Status: Acute Code(s): K92.1 - MELENA SNOMED Code(s): 403011821
[2019-10-03] MEDS ORDERED: Potassium Replacement Protocol 1 EACH MISC MISCELLANE PRN (11:59)
[2019-10-03] MEDS: ONDANSETRON 4 MG/2 ML VIAL IVP PRN (12:34)
[2019-10-03 20:03] VITALS: RESP 18
--- NOTE | 2019-10-03 23:41 | PN ---
PROGRESS NOTE DATE OF SERVICE: 10/03/2019 I am covering for Dr. Mattson. This 84-year-old woman admitted with acute GI bleed is being closely monitored at this time. The exact etiology unknown. Diverticular bleeding is considered. Hemoglobin is 8.1 today. No chest pain. No palpitations. No fever. Potassium 3.4. EXAM: Alert and oriented times two. Pulse 78, blood pressure 145/60, respirations 16, temperature 98.2, pulse ox 94% on room air. HEENT is conjunctivae normal. NECK: No JVD. CARDIOVASCULAR: S1, S2 muffled. RESPIRATIONS: Breath sounds diminished in the bases. No rhonchi. No crackles. ABDOMEN is soft, nontender, no mass. LEGS are no edema. No swelling. CENTRAL NERVOUS SYSTEM: No focal deficits. LABS: WBC 6.3, hemoglobin is 8.1, sodium 140, potassium 3.4. ASSESSMENT: 1. Anemia, possibly acute gastrointestinal bleed with blood-loss anemia, etiology uncertain, possible diverticulosis, diverticular bleed. 2. History of chronic obstructive pulmonary disease. 3. Hyperlipidemia. 4. History of myocardial infarction, history of degenerative joint disease. 5. History of tonsillectomy. 6. History of nicotine dependence. RECOMMENDATIONS AND DISCUSSION: Recommend to continue current medications, continue to monitor, symptomatic treatment. Continue with repeat labs in the morning. Dr. Mattson will follow. Advance diet. Further recommendations to follow. MMODL / IJN: [id number] /
[2019-10-04] MEDS: IPRATROPIUM-ALBUTEROL 3 ML NEB INHALATION SCH ×2 (06:43→10:57)
[2019-10-04] MEDS: BUDESONIDE 0.5 MG/2 ML NEBU INHALATION SCH (06:43)
[2019-10-04 08:09] VITALS: BP 169/60; TEMP 98.1
[2019-10-04] MEDS: amLODIPine 5 MG TAB PO SCH (08:43)
[2019-10-04] MEDS: LISINOPRIL 10 MG TAB PO SCH (08:43)
[2019-10-04] MEDS: ATORVASTATIN 10 MG TAB PO SCH (08:43)
[2019-10-04] MEDS: PANTOPRAZOLE 40 MG/10 ML VIAL IVP SCH (08:43)
[2019-10-04] MEDS ORDERED: ACETAMINOPHEN TAB 325 MG TAB PO STA (08:51)
[2019-10-04 09:09] LABS: HCT 28.8 % (34.0-46.0); Hypochromasia Slight; MCH 28.1 pg (25.0-35.0); MCHC 31.3 g/dL (31.0-37.0); MCV 89.7 fL (80.0-100.0); Mean Platelet Volume 7.7; Platelet Count 451 k/uL (150-450); RBC 3.21 m/uL (3.80-5.40); RDW 13.9 % (11.5-15.5)
--- NOTE | 2019-10-04 10:09 | P.PN ---
Subjective Progress Note Date: 10/04/19 CHIEF COMPLAINT: Hematochezia HISTORY OF PRESENT ILLNESS: Patient examined this morning at the bedside. She is status post colonoscopy revealing severe diverticulosis without evidence of acute bleeding. Patient denies further episodes of rectal bleeding. Denies abdominal pain. Tolerating diet without nausea or vomiting. PHYSICAL EXAM: VITAL SIGNS: Reviewed. GENERAL: Well-developed in no acute distress. HEENT: No sclera icterus. Extraocular movements grossly intact. Moist buccal mucosa. Head is atraumatic, normocephalic. ABDOMEN: Soft. Nondistended. Nontender. NEUROLOGIC: Alert and oriented. Cranial nerves II through XII grossly intact. ASSESSMENT: 1. Bright red blood per rectum PLAN: Continue diet as tolerated Discharge per medicine We will sign off. Please reconsult if needed Nurse practitioner note has been reviewed by physician. Signing provider agrees with the documented findings, assessment, and plan of care. Objective - Vital Signs Vital signs: Vital Signs Temp 98.1 F 10/04/19 07:00 Pulse 76 10/04/19 08:05 Resp 18 10/04/19 08:05 BP 169/60 10/04/19 07:00 Pulse Ox 91 L 10/04/19 07:00 Intake & Output 10/03/19 10/04/19 10/04/19 18:59 06:59 18:59 Intake Total 330 300 Balance 330 300 Intake: Oral 330 300 Other: Voiding Method Bedside Commode Bedside Commode Bedside Commode Incontinent Diaper Diaper # Voids 1 3 3 # Bowel Movements 1 1 - Labs CBC & Chem 7: 10/04/19 07:16 10/02/19 06:32 Labs: Abnormal Lab Results - Last 24 Hours (Table) 10/04/19 Range/Units 07:16 RBC 3.21 L (3.80-5.40) m/uL Hgb 9.0 L (11.4-16.0) gm/dL Hct 28.8 L (34.0-46.0) % Plt Count 451 H (150-450) k/uL
[2019-10-04 11:00] VITALS: PULSE 72
--- NOTE | 2019-10-04 14:27 | P.DS ---
Providers Date of admission: 09/30/19 09:06 Expected date of discharge: 10/04/19 Attending physician: Chandra Mattson Consults: 09/28/19 11:29 Consult Physician Routine Consulting Provider: Luis Manuel Villanueva Consult Reason/Comments: Hematochezia Do you want consulting provider notified?: Yes 09/29/19 08:14 Consult Physician Urgent Consulting Provider: Kandy Mullen Consult Reason/Comments: wheezing, Do you want consulting provider notified?: Yes Primary care physician: Chandra Mattson Hospital Course: Final diagnoses Acute lower GI bleed, EGD reporting no acute abnormalities, colonoscopy reporting potential diverticular bleed, in no active bleeding noted,inability to scope right colon secondary to severe tortuosity of the bowel, extensive diverticular changes in the descending colon with large diverticuli-abdominal CT reported scattered diverticulosis without diverticulitis. Diverticular bleeding suspected as per surgery. Hypertension CAD my history of [place] Advanced COPD Chronic hypoxic respiratory failure, on 2 L at home Former nicotine dependence Mediastinal lymphadenopathy, possible lung CA Hospital course:As an 84-year-old female with history of COPD, chronic hypoxic respiratory failure, former nicotine dependent, suspected lung CA, hyperlipidemia, [place], presented to the ER with complaints of bright red rectal bleeding, on aspirin at home. Denies hematochezia. denies NSAIDs use. Hemoglobin on admission 11.6, has dropped down to 9.4 this morning. Stool for occult blood positive. Last night developed stomach ache received Dilaudid, followed by bile emesis. Currently denies no abdominal pain .nauseated, receiving Zofran .Mildly hypertensive with systolic blood pressures in the 160s, no tachycardia currently. EKG reporting sinus rhythm. KUB reports no acute abnormality. Troponin negative 1 .denies chest pain, palpitations or increasing shortness of breath .Evaluated by surgery and scheduled for colonoscopy and EGD today. 09/30/2019 completed EGD yesterday reporting no acute abnormalities. Suboptimal prep and colonoscopy aborted. Initially Rescheduled for colonoscopy today, but bowel prep inadequate, rescheduled for tomorrow. Hemoglobin continues trending down and currently 8.1. Denies chest pain, palpitations or increased shortness of breath. 10/01/2019 completed colonoscopy reporting inability to scope right colon secondary to severe tortuosity of the bowel, extensive diverticular changes in the descending colon with large diverticuli, no evidence of GI bleed, possible diverticular bleed. Abdominal CT ordered. Tolerated procedure well. Hemoglobin 9. Hypertensive. Significant clinical improvement. Cleared by all consults for discharge. Patient is being discharged home in a stable condition with guarded prognosis. EXAM: GENERAL: Alert and oriented 3, no acute distress CARDIOVASCULAR: S1, S2 regular. No murmur RESPIRATION: Breath sounds diminished in the bases. ABDOMEN: Soft, nondistended, nontender . No guarding. Bowel sounds heard NERVOUS SYSTEM: No focal deficits. The impression and plan of care has been dictated as directed. : I performed a history and examination of this patient, discussed the same with the dictator. I agree with the dictator's note ,documented as a scribe. Any additional findings or plans will be noted. Patient Condition at Discharge: Stable Plan - Discharge Summary New Discharge Prescriptions: New amLODIPine [Norvasc] 5 mg PO DAILY #30 tab Pantoprazole Sodium [Protonix] 40 mg PO DAILY #30 tablet.dr Continue Albuterol Sulfate [Proair Hfa] 1 - 2 puff INHALATION RT-Q6H PRN PRN Reason: Shortness Of Breath Ipratropium-Albuterol Nebulize [Duoneb 0.5 mg-3 mg/3 ml Soln] 3 ml INHALATION RT-QID Fluticasone/Vilanterol [Breo Ellipta 200-25 Mcg INH] 1 puff INHALATION RT- DAILY Prochlorperazine [Compazine] 5 mg PO Q8H PRN PRN Reason: Gi Upset Simvastatin [Zocor] 10 mg PO DAILY Enalapril [Vasotec] 5 mg PO DAILY Discontinued Aspirin EC [Ecotrin Low Dose] 81 mg PO DAILY Discharge Medication List Albuterol Sulfate [Proair Hfa] 1 - 2 puff INHALATION RT-Q6H PRN 09/01/16 [History] Fluticasone/Vilanterol [Breo Ellipta 200-25 Mcg INH] 1 puff INHALATION RT-DAILY 06/02/18 [History] Ipratropium-Albuterol Nebulize [Duoneb 0.5 mg-3 mg/3 ml Soln] 3 ml INHALATION RT-QID 06/02/18 [History] Enalapril [Vasotec] 5 mg PO DAILY 09/28/19 [History] Prochlorperazine [Compazine] 5 mg PO Q8H PRN 09/28/19 [History] Simvastatin [Zocor] 10 mg PO DAILY 09/28/19 [History] Pantoprazole Sodium [Protonix] 40 mg PO DAILY #30 tablet.dr 10/04/19 [Rx] amLODIPine [Norvasc] 5 mg PO DAILY #30 tab 10/04/19 [Rx] Follow up Appointment(s)/Referral(s): Chandra Mattson DO [Primary Care Provider] - 10/06/19 11:40 am Luis Manuel Villanueva MD [STAFF PHYSICIAN] - 10/12/19 2:50 pm Ambulatory/Diagnostic Orders: Complete Blood Count w/diff [LAB.AMB] Time Frame: 3 Days, Location: None Selected Activity/Diet/Wound Care/Special Instructions: K level pending Hold Aspirin, re-eval at PCP F/U [facility]: [phone]
== END 2019-10-04 12:14 | disposition home health service (06) | DRG 378 ==
LOC: EC 09:06 → 5NMEDONC 11:27 → 4SSUR 09-29 12:42 → OBSVTOIN 09-30 09:06
PROVIDERS: ADMIT Family Medicine; ATTEND Family Medicine
PROC: 0DB38ZX Excision of Lower Esophagus, Via Natural or Artificial Opening Endoscopic, Diagnostic (ICD-10-PCS; 2019-09-29 11:15)
PROC: 0DJD8ZZ Inspection of Lower Intestinal Tract, Via Natural or Artificial Opening Endoscopic (ICD-10-PCS; 2019-09-29 11:15)
PROC: 0DB78ZX Excision of Stomach, Pylorus, Via Natural or Artificial Opening Endoscopic, Diagnostic (ICD-10-PCS; 2019-09-29 11:15)
PROC: 0DJD8ZZ Inspection of Lower Intestinal Tract, Via Natural or Artificial Opening Endoscopic (ICD-10-PCS; principal; 2019-10-01 08:05)
DX: K57.31 Diverticulosis of large intestine without perforation or abscess with bleeding (principal); J96.11 Chronic respiratory failure with hypoxia; C34.11 Malignant neoplasm of upper lobe, right bronchus or lung; C77.1 Secondary and unspecified malignant neoplasm of intrathoracic lymph nodes; D62 Acute posthemorrhagic anemia; J44.9 Chronic obstructive pulmonary disease, unspecified; E78.5 Hyperlipidemia, unspecified; I10 Essential (primary) hypertension; I25.10 Atherosclerotic heart disease of native coronary artery without angina pectoris; M54.30 Sciatica, unspecified side; M19.90 Unspecified osteoarthritis, unspecified site; I25.2 Old myocardial infarction; Z98.890 Other specified postprocedural states; Z79.82 Long term (current) use of aspirin; Z79.899 Other long term (current) drug therapy; Z99.81 Dependence on supplemental oxygen; Z87.891 Personal history of nicotine dependence; Z96.7 Presence of other bone and tendon implants; Z98.51 Tubal ligation status; Z87.81 Personal history of (healed) traumatic fracture; Z91.81 History of falling; Z84.89 Family history of other specified conditions; Z82.49 Family history of ischemic heart disease and other diseases of the circulatory system; Z80.8 Family history of malignant neoplasm of other organs or systems; Z80.0 Family history of malignant neoplasm of digestive organs; Z81.1 Family history of alcohol abuse and dependence
CPT/HCPCS: 36415; 43239; 45330; 45378; 71046; 74018; 74177; 80048; 80053; 82272; 82550; 83735; 84132; 84484; 85025; 85027; 85730; 86850; 86900; 86901; 88305; 93005; 94640; 94760; 96361; 96374; 96375; 96376; 99285

== ENCOUNTER → 2019-10-15 | Outpatient (CLI) | payer MEDICARE, OTHER ==
[2019-10-15 12:34] LABS: HCT 31.3 % (34.0-46.0); Hypochromasia Slight; MCH 28.5 pg (25.0-35.0); MCV 89.1 fL (80.0-100.0); Mean Platelet Volume 7.3; Platelet Count 378 k/uL (150-450); RBC 3.51 m/uL (3.80-5.40); RDW 14.2 % (11.5-15.5); WBC 11.2 k/uL (3.8-10.6)
[2019-10-15 12:40] LABS: Potassium 3.7 mmol/L (3.5-5.1)
== END | disposition home or self-care (01) ==
LOC: LABPAT 11:20
PROVIDERS: ATTEND Surgery
DX: Z01.818 Encounter for other preprocedural examination (principal); Z01.812 Encounter for preprocedural laboratory examination; K57.30 Diverticulosis of large intestine without perforation or abscess without bleeding
CPT/HCPCS: 36415; 80051; 85027; 86850; 86900; 86901

== ENCOUNTER 2019-10-19 07:21 | Inpatient (IN) | payer MEDICARE, OTHER ==
[~2019-10-19 07:21] MED LIST: DEXAMETHASONE SOD PHOSPHATE 10 MG/ML 1 ML VIAL IV ONE; HEPARIN SODIUM,PORCINE 5,000 UNIT/ML 1 ML VIAL SQ ONE; HYDROmorphone 0.5 MG/0.5 ML SYRINGE IVP PRN; LACTATED RINGERS 1,000 ML IV SCH; MIDAZOLAM 2 MG/2 ML VIAL IV PRN; ONDANSETRON 4 MG/2 ML VIAL IVP ONE; metroNIDAZOLE-NS PMX 500 MG in SALINE 1 100ML.BAG IVPB ONE
[2019-10-19] MEDS ORDERED: LIDOCAINE 1% (10MG/ML) FOR IV START INTRADERMA ONE (08:05)
[2019-10-19] MEDS ORDERED: fentaNYL (PF) 50 MCG/ML 2 ML AMP IV ONE (08:19)
--- NOTE | 2019-10-19 09:22 | P.GSHP ---
History of Present Illness H&P Date: 10/19/19 Chief Complaint: Diverticulitis This 84-year-old female who presents today for low anterior section. Patient's a chronic issues with diverticulitis. Past Medical History Past Medical History: Cancer, COPD, GI Bleed, Hyperlipidemia, Hypertension, Myocardial Infarction ([place]), Osteoarthritis ([place]) Additional Past Medical History / Comment(s): LUNG CANCER. Recent GI bleed, found diverticulosis. Last Myocardial Infarction Date:: 2011 History of Any Multi-Drug Resistant Organisms: None Reported Past Surgical History: Joint Replacement, Tonsillectomy, Tubal Ligation Additional Past Surgical History / Comment(s): Rt wrist tendon repair, ORIF Rt hip. Colonoscopy, EGD Past Anesthesia/Blood Transfusion Reactions: No Reported Reaction Smoking Status: Former smoker - Past Family History Mother Family Medical History: Coronary Artery Disease (CAD) Father Family Medical History: Coronary Artery Disease (CAD) Brother(s) Family Medical History: Cancer Additional Family Medical History / Comment(s): 2 x brothers of cancer - throat cancer, and bowel cancer. 1 x brother of AAA and alcoholism Sister(s) Additional Family Medical History / Comment(s): 1 x sister has Menieres disease and aneurysm behind her ear Medications and Allergies Home Medications Medication Instructions Recorded Confirmed Type Albuterol Sulfate [Proair Hfa] 1 - 2 puff INHALATION RT-Q6H PRN 09/01/16 10/15/19 History Fluticasone/Vilanterol [Breo 1 puff INHALATION RT-DAILY 06/02/18 10/15/19 History Ellipta 200-25 Mcg INH] Ipratropium-Albuterol Nebulize 3 ml INHALATION RT-QID 06/02/18 10/15/19 History [Duoneb 0.5 mg-3 mg/3 ml Soln] Simvastatin [Zocor] 10 mg PO DAILY 09/28/19 10/15/19 History Pantoprazole Sodium [Protonix] 40 mg PO DAILY #30 tablet.dr 10/04/19 10/15/19 Rx amLODIPine [Norvasc] 5 mg PO DAILY #30 tab 10/04/19 10/15/19 Rx Docusate [Colace] 100 mg PO DAILY 10/15/19 10/15/19 History Allergies Allergy/AdvReac Type Severity Reaction Status Date / Time No Known Allergies Allergy Verified 10/19/19 07:41 Surgical - Exam Vital Signs Temp Pulse Resp BP Pulse Ox 98.2 F 74 16 170/77 100 10/19/19 07:56 10/19/19 07:56 10/19/19 07:56 10/19/19 07:56 10/19/19 07:56 - General well developed, well nourished, no distress - Eyes PERRL - ENT normal pinna - Neck no masses - Respiratory normal expansion - Cardiovascular Rhythm: regular - Abdomen Abdomen: soft, non tender Assessment and Plan Assessment: Diverticulitis. We'll perform low anterior resection.
[2019-10-19] MEDS ORDERED: ALVIMOPAN 12 MG CAPSULE PO ONE (09:25)
[2019-10-19] MEDS ORDERED: LIDOCAINE 1% INJ 10MG/ML (20 ML MDV) ONE (09:42)
[2019-10-19] MEDS ORDERED: ROCURONIUM BROMIDE 10 MG/ML 5 ML VIAL IV ONE (09:42)
[2019-10-19] MEDS ORDERED: fentaNYL (PF) 50 MCG/ML 2 ML AMP ONE (09:42)
[2019-10-19] MEDS ORDERED: GLYCOPYRROLATE 0.2 MG/ML 2 ML VIAL ONE (09:42)
[2019-10-19] MEDS ORDERED: NEOSTIGMINE 1 MG/ML 10 ML VIAL ONE (09:42)
[2019-10-19] MEDS ORDERED: SUCCINYLCHOLINE CHLORIDE 100 MG/5 ML SYR IV ONE (09:42)
[2019-10-19] MEDS ORDERED: ESMOLOL 100 MG/10 ML VIAL ONE (09:42)
[2019-10-19] MEDS ORDERED: PROPOFOL 10 MG/ML 20 ML VIAL IV ONE (09:42)
[2019-10-19] MEDS ORDERED: NALOXONE 0.4 MG/ML 1 ML VIAL IV PRN (09:49)
[2019-10-19] MEDS ORDERED: diphenhydrAMINE 50 MG/ML 1 ML VIAL IVP PRN (10:03)
[2019-10-19] MEDS ORDERED: LACTATED RINGERS 1,000 ML IV ONE (11:05)
[2019-10-19] MEDS: ROPIVACAINE 400 MG, HYDROMORPHONE (PF) 3.75 MG in SODIUM CHLORIDE 0.9% 170 ML EPIDURAL PRN ×2 (11:38→13:34)
[2019-10-19] MEDS ORDERED: BENZOCAINE/MENTHOL LOZENG 1 EACH LOZENGE MUCOUS MEM PRN (11:38)
[2019-10-19] MEDS ORDERED: ONDANSETRON 4 MG/2 ML VIAL IVP PRN (11:38)
[2019-10-19] MEDS: D5-0.45% NACL WITH KCL 20MEQ/L 1,000 ML IV SCH ×2 (16:45→22:39)
[2019-10-19] MEDS: METOCLOPRAMIDE 5 MG/ML 2 ML VIAL IVP PRN (19:23)
[2019-10-19 21:29] LABS: African American GFR (CKD) >90 (>60 ml/min/1.73 sqM); Anion Gap 7 mmol/L; Blood Urea Nitrogen 12 mg/dL (7-17); Calcium 8.8 mg/dL (8.4-10.2); Carbon Dioxide 29 mmol/L (22-30); Chloride 103 mmol/L (98-107); Glucose 177 mg/dL (74-99); Non-African American GFR(CKD) 87 (>60 ml/min/1.73 sqM); Potassium 3.8 mmol/L (3.5-5.1); Sodium 139 mmol/L (137-145)
[2019-10-19 21:30] LABS: Basophils % (A) 0 %; Eosinophils % (A) 0 %; HGB 9.7 gm/dL (11.4-16.0); Lymphocytes # (A) 0.5 k/uL (1.0-4.8); Lymphocytes % (A) 2 %; MCH 27.5 pg (25.0-35.0); MCHC 31.2 g/dL (31.0-37.0); MCV 88.1 fL (80.0-100.0); Mean Platelet Volume 7.2; Monocytes # (A) 0.7 k/uL (0-1.0); Monocytes % (A) 3 %; Neutrophils # (A) 26.7 k/uL (1.3-7.7); Neutrophils % (A) 96 %; Platelet Count 342 k/uL (150-450); RBC 3.51 m/uL (3.80-5.40); WBC 27.9 k/uL (3.8-10.6)
[2019-10-20] MEDS: IPRATROPIUM-ALBUTEROL 3 ML NEB INHALATION PRN ×5 (03:12→20:04)
[2019-10-20] MEDS: D5-0.45% NACL WITH KCL 20MEQ/L 1,000 ML IV SCH ×3 (06:15→23:19)
[2019-10-20] MEDS: ALVIMOPAN 12 MG CAPSULE PO SCH ×2 (08:17→20:31)
[2019-10-20] MEDS: PANTOPRAZOLE 40 MG/10 ML VIAL IVP SCH (09:27)
--- NOTE | 2019-10-20 10:59 | P.PN ---
Subjective Progress Note Date: 10/20/19 CHIEF COMPLAINT: Diverticulitis HISTORY OF PRESENT ILLNESS: 84-year-old female who is status post low anterior resection secondary to diverticulitis. Postop day #1. Patient examined this morning at the bedside. Patient reports her pain is tolerable this morning. Epidural infusing at 4cc/hr. Tolerating clear liquid diet. No flatus. Using incentive spirometer. PHYSICAL EXAM: VITAL SIGNS: Reviewed. GENERAL: Well-developed in no acute distress. HEENT: No sclera icterus. Extraocular movements grossly intact. Moist buccal mucosa. Head is atraumatic, normocephalic. ABDOMEN: Soft. Nondistended. Nontender. Midline incision dressing with small shadowing noted. NEUROLOGIC: Alert and oriented. Cranial nerves II through XII grossly intact. ASSESSMENT: 1. Diverticulitis, status post low anterior resection PLAN: -Pain control. Continue epidural. Remove postop day #3 -Continue eaton catheter while epidural is in place -Incentive spirometer 10 times an hour -Activity as tolerated -Continue clear liquid diet. Await bowel function -Repeat CBC this morning. Begin Zosyn Nurse practitioner note has been reviewed by physician. Signing provider agrees with the documented findings, assessment, and plan of care. Objective - Vital Signs Vital signs: Vital Signs Temp 98.3 F 10/20/19 07:00 Pulse 68 10/20/19 07:40 Resp 16 10/20/19 07:00 BP 133/63 10/20/19 07:00 Pulse Ox 95 10/20/19 07:00 Intake & Output 10/19/19 10/20/19 10/20/19 18:59 06:59 18:59 Intake Total 1809.5 20 Output Total 425 Balance 1384.5 20 Weight 53.8 kg Intake: IV 1809.5 Oral 20 Output: Urine 325 Estimated Blood Loss 100 Other: Voiding Method Indwelling Catheter Indwelling Catheter - Labs CBC & Chem 7: 10/19/19 20:42 10/19/19 20:42 Labs: Abnormal Lab Results - Last 24 Hours (Table) 10/19/19 10/19/19 Range/Units 20:42 20:42 WBC 27.9 H (3.8-10.6) k/uL RBC 3.51 L (3.80-5.40) m/uL Hgb 9.7 L (11.4-16.0) gm/dL Hct 31.0 L (34.0-46.0) % Neutrophils # 26.7 H (1.3-7.7) k/uL Lymphocytes # 0.5 L (1.0-4.8) k/uL Glucose 177 H (74-99) mg/dL
[2019-10-20] MEDS: SYMBICORT 160-4.5 MCG INHALER INHALATION SCH ×3 (11:21→20:06)
[2019-10-20 11:54] LABS: Basophils % (A) 0 %; Eosinophils % (A) 0 %; HCT 27.6 % (34.0-46.0); HGB 8.7 gm/dL (11.4-16.0); Hypochromasia Slight; Lymphocytes # (A) 0.9 k/uL (1.0-4.8); Lymphocytes % (A) 5 %; MCH 27.8 pg (25.0-35.0); MCHC 31.5 g/dL (31.0-37.0); MCV 88.4 fL (80.0-100.0); Mean Platelet Volume 7.5; Monocytes # (A) 0.8 k/uL (0-1.0); Monocytes % (A) 4 %; Neutrophils # (A) 17.6 k/uL (1.3-7.7); Neutrophils % (A) 89 %; Platelet Count 344 k/uL (150-450); RBC 3.12 m/uL (3.80-5.40); WBC 19.7 k/uL (3.8-10.6)
[2019-10-20 12:03] LABS: African American GFR (CKD) >90 (>60 ml/min/1.73 sqM); Anion Gap 4 mmol/L; Blood Urea Nitrogen 14 mg/dL (7-17); Calcium 8.9 mg/dL (8.4-10.2); Carbon Dioxide 31 mmol/L (22-30); Chloride 102 mmol/L (98-107); Glucose 133 mg/dL (74-99); Non-African American GFR(CKD) 84 (>60 ml/min/1.73 sqM); Potassium 3.8 mmol/L (3.5-5.1); Sodium 137 mmol/L (137-145)
[2019-10-20] MEDS: METOCLOPRAMIDE 5 MG/ML 2 ML VIAL IVP PRN (13:18)
[2019-10-20] MEDS: HYDROmorphone 1 MG/ML 1 ML SYRINGE IVP PRN ×3 (13:18→20:31)
[2019-10-20] MEDS: PIPERACILLIN-TAZOBACTAM 3.375 GM in SODIUM CHLORIDE 0.9% 100 ML IVPB SCH ×2 (15:46→23:19)
--- NOTE | 2019-10-20 16:15 | P.CONS ---
History of Present Illness - Reason for Consult Consult date: 10/20/19 Medical management COPD, hypertension, anxiety Requesting physician: Luis Manuel Villanueva - Chief Complaint Diverticulitis - History of Present Illness This is an 84-year-old female with history of lung cancer, GI bleed, diverticulosis, COPD, hypertension, hyperlipidemia, CAD, [place], anxiety, former nicotine dependence admitted with chronic issues involving diverticulitis, faile d conservative measures, status post low anterior resection. Tolerated procedure well. Reports nausea with activity during the night relieved by Zofran. Tolerating clear liquid diet with no nausea vomiting or diarrhea. No flatus. Pain controlled with epidural. Zosyn initiated as per surgery. Af ebrile, WBC trending down, 19.7. Review of Systems Constitutional: Denied any fever. Cardio vascular: denied any chest pain, palpitations Gastrointestinal :nausea resolved, no vomiting Pulmonary: Denied any shortness of breath cough Neurologic denied any new focal deficits ROS Statement: Those systems with pertinent positive or pertinent negative responses have been documented in the HPI. ROS Other: All systems not noted in ROS Statement are negative. Past Medical History Past Medical History: Cancer, COPD, GI Bleed, Hyperlipidemia, Hypertension, Myocardial Infarction ([place]), Osteoarthritis ([place]) Additional Past Medical History / Comment(s): LUNG CANCER. Recent GI bleed, found diverticulosis. Last Myocardial Infarction Date:: 2011 History of Any Multi-Drug Resistant Organisms: None Reported Past Surgical History: Joint Replacement, Tonsillectomy, Tubal Ligation Additional Past Surgical History / Comment(s): Rt wrist tendon repair, ORIF Rt hip. Colonoscopy, EGD Past Anesthesia/Blood Transfusion Reactions: No Reported Reaction Past Psychological History: Anxiety Additional Psychological History / Comment(s): "a little anxiety," per daughter Smoking Status: Former smoker Past Alcohol Use History: None Reported Additional Past Alcohol Use History / Comment(s): Smoked, quit 2007 est Past Drug Use History: None Reported - Past Family History Mother Family Medical History: Coronary Artery Disease (CAD) Father Family Medical History: Coronary Artery Disease (CAD) Brother(s) Family Medical History: Cancer Additional Family Medical History / Comment(s): 2 x brothers of cancer - throat cancer, and bowel cancer. 1 x brother of AAA and alcoholism Sister(s) Additional Family Medical History / Comment(s): 1 x sister has Menieres disease and aneurysm behind her ear Medications and Allergies Home Medications Medication Instructions Recorded Confirmed Type Albuterol Sulfate [Proair Hfa] 1 - 2 puff INHALATION RT-Q6H PRN 09/01/16 10/15/19 History Fluticasone/Vilanterol [Breo 1 puff INHALATION RT-DAILY 06/02/18 10/15/19 History Ellipta 200-25 Mcg INH] Ipratropium-Albuterol Nebulize 3 ml INHALATION RT-QID 06/02/18 10/15/19 History [Duoneb 0.5 mg-3 mg/3 ml Soln] Simvastatin [Zocor] 10 mg PO DAILY 09/28/19 10/15/19 History Pantoprazole Sodium [Protonix] 40 mg PO DAILY #30 tablet. 10/04/19 10/15/19 Rx amLODIPine [Norvasc] 5 mg PO DAILY #30 tab 10/04/19 10/15/19 Rx Docusate [Colace] 100 mg PO DAILY 10/15/19 10/15/19 History Allergies Allergy/AdvReac Type Severity Reaction Status Date / Time No Known Allergies Allergy Verified 10/19/19 07:41 Physical Exam Vitals: Vital Signs Temp Pulse Pulse Resp BP Pulse Ox 10/20/19 07:40 68 10/20/19 07:30 70 10/20/19 03:32 72 10/20/19 03:18 72 10/20/19 02:18 97.8 F 72 18 121/68 99 10/19/19 19:09 98.2 F 73 12 147/58 97 10/19/19 16:57 80 133/69 97 10/19/19 16:42 76 132/67 96 10/19/19 16:28 76 116/56 98 10/19/19 16:12 77 120/65 97 10/19/19 15:57 75 122/67 97 10/19/19 15:42 75 124/70 97 10/19/19 15:27 132/73 10/19/19 15:12 80 145/75 97 10/19/19 14:57 96.3 F L 72 16 121/61 94 L 10/19/19 14:23 74 16 112/51 96 10/19/19 13:53 73 16 115/56 97 10/19/19 13:38 71 20 134/52 97 10/19/19 13:23 72 20 112/52 100 10/19/19 12:57 63 18 106/49 100 10/19/19 12:42 57 L 8 L 126/58 100 10/19/19 12:27 62 16 133/54 100 10/19/19 12:12 66 16 133/54 100 10/19/19 11:57 73 15 146/64 100 10/19/19 11:42 74 15 171/73 100 10/19/19 11:27 97.5 F L 68 18 205/90 100 Intake and Output 10/19/19 10/20/19 10/20/19 22:59 06:59 14:59 Intake Total 20 Balance 20 Intake: Oral 20 Other: Voiding Method Indwelling Catheter Weight 53.8 kg PHYSICAL EXAM: VITAL SIGNS: As above GENERAL: Sitting up in bed, no acute distress HEENT: Conjunctivae normal. eyes normal. Conjunctivae moist NECK: No JVD. No thyroid enlargement. No LNs CARDIOVASCULAR: S1, S2 regular.. No murmur RESPIRATION: Breath sounds diminished in the bases. No rhonchi or crackles. ABDOMEN: Soft, status post surgery, hypoactive Bowel sounds heard. Midline dressing with shadowing intact. LEGS: No edema. no swelling PSYCHIATRY: Alert and oriented X3, mood and affect normal. NERVOUS SYSTEM: Cranial N 2-12 grossly normal. Moves all 4 limbs. Diffuse weakness No focal deficits. Strength and sensation grossly intact.. Skin:no rash Lymphatic system. No LN neck axilla Results CBC & Chem 7: 10/20/19 11:31 10/20/19 11:31 Labs: Abnormal Lab Results - Last 24 Hours (Table) 10/19/19 10/19/19 Range/Units 20:42 20:42 WBC 27.9 H (3.8-10.6) k/uL RBC 3.51 L (3.80-5.40) m/uL Hgb 9.7 L (11.4-16.0) gm/dL Hct 31.0 L (34.0-46.0) % Neutrophils # 26.7 H (1.3-7.7) k/uL Lymphocytes # 0.5 L (1.0-4.8) k/uL Glucose 177 H (74-99) mg/dL Assessment and Plan Assessment: Diverticulitis status post anterior resection Leukocytosis secondary to the above Acute postoperative blood loss anemia, expected outcome. COPD CAD, history of [place] Hypertension Hyperlipidemia Former nicotine dependence History of lung cancer. Anxiety Plan: Continue on current medication regime ,monitoring and symptomatic treatment. Aggressive pulmonary toileting with incentive spirometer reinforced. Pain management as per primary. Close monitoring of hemoglobin ,WBC, electrolytes with repeat labs ordered for a.m. increase activity as tolerated. Thank you Dr. Villanueva for the consult. The impression and plan of care has been dictated as directed. : I performed a history and examination of this patient, discussed the same with the dictator. I agree with the dictator's note ,documented as a scribe. Any additional findings or plans will be noted.
[2019-10-21] MEDS: HYDROcodone/APAP 5-325MG 1 EACH TAB PO PRN ×2 (02:52→06:27)
[2019-10-21] MEDS: D5-0.45% NACL WITH KCL 20MEQ/L 1,000 ML IV SCH ×3 (05:28→20:52)
[2019-10-21 07:21] LABS: Basophils % (A) 0 %; Eosinophils # (A) 0.1 k/uL (0-0.7); Eosinophils % (A) 1 %; HCT 28.3 % (34.0-46.0); Lymphocytes # (A) 0.8 k/uL (1.0-4.8); Lymphocytes % (A) 5 %; MCH 27.9 pg (25.0-35.0); MCHC 31.9 g/dL (31.0-37.0); MCV 87.6 fL (80.0-100.0); Mean Platelet Volume 7.4; Monocytes # (A) 0.7 k/uL (0-1.0); Monocytes % (A) 4 %; Neutrophils # (A) 15.1 k/uL (1.3-7.7); Neutrophils % (A) 90 %; Platelet Count 334 k/uL (150-450); RBC 3.23 m/uL (3.80-5.40); RDW 14.2 % (11.5-15.5); WBC 16.9 k/uL (3.8-10.6)
[2019-10-21] MEDS: IPRATROPIUM-ALBUTEROL 3 ML NEB INHALATION PRN ×2 (07:28→11:20)
[2019-10-21 07:35] LABS: African American GFR (CKD) >90 (>60 ml/min/1.73 sqM); Anion Gap 3 mmol/L; Blood Urea Nitrogen 7 mg/dL (7-17); Calcium 8.7 mg/dL (8.4-10.2); Carbon Dioxide 29 mmol/L (22-30); Chloride 102 mmol/L (98-107); Glucose 138 mg/dL (74-99); Non-African American GFR(CKD) 88 (>60 ml/min/1.73 sqM); Potassium 3.7 mmol/L (3.5-5.1); Sodium 134 mmol/L (137-145)
[2019-10-21] MEDS: SYMBICORT 160-4.5 MCG INHALER INHALATION SCH ×2 (07:41→21:47)
[2019-10-21] MEDS: ALVIMOPAN 12 MG CAPSULE PO SCH ×2 (08:02→20:51)
[2019-10-21] MEDS: PANTOPRAZOLE 40 MG/10 ML VIAL IVP SCH (08:02)
[2019-10-21] MEDS: HYDROmorphone 1 MG/ML 1 ML SYRINGE IVP PRN ×2 (08:02→20:55)
[2019-10-21] MEDS ORDERED: ACETAMINOPHEN TAB 325 MG TAB PO PRN (10:28)
[2019-10-21] MEDS: PIPERACILLIN-TAZOBACTAM 3.375 GM in SODIUM CHLORIDE 0.9% 100 ML IVPB SCH ×2 (11:19→17:13)
[2019-10-21] MEDS: amLODIPine 5 MG TAB PO SCH (11:19)
--- NOTE | 2019-10-21 13:48 | P.PN ---
Subjective Progress Note Date: 10/21/19 CHIEF COMPLAINT: Diverticulitis HISTORY OF PRESENT ILLNESS: 84-year-old female who is status post low anterior resection secondary to diverticulitis. Postop day #2. Patient examined this morning at the bedside. Patients epidural was removed yesterday due to leaking. Patient is receiving IV dilaudid for pain. She is slightly confused this morning. Tolerating clear liquids. No flatus. WBC 16.9. Blood pressure elevated this morning at 199/75. Afebrile. PHYSICAL EXAM: VITAL SIGNS: Reviewed. GENERAL: Well-developed in no acute distress. HEENT: No sclera icterus. Extraocular movements grossly intact. Moist buccal mucosa. Head is atraumatic, normocephalic. ABDOMEN: Soft. Nondistended. Nontender. Midline incision dressing with small shadowing noted. NEUROLOGIC: Alert and oriented x 2. Cranial nerves II through XII grossly intac t. ASSESSMENT: 1. Diverticulitis, status post low anterior resection PLAN: -Pain control. Continue IV narcotics. Continue [place]. Add plain Tylenol -Incentive spirometer 10 times an hour -Activity as tolerated -Continue clear liquid diet. Await bowel function -Monitor WBC. Continue Zosyn -Resume Norvasc Nurse practitioner note has been reviewed by physician. Signing provider agrees with the documented findings, assessment, and plan of care. Objective - Vital Signs Vital signs: Vital Signs Temp 98.9 F 10/21/19 07:00 Pulse 78 10/21/19 11:34 Resp 16 10/21/19 11:34 BP 153/81 10/21/19 10:21 Pulse Ox 95 10/21/19 07:37 Intake & Output 10/20/19 10/21/19 10/21/19 18:59 06:59 18:59 Intake Total 1000 2380 Output Total 1500 Balance 1000 880 Intake: IV 1000 D5-0.45% NaCl with KCl 1000 20Meq/l 1,000 ml @ 125 mls/hr IV .Q8H [facility] Rx#: [id number] Intake, IV Titration 1600 Amount D5-0.45% NaCl with KCl 1500 20Meq/l 1,000 ml @ 125 mls/hr IV .Q8H [facility] Rx#: [id number] Piperacillin-Tazobactam 3 100 .375 gm In Sodium Chloride 0.9% 100 ml @ 25 mls/hr IVPB Q8HR [facility] Rx# :[id number] Oral 780 Output: Urine 1500 Straight 500 Other: Voiding Method Indwelling Catheter - Labs CBC & Chem 7: 10/21/19 06:50 10/21/19 06:50 Labs: Abnormal Lab Results - Last 24 Hours (Table) 10/21/19 10/21/19 Range/Units 06:50 06:50 WBC 16.9 H (3.8-10.6) k/uL RBC 3.23 L (3.80-5.40) m/uL Hgb 9.0 L (11.4-16.0) gm/dL Hct 28.3 L (34.0-46.0) % Neutrophils # 15.1 H (1.3-7.7) k/uL Lymphocytes # 0.8 L (1.0-4.8) k/uL Sodium 134 L (137-145) mmol/L Glucose 138 H (74-99) mg/dL
--- NOTE | 2019-10-21 15:21 | P.PN ---
Subjective Progress Note Date: 10/21/19 This is an 84-year-old female with history of lung cancer, GI bleed, diverticulosis, COPD, hypertension, hyperlipidemia, CAD, [place], anxiety, former nicotine dependence admitted with chronic issues involving diverticulitis, failed conservative measures, status post low anterior resection. Tolerated procedure well. Reports nausea with activity during the night relieved by Zofran. Tolerating clear liquid diet with no nausea vomiting or diarrhea. No flatus. Pain controlled with epidural. Zosyn initiated as per surgery. Afebrile, WBC trending down, 19.7. 10/21/2019 Epidural discontinued yesterday afternoon secondary to leaking. Recently received [place], reports uncontrolled pain, Dilaudid pending. Hypertensive. Hemoglobin 9. Tolerating clear liquids with no nausea or emesis. No flatus. Maintained on Zosyn, T-max 99, WBC 16.9. Objective - Vital Signs Vital signs: Vital Signs Temp 98.9 F 10/21/19 07:00 Pulse 78 10/21/19 11:34 Resp 16 10/21/19 11:34 BP 153/81 10/21/19 10:21 Pulse Ox 95 10/21/19 07:37 Intake & Output 10/20/19 10/21/19 10/21/19 18:59 06:59 18:59 Intake Total 1000 2380 Output Total 1500 Balance 1000 880 Intake: IV 1000 D5-0.45% NaCl with KCl 1000 20Meq/l 1,000 ml @ 125 mls/hr IV .Q8H [facility] Rx#: [id number] Intake, IV Titration 1600 Amount D5-0.45% NaCl with KCl 1500 20Meq/l 1,000 ml @ 125 mls/hr IV .Q8H [facility] Rx#: [id number] Piperacillin-Tazobactam 3 100 .375 gm In Sodium Chloride 0.9% 100 ml @ 25 mls/hr IVPB Q8HR [facility] Rx# :[id number] Oral 780 Output: Urine 1500 Straight 500 Other: Voiding Method Indwelling Catheter - Exam VITAL SIGNS: As above GENERAL: Sitting up in bed, no acute distress HEENT: Conjunctivae normal. eyes normal. Conjunctivae moist NECK: No JVD. No thyroid enlargement. No LNs CARDIOVASCULAR: S1, S2 regular. No murmur RESPIRATION: Breath sounds diminished in the bases. No rhonchi or crackles. ABDOMEN: Soft, status post surgery, Midline dressing with minimal shadowing contained within outlined areas. LEGS: No edema. no swelling. PSYCHIATRY: Alert and oriented X3, mood and affect normal. NERVOUS SYSTEM: Cranial N 2-12 grossly normal. Moves all 4 limbs. Diffuse weakness No focal deficits. Strength and sensation grossly intact.. Skin:no rash Lymphatic system. No LN neck axilla - Labs CBC & Chem 7: 10/21/19 06:50 10/21/19 06:50 Labs: Abnormal Lab Results - Last 24 Hours (Table) 10/21/19 10/21/19 Range/Units 06:50 06:50 WBC 16.9 H (3.8-10.6) k/uL RBC 3.23 L (3.80-5.40) m/uL Hgb 9.0 L (11.4-16.0) gm/dL Hct 28.3 L (34.0-46.0) % Neutrophils # 15.1 H (1.3-7.7) k/uL Lymphocytes # 0.8 L (1.0-4.8) k/uL Sodium 134 L (137-145) mmol/L Glucose 138 H (74-99) mg/dL Assessment and Plan Assessment: Diverticulitis status post anterior resection Leukocytosis secondary to the above Acute postoperative blood loss anemia, expected outcome. COPD CAD, history of [place] Hypertension Hyperlipidemia Former nicotine dependence History of lung cancer. Anxiety Plan: Continue on current medication regime ,monitoring and symptomatic treatment. Pain management. Home medication ,Norvasc resumed. Maintain aggressive pulmonary toileting with incentive spirometer reinforced. Close monitoring of hemoglobin ,WBC, electrolytes with repeat labs ordered for a.m. PT/OT consulted. Thank you Dr. Villanueva for the consult. The impression and plan of care has been dictated as directed. : I performed a history and examination of this patient, discussed the same with the dictator. I agree with the dictator's note ,documented as a scribe. Any additional findings or plans will be noted.
[2019-10-21] MEDS: TAMSULOSIN 0.4 MG CAP.ER.24H PO SCH (17:13)
[2019-10-21] MEDS: HEPARIN SODIUM,PORCINE 5,000 UNIT/ML 1 ML VIAL SQ SCH (18:26)
[2019-10-22] MEDS: PIPERACILLIN-TAZOBACTAM 3.375 GM in SODIUM CHLORIDE 0.9% 100 ML IVPB SCH ×4 (00:36→23:26)
[2019-10-22] MEDS: HEPARIN SODIUM,PORCINE 5,000 UNIT/ML 1 ML VIAL SQ SCH ×4 (00:36→23:25)
[2019-10-22] MEDS: HYDROmorphone 1 MG/ML 1 ML SYRINGE IVP PRN (00:57)
[2019-10-22] MEDS: D5-0.45% NACL WITH KCL 20MEQ/L 1,000 ML IV SCH ×3 (04:53→20:03)
[2019-10-22 07:26] LABS: African American GFR (CKD) >90 (>60 ml/min/1.73 sqM); Anion Gap 6 mmol/L; Blood Urea Nitrogen 10 mg/dL (7-17); Calcium 8.6 mg/dL (8.4-10.2); Carbon Dioxide 26 mmol/L (22-30); Chloride 101 mmol/L (98-107); Glucose 153 mg/dL (74-99); Non-African American GFR(CKD) 81 (>60 ml/min/1.73 sqM); Potassium 4.2 mmol/L (3.5-5.1); Sodium 133 mmol/L (137-145)
[2019-10-22] MEDS: ALVIMOPAN 12 MG CAPSULE PO SCH ×2 (07:40→20:02)
[2019-10-22] MEDS: TAMSULOSIN 0.4 MG CAP.ER.24H PO SCH (07:40)
[2019-10-22] MEDS: amLODIPine 5 MG TAB PO SCH (07:40)
[2019-10-22 07:41] LABS: Basophils % (A) 0 %; Eosinophils # (A) 0.1 k/uL (0-0.7); Eosinophils % (A) 1 %; Hypochromasia Slight; Lymphocytes # (A) 0.9 k/uL (1.0-4.8); Lymphocytes % (A) 5 %; MCH 27.9 pg (25.0-35.0); MCHC 31.8 g/dL (31.0-37.0); MCV 87.7 fL (80.0-100.0); Mean Platelet Volume 7.4; Monocytes # (A) 0.7 k/uL (0-1.0); Monocytes % (A) 5 %; Neutrophils # (A) 14.2 k/uL (1.3-7.7); Neutrophils % (A) 88 %; Platelet Count 314 k/uL (150-450); RBC 2.51 m/uL (3.80-5.40); RDW 13.9 % (11.5-15.5); WBC 16.1 k/uL (3.8-10.6)
[2019-10-22] MEDS: HYDROcodone/APAP 5-325MG 1 EACH TAB PO PRN ×3 (07:48→20:02)
[2019-10-22] MEDS: PANTOPRAZOLE 40 MG/10 ML VIAL IVP SCH (08:04)
[2019-10-22] MEDS ORDERED: hydrALAZINE HCL 20 MG/ML 1 ML VIAL IVP PRN (08:48)
[2019-10-22] MEDS: SYMBICORT 160-4.5 MCG INHALER INHALATION SCH ×2 (09:19→20:21)
[2019-10-22] MEDS: METOCLOPRAMIDE 5 MG/ML 2 ML VIAL IVP SCH ×3 (12:13→23:26)
--- NOTE | 2019-10-22 13:05 | P.PN ---
Subjective Progress Note Date: 10/22/19 CHIEF COMPLAINT: Diverticulitis HISTORY OF PRESENT ILLNESS: 84-year-old female who is status post low anterior resection secondary to diverticulitis. Postop day #3. Patient examined this morning at the bedside. Patient states she slept better last night. She denies passing flatus. Patient had a large bilious emesis this morning. No further emesis since then. She reports pain is tolerable when laying still, but 10/10 with any movement. She is receiving IV Dilaudid. Patient's blood pressure remains elevated this morning. PHYSICAL EXAM: VITAL SIGNS: Reviewed. GENERAL: Well-developed in no acute distress. HEENT: No sclera icterus. Extraocular movements grossly intact. Moist buccal mucosa. Head is atraumatic, normocephalic. ABDOMEN: Soft. Nondistended. Nontender. Midline incision dressing with small shadowing noted. NEUROLOGIC: Alert and oriented x 2. Cranial nerves II through XII grossly intact. ASSESSMENT: 1. Diverticulitis, status post low anterior resection PLAN: -Pain control -Incentive spirometer 10 times an hour -Activity as tolerated -Continue Norvasc. Will add hydralazine PRN -Monitor WBC. Continue Zosyn -Change diet to NPO except medications. May have a few ice chips sparingly -Continue Entereg -Add Reglan 10mg IV Q6 -Will hold off on NG tube placement as patient only had 1 episode of emesis and reports feeling better. RN notified if patient has another episode of vomiting to insert NG tube to LIS. Patient also informed. Nurse practitioner note has been reviewed by physician. Signing provider agrees with the documented findings, assessment, and plan of care. Objective - Vital Signs Vital signs: Vital Signs Temp 98.5 F 10/22/19 07:25 Pulse 88 10/22/19 10:20 Resp 22 10/22/19 10:20 BP 159/73 10/22/19 09:55 Pulse Ox 96 10/22/19 07:25 Intake & Output 10/21/19 10/22/19 10/22/19 18:59 06:59 18:59 Intake Total 1000 1840 Output Total 1150 Balance 1000 690 Intake: IV 1000 D5-0.45% NaCl with KCl 1000 20Meq/l 1,000 ml @ 125 mls/hr IV .Q8H [facility] OF [facility] Rx#: [id number] Intake, IV Titration 1600 Amount D5-0.45% NaCl with KCl 1500 20Meq/l 1,000 ml @ 125 mls/hr IV .Q8H [facility] OF [facility] Rx#: [id number] Piperacillin-Tazobactam 3 100 .375 gm In Sodium Chloride 0.9% 100 ml @ 25 mls/hr IVPB Q8HR [facility] Rx# :[id number] Oral 240 Output: Urine 1150 Uretheral (Due[place]as) 900 Other: Voiding Method Self-Catheterization Indwelling Catheter # Voids 1 - Labs CBC & Chem 7: 10/22/19 06:49 10/22/19 06:49 Labs: Abnormal Lab Results - Last 24 Hours (Table) 10/22/19 10/22/19 Range/Units 06:49 06:49 WBC 16.1 H (3.8-10.6) k/uL RBC 2.51 L (3.80-5.40) m/uL Hgb 7.0 L D (11.4-16.0) gm/dL Hct 22.0 L (34.0-46.0) % Neutrophils # 14.2 H (1.3-7.7) k/uL Lymphocytes # 0.9 L (1.0-4.8) k/uL Sodium 133 L (137-145) mmol/L Glucose 153 H (74-99) mg/dL
[2019-10-22 13:42] VITALS: BMI 22.4
--- NOTE | 2019-10-22 16:06 | P.PN ---
Subjective Progress Note Date: 10/22/19 This is an 84-year-old female with history of lung cancer, GI bleed, diverticulosis, COPD, hypertension, hyperlipidemia, CAD, [place], anxiety, former nicotine dependence admitted with chronic issues involving diverticulitis, failed conservative measures, status post low anterior resection. Tolerated procedure well. Reports nausea with activity during the night relieved by Zofran. Tolerating clear liquid diet with no nausea vomiting or diarrhea. No flatus. Pain controlled with epidural. Zosyn initiated as per surgery. Afebrile, WBC trending down, 19.7. 10/21/2019 Epidural discontinued yesterday afternoon secondary to leaking. Recently received [place], reports uncontrolled pain, Dilaudid pending. Hypertensive. Hemoglobin 9. Tolerating clear liquids with no nausea or emesis. No flatus. Maintained on Zosyn, T-max 99, WBC 16.9. 10/22/2019 denies flatus, no bowel movement. Complains of nausea with vomiting, large emesis-bile this morning. Positive pain. Inactive. Evaluated by PT, sub acute rehab recommended. Hypertensive this morning, received hydralazine. Denies chest pain, palpitations or shortness of breath. Afebrile, WBC slowly trending down, 16.1. Hemoglobin down to 7. Objective - Vital Signs Vital signs: Vital Signs Temp 98.5 F 10/22/19 07:25 Pulse 88 10/22/19 07:25 Resp 22 10/22/19 07:25 BP 210/71 10/22/19 07:25 Pulse Ox 96 10/22/19 07:25 Intake & Output 10/21/19 10/22/19 10/22/19 18:59 06:59 18:59 Intake Total 1000 1840 Output Total 1150 Balance 1000 690 Intake: IV 1000 D5-0.45% NaCl with KCl 1000 20Meq/l 1,000 ml @ 125 mls/hr IV .Q8H [facility] Rx#: [id number] Intake, IV Titration 1600 Amount D5-0.45% NaCl with KCl 1500 20Meq/l 1,000 ml @ 125 mls/hr IV .Q8H [facility] Rx#: [id number] Piperacillin-Tazobactam 3 100 .375 gm In Sodium Chloride 0.9% 100 ml @ 25 mls/hr IVPB Q8HR [facility] Rx# :[id number] Oral 240 Output: Urine 1150 Uretheral ([place]) 900 Other: Voiding Method Self-Catheterization # Voids 1 - Exam VITAL SIGNS: As above GENERAL: Sitting up in bed, no acute distress HEENT: Conjunctivae normal. eyes normal. Conjunctivae moist NECK: No JVD. No thyroid enlargement. No LNs CARDIOVASCULAR: S1, S2 regular. No murmur RESPIRATION: Breath sounds diminished in the bases. No rhonchi or crackles. ABDOMEN: Soft, status post surgery, Midline dressing with minimal shadowing, No bowel sounds LEGS: No edema. no swelling. PSYCHIATRY: Alert and oriented X3, mood and affect normal. NERVOUS SYSTEM: Cranial N 2-12 grossly normal. Moves all 4 limbs. Diffuse we akness No focal deficits. Strength and sensation grossly intact.. Skin:no rash - Labs CBC & Chem 7: 10/22/19 06:49 10/22/19 06:49 Labs: Abnormal Lab Results - Last 24 Hours (Table) 10/22/19 10/22/19 Range/Units 06:49 06:49 WBC 16.1 H (3.8-10.6) k/uL RBC 2.51 L (3.80-5.40) m/uL Hgb 7.0 L D (11.4-16.0) gm/dL Hct 22.0 L (34.0-46.0) % Neutrophils # 14.2 H (1.3-7.7) k/uL Lymphocytes # 0.9 L (1.0-4.8) k/uL Sodium 133 L (137-145) mmol/L Glucose 153 H (74-99) mg/dL Assessment and Plan Assessment: Diverticulitis status post anterior resection Leukocytosis secondary to the above Acute postoperative blood loss anemia, expected outcome. COPD CAD, history of [place] Hypertension, uncontrolled Hyperlipidemia Former nicotine dependence History of lung cancer. Anxiety Plan: Continue on current medication regime ,monitoring and symptomatic treatment. NPO. Antiemetics. Pain management as per primary. Norvasc increased.PRN HYdralazine dc'd.repeat hemoglobin ordered .Maintain aggressive pulmonary toileting with incentive spirometer reinforced. Close monitoring of hemoglobin ,WBC, electrolytes with repeat labs ordered for a.m. PT/OT. Patient will require wheelchair to assist with ADLs secondary to COPD, generalized weakness. Daughter updated at bedside, plan of care discussed -by Dr. Mattson.Possibly Subacute rehab at [place]. The impression and plan of care has been dictated as directed. : I performed a history and examination of this patient, discussed the same with the dictator. I agree with the dictator's note ,documented as a scribe. Any additional findings or plans will be noted.
[2019-10-22 16:42] LABS: HCT 22.4 % (34.0-46.0); MCH 27.3 pg (25.0-35.0); MCHC 31.3 g/dL (31.0-37.0); MCV 87.3 fL (80.0-100.0); Mean Platelet Volume 7.5; Platelet Count 297 k/uL (150-450); RBC 2.56 m/uL (3.80-5.40); WBC 13.9 k/uL (3.8-10.6)
[2019-10-23] MEDS: HYDROcodone/APAP 5-325MG 1 EACH TAB PO PRN ×3 (05:29→17:10)
[2019-10-23] MEDS: METOCLOPRAMIDE 5 MG/ML 2 ML VIAL IVP SCH ×3 (05:29→17:06)
[2019-10-23] MEDS: D5-0.45% NACL WITH KCL 20MEQ/L 1,000 ML IV SCH ×3 (05:29→22:09)
[2019-10-23 07:33] LABS: Basophils % (A) 0 %; Eosinophils # (A) 0.3 k/uL (0-0.7); Eosinophils % (A) 3 %; HCT 20.3 % (34.0-46.0); Hypochromasia Slight; Lymphocytes # (A) 0.8 k/uL (1.0-4.8); Lymphocytes % (A) 9 %; MCH 27.8 pg (25.0-35.0); MCHC 31.6 g/dL (31.0-37.0); Mean Platelet Volume 7.2; Monocytes # (A) 0.5 k/uL (0-1.0); Monocytes % (A) 5 %; Neutrophils # (A) 6.6 k/uL (1.3-7.7); Neutrophils % (A) 79 %; Platelet Count 301 k/uL (150-450); RDW 13.8 % (11.5-15.5); WBC 8.3 k/uL (3.8-10.6)
[2019-10-23 07:43] LABS: HGB 6.4 gm/dL (11.4-16.0)
[2019-10-23] MEDS: amLODIPine 10 MG TAB PO SCH (08:19)
[2019-10-23] MEDS: TAMSULOSIN 0.4 MG CAP.ER.24H PO SCH (08:20)
[2019-10-23] MEDS: ALVIMOPAN 12 MG CAPSULE PO SCH ×2 (08:20→20:46)
[2019-10-23] MEDS: PIPERACILLIN-TAZOBACTAM 3.375 GM in SODIUM CHLORIDE 0.9% 100 ML IVPB SCH ×2 (08:20→17:07)
[2019-10-23] MEDS: HEPARIN SODIUM,PORCINE 5,000 UNIT/ML 1 ML VIAL SQ SCH ×2 (08:22→17:04)
[2019-10-23] MEDS: PANTOPRAZOLE 40 MG/10 ML VIAL IVP SCH (08:22)
[2019-10-23] MEDS: HYDROmorphone 1 MG/ML 1 ML SYRINGE IVP PRN (08:24)
[2019-10-23] MEDS: SYMBICORT 160-4.5 MCG INHALER INHALATION SCH ×2 (08:32→19:34)
--- NOTE | 2019-10-23 12:00 | P.PN ---
Subjective Progress Note Date: 10/23/19 Principal diagnosis: Diverticulitis Patient doing fairly well today. Hemoglobin did drop to 6.4. Denies rectal bleeding. No bowel movement, no flatus. Appetite diminished. Objective - Vital Signs Vital signs: Vital Signs Temp 98.0 F 10/23/19 11:25 Pulse 68 10/23/19 11:25 Resp 16 10/23/19 10:45 BP 169/67 10/23/19 11:25 Pulse Ox 95 10/23/19 10:45 Intake & Output 10/22/19 10/23/19 10/23/19 18:59 06:59 18:59 Intake Total 250 0 Output Total 650 1100 Balance -400 -1100 0 Weight 53.8 kg Intake: Oral 250 Blood Product 0 Rc As-1 Unit 0 [id number] Output: Urine 650 1100 Uretheral ([place]) 650 Other: Voiding Method Indwelling Catheter Indwelling Catheter Indwelling Catheter - Exam Abdomen: Soft, minimal distention, mild incisional tenderness, dressing clean and dry - Labs CBC & Chem 7: 10/23/19 06:46 10/22/19 06:49 Labs: Abnormal Lab Results - Last 24 Hours (Table) 10/22/19 10/23/19 10/23/19 Range/Units 16:10 06:46 09:20 WBC 13.9 H (3.8-10.6) k/uL RBC 2.56 L 2.30 L (3.80-5.40) m/uL Hgb 7.0 L 6.4 L* (11.4-16.0) gm/dL Hct 22.4 L 20.3 L (34.0-46.0) % Lymphocytes # 0.8 L (1.0-4.8) k/uL Crossmatch See Detail Assessment and Plan (1) Diverticulitis Narrative/Plan: Keep nothing by mouth for now. Remove Due[place]as catheter in a.m. Transfuse one unit PRBC. Current Visit: Yes Status: Acute Code(s): K57.92 - DVTRCLI OF INTEST, PART UNSP, W/O PERF OR ABSCESS W/O BLEED SNOMED Code(s): 474213131
--- NOTE | 2019-10-23 17:12 | P.PN ---
Subjective Progress Note Date: 10/23/19 Principal diagnosis: Acute diverticulitis without perforation Status post anterior resection of colon; due to failed conservative measures Acute blood loss anemia 10/23/2019 Patient is seen and evaluated in room at bedside; patient's daughters are present in the room and requesting no IV pain medications for the patient Vital signs remained stable Labs are reviewed showing white blood count of 8.3, hemoglobin of 6.4 and platelet count of 301; patient was transfused with 1 unit of packed RBCs; surgery is following and recommending to keep patient nothing by mouth Objective - Vital Signs Vital signs: Vital Signs Temp 97.8 F 10/23/19 12:31 Pulse 68 10/23/19 11:25 Resp 16 10/23/19 10:45 BP 169/67 10/23/19 11:25 Pulse Ox 95 10/23/19 10:45 Intake & Output 10/22/19 10/23/19 10/23/19 18:59 06:59 18:59 Intake Total 250 0 Output Total 650 1100 Balance -400 -1100 0 Weight 53.8 kg Intake: Oral 250 Blood Product 0 Rc As-1 Unit 0 [id number] Output: Urine 650 1100 Uretheral ([place]) 650 Other: Voiding Method Indwelling Catheter Indwelling Catheter Indwelling Catheter - Exam PHYSICAL EXAMINATION: GENERAL: The patient is alert and oriented x3, not in any acute distress. Well developed, well nourished. HEENT: Pupils are round and equally reacting to light. EOMI. No scleral icterus. No conjunctival pallor. Normocephalic, atraumatic. No pharyngeal erythema. No thyromegaly. CARDIOVASCULAR: S1 and S2 present. No murmurs, rubs, or gallops. PULMONARY: Chest is clear to auscultation, no wheezing or crackles. ABDOMEN: Soft, nontender, nondistended, normoactive bowel sounds. No palpable organomegaly. MUSCULOSKELETAL: No joint swelling or deformity. EXTREMITIES: No cyanosis, clubbing, or pedal edema. NEUROLOGICAL: Gross neurological examination did not reveal any focal deficits. SKIN: No rashes. - Labs CBC & Chem 7: 10/23/19 06:46 10/22/19 06:49 Labs: Abnormal Lab Results - Last 24 Hours (Table) 10/22/19 10/23/19 10/23/19 Range/Units 16:10 06:46 09:20 WBC 13.9 H (3.8-10.6) k/uL RBC 2.56 L 2.30 L (3.80-5.40) m/uL Hgb 7.0 L 6.4 L* (11.4-16.0) gm/dL Hct 22.4 L 20.3 L (34.0-46.0) % Lymphocytes # 0.8 L (1.0-4.8) k/uL Crossmatch See Detail Assessment and Plan Assessment: Diverticulitis status post anterior resection Leukocytosis secondary to the above Acute postoperative blood loss anemia, expected outcome. COPD CAD, history of [place] Hypertension, uncontrolled Hyperlipidemia Former nicotine dependence History of lung cancer. Anxiety
[2019-10-24] MEDS: METOCLOPRAMIDE 5 MG/ML 2 ML VIAL IVP SCH ×5 (00:21→23:04)
[2019-10-24] MEDS: HEPARIN SODIUM,PORCINE 5,000 UNIT/ML 1 ML VIAL SQ SCH ×4 (00:21→23:04)
[2019-10-24] MEDS: PIPERACILLIN-TAZOBACTAM 3.375 GM in SODIUM CHLORIDE 0.9% 100 ML IVPB SCH ×3 (00:22→16:51)
[2019-10-24] MEDS: D5-0.45% NACL WITH KCL 20MEQ/L 1,000 ML IV SCH ×3 (05:21→22:03)
[2019-10-24] MEDS: HYDROmorphone 1 MG/ML 1 ML SYRINGE IVP PRN (05:55)
[2019-10-24 06:49] LABS: Basophils % (A) 0 %; Eosinophils # (A) 0.4 k/uL (0-0.7); Eosinophils % (A) 5 %; HCT 26.5 % (34.0-46.0); Hypochromasia Slight; Lymphocytes # (A) 0.8 k/uL (1.0-4.8); Lymphocytes % (A) 9 %; MCHC 32.4 g/dL (31.0-37.0); MCV 86.5 fL (80.0-100.0); Mean Platelet Volume 6.8; Monocytes # (A) 0.6 k/uL (0-1.0); Monocytes % (A) 7 %; Neutrophils # (A) 7.5 k/uL (1.3-7.7); Neutrophils % (A) 78 %; Platelet Count 333 k/uL (150-450); Poikilocytosis Slight; RBC 3.07 m/uL (3.80-5.40); RDW 14.1 % (11.5-15.5); WBC 9.6 k/uL (3.8-10.6)
[2019-10-24 07:03] LABS: HGB 8.6 gm/dL (11.4-16.0)
[2019-10-24 07:05] LABS: African American GFR (CKD) >90 (>60 ml/min/1.73 sqM); Anion Gap 2 mmol/L; Blood Urea Nitrogen 4 mg/dL (7-17); Calcium 8.3 mg/dL (8.4-10.2); Carbon Dioxide 31 mmol/L (22-30); Chloride 101 mmol/L (98-107); Glucose 113 mg/dL (74-99); Non-African American GFR(CKD) 86 (>60 ml/min/1.73 sqM); Potassium 3.2 mmol/L (3.5-5.1); Sodium 134 mmol/L (137-145)
[2019-10-24] MEDS: SYMBICORT 160-4.5 MCG INHALER INHALATION SCH ×2 (07:55→17:37)
[2019-10-24] MEDS: PANTOPRAZOLE 40 MG/10 ML VIAL IVP SCH (08:23)
[2019-10-24] MEDS: TAMSULOSIN 0.4 MG CAP.ER.24H PO SCH (08:23)
[2019-10-24] MEDS: amLODIPine 10 MG TAB PO SCH (08:23)
[2019-10-24] MEDS: ALVIMOPAN 12 MG CAPSULE PO SCH ×2 (08:23→21:31)
[2019-10-24] MEDS ORDERED: Potassium Replacement Protocol 1 EACH MISC MISCELLANE PRN (10:04)
--- NOTE | 2019-10-24 10:32 | P.PN ---
Subjective Progress Note Date: 10/24/19 Principal diagnosis: Diverticulitis Patient feels better today. Hemoglobin improved at 8.6. Potassium 3.2. She had 2 loose stools. Objective - Vital Signs Vital signs: Vital Signs Temp 98.1 F 10/24/19 07:00 Pulse 84 10/24/19 07:00 Resp 17 10/24/19 08:00 BP 170/67 10/24/19 07:00 Pulse Ox 95 10/24/19 07:00 Intake & Output 10/23/19 10/24/19 10/24/19 18:59 06:59 18:59 Intake Total 310 1100 Output Total 500 1900 300 Balance -190 -800 -300 Intake: Intake, IV Titration 1100 Amount D5-0.45% NaCl with KCl 1000 20Meq/l 1,000 ml @ 125 mls/hr IV .Q8H [facility] Rx#: [id number] Piperacillin-Tazobactam 3 100 .375 gm In Sodium Chloride 0.9% 100 ml @ 25 mls/hr IVPB Q8HR [facility] Rx# :[id number] Blood Product 310 Rc As-1 Unit 310 [id number] Output: Urine 500 1900 300 Uretheral (Due[place]) 300 Other: Voiding Method Indwelling Catheter Indwelling Catheter # Bowel Movements 1 - Exam Abdomen: Soft, nondistended, incision clean and dry - Labs CBC & Chem 7: 10/24/19 06:12 10/24/19 06:12 Labs: Abnormal Lab Results - Last 24 Hours (Table) 10/23/19 10/24/19 10/24/19 Range/Units 09:20 06:12 06:12 RBC 3.07 L (3.80-5.40) m/uL Hgb 8.6 L D (11.4-16.0) gm/dL Hct 26.5 L (34.0-46.0) % Lymphocytes # 0.8 L (1.0-4.8) k/uL Sodium 134 L (137-145) mmol/L Potassium 3.2 L (3.5-5.1) mmol/L Carbon Dioxide 31 H (22-30) mmol/L BUN 4 L (7-17) mg/dL Glucose 113 H (74-99) mg/dL Calcium 8.3 L (8.4-10.2) mg/dL Crossmatch See Detail Assessment and Plan (1) Diverticulitis Narrative/Plan: Continue ambulation. Monitor labs. Potassium protocol. Increase diet. Current Visit: Yes Status: Acute Code(s): K57.92 - DVTRCLI OF INTEST, PART UNSP, W/O PERF OR ABSCESS W/O BLEED SNOMED Code(s): 580813061
[2019-10-24] MEDS: POTASSIUM CHLORIDE ER 20 MEQ TAB.ER PO SCH ×4 (11:10→23:04)
[2019-10-24] MEDS: HYDROcodone/APAP 5-325MG 1 EACH TAB PO PRN (13:34)
--- NOTE | 2019-10-24 15:58 | P.PN ---
Subjective Progress Note Date: 10/24/19 Principal diagnosis: Acute diverticulitis without perforation Status post anterior resection of colon; due to failed conservative measures Acute blood loss anemia 10/23/2019 Patient is seen and evaluated in room at bedside; patient's daughters are present in the room and requesting no IV pain medications for the patient Vital signs remained stable Labs are reviewed showing white blood count of 8.3, hemoglobin of 6.4 and platelet count of 301; patient was transfused with 1 unit of packed RBCs; surgery is following and recommending to keep patient nothing by mouth 10/24/2019 Patient reports feeling much better today; she did have 2 loose bowel movements; continues to ask for pain medication for back pain Vital signs review shows a persistently elevated blood pressure of 170/67 Labs are reviewed and significant for the hemoglobin of 8.6, sodium of 134, potassium 3.2; patient is supplemented with oral potassium; we will continue to monitor H&H and transfuse if hemoglobin is less than 7.5; surgery is following and recommending to continue to advance diet slowly and increase activity Objective - Vital Signs Vital signs: Vital Signs Temp 98.1 F 10/24/19 07:00 Pulse 84 10/24/19 07:00 Resp 17 10/24/19 08:00 BP 170/67 10/24/19 07:00 Pulse Ox 95 10/24/19 07:00 Intake & Output 10/23/19 10/24/19 10/24/19 18:59 06:59 18:59 Intake Total 310 1100 Output Total 500 1900 300 Balance -190 -800 -300 Intake: Intake, IV Titration 1100 Amount D5-0.45% NaCl with KCl 1000 20Meq/l 1,000 ml @ 125 mls/hr IV .Q8H [facility] Rx#: [id number] Piperacillin-Tazobactam 3 100 .375 gm In Sodium Chloride 0.9% 100 ml @ 25 mls/hr IVPB Q8HR [facility] Rx# :[id number] Blood Product 310 Rc As-1 Unit 310 [id number] Output: Urine 500 1900 300 Uretheral ([place]) 300 Other: Voiding Method Indwelling Catheter Indwelling Catheter # Bowel Movements 1 - Exam PHYSICAL EXAMINATION: GENERAL: The patient is alert and oriented x3, not in any acute distress. Well developed, well nourished. HEENT: Pupils are round and equally reacting to light. EOMI. No scleral icterus. No conjunctival pallor. Normocephalic, atraumatic. No pharyngeal erythema. No thyromegaly. CARDIOVASCULAR: S1 and S2 present. No murmurs, rubs, or gallops. PULMONARY: Chest is clear to auscultation, no wheezing or crackles. ABDOMEN: Soft, nontender, nondistended, normoactive bowel sounds. No palpable organomegaly. MUSCULOSKELETAL: No joint swelling or deformity. EXTREMITIES: No cyanosis, clubbing, or pedal edema. NEUROLOGICAL: Gross neurological examination did not reveal any focal deficits. SKIN: No rashes. - Labs CBC & Chem 7: 10/24/19 06:12 10/24/19 06:12 Labs: Abnormal Lab Results - Last 24 Hours (Table) 10/24/19 10/24/19 Range/Units 06:12 06:12 RBC 3.07 L (3.80-5.40) m/uL Hgb 8.6 L D (11.4-16.0) gm/dL Hct 26.5 L (34.0-46.0) % Lymphocytes # 0.8 L (1.0-4.8) k/uL Sodium 134 L (137-145) mmol/L Potassium 3.2 L (3.5-5.1) mmol/L Carbon Dioxide 31 H (22-30) mmol/L BUN 4 L (7-17) mg/dL Glucose 113 H (74-99) mg/dL Calcium 8.3 L (8.4-10.2) mg/dL Assessment and Plan Assessment: Diverticulitis status post anterior resection Leukocytosis secondary to the above Acute postoperative blood loss anemia, expected outcome. COPD CAD, history of [place] Hypertension, uncontrolled Hyperlipidemia Former nicotine dependence History of lung cancer. Anxiety
[2019-10-24 16:22] VITALS: RESP 18
[2019-10-24] MEDS: IPRATROPIUM-ALBUTEROL 3 ML NEB INHALATION PRN (17:37)
[2019-10-25] MEDS: PIPERACILLIN-TAZOBACTAM 3.375 GM in SODIUM CHLORIDE 0.9% 100 ML IVPB SCH ×2 (00:50→08:08)
[2019-10-25] MEDS: D5-0.45% NACL WITH KCL 20MEQ/L 1,000 ML IV SCH ×2 (05:24→14:16)
[2019-10-25] MEDS: METOCLOPRAMIDE 5 MG/ML 2 ML VIAL IVP SCH ×2 (05:24→11:26)
[2019-10-25] MEDS: IPRATROPIUM-ALBUTEROL 3 ML NEB INHALATION PRN ×2 (07:52→11:50)
[2019-10-25] MEDS: SYMBICORT 160-4.5 MCG INHALER INHALATION SCH (07:52)
[2019-10-25] MEDS: PANTOPRAZOLE 40 MG/10 ML VIAL IVP SCH (08:08)
[2019-10-25] MEDS: TAMSULOSIN 0.4 MG CAP.ER.24H PO SCH (08:08)
[2019-10-25] MEDS: amLODIPine 10 MG TAB PO SCH (08:08)
[2019-10-25] MEDS: HEPARIN SODIUM,PORCINE 5,000 UNIT/ML 1 ML VIAL SQ SCH (08:08)
[2019-10-25] MEDS: HYDROcodone/APAP 5-325MG 1 EACH TAB PO PRN ×2 (08:16→14:50)
[2019-10-25 08:30] VITALS: BP 179/65; PULSE 82; TEMP 98.5
[2019-10-25 11:32] LABS: Basophils % (A) 0 %; Eosinophils # (A) 0.1 k/uL (0-0.7); Eosinophils % (A) 2 %; HCT 30.1 % (34.0-46.0); HGB 9.4 gm/dL (11.4-16.0); Lymphocytes # (A) 0.7 k/uL (1.0-4.8); Lymphocytes % (A) 8 %; MCH 27.5 pg (25.0-35.0); MCHC 31.4 g/dL (31.0-37.0); MCV 87.5 fL (80.0-100.0); Monocytes # (A) 0.6 k/uL (0-1.0); Monocytes % (A) 7 %; Neutrophils % (A) 82 %; Platelet Count 366 k/uL (150-450); RBC 3.44 m/uL (3.80-5.40); RDW 14.4 % (11.5-15.5); WBC 8.6 k/uL (3.8-10.6)
[2019-10-25 11:42] LABS: African American GFR (CKD) >90 (>60 ml/min/1.73 sqM); Anion Gap 4 mmol/L; Blood Urea Nitrogen 2 mg/dL (7-17); Carbon Dioxide 31 mmol/L (22-30); Chloride 99 mmol/L (98-107); Glucose 125 mg/dL (74-99); Non-African American GFR(CKD) 88 (>60 ml/min/1.73 sqM); Potassium 3.9 mmol/L (3.5-5.1); Sodium 134 mmol/L (137-145)
--- NOTE | 2019-10-25 13:50 | P.DS ---
Providers Date of admission: 10/19/19 07:21 Expected date of discharge: 10/25/19 Attending physician: Luis Manuel Villanueva Consults: 10/19/19 11:38 Consult Physician Routine Consulting Provider: Chandra Mattson Consult Reason/Comments: Medical management Do you want consulting provider notified?: Yes Primary care physician: Stated None Hospital Course: 84-year-old female who underwent low anterior resection secondary to diverticulitis. Patient is doing well postoperatively without any immediate complications. She is tolerating diet without nausea or vomiting. She is having bowel movements. Pain is controlled on oral medications. Patient does not tolerate narcotics very well secondary to confusion. Vital signs are stable. She is stable for discharge to subacute rehab today per Dr. Villanueva. Please see EMR for further hospital course details. DC Diagnosis: 1. Diverticulitis, status post low anterior resection Nurse practitioner note has been reviewed by physician. Signing provider agrees with the documented findings, assessment, and plan of care. Patient Condition at Discharge: Stable Plan - Discharge Summary Discharge Rx Participant: Yes New Discharge Prescriptions: New Acetaminophen Tab [Tylenol Tab] 650 mg PO Q4H PRN #30 tablet PRN Reason: Pain Continue Albuterol Sulfate [Proair Hfa] 1 - 2 puff INHALATION RT-Q6H PRN PRN Reason: Shortness Of Breath Ipratropium-Albuterol Nebulize [Duoneb 0.5 mg-3 mg/3 ml Soln] 3 ml INHALATION RT-QID Fluticasone/Vilanterol [Breo Ellipta 200-25 Mcg INH] 1 puff INHALATION RT- DAILY Simvastatin [Zocor] 10 mg PO DAILY amLODIPine [Norvasc] 5 mg PO DAILY #30 tab Pantoprazole Sodium [Protonix] 40 mg PO DAILY #30 tablet. Docpennyte [Colace] 100 mg PO DAILY Discharge Medication List Albuterol Sulfate [Proair Hfa] 1 - 2 puff INHALATION RT-Q6H PRN 09/01/16 [History] Fluticasone/Vilanterol [Breo Ellipta 200-25 Mcg INH] 1 puff INHALATION RT-DAILY 06/02/18 [History] Ipratropium-Albuterol Nebulize [Duoneb 0.5 mg-3 mg/3 ml Soln] 3 ml INHALATION RT-QID 06/02/18 [History] Simvastatin [Zocor] 10 mg PO DAILY 09/28/19 [History] Pantoprazole Sodium [Protonix] 40 mg PO DAILY #30 tablet.dr 10/04/19 [Rx] amLODIPine [Norvasc] 5 mg PO DAILY #30 tab 10/04/19 [Rx] Docusate [Colace] 100 mg PO DAILY 10/15/19 [History] Acetaminophen Tab [Tylenol Tab] 650 mg PO Q4H PRN #30 tablet 10/25/19 [Rx] Follow up Appointment(s)/Referral(s): Luis Manuel Villanueva MD [STAFF PHYSICIAN] - 1 Week Discharge Disposition: TRANSFER TO SNF/ECF
--- NOTE | 2019-10-25 15:40 | CDI ---
Documentation Clarification Form Date: 10/25/2019 03:17:40 PM From: Tessie Hebert RN, CCDS Admit Date: 10/19/2019 07:21:00 AM Patient Name: Delfina Adamson Visit Number: [id number] Discharge Date: ATTENTION: The Clinical Documentation Specialists (CDI) and [facility] Coding Staff appreciate your assistance in clarifying documentation. Please respond to the clarification below the line at the bottom and electronically sign. The CDI & [facility] Coding staff will review the response and follow-up if needed. Please note: Queries are made part of the Legal Health Record. If you have any questions, please contact the author of this message via ITS. Dr. Chandra Mattson The patient presented for elective surgery for diverticulitis, failed conservative measures, and is status post low anterior resection on 10/19/19. Hypertension, uncontrolled is documented in your progress notes starting on 10/21 and further clarification is needs. History/Risk Factors: Hypertension, Diverticulitis Clinical Indicators: 84-year-old female who in post operative day #2 from a low anterior resection for diverticulitis. Blood pressure on 10/22 at 07:25 was 210/71. She reports nausea with vomiting, large emesis, positive pain. She was treated with Hydralazine IV. Treatment: Hydralazine 10mg IVP X1 Dilaudid 1 mg IVP Q3HR PRN (Severe pain) 10/22@oo:57, 01:42; 10/23 @08:24, 09:09 Shevlin 5-325 1 tab PO Q4HR PRN (mild pain) 10/22@ 07:4815:48, 20:02, Zofran 4 mg IVP Q98HR PRN Protonix 40 mg IVP Daily Monitoring and symptomatic treatment (per Internal medicine Dr. Mattson) Norvasc 10 MG PO Daily (increased from 5 mg po daily 10/23) In your professional opinion, can you please clarify Hypertension, uncontrolled? Hypertensive urgency (specify cause) Essential Hypertension, uncontrolled due to (specify Other, please specify Unable to determine (Last Revision: November 2017) Accelerated hypertension due to abdominal pain nausea vomiting MTDD
--- NOTE | 2019-10-25 21:10 | P.PN ---
Subjective Progress Note Date: 10/25/19 Patient is a 84-year-old white female who was admitted for low anterior resection for intractable abdominal pain and bleeding due to diverticular disease. She is doing better after the weekend she is stable she is tolerating a soft diet. She had a large bowel movement. Her blood pressure is better cont rolled. Patient is cleared medically for transfer to extended care facility for rehabilitation at this time she has not progressed after surgery, and remains profoundly weak.( Objective - Vital Signs Vital signs: Vital Signs Temp 98.5 F 10/25/19 07:00 Pulse 82 10/25/19 12:01 Resp 18 10/25/19 07:00 BP 179/65 10/25/19 07:00 Pulse Ox 94 L 10/25/19 07:55 Intake & Output 10/25/19 10/25/19 10/26/19 06:59 18:59 06:59 Intake Total 475 200 Balance 475 200 Weight 53.8 kg Intake: Intake, IV Titration 475 Amount D5-0.45% NaCl with KCl 375 20Meq/l 1,000 ml @ 125 mls/hr IV .Q8H BONNIE Rx#: [id number] Piperacillin-Tazobactam 3 100 .375 gm In Sodium Chloride 0.9% 100 ml @ 25 mls/hr IVPB Q8HR BONNIE Rx# :[id number] Oral 200 Other: Voiding Method Toilet Toilet Bedside Commode Bedside Commode # Voids 3 # Bowel Movements 3 - Exam VITAL SIGNS: As above GENERAL: Sitting up in bed, no acute distress HEENT: Conjunctivae normal. eyes normal. Conjunctivae moist NECK: No JVD. No thyroid enlargement. No LNs CARDIOVASCULAR: S1, S2 regular. No murmur RESPIRATION: Breath sounds diminished in the bases. No rhonchi or crackles. ABDOMEN: Soft, status post surgery, Midline dressing with minimal shadowing, No bowel sounds LEGS: No edema. no swelling. PSYCHIATRY: Alert and oriented X3, mood and affect normal. NERVOUS SYSTEM: Cranial N 2-12 grossly normal. Moves all 4 limbs. Diffuse weakness No focal deficits. Strength and sensation grossly intact.. Skin:no rash - Labs CBC & Chem 7: 10/25/19 11:07 10/25/19 11:07 Labs: Abnormal Lab Results - Last 24 Hours (Table) 10/25/19 10/25/19 Range/Units 11:07 11:07 RBC 3.44 L (3.80-5.40) m/uL Hgb 9.4 L (11.4-16.0) gm/dL Hct 30.1 L (34.0-46.0) % Lymphocytes # 0.7 L (1.0-4.8) k/uL Sodium 134 L (137-145) mmol/L Carbon Dioxide 31 H (22-30) mmol/L BUN 2 L (7-17) mg/dL Creatinine 0.51 L (0.52-1.04) mg/dL Glucose 125 H (74-99) mg/dL Assessment and Plan (1) COPD (chronic obstructive pulmonary disease) Status: Acute Code(s): J44.9 - CHRONIC OBSTRUCTIVE PULMONARY DISEASE, UNSPECIFIED SNOMED Code(s): 11609253 (2) Diverticulitis Status: Acute Code(s): K57.92 - DVTRCLI OF INTEST, PART UNSP, W/O PERF OR ABSCESS W/O BLEED SNOMED Code(s): 402243933 (3) Accelerated hypertension Narrative/Plan: As a result of abdominal pain and emesis. Status: Acute Code(s): I10 - ESSENTIAL (PRIMARY) HYPERTENSION SNOMED Code(s): 50702439
--- NOTE | 2019-11-01 15:18 | P.OP ---
Date of Procedure: 10/19/19 Preoperative Diagnosis: Diverticulitis Postoperative Diagnosis: Diverticula is Procedure(s) Performed: Low anterior resection Takedown of splenic flexure Partial and ectomy Repair of incarcerated ventral hernia Anesthesia: PADMA Surgeon: Luis Manuel Villanueva Estimated Blood Loss (ml): 100 Description of Procedure: DESCRIPTION OF PROCEDURE: The patient was placed on the operating table in the supine position. Patient received a general anesthesia. Patient was then placed in the dorsal lithotomy position. The patients abdomen was prepped and draped in the usual sterile fashion. Through a low midline incision, the abdomen was entered. There was an incisional hernia noted. The Ivonne retractor was placed in the wound. The stomach appeared normal. The small bowel appeared normal. The liver appeared normal. The right colon and transverse colon appeared normal. On the left colon, there was an extensive diverticulosis noted. The sigmoid colon was then mobilized by dividing the white line of Toldt with electrocautery. At this point, the proximal sigmoid colon was transected with a GI stapler after a window had been made in the mesentery. The distal sigmoid colon was then dissected. Mesentery was taken down between Glenna clamps and ligated with #0 silk ties. The splenic flexure was taken down using the Harmonic scissors. At a point beyond the lesion, the bowel was then transected with a Proximate stapler. This was then removed. The splenic flexure was then taken down in order to provide adequate lengthening of the sigmoid colon. At this point, the auto purse-string suture device was placed across the proximal colon and fired. The colon was then opened. The 29 mm EEA anvil was then placed into the colon and then the purse-string was secured. The EEA stapler device was then placed in the patients anus and passed into the rectum. The nail for the EEA was then brought out through the distal rectum and then attached to the anvil. The EEA stapler device was then fired. The anastomosis was inspected. There were 2 good donuts of tissue removed from the EEA stapler. The anastomosis was then tested under water and there was no air leak seen. At this point the abdomen was then irrigated. There was no bleeding seen. The fascia was then closed with double stranded #1 PDS. The hernia was repaired with fascial closure. The skin was closed with negrito. The patient tolerated the procedure well.
== END 2019-10-25 15:40 | DRG 330 ==
LOC: 2ORMAIN 07:21 → EDSTATUS 09:15 → 4SSUR 14:17
PROVIDERS: ADMIT Surgery; ATTEND Surgery
PROC: 0DBU0ZZ Excision of Omentum, Open Approach (ICD-10-PCS; principal; 2019-10-19 09:15)
PROC: 0DTN0ZZ Resection of Sigmoid Colon, Open Approach (ICD-10-PCS; principal; 2019-10-19 09:15)
PROC: 0WQF0ZZ Repair Abdominal Wall, Open Approach (ICD-10-PCS; principal; 2019-10-19 09:15)
PROC: 30233N1 Transfusion of Nonautologous Red Blood Cells into Peripheral Vein, Percutaneous Approach (ICD-10-PCS; 2019-10-23)
DX: K57.92 Diverticulitis of intestine, part unspecified, without perforation or abscess without bleeding (principal); D62 Acute posthemorrhagic anemia; J44.9 Chronic obstructive pulmonary disease, unspecified; M19.90 Unspecified osteoarthritis, unspecified site; I25.10 Atherosclerotic heart disease of native coronary artery without angina pectoris; F41.9 Anxiety disorder, unspecified; R41.0 Disorientation, unspecified; E78.5 Hyperlipidemia, unspecified; I10 Essential (primary) hypertension; Z79.899 Other long term (current) drug therapy; Z85.118 Personal history of other malignant neoplasm of bronchus and lung; Z82.49 Family history of ischemic heart disease and other diseases of the circulatory system; Z87.891 Personal history of nicotine dependence; Z80.8 Family history of malignant neoplasm of other organs or systems; I25.2 Old myocardial infarction; Z98.51 Tubal ligation status; Z90.89 Acquired absence of other organs; Z98.890 Other specified postprocedural states
CPT/HCPCS: 80048; 84132; 85025; 85027; 86850; 86900; 86901; 86920; 88305; 88307; 94640; 94760

== ENCOUNTER → 2019-12-23 | Outpatient (CLI) | payer MEDICARE, OTHER ==
--- NOTE | 2019-12-23 21:31 | US ---
EXAMINATION TYPE: US venous doppler duplex UE RT DATE OF EXAM: 12/23/2019 COMPARISON: NONE CLINICAL HISTORY: 84-year-old female R22.31 Swelling of R upper limb. SIDE PERFORMED: Right TECHNIQUE: Grayscale, color doppler, spectral doppler imaging performed of the deep veins of the upp er extremities. FINDINGS: Right Arm: Negative for DVT Auto Body Customizer notes: Prominent lymph nodes. Right forearm edema. Images show prominent lymph nodes at the level of the subclavian vein suggesting the presence of the level of the axilla. IMPRESSION: 1. No evidence for DVT within the right upper extremity. 2. Prominent lymph nodes on the right, likely at the axilla. Correlate for reactive/inflammatory vers us neoplastic etiology. 3. Subcutaneous forearm edema.
== END | disposition home or self-care (01) ==
LOC: RADUSMAIN 15:10
PROVIDERS: ATTEND Family Medicine
DX: R22.31 Localized swelling, mass and lump, right upper limb (principal)

== ENCOUNTER → 2020-01-19 | Outpatient (CLI) | payer MEDICARE, OTHER ==
--- NOTE | 2020-01-19 14:04 | NM ---
EXAMINATION TYPE: NM hepatobiliary w CCK DATE OF EXAM: 01/19/2020 COMPARISON: CT abdomen and pelvis October 01, 2019 HISTORY: Biliary dyskinesia per order. Epigastric and abdominal pain with nausea per patient. TECHNIQUE: After the intravenous administration of 4.8 mCi Tc 99m Mebrofenin hepatobiliary scintigrap hy is performed. Immediate images post injection. FINDINGS: There is some heterogeneous accumulation of tracer by the liver. Liver has lobulated contour raising concern for underlying cirrhosis. Correlate clinically. The gallbladder is visualized within 15 rachid stephanie. The small bowel activity is noted within 25 minutes. At one hour CCK was administered, patient was injected with 1.0 mcg of Kinevac, and gallbladder ejection fraction is calculated at 78 %, not d eviated from the normal range. Therefore there is no scintigraphic evidence of cystic or common bile duct obstruction to suggest acute cholecystitis . IMPRESSION: Ejection fraction 78%, some consider this abnormal or a hyperkinetic response.
== END | disposition home or self-care (01) ==
LOC: RADNMMAIN 07:12
PROVIDERS: ATTEND Surgery
DX: K82.8 Other specified diseases of gallbladder (principal)
CPT/HCPCS: 78227; A9537

== ENCOUNTER → 2020-02-01 | Outpatient (CLI) | payer MEDICARE, OTHER | END | disposition home or self-care (01) | LOC: LABWHC1 09:04 | PROVIDERS: ATTEND Surgery | DX: Z11.59 Encounter for screening for other viral diseases (principal) ==

== ENCOUNTER 2020-02-03 06:21 | Inpatient (IN) | payer MEDICARE, OTHER ==
[2020-02-02 12:07] VITALS: BMI 20.9
[~2020-02-03 06:21] MED LIST changes: -DEXAMETHASONE SOD PHOSPHATE 10 MG/ML 1 ML VIAL IV ONE; -HEPARIN SODIUM,PORCINE 5,000 UNIT/ML 1 ML VIAL SQ ONE; -LACTATED RINGERS 1,000 ML IV SCH; -MIDAZOLAM 2 MG/2 ML VIAL IV PRN; -ONDANSETRON 4 MG/2 ML VIAL IVP ONE; -metroNIDAZOLE-NS PMX 500 MG in SALINE 1 100ML.BAG IVPB ONE
[2020-02-03] MEDS: LACTATED RINGERS 1,000 ML IV SCH ×2 (07:03→07:33)
[2020-02-03] MEDS: ONDANSETRON 4 MG/2 ML VIAL IVP ONE ×2 (07:12→13:46)
[2020-02-03] MEDS: HEPARIN SODIUM,PORCINE 5,000 UNIT/ML 1 ML VIAL SQ ONE ×2 (07:14→13:45)
[2020-02-03] MEDS: ACETAMINOPHEN TAB 500 MG TAB PO ONE ×2 (07:14→13:45)
[2020-02-03] MEDS ORDERED: HYDROmorphone (PF) 1 MG/ML ONE (07:30)
[2020-02-03] MEDS ORDERED: NEOSTIGMINE 1 MG/ML 10 ML VIAL ONE (07:30)
[2020-02-03] MEDS ORDERED: METOPROLOL TARTRATE 5 MG/5 ML VIAL IVP ONE (07:30)
[2020-02-03] MEDS ORDERED: fentaNYL (PF) 50 MCG/ML 2 ML AMP ONE (07:30)
[2020-02-03] MEDS ORDERED: PROPOFOL 10 MG/ML 20 ML VIAL IV ONE (07:30)
[2020-02-03] MEDS ORDERED: SUCCINYLCHOLINE CHLORIDE 100 MG/5 ML SYR IV ONE (07:30)
[2020-02-03] MEDS ORDERED: LIDOCAINE 1% INJ 10MG/ML (20 ML MDV) ONE (07:30)
[2020-02-03] MEDS ORDERED: GLYCOPYRROLATE 0.2 MG/ML 2 ML VIAL ONE (07:30)
[2020-02-03] MEDS ORDERED: ROCURONIUM BROMIDE 10 MG/ML 5 ML VIAL IV ONE (07:30)
--- NOTE | 2020-02-03 07:56 | P.GSHP ---
History of Present Illness H&P Date: 02/03/20 Chief Complaint: Right upper quadrant pain This 84-year-old female who has complex right upper quadrant pain. Patient describes pain when eating. His liver quadrant. Her recent HIDA scan shows a 8 elevated ejection fraction Past Medical History Past Medical History: Cancer, COPD, Hyperlipidemia, Myocardial Infarction (SD), Osteoarthritis (OA) Additional Past Medical History / Comment(s): LUNG CANCER Last Myocardial Infarction Date:: 2011 History of Any Multi-Drug Resistant Organisms: None Reported Past Surgical History: Joint Replacement, Tonsillectomy, Tubal Ligation Additional Past Surgical History / Comment(s): rt wrist tendon repair hip Past Anesthesia/Blood Transfusion Reactions: No Reported Reaction Smoking Status: Former smoker - Past Family History Mother Family Medical History: Coronary Artery Disease (CAD) Father Family Medical History: Coronary Artery Disease (CAD) Brother(s) Family Medical History: Cancer Additional Family Medical History / Comment(s): 2 x brothers of cancer - throat cancer, and bowel cancer. 1 x brother of AAA and alcoholism Sister(s) Additional Family Medical History / Comment(s): 1 x sister has Menieres disease and aneurysm behind her ear Medications and Allergies Home Medications Medication Instructions Recorded Confirmed Type Albuterol Sulfate [Proair Hfa] 1 - 2 puff INHALATION RT-Q6H PRN 09/01/16 02/03/20 History Ipratropium-Albuterol Nebulize 3 ml INHALATION TID 06/02/18 02/03/20 History [Duoneb 0.5 mg-3 mg/3 ml Soln] Simvastatin [Zocor] 10 mg PO DAILY 09/28/19 02/03/20 History amLODIPine [Norvasc] 5 mg PO DAILY #30 tab 10/04/19 02/03/20 Rx Docusate [Colace] 100 mg PO DAILY 10/15/19 02/03/20 History Acetaminophen Tab [Tylenol Tab] 650 mg PO Q4H PRN #30 tablet 10/25/19 02/03/20 Rx Budesonide-Formot 160-4.5 Mcg 2 puff INHALATION BID 02/02/20 02/03/20 History [Symbicort 160-4.5 Mcg Inhaler] Allergies Allergy/AdvReac Type Severity Reaction Status Date / Time No Known Allergies Allergy Verified 02/03/20 06:59 Surgical - Exam Vital Signs Temp Pulse Resp BP Pulse Ox 98.0 F 79 20 166/76 99 02/03/20 06:51 02/03/20 06:51 02/03/20 06:51 02/03/20 06:51 02/03/20 06:51 - General well developed, well nourished, no distress - Eyes PERRL - ENT normal pinna - Neck no masses - Respiratory normal expansion - Abdomen Abdomen: soft, non tender Assessment and Plan Assessment: Right quadrant pain Chronic cholecystic We'll perform laparoscopic cholecystectomy
[2020-02-03] MEDS ORDERED: BUPIVACAIN-EPI 0.25%-1:200,000 30 ML VIAL SQ ONE (07:59)
[2020-02-03] MEDS ORDERED: NALOXONE 0.4 MG/ML 1 ML VIAL IV PRN (08:35)
[2020-02-03] MEDS ORDERED: ACETAMINOPHEN TAB 325 MG TAB PO PRN (08:35)
[2020-02-03] MEDS ORDERED: HYDROmorphone 0.5 MG/0.5 ML SYRINGE IVP PRN (08:35)
[2020-02-03] MEDS ORDERED: LACTATED RINGERS 1,000 ML IV ONE (08:35)
[2020-02-03] MEDS ORDERED: ONDANSETRON 4 MG/2 ML VIAL IVP PRN ×2 (08:35→13:49)
--- NOTE | 2020-02-03 08:35 | P.OP ---
Date of Procedure: 02/03/20 Preoperative Diagnosis: Cholecystitis Postoperative Diagnosis: Cholecystitis Procedure(s) Performed: Laparoscopic cholecystectomy Laparoscopic lysis of adhesions Anesthesia: PADMA Surgeon: Luis Manuel Villanueva Estimated Blood Loss (ml): 10 Pathology: other (Gallbladder) Condition: stable Disposition: PACU Description of Procedure: The patient was placed on the operating table. The patient received a general endotracheal tube anesthesia. The patients abdomen was prepped and draped in the usual sterile fashion. The patient had a midline scar. The Veress needle was placed in the left upper quadrant. The Veress needle could not be placed into the peritoneal cavity. There appeared to be adhesions in this area. At this point an optical trocar under direct visualization was placed in the right lateral position. The abdomen was insufflated. After adequate insufflation the laparoscope placed back the pleural cavity. The left upper quadrant was examined where the Veress needle was replaced and appeared to be no no evidence of any injury. Next a 8 mm trochars placed in the epigastric position and then a fibrillar trocar is placed in the periumbilical position and another 5 mm trocar was placed right mid abdomen position. There were adhesions noted to the gallbladder. These were lysed with sharp dissection and the Harmonic scissors. . The gallbladder was grasped in the fundus and infundibulum. Traction on the gallbladder was placed in the lateral and the cephalad positions. The triangle of Calot was visualized.. The cystic duct was bluntly dissected until the union of the cystic duct and common bile duct was seen. A critical view of safety was achieved. The cystic duct was then divided and sealed with the Harmonic scissors. A PDS Endoloop was then placed throughout the cystic duct stump. The cystic artery divided and sealed with the Harmonic scissors. The gallbladder was then removed from the liver bed using Harmonic scissors. The gallbladder was then extracted through the epigastric port site. Operative field was checked for any bleeding spots and Harmonic scissors was used to coagulate the liver bed. The abdomen was irrigated. The trocars were removed. The skin was closed using interrupted 3-0 Vicryl suture. Dermabond dressing were applied. The patient tolerated the procedure well.
[2020-02-03] MEDS ORDERED: METOCLOPRAMIDE 5 MG/ML 2 ML VIAL IVP PRN (13:49)
[2020-02-04] MEDS: LACTATED RINGERS 1,000 ML IV SCH ×2 (05:03→07:59)
[2020-02-04 07:31] LABS: Basophils % (A) 0 %; Eosinophils % (A) 0 %; HCT 25.2 % (34.0-46.0); Hypochromasia Slight; Lymphocytes # (A) 1.2 k/uL (1.0-4.8); Lymphocytes % (A) 8 %; MCH 27.3 pg (25.0-35.0); MCHC 32.7 g/dL (31.0-37.0); MCV 83.5 fL (80.0-100.0); Mean Platelet Volume 7.9; Monocytes # (A) 1.1 k/uL (0-1.0); Monocytes % (A) 7 %; Neutrophils # (A) 12.3 k/uL (1.3-7.7); Neutrophils % (A) 83 %; Platelet Count 307 k/uL (150-450); RBC 3.02 m/uL (3.80-5.40); RDW 15.7 % (11.5-15.5); WBC 14.8 k/uL (3.8-10.6)
[2020-02-04 07:36] LABS: Albumin 3.1 g/dL (3.5-5.0); Potassium 4.7 mmol/L (3.5-5.1); Total Bilirubin 0.1 mg/dL (0.2-1.3); Total Protein 5.6 g/dL (6.3-8.2)
[2020-02-04 07:38] LABS: HGB 8.2 gm/dL (11.4-16.0)
[2020-02-04] MEDS: ENOXAPARIN 40 MG/0.4 ML SYRINGE SQ SCH (07:51)
[2020-02-04] MEDS: HYDROcodone/APAP 5-325MG 1 EACH TAB PO PRN ×2 (07:59→19:51)
--- NOTE | 2020-02-04 08:05 | P.PN ---
Subjective Progress Note Date: 02/04/20 CHIEF COMPLAINT: Cholecystitis HISTORY OF PRESENT ILLNESS: 84-year-old female who is status post laparoscopic cholecystectomy. Postop day #1. Patient examined at the bedside with Dr. Villanueva. Patient reports abdominal pain this morning. She also reports pain in her shoulders. Patient had nausea yesterday with some vomiting. No further vomiting at this time. Vital signs stable. WBC 14.8. Hemoglobin 8.2. PHYSICAL EXAM: VITAL SIGNS: Reviewed. GENERAL: Well-developed in no acute distress. HEENT: No sclera icterus. Extraocular movements grossly intact. Moist buccal mucosa. Head is atraumatic, normocephalic. ABDOMEN: Soft. Nondistended. Appropriate surgical tenderness. Surgical sites clean dry and intact NEUROLOGIC: Alert and oriented. Cranial nerves II through XII grossly intact. ASSESSMENT: 1. Cholecystitis PLAN: -Begin clear liquid diet -Continue Zofran and Reglan as needed -Pain control. Continue IV Dilaudid and Cook Sta -Activity as tolerated -Incentive spirometer -Anticipate discharge home tomorrow if pain is controlled and patient is tolerating diet Nurse practitioner note has been reviewed by physician. Signing provider agrees with the documented findings, assessment, and plan of care. Objective - Vital Signs Vital signs: Vital Signs Temp 98.5 F 02/04/20 07:00 Pulse 80 02/04/20 07:00 Resp 16 02/04/20 07:00 BP 144/77 02/04/20 07:00 Pulse Ox 95 02/04/20 01:48 Intake & Output 02/03/20 02/04/20 02/04/20 18:59 06:59 18:59 Intake Total 1640 Output Total 305 600 Balance 1335 -600 Weight 48.7 kg Intake: IV 1100 Oral 540 Output: Urine 300 600 Uretheral (Dueñas) 300 300 Estimated Blood Loss 5 Other: # Voids 0 - Labs CBC & Chem 7: 02/04/20 07:03 02/04/20 07:03 Labs: Abnormal Lab Results - Last 24 Hours (Table) 02/04/20 02/04/20 Range/Units 07:03 07:03 WBC 14.8 H (3.8-10.6) k/uL RBC 3.02 L (3.80-5.40) m/uL Hgb 8.2 L D (11.4-16.0) gm/dL Hct 25.2 L (34.0-46.0) % RDW 15.7 H (11.5-15.5) % Neutrophils # 12.3 H (1.3-7.7) k/uL Monocytes # 1.1 H (0-1.0) k/uL Sodium 133 L (137-145) mmol/L BUN 30 H (7-17) mg/dL Glucose 119 H (74-99) mg/dL Total Bilirubin 0.1 L (0.2-1.3) mg/dL Total Protein 5.6 L (6.3-8.2) g/dL Albumin 3.1 L (3.5-5.0) g/dL
[2020-02-04] MEDS: PIPERACILLIN-TAZOBACTAM 3.375 GM in SODIUM CHLORIDE 0.9% 100 ML IVPB SCH ×2 (13:11→20:51)
--- NOTE | 2020-02-04 13:57 | P.CONS ---
History of Present Illness - Reason for Consult Consult date: 02/04/20 Medical management COPD, anxiety Requesting physician: Luis Manuel Villanueva - Chief Complaint Laparoscopic cholecystectomy - History of Present Illness This is an 84-year-old pleasant female status post laparoscopic cholecystectomy, postop day #1, with medical history of lung cancer, COPD, hyperlipidemia, CAD, MN, osteoarthritis, mild anxiety. Tolerated procedure well. Complaining of posterior right shoulder pain. Reports no flatus, no bowel movement. Nausea yesterday, subsided. Tolerating diet with no nausea vomiting or diarrhea, currently. Denies lightheadedness, dizziness or focal deficits. Denies chest pain, palpitations or shortness of breath. Afebrile, WBC 14.8. Hemoglobin 8.2. Review of Systems Constitutional: Denied any fatigue denied any fever. Cardio vascular: denied any chest pain, palpitations Gastrointestinal denied any nausea vomiting Pulmonary: Denied any shortness of breath cough Neurologic denied any new focal deficits ROS Statement: Those systems with pertinent positive or pertinent negative responses have been documented in the HPI. ROS Other: All systems not noted in ROS Statement are negative. Past Medical History Past Medical History: Cancer, COPD, Hyperlipidemia, Myocardial Infarction (MN), Osteoarthritis (OA) Additional Past Medical History / Comment(s): LUNG CANCER Last Myocardial Infarction Date:: 2011 History of Any Multi-Drug Resistant Organisms: None Reported Past Surgical History: Joint Replacement, Tonsillectomy, Tubal Ligation Additional Past Surgical History / Comment(s): rt wrist tendon repair hip Past Anesthesia/Blood Transfusion Reactions: No Reported Reaction Past Psychological History: No Psychological Hx Reported Additional Psychological History / Comment(s): "a little anxiety," per daughter Smoking Status: Former smoker Past Alcohol Use History: None Reported Additional Past Alcohol Use History / Comment(s): STARTED SMOKING AT AGE 14 quit 2007 est SMOKED 3/4 PPD Past Drug Use History: None Reported - Past Family History Mother Family Medical History: Coronary Artery Disease (CAD) Father Family Medical History: Coronary Artery Disease (CAD) Brother(s) Family Medical History: Cancer Additional Family Medical History / Comment(s): 2 x brothers of cancer - throat cancer, and bowel cancer. 1 x brother of AAA and alcoholism Sister(s) Additional Family Medical History / Comment(s): 1 x sister has Menieres disease and aneurysm behind her ear Medications and Allergies Home Medications Medication Instructions Recorded Confirmed Type Albuterol Sulfate [Proair Hfa] 1 - 2 puff INHALATION RT-Q6H PRN 09/01/16 02/03/20 History Ipratropium-Albuterol Nebulize 3 ml INHALATION TID 06/02/18 02/03/20 History [Duoneb 0.5 mg-3 mg/3 ml Soln] Simvastatin [Zocor] 10 mg PO DAILY 09/28/19 02/03/20 History amLODIPine [Norvasc] 5 mg PO DAILY #30 tab 10/04/19 02/03/20 Rx Docusate [Colace] 100 mg PO DAILY 10/15/19 02/03/20 History Acetaminophen Tab [Tylenol Tab] 650 mg PO Q4H PRN #30 tablet 10/25/19 02/03/20 Rx Budesonide-Formot 160-4.5 Mcg 2 puff INHALATION BID 02/02/20 02/03/20 History [Symbicort 160-4.5 Mcg Inhaler] Hydrocodone/Acetaminophen [[place] 1 tab PO Q6HR PRN #10 tab 02/04/20 Rx 5-325] Allergies Allergy/AdvReac Type Severity Reaction Status Date / Time No Known Allergies Allergy Verified 02/03/20 06:59 Physical Exam Vitals: Vital Signs Temp Pulse Pulse Resp BP BP BP 02/04/20 07:00 98.5 F 80 16 144/77 02/04/20 01:48 98.2 F 82 18 137/65 02/03/20 19:00 98.5 F 83 18 128/78 02/03/20 17:58 105/63 02/03/20 15:16 97.5 F L 77 16 82/55 02/03/20 13:47 83 16 Pulse Ox 02/04/20 07:00 02/04/20 01:48 95 02/03/20 19:00 98 02/03/20 17:58 02/03/20 15:16 97 02/03/20 13:47 Intake and Output 02/03/20 02/04/20 02/04/20 22:59 06:59 14:59 Output Total 300 600 Balance -300 -600 Output: Urine 300 600 Uretheral ([place]) 300 300 Other: # Voids 0 PHYSICAL EXAM: VITAL SIGNS: [As above] GENERAL: Sitting up in bed, no acute distress HEENT: Conjunctivae normal. eyes normal. Oral mucosa moist NECK: No JVD. No thyroid enlargement. No LNs CARDIOVASCULAR: S1, S2 regular.. No murmur RESPIRATION: Breath sounds diminished in the bases. No rhonchi or crackles. No bronchial breathing. ABDOMEN: Status post surgery, Soft, No guarding. Laparoscopic sites well approximated. Hypoactive Bowel sounds heard. LEGS: No edema. no swelling PSYCHIATRY: Alert and oriented X3, mood and affect normal. NERVOUS SYSTEM: Cranial N 2-12 grossly normal. Moves all 4 limbs. No focal deficits. Strength and sensation grossly intact. Skin: no rash Lymphatic system. No LN neck axilla. Results CBC & Chem 7: 02/04/20 07:03 02/04/20 07:03 Labs: Abnormal Lab Results - Last 24 Hours (Table) 02/04/20 02/04/20 Range/Units 07:03 07:03 WBC 14.8 H (3.8-10.6) k/uL RBC 3.02 L (3.80-5.40) m/uL Hgb 8.2 L D (11.4-16.0) gm/dL Hct 25.2 L (34.0-46.0) % RDW 15.7 H (11.5-15.5) % Neutrophils # 12.3 H (1.3-7.7) k/uL Monocytes # 1.1 H (0-1.0) k/uL Sodium 133 L (137-145) mmol/L BUN 30 H (7-17) mg/dL Glucose 119 H (74-99) mg/dL Total Bilirubin 0.1 L (0.2-1.3) mg/dL Total Protein 5.6 L (6.3-8.2) g/dL Albumin 3.1 L (3.5-5.0) g/dL Assessment and Plan Assessment: Status post laparoscopic cholecystectomy History of lung cancer COPD CAD, history of MN Hyperlipidemia Osteoarthritis Mild anxiety Plan: Continue current medication regime ,monitoring and sent to make treatment. Increase ambulation. Aggressive pulmonary toileting with incentive spirometer ordered. Diet advancement and Pain management as per surgery. Discharge planning in progress for tomorrow. The impression and plan of care has been dictated as directed. : I performed a history and examination of this patient, discussed the same with the dictator. I agree with the dictator's note ,documented as a scribe. Any additional findings or plans will be noted.
[2020-02-05] MEDS: PIPERACILLIN-TAZOBACTAM 3.375 GM in SODIUM CHLORIDE 0.9% 100 ML IVPB SCH ×3 (05:34→20:52)
[2020-02-05] MEDS: ENOXAPARIN 40 MG/0.4 ML SYRINGE SQ SCH (08:26)
[2020-02-05 10:06] LABS: Calcium 9.1 mg/dL (8.4-10.2); Potassium 3.9 mmol/L (3.5-5.1); Total Bilirubin 0.4 mg/dL (0.2-1.3); Total Protein 5.5 g/dL (6.3-8.2)
[2020-02-05 10:09] LABS: Anisocytosis Slight; Basophils % (A) 0 %; Eosinophils % (A) 0 %; Hypochromasia Slight; Lymphocytes % (A) 9 %; MCH 27.2 pg (25.0-35.0); MCHC 32.4 g/dL (31.0-37.0); MCV 83.9 fL (80.0-100.0); Mean Platelet Volume 7.8; Monocytes # (A) 0.7 k/uL (0-1.0); Monocytes % (A) 6 %; Neutrophils # (A) 9.3 k/uL (1.3-7.7); Neutrophils % (A) 83 %; Platelet Count 273 k/uL (150-450); RBC 2.38 m/uL (3.80-5.40); RDW 16.3 % (11.5-15.5); WBC 11.2 k/uL (3.8-10.6)
[2020-02-05 10:14] LABS: HGB 6.5 gm/dL (11.4-16.0)
--- NOTE | 2020-02-05 13:21 | P.PN ---
Subjective Progress Note Date: 02/05/20 Principal diagnosis: Status post lap jackie Patient complaining of hunger today. Tolerating clear liquids. Would like to go home. Her labs however showed a drop in hemoglobin to 6.5 is morning. One unit blood transfusion ordered. Objective - Vital Signs Vital signs: Vital Signs Temp 98.3 F 02/05/20 07:52 Pulse 83 02/05/20 07:52 Resp 17 02/05/20 07:52 BP 113/64 02/05/20 07:52 Pulse Ox 99 02/05/20 07:52 Intake & Output 02/04/20 02/05/20 02/05/20 18:59 06:59 18:59 Output Total 300 824 350 Balance -300 -824 -350 Output: Urine 300 550 350 Post Void Residual 274 Other: Voiding Method Bedside Commode Bedside Commode # Voids 0 1 - Exam Abdomen: Soft, nondistended, incision clean and dry, minimal tenderness - Labs CBC & Chem 7: 02/05/20 09:21 02/05/20 09:21 Labs: Abnormal Lab Results - Last 24 Hours (Table) 02/05/20 02/05/20 02/05/20 Range/Units 09:21 09:21 11:11 WBC 11.2 H (3.8-10.6) k/uL RBC 2.38 L (3.80-5.40) m/uL Hgb 6.5 L* D (11.4-16.0) gm/dL Hct 20.0 L (34.0-46.0) % RDW 16.3 H (11.5-15.5) % Neutrophils # 9.3 H (1.3-7.7) k/uL Sodium 132 L (137-145) mmol/L BUN 24 H (7-17) mg/dL Glucose 115 H (74-99) mg/dL Total Protein 5.5 L (6.3-8.2) g/dL Albumin 3.0 L (3.5-5.0) g/dL Crossmatch See Detail Assessment and Plan Plan: Transfuse 1 unit PRBC. Repeat labs tomorrow. Advance diet to full liquids. Hold Lovenox.
[2020-02-05] MEDS ORDERED: ALBUTEROL NEBULIZED 2.5 MG/3 ML INHALATION PRN (19:54)
[2020-02-05] MEDS: SYMBICORT 160-4.5 MCG INHALER INHALATION SCH (20:17)
[2020-02-05] MEDS: IPRATROPIUM-ALBUTEROL 3 ML NEB INHALATION SCH (20:17)
--- NOTE | 2020-02-05 20:28 | XR ---
EXAMINATION TYPE: XR chest 1V portable DATE OF EXAM: 02/05/2020 COMPARISON: 09/29/2019 HISTORY: Short of breath TECHNIQUE: FINDINGS: There is pleural thickening and some airspace infiltrate in the right upper lobe. There is slight increased right paratracheal density. There is no heart failure. Heart size is normal. IMPRESSION: Pleural thickening and infiltrate right upper lobe extending to the right pulmonary hilum . There is probably some right paratracheal adenopathy. Adenopathy increased compared to old exam. No heart failure seen. There is some pleural thickening and fluid in the left lower lobe increased comp ared to old exam.
[2020-02-05] MEDS: LACTATED RINGERS 1,000 ML IV SCH (20:52)
--- NOTE | 2020-02-05 20:53 | PN ---
PROGRESS NOTE DATE OF SERVICE: 02/05/2020 I ams covering for Dr. Mattson. HISTORY OF PRESENT ILLNESS: This 84-year-old woman with a past medical history of multiple medical problems was admitted with laparoscopic cholecystectomy. The patient's hemoglobin had dropped to 6.5 today. The patient has been multiply transfused. The patient also had a previous history of bleeding as well. Surgery is following the patient closely. PAST MEDICAL: Reviewed. REVIEW OF SYSTEMS: CARDIOVASCULAR: No angina. RESPIRATORY: As mentioned earlier. GI: As mentioned earlier. NERVOUS SYSTEM: No numbness, weakness. CURRENT MEDICATIONS: 1. Tylenol p.r.n. 2. [place] 5 mg. 3. Dilaudid. 4. Reglan. 5. Narcan. 6. Zosyn IV. PHYSICAL EXAMINATION: Patient is alert, oriented x3. Pulse is 83, blood pressure 126/60, respiration 18, temp 98.4, pulse ox 98% on 3.5 L. HEENT: Conjunctivae pale. NECK: No jugular venous distention. No lymph node enlargement. CARDIOVASCULAR: S1, S2. RESPIRATORY: Diminished breath sounds at the bases. A few scattered rhonchi. ABDOMEN: Soft. Mild diffuse discomfort. Otherwise, no guarding, no rigidity. No mass palpable. Bowel sounds diminished. LEGS: No edema, no swelling. NERVOUS SYSTEM: No focal deficits. LABS: WBC 11.2, hemoglobin 6.5, sodium 132. ASSESSMENT: 1. Status post laparoscopic cholecystectomy. 2. Anemia, rule out gastrointestinal bleed. 3. Increased WBC. 4. Hyponatremia. 5. Hypoalbuminemia with mild protein-calorie malnutrition. 6. History of chronic obstructive pulmonary disease. 7. History of lung cancer. 8. Hyperlipidemia. 9. History of myocardial infarction. 10.History of degenerative joint disease. 11.History of tonsillectomy. 12.FULL CODE. RECOMMENDATIONS AND DISCUSSION: In this 84-year-old woman who presented with multiple medical issues, at this time I recommend to continue the current management, continue symptomatic treatment, repeat labs. One unit of transfusion has been given. I would also recommend a chest x-ray for evaluation of the fluid electrolyte balance and continue the IV antibiotics. The blood pressure is well controlled. I would hold the home medication at this time. Hold the Norvasc at this time. Otherwise, will recommend the nebulizers and further recommendations to follow. See orders for details. MMODL / IJN: [id number] /
[2020-02-06] MEDS: PIPERACILLIN-TAZOBACTAM 3.375 GM in SODIUM CHLORIDE 0.9% 100 ML IVPB SCH ×3 (05:30→22:41)
[2020-02-06] MEDS: IPRATROPIUM-ALBUTEROL 3 ML NEB INHALATION SCH ×3 (07:55→20:27)
[2020-02-06] MEDS: SYMBICORT 160-4.5 MCG INHALER INHALATION SCH ×2 (07:55→20:27)
[2020-02-06 09:15] LABS: ALT 10 U/L (4-34); AST 18 U/L (14-36); African American GFR (CKD) >90 (>60 ml/min/1.73 sqM); Albumin 2.9 g/dL (3.5-5.0); Alkaline Phosphatase 45 U/L (38-126); Anion Gap 4 mmol/L; Blood Urea Nitrogen 15 mg/dL (7-17); Calcium 8.8 mg/dL (8.4-10.2); Carbon Dioxide 29 mmol/L (22-30); Chloride 102 mmol/L (98-107); Glucose 89 mg/dL (74-99); Non-African American GFR(CKD) 82 (>60 ml/min/1.73 sqM); Potassium 3.8 mmol/L (3.5-5.1); Sodium 135 mmol/L (137-145); Total Bilirubin 0.9 mg/dL (0.2-1.3); Total Protein 5.4 g/dL (6.3-8.2)
[2020-02-06 09:18] LABS: Basophils % (A) 0 %; Eosinophils # (A) 0.1 k/uL (0-0.7); Eosinophils % (A) 1 %; HCT 25.7 % (34.0-46.0); HGB 7.9 gm/dL (11.4-16.0); Lymphocytes # (A) 1.2 k/uL (1.0-4.8); Lymphocytes % (A) 14 %; MCHC 30.9 g/dL (31.0-37.0); MCV 84.2 fL (80.0-100.0); Mean Platelet Volume 7.9; Monocytes # (A) 0.7 k/uL (0-1.0); Monocytes % (A) 8 %; Neutrophils # (A) 6.4 k/uL (1.3-7.7); Neutrophils % (A) 75 %; Platelet Count 252 k/uL (150-450); RBC 3.05 m/uL (3.80-5.40); RDW 15.7 % (11.5-15.5); WBC 8.6 k/uL (3.8-10.6)
--- NOTE | 2020-02-06 11:01 | P.PN ---
Subjective Progress Note Date: 02/06/20 Principal diagnosis: Status post lap jackie Patient doing fairly well. Hemoglobin 7.9 after transfusion. Pain is minimal. Tolerating diet. Objective - Vital Signs Vital signs: Vital Signs Temp 98.0 F 02/06/20 07:00 Pulse 90 02/06/20 08:06 Resp 17 02/06/20 07:00 BP 134/60 02/06/20 07:00 Pulse Ox 100 02/06/20 07:00 Intake & Output 02/05/20 02/06/20 02/06/20 18:59 06:59 18:59 Intake Total 0 310 Output Total 600 200 Balance -600 110 Intake: Blood Product 0 310 Rc As-1 Unit 0 310 [id number] Output: Urine 600 200 Other: Voiding Method Bedside Commode Bedside Commode # Voids 1 2 - Exam Abdomen: Soft, nondistended, incision clean and dry, mild tenderness - Labs CBC & Chem 7: 02/06/20 08:12 02/06/20 08:12 Labs: Abnormal Lab Results - Last 24 Hours (Table) 02/05/20 02/06/20 02/06/20 Range/Units 11:11 08:12 08:12 RBC 3.05 L (3.80-5.40) m/uL Hgb 7.9 L (11.4-16.0) gm/dL Hct 25.7 L (34.0-46.0) % MCHC 30.9 L (31.0-37.0) g/dL RDW 15.7 H (11.5-15.5) % Sodium 135 L (137-145) mmol/L Total Protein 5.4 L (6.3-8.2) g/dL Albumin 2.9 L (3.5-5.0) g/dL Crossmatch See Detail Assessment and Plan Plan: Continue diet as tolerated. Repeat labs tomorrow. Probable discharge tomorrow.
--- NOTE | 2020-02-06 20:28 | CT ---
EXAMINATION TYPE: CT chest wo con DATE OF EXAM: 02/06/2020 COMPARISON: 02/23/2019 HISTORY: Paratracheal lymphadenopathy. CT DLP: 225.2 mGycm, Automated exposure control for dose reduction was used. CONTRAST: Performed injected with 0 mL of Isovue 300. TECHNIQUE: Axial images were obtained at 5 mm thick sections. Reconstructed images are reviewed on Meed[employer] computer in the coronal plane. FINDINGS: Portion of the thyroid visualized is normal. There is a 4.8 x 4.4 x 6.2 cm irregular spiculated mass in the superior right upper lobe. Remainder o f the lungs with emphysematous changes appear clear. Suspicious infiltrates or additional masses are not identified. Couple of subtle pneumonitis changes may be within the anterior superior right upper lobe. Example image 204 image 16. Lack of intravenous contrast causes limitation on evaluation spinal adenopathy. However, anterior sup erior mediastinal adenopathy is suspected as well as some right hilar adenopathy. Sizing of lymphaden opathy cannot accurately be measured given the lack of intravenous contrast. The ascending aorta diameter at the level of the main pulmonary artery is 3.6 cm. The main pulmonary artery diameter at the bifurcation is 3.1 cm. Some minimal pericardial effusion is present. Limited CT sections are obtained through the upper abdomen. Abdomen is essentially unremarkable. IMPRESSIONS: 1. Enlarging right apical mass. 2. Evaluation for mediastinal adenopathy is difficult on noncontrast CT chest. Underlying adenopathy is likely present. 3. Small pericardial effusion
[2020-02-06] MEDS: DOCUSATE 100 MG CAP PO SCH (22:41)
[2020-02-06] MEDS ORDERED: MELATONIN 3 MG TABLET PO SCH (23:00)
--- NOTE | 2020-02-07 02:08 | PN ---
PROGRESS NOTE DATE OF SERVICE: 02/06/2020 I am covering for Dr. Mattson. This 84-year-old woman who was admitted with laparoscopic cholecystectomy, also had anemia. Today the patient is feeling slightly better. No chest pain. No palpitations. No fever. A chest x-ray which was reviewed personally by me showed right paratracheal adenopathy. No chest pain or palpitation. No fever PAST MEDICAL HISTORY: Reviewed. REVIEW OF SYSTEMS: CARDIOVASCULAR SYSTEM: No angina. RESPIRATORY SYSTEM: As mentioned earlier. GI: As mentioned earlier. : No dysuria. NERVOUS SYSTEM: No numbness or weakness. CURRENT MEDICATIONS: 1. Tylenol p.r.n. 2. [place]. 3. Ventolin. 4. DuoNeb. 5. Symbicort. 6. Dilaudid. 7. Lactated R[place]. 8. Reglan. 9. Narcan. 10.Zofran. 11.Zosyn IV. PHYSICAL EXAMINATION: Patient is alert and oriented x3. Pulse is 77, blood pressure 121/54, respirations 17, temperature 97.8 pulse ox 100% on 2 L. HEENT: Conjunctivae normal. NECK: No jugular venous distention. CARDIOVASCULAR: S1, S2 muffled. RESPIRATORY: Breath sounds diminished at the bases. A few scattered rhonchi. ABDOMEN: Soft, status post surgery. LEGS: No edema. No swelling. NERVOUS SYSTEM: No focal deficits. LABS: WBC 8.6, hemoglobin 7.9, sodium is 135. ASSESSMENT: 1. Status post laparoscopic cholecystectomy. 2. Anemia, rule out gastrointestinal bleed. 3. Hyponatremia. 4. Increased WBC. 5. Rule out paratracheal lymphadenopathy. 6. Hypoalbuminemia with mild protein calorie malnutrition. 7. History of chronic obstructive pulmonary disease. 8. History of lung cancer. 9. Hyperlipidemia. 10.History of myocardial infarction. 11.History of degenerative joint disease. 12.History of tonsillectomy. 13.FULL CODE. RECOMMENDATIONS AND DISCUSSION: This 84-year-old woman who presented with multiple complex medical issues, we will monitor the patient closely. Continue the current medications, continue symptomatic treatment. The patient had chest CT last year, I will repeat a chest CT and continue to monitor. Otherwise Dr. Mattson will follow. Guarded prognosis. Further recommendations to follow. Hemoglobin is slightly up, will continue to monitor. MMODL / IJN: [id number] /
[2020-02-07 03:34] VITALS: TEMP 98.1
[2020-02-07] MEDS: PIPERACILLIN-TAZOBACTAM 3.375 GM in SODIUM CHLORIDE 0.9% 100 ML IVPB SCH (05:12)
[2020-02-07] MEDS: LACTATED RINGERS 1,000 ML IV SCH (06:57)
[2020-02-07 07:32] LABS: Basophils % (A) 0 %; Eosinophils # (A) 0.1 k/uL (0-0.7); Eosinophils % (A) 2 %; HCT 24.3 % (34.0-46.0); HGB 7.9 gm/dL (11.4-16.0); Lymphocytes # (A) 0.8 k/uL (1.0-4.8); Lymphocytes % (A) 10 %; MCH 27.1 pg (25.0-35.0); MCHC 32.4 g/dL (31.0-37.0); MCV 83.8 fL (80.0-100.0); Mean Platelet Volume 7.6; Monocytes # (A) 0.7 k/uL (0-1.0); Monocytes % (A) 9 %; Neutrophils # (A) 5.8 k/uL (1.3-7.7); Neutrophils % (A) 76 %; Platelet Count 279 k/uL (150-450); RDW 15.9 % (11.5-15.5); WBC 7.7 k/uL (3.8-10.6)
[2020-02-07 07:48] LABS: ALT 9 U/L (4-34); AST 18 U/L (14-36); African American GFR (CKD) >90 (>60 ml/min/1.73 sqM); Albumin 2.7 g/dL (3.5-5.0); Alkaline Phosphatase 40 U/L (38-126); Anion Gap 3 mmol/L; Blood Urea Nitrogen 8 mg/dL (7-17); Calcium 8.5 mg/dL (8.4-10.2); Carbon Dioxide 30 mmol/L (22-30); Chloride 103 mmol/L (98-107); Glucose 104 mg/dL (74-99); Non-African American GFR(CKD) 89 (>60 ml/min/1.73 sqM); Sodium 136 mmol/L (137-145); Total Protein 5.2 g/dL (6.3-8.2)
[2020-02-07 08:08] VITALS: BP 136/65; RESP 16
[2020-02-07] MEDS: IPRATROPIUM-ALBUTEROL 3 ML NEB INHALATION SCH ×2 (08:38→12:25)
[2020-02-07] MEDS: SYMBICORT 160-4.5 MCG INHALER INHALATION SCH (08:38)
[2020-02-07 08:49] VITALS: PULSE 76
[2020-02-07] MEDS: DOCUSATE 100 MG CAP PO SCH ×2 (08:49→08:51)
--- NOTE | 2020-02-07 10:31 | P.DS ---
Providers Date of admission: 02/05/20 10:42 Expected date of discharge: 02/07/20 Attending physician: Luis Manuel Villanueva Consults: 02/03/20 08:35 Consult Physician Routine Consulting Provider: Chandra Mattson Reason/Comments: Medical management Do you want consulting provider notified?: Yes Primary care physician: Chandra Mattson [facility] Course: This is a 4-year-old female who underwent laparoscopic cholecystectomy and lysis of adhesions. Patient was placed in observation due to significant adhesive disease. Patient was placed on Lovenox 40 mg subcu. Patient developed anemia postoperatively presumed to be due to hydration and bleeding from Lovenox. Patient is chronically anemic. She received 1 unit of packed red cells. The remainder of her hospital stay was unremarkable. Please see hospital chart for details. Procedures: Laparoscopic cholecystectomy, lysis of adhesions Patient Condition at Discharge: Good Plan - Discharge Summary Discharge Rx Participant: No New Discharge Prescriptions: New Hydrocodone/Acetaminophen [[place] 5-325] 1 tab PO Q6HR PRN #10 tab PRN Reason: Pain No Action Albuterol Sulfate [Proair Hfa] 1 - 2 puff INHALATION RT-Q6H PRN PRN Reason: Shortness Of Breath Ipratropium-Albuterol Nebulize [Duoneb 0.5 mg-3 mg/3 ml Soln] 3 ml INHALATION TID Simvastatin [Zocor] 10 mg PO DAILY amLODIPine [Norvasc] 5 mg PO DAILY #30 tab Docusate [Colace] 100 mg PO DAILY Acetaminophen Tab [Tylenol Tab] 650 mg PO Q4H PRN #30 tablet PRN Reason: Pain Budesonide-Formot 160-4.5 Mcg [Symbicort 160-4.5 Mcg Inhaler] 2 puff INHALATION BID Discharge Medication List Albuterol Sulfate [Proair Hfa] 1 - 2 puff INHALATION RT-Q6H PRN 09/01/16 [History] Ipratropium-Albuterol Nebulize [Duoneb 0.5 mg-3 mg/3 ml Soln] 3 ml INHALATION TID 06/02/18 [History] Simvastatin [Zocor] 10 mg PO DAILY 09/28/19 [History] amLODIPine [Norvasc] 5 mg PO DAILY #30 tab 10/04/19 [Rx] Docusate [Colace] 100 mg PO DAILY 10/15/19 [History] Acetaminophen Tab [Tylenol Tab] 650 mg PO Q4H PRN #30 tablet 10/25/19 [Rx] Budesonide-Formot 160-4.5 Mcg [Symbicort 160-4.5 Mcg Inhaler] 2 puff INHALATION BID 02/02/20 [History] Hydrocodone/Acetaminophen [[place] 5-325] 1 tab PO Q6HR PRN #10 tab 02/04/20 [Rx] Follow up Appointment(s)/Referral(s): Luis Manuel Villanueva MD [STAFF PHYSICIAN] - 02/10/20 3:10 pm Activity/Diet/Wound Care/Special Instructions: No driving while taking [place] No lifting over 10 pounds You may shower. No soaking or tub baths Very light activity until you are reevaluated at your follow up appointment with your surgeon
--- NOTE | 2020-02-07 13:33 | P.PN ---
Subjective Progress Note Date: 02/07/20 This is an 84-year-old pleasant female status post laparoscopic cholecystectomy, postop day #1, with medical history of lung cancer, COPD, hyperlipidemia, CAD, MS, osteoarthritis, mild anxiety. Tolerated procedure well. Complaining of posterior right shoulder pain. Reports no flatus, no bowel movement. Nausea yesterday, subsided. Tolerating diet with no nausea vomiting or diarrhea, currently. Denies lightheadedness, dizziness or focal deficits. Denies chest pain, palpitations or shortness of breath. Afebrile, WBC 14.8. Hemoglobin 8.2. 02/07/2020 recent chest x-ray reporting increasing right paratracheal density, adenopathy increased compared to old exam. CT performed reporting an enlarging right apical mass, possible mediastinal adenopathy. Denies chest pain, palpitations. Afebrile, normal WBC. Objective - Vital Signs Vital signs: Vital Signs Temp 98.1 F 02/07/20 07:17 Pulse 76 02/07/20 08:48 Resp 16 02/07/20 07:17 BP 136/65 02/07/20 07:17 Pulse Ox 100 02/07/20 07:17 Intake & Output 02/06/20 02/07/20 02/07/20 18:59 06:59 18:59 Intake Total 100 160 Balance 100 160 Intake: IV 160 Lactated Ring[place] 1,000 ml 160 @ 20 mls/hr IV .Q24H [facility] Rx#:[id number] Oral 100 Other: Voiding Method Bedside Commode # Voids 3 1 # Bowel Movements 1 - Exam PHYSICAL EXAM: VITAL SIGNS: [As above] GENERAL: Sitting up in bed, no acute distress HEENT: Conjunctivae normal. eyes normal. Oral mucosa moist NECK: No JVD. No thyroid enlargement. CARDIOVASCULAR: S1, S2 regular.No murmur RESPIRATION: Breath sounds diminished in the bases. No rhonchi or crackles. ABDOMEN: Status post surgery, Soft, No guarding. Laparoscopic sites well approximated. Positive Bowel sounds heard. LEGS: No edema. no swelling PSYCHIATRY: Alert and oriented X3, mood and affect normal. NERVOUS SYSTEM: Cranial N 2-12 grossly normal. Moves all 4 limbs. No focal deficits. Strength and sensation grossly intact. Skin: no rash - Labs CBC & Chem 7: 02/07/20 07:00 02/07/20 07:00 Labs: Abnormal Lab Results - Last 24 Hours (Table) 02/07/20 02/07/20 Range/Units 07:00 07:00 RBC 2.90 L (3.80-5.40) m/uL Hgb 7.9 L (11.4-16.0) gm/dL Hct 24.3 L (34.0-46.0) % RDW 15.9 H (11.5-15.5) % Lymphocytes # 0.8 L (1.0-4.8) k/uL Sodium 136 L (137-145) mmol/L Creatinine 0.50 L (0.52-1.04) mg/dL Glucose 104 H (74-99) mg/dL Total Protein 5.2 L (6.3-8.2) g/dL Albumin 2.7 L (3.5-5.0) g/dL Assessment and Plan Assessment: Status post laparoscopic cholecystectomy Acute blood loss anemia, postoperatively, status post transfusion RBCs, close monitoring outpatient. Enlarging right apical mass, possible mediastinal adenopathy per CT, further follow-up outpatient with pulmonary History of lung cancer Anemia, postoperative, COPD CAD, history of MS Hyperlipidemia Osteoarthritis Mild anxiety Plan: Continue current medication regime ,monitoring and sent to make treatment. Patient has been DC'd as per surgery. Recommend follow-up with pulmonary for further evaluation regarding abnormal CT. repeat outpatient CBC WITH PCP. Follow-up with PCP, Dr. Mattson in 1 week. The impression and plan of care has been dictated as directed. : I performed a history and examination of this patient, discussed the same with the dictator. I agree with the dictator's note ,documented as a scribe. Any additional findings or plans will be noted.
== END 2020-02-07 13:00 | disposition home or self-care (01) | DRG 418 ==
LOC: OR 06:21 → 4SSUR 08:27 → OR 02-04 14:35 → OBSVTOIN 02-05 10:42
PROVIDERS: ADMIT Surgery; ATTEND Surgery
PROC: 0FT44ZZ Resection of Gallbladder, Percutaneous Endoscopic Approach (ICD-10-PCS; principal; 2020-02-05)
PROC: 30233N1 Transfusion of Nonautologous Red Blood Cells into Peripheral Vein, Percutaneous Approach (ICD-10-PCS; 2020-02-05)
DX: K81.1 Chronic cholecystitis (principal); D62 Acute posthemorrhagic anemia; E44.1 Mild protein-calorie malnutrition; E87.1 Hypo-osmolality and hyponatremia; E78.5 Hyperlipidemia, unspecified; F41.9 Anxiety disorder, unspecified; I25.10 Atherosclerotic heart disease of native coronary artery without angina pectoris; I25.2 Old myocardial infarction; J44.9 Chronic obstructive pulmonary disease, unspecified; M19.90 Unspecified osteoarthritis, unspecified site; M25.511 Pain in right shoulder; R59.0 Localized enlarged lymph nodes; I10 Essential (primary) hypertension; D72.829 Elevated white blood cell count, unspecified; Z79.51 Long term (current) use of inhaled steroids; Z79.899 Other long term (current) drug therapy; Z68.20 Body mass index [BMI] 20.0-20.9, adult; Z87.891 Personal history of nicotine dependence; Z85.118 Personal history of other malignant neoplasm of bronchus and lung; Z98.51 Tubal ligation status; Z96.60 Presence of unspecified orthopedic joint implant; Z82.49 Family history of ischemic heart disease and other diseases of the circulatory system; Z80.0 Family history of malignant neoplasm of digestive organs; Z80.8 Family history of malignant neoplasm of other organs or systems; Z81.1 Family history of alcohol abuse and dependence
CPT/HCPCS: 71045; 71250; 80053; 85025; 85610; 86850; 86900; 86901; 86920; 88304; 94640